=== PATIENT | male | born 1940 | race Caucasian/White ===

== ENCOUNTER 2016-09-23 10:16 | Outpatient (CLI) | payer MEDICARE ==
[2016-09-23 10:47] LABS: Anion Gap 16 mmol/L (10-20); BUN (Urea Nitrogen) 30 mg/dL (8.4-25.7); Calc. Creatinine Clearance 0 mL/min (70-130); Calcium 9.6 mg/dL (7.8-10.44); Carbon Dioxide 21 mmol/L (23-31); Chloride 103 mmol/L (98-107); Estimated GFR-MDRD 49; Glucose 142 mg/dL (83-110); Sodium 135 mmol/L (136-145)
== END 2016-09-23 10:17 | disposition home or self-care (01) ==
LOC: MADLABBHPM 10:16
PROVIDERS: ATTEND Family Medicine
DX: E11.9 Type 2 diabetes mellitus without complications (principal)
CPT/HCPCS: 36415; 80048

== ENCOUNTER 2016-10-01 11:09 | Outpatient (CLI) | payer MEDICARE ==
[2016-10-01 11:47] LABS: Bilirubin Negative (Negative); Blood, Urine Small (Negative); Clarity Hazy (Clear); Glucose, Urine (Dipstick) 500 mg/dL (Negative); Leukocyte Negative (Negative); Nitrite Negative (Negative); Protein, Urine (Dipstick) 100 mg/dL (Neg-Trace); Urobilinogen 0.2 mg/dL (0.2-1.0); pH, Urine 5.5 (5.0-9.0)
[2016-10-01 11:49] LABS: Bacteria/HPF None Seen HPF (None Seen); Squamous Epithelial 0-3 HPF (0-3)
== END 2016-10-01 11:10 | disposition home or self-care (01) ==
LOC: MADLAB 11:09
PROVIDERS: ATTEND Internal Medicine Endocrinology, Diabetes & Metabolism
DX: N39.0 Urinary tract infection, site not specified (principal)
CPT/HCPCS: 36415; 81003; 81015; 87086

== ENCOUNTER 2017-01-22 11:11 | Outpatient (CLI) | payer MEDICARE ==
[2017-01-22 12:58] LABS: Hemoglobin A1c 7.8 % (4.0-6.0)
[2017-01-22 12:59] LABS: ALT (SGPT) 33 U/L (8-55); AST (SGOT) 21 U/L (5-34); Albumin 3.8 g/dL (3.4-4.8); Alkaline Phosphatase 82 U/L (40-150); Anion Gap 15 mmol/L (10-20); BUN (Urea Nitrogen) 19 mg/dL (8.4-25.7); Bilirubin, Total 0.3 mg/dL (0.2-1.2); Calc. Creatinine Clearance 0 mL/min (70-130); Calcium 9.2 mg/dL (7.8-10.44); Carbon Dioxide 20 mmol/L (23-31); Chloride 106 mmol/L (98-107); Estimated GFR-MDRD 48; Globulin 3.4 g/dL (2.4-3.5); Glucose 129 mg/dL (83-110); Protein, Total 7.2 g/dL (5.8-8.1); Sodium 136 mmol/L (136-145)
[2017-01-22 13:22] LABS: Free T4 (Free Thyroxine) 1.02 ng/dL (0.70-1.48); PSA-Asymptomatic (SCREENING) 0.94 ng/mL (0-4.0); Thyroid Stimulating Hormone 1.7543 uIU/mL (0.35-4.94)
[2017-01-22 13:24] LABS: Eosinophils 4 % (0-10); Hemoglobin 12.3 g/dL (14.0-18.0); Lymphocytes 31 % (21-51); MDiff Complete? YES; Mean Corpuscular HGB CONC 34.2 g/dL (32.0-36.0); Mean Corpuscular Volume 90.8 fl (80.0-94.0); Mean Platelet Volume 6.9 fL (7.4-10.4); Monocytes 5 % (0-10); Neutrophil 60 % (42-75); PLT Morphology Comment Appears Adequate; Platelet Count 228 thou/uL (130-400); RBC Distribution Width 11.7 % (11.5-14.5); Red Blood Cell (RBC) Count 3.96 mill/uL (4.70-6.10); White Blood Cell (WBC) Count 6.2 thou/uL (4.8-10.8)
[2017-01-22 15:51] LABS: Bilirubin Negative (Negative); Blood, Urine Trace (Negative); Clarity Clear (Clear); Glucose, Urine (Dipstick) 500 mg/dL (Negative); Leukocyte Negative (Negative); Nitrite Negative (Negative); Protein, Urine (Dipstick) 100 mg/dL (Neg-Trace); Specific Gravity, Urine 1.025 (1.005-1.030); Urobilinogen 0.2 mg/dL (0.2-1.0)
[2017-01-22 15:52] LABS: Squamous Epithelial 0-3 HPF (0-3)
[2017-01-22 15:53] LABS: Bacteria/HPF Rare-Few HPF (None Seen)
[2017-01-23 17:28] LABS: Creatinine, Urine 134.38 mg/dL (63-166)
[2017-01-23 17:31] LABS: Microalbumin Urine 65.7 mg/dL (0.5-50.0); Microalbumin/Creat Ratio 488.9 mg/g (Less than 30)
== END 2017-01-22 11:12 | disposition home or self-care (01) ==
LOC: MADLAB 11:11
PROVIDERS: ATTEND Internal Medicine Endocrinology, Diabetes & Metabolism
DX: Z12.5 Encounter for screening for malignant neoplasm of prostate (principal); C67.9 Malignant neoplasm of bladder, unspecified; I10 Essential (primary) hypertension; E03.9 Hypothyroidism, unspecified; E78.5 Hyperlipidemia, unspecified; E11.65 Type 2 diabetes mellitus with hyperglycemia
CPT/HCPCS: 36415; 80053; 81001; 82043; 83036; 84439; 84443; 85025; G0103

== ENCOUNTER 2017-03-16 13:22 | Outpatient (CLI) | payer MEDICARE ==
[2017-03-16 14:25] LABS: Clarity Hazy (Clear); Leukocyte Negative (Negative); Nitrite Positive (Negative); Specific Gravity, Urine 1.015 (1.005-1.030)
[2017-03-16 14:26] LABS: Bacteria/HPF Rare-Few HPF (None Seen); Bilirubin Negative (Negative); Blood, Urine Negative (Negative); Glucose, Urine (Dipstick) 500 mg/dL (Negative); Protein, Urine (Dipstick) 100 mg/dL (Neg-Trace); RBC/HPF 0-3 HPF (0-3); Urobilinogen 0.2 mg/dL (0.2-1.0)
== END 2017-03-16 13:23 | disposition home or self-care (01) ==
LOC: MADLABBHPM 13:22
PROVIDERS: ATTEND Family Medicine
DX: R35.0 Frequency of micturition (principal)
CPT/HCPCS: 36415; 81001; 87086

== ENCOUNTER 2017-03-20 13:07 | Emergency (ER) | payer MEDICARE | END 2017-03-20 14:10 | disposition home or self-care (01) | LOC: MADERS 13:07 | DX: E11.65 Type 2 diabetes mellitus with hyperglycemia (principal); I10 Essential (primary) hypertension | CPT/HCPCS: 36416; 99284 ==

== ENCOUNTER 2017-04-01 11:46 | Outpatient (CLI) | payer MEDICARE ==
[2017-04-01 12:50] LABS: #Basophils 0.1 thou/uL (0.0-0.2); #Eosinphils 0.5 thou/uL (0.0-0.7); #Lymphocytes 1.4 thou/uL (1.20-3.40); #Monocytes 0.7 thou/uL (0.11-0.59); #Neutrophils 5.4 thou/uL (1.40-6.50); %Basophils 0.9 % (0.0-1.0); %Eosinophils 5.7 % (0.0-10.0); %Lymphocytes 17.8 % (21.0-51.0); %Monocytes 8.2 % (0.0-10.0); %Neutrophils 67.4 % (42.0-75.0); Hemoglobin 11.7 g/dL (14.0-18.0); Mean Corpuscular Hemoglobin 29.9 pg (27.0-31.0); Mean Corpuscular Volume 90.6 fl (80.0-94.0); Mean Platelet Volume 7.2 fL (7.4-10.4); Platelet Count 213 thou/uL (130-400); RBC Distribution Width 12.8 % (11.5-14.5); Red Blood Cell (RBC) Count 3.92 mill/uL (4.70-6.10); White Blood Cell (WBC) Count 8.1 thou/uL (4.8-10.8)
[2017-04-01 13:00] LABS: Hemoglobin A1c 8.8 % (4.0-6.0)
[2017-04-01 13:12] LABS: ALT (SGPT) 24 U/L (8-55); AST (SGOT) 19 U/L (5-34); Albumin 3.7 g/dL (3.4-4.8); Alkaline Phosphatase 89 U/L (40-150); Anion Gap 15 mmol/L (10-20); BUN (Urea Nitrogen) 26 mg/dL (8.4-25.7); Bilirubin, Total 0.3 mg/dL (0.2-1.2); Calc. Creatinine Clearance 0 mL/min (70-130); Calcium 9.3 mg/dL (7.8-10.44); Carbon Dioxide 20 mmol/L (23-31); Cardiac Risk 4.4 (Less than 4.5); Chloride 104 mmol/L (98-107); Cholesterol 209 mg/dl (< 200 Desired); Estimated GFR-MDRD 47; Globulin 3.2 g/dL (2.4-3.5); Glucose 188 mg/dL (83-110); HDL Cholesterol 48 mg/dL (>60 Neg Risk); Potassium 4.8 mmol/L (3.5-5.1); Protein, Total 6.9 g/dL (5.8-8.1); Sodium 134 mmol/L (136-145)
[2017-04-01 13:37] LABS: Triglycerides 151 mg/dL (Less than 150)
[2017-04-01 14:06] LABS: LDL Cholesterol, Calculated 131 mg/dL
== END 2017-04-01 11:47 | disposition home or self-care (01) ==
LOC: MADLABBHPM 11:46
PROVIDERS: ATTEND Family Medicine
DX: E11.9 Type 2 diabetes mellitus without complications (principal)
CPT/HCPCS: 36415; 80053; 80061; 83036; 85025

== ENCOUNTER 2018-01-19 16:43 | Emergency (ER) | payer MEDICARE ==
[~2018-01-19 16:43] MED LIST: Sodium Chloride 0.9% 1,000 ML BAG ONE
[2018-01-19 17:46] LABS: PTT 25.6 SEC (22.9-36.1); Prothrombin Time 13.4 SEC (12.0-14.7)
--- NOTE | 2018-01-19 17:49 | RAD ---
AP CHEST: 01/19/18 HISTORY: Syncope. COMPARISON: 02/14/17. Heart is mildly enlarged. Vascular and interstitial markings mildly prominent. No focal infiltrate or significant effusion. IMPRESSION: Cardiomegaly and mild vascular engorgement. Not significantly changed from prior exam. POS: [facility]
[2018-01-19 17:58] LABS: ALT (SGPT) 20 U/L (8-55); AST (SGOT) 13 U/L (5-34); Albumin 3.8 g/dL (3.4-4.8); Alkaline Phosphatase 85 U/L (40-150); Anion Gap 19 mmol/L (10-20); BUN (Urea Nitrogen) 31 mg/dL (8.4-25.7); Bilirubin, Total 0.5 mg/dL (0.2-1.2); CK (CPK) 30 U/L (30-200); Calc. Creatinine Clearance 0 mL/min (70-130); Calcium 9.6 mg/dL (7.8-10.44); Carbon Dioxide 19 mmol/L (23-31); Chloride 98 mmol/L (98-107); Estimated GFR-MDRD 30; Globulin 3.6 g/dL (2.4-3.5); Glucose 325 mg/dL (83-110); Potassium 5.6 mmol/L (3.5-5.1); Protein, Total 7.4 g/dL (5.8-8.1); Sodium 130 mmol/L (136-145)
[2018-01-19 18:01] LABS: CKMB 1.1 ng/mL (0-6.6); Troponin I Less than 0.010 ng/mL (< 0.028)
[2018-01-19 18:02] LABS: Bilirubin Negative (Negative); Blood, Urine Trace (Negative); Clarity Clear (Clear); Glucose, Urine (Dipstick) 250 mg/dL (Negative); Leukocyte Small (Negative); Nitrite Negative (Negative); Protein, Urine (Dipstick) > or equal to 300 mg/dL (Neg-Trace); Urobilinogen 0.2 mg/dL (0.2-1.0)
[2018-01-19 18:03] LABS: Bacteria/HPF Rare-Few HPF (None Seen); RBC/HPF 0-3 HPF (0-3); WBC/HPF 21-50 HPF (0-3)
[2018-01-19 18:13] LABS: Band 2 % (5-11); Eosinophils 1 % (0-10); Hemoglobin 12.6 g/dL (14.0-18.0); Lymphocytes 4 % (21-51); MDiff Complete? YES; Mean Corpuscular HGB CONC 34.1 g/dL (32.0-36.0); Mean Corpuscular Hemoglobin 29.6 pg (27.0-31.0); Mean Corpuscular Volume 86.7 fl (80.0-94.0); Mean Platelet Volume 6.3 fL (7.4-10.4); Monocytes 1 % (0-10); Neutrophil 92 % (42-75); PLT Morphology Comment Appears Adequate; Platelet Count 255 thou/uL (130-400); RBC Distribution Width 11.6 % (11.5-14.5); Red Blood Cell (RBC) Count 4.26 mill/uL (4.70-6.10); White Blood Cell (WBC) Count 12.5 thou/uL (4.8-10.8)
[2018-01-19] MEDS ORDERED: Insulin Regular 300 UNITS/3 ML VIAL ONE (19:20)
[2018-01-19] MEDS ORDERED: Ciprofloxacin 500 MG TAB ONE (19:20)
--- NOTE | 2018-01-19 19:29 | CT ---
CT HEAD WITHOUT CONTRAST: 01/19/18 Multiple axial tomograms obtained through the head without IV enhancement. INDICATIONS: Syncope. History of cochlear implant. COMPARISON: Comparison made to head CT of 07/10/16. Mild cortical volume loss is stable. Ventricular size is upper normal and stable. No hemorrhage or ma ss. No evidence of acute infarct. No significant interval change. IMPRESSION: No acute finding. POS: [facility]
== END 2018-01-19 21:20 | disposition short-term general hospital (02) ==
LOC: MADERS 16:43
DX: A41.9 Sepsis, unspecified organism (principal); R55 Syncope and collapse; C67.9 Malignant neoplasm of bladder, unspecified; E11.22 Type 2 diabetes mellitus with diabetic chronic kidney disease; I12.9 Hypertensive chronic kidney disease with stage 1 through stage 4 chronic kidney disease, or unspecified chronic kidney disease; N18.2 Chronic kidney disease, stage 2 (mild); N39.0 Urinary tract infection, site not specified; E11.42 Type 2 diabetes mellitus with diabetic polyneuropathy; E03.9 Hypothyroidism, unspecified; F02.80 Dementia in other diseases classified elsewhere, unspecified severity, without behavioral disturbance, psychotic disturbance, mood disturbance, and anxiety; G30.9 Alzheimer's disease, unspecified; K21.9 Gastro-esophageal reflux disease without esophagitis; N40.0 Benign prostatic hyperplasia without lower urinary tract symptoms; Z79.4 Long term (current) use of insulin; Z79.899 Other long term (current) drug therapy; Z79.82 Long term (current) use of aspirin
CPT/HCPCS: 36416; 70450; 71045; 80053; 82553; 83605; 83880; 84484; 85025; 85610; 85730; 87086; 93005; 94760; 96361; 96374; J1815; J7050

== ENCOUNTER 2018-05-08 23:45 | Emergency (ER) | payer MEDICARE ==
[2018-05-09] MEDS ORDERED: Ketorolac Tromethamine 30 MG/ML VIAL ONE (00:16)
[2018-05-09 00:44] LABS: CKMB 1.3 ng/mL (0-6.6); Troponin I Less than 0.010 ng/mL (< 0.028)
[2018-05-09 01:09] LABS: Hemoglobin 12.6 g/dL (14.0-18.0); Mean Corpuscular HGB CONC 34.7 g/dL (32.0-36.0); Mean Corpuscular Hemoglobin 31.1 pg (27.0-31.0); Mean Corpuscular Volume 89.5 fL (78.0-98.0); Mean Platelet Volume 6.9 fL (7.4-10.4); Platelet Count 230 thou/uL (130-400); RBC Distribution Width 11.7 % (11.5-14.5); Red Blood Cell (RBC) Count 4.07 mill/uL (4.70-6.10); White Blood Cell (WBC) Count 12.8 thou/uL (4.8-10.8)
[2018-05-09 01:10] LABS: Band 4 % (5-11); Eosinophils 1 % (0-10); Lymphocytes 10 % (21-51); MDiff Complete? YES; Monocytes 5 % (0-10); Neutrophil 79 % (42-75); PLT Morphology Comment Appears Adequate; RBC Morphology Normal; Reactive Lymphocytes 1 % (0-10)
[2018-05-09 01:23] LABS: Anion Gap 15 mmol/L (10-20); BUN (Urea Nitrogen) 30 mg/dL (8.4-25.7); CK (CPK) 39 U/L (30-200); Calc. Creatinine Clearance 0 mL/min (70-130); Calcium 9.5 mg/dL (7.8-10.44); Carbon Dioxide 21 mmol/L (23-31); Chloride 101 mmol/L (98-107); Estimated GFR-MDRD 34; Glucose 355 mg/dL (83-110); Potassium 6.1 mmol/L (3.5-5.1); Sodium 131 mmol/L (136-145)
[2018-05-09] MEDS ORDERED: Insulin Regular 300 UNITS/3 ML VIAL ONE (01:39)
[2018-05-09] MEDS ORDERED: Calcium Chloride 1 GM/10 ML Abboject SYRINGE ONE (01:39)
[2018-05-09] MEDS ORDERED: Albuterol Sulfate 2.5 mg/3 ml Neb ONE (01:39)
--- NOTE | 2018-05-09 07:31 | RAD ---
RADIOGRAPH CHEST 1 VIEW: HISTORY: 77-year-old male with altered mental status. FINDINGS: There is no air space density, pulmonary edema, or pneumothorax. The lateral costophrenic angles are sharp. IMPRESSION: No acute pulmonary findings. cheryl [] POS: [facility]
--- NOTE | 2018-05-09 08:15 | CT ---
PRELIMINARY REPORT/[facility]/EMERGENCY AFTER HOURS PROCEDURE: EXAM: CT Head Without Intravenous Contrast EXAM DATE/TIME: Exam ordered 05/09/2018 12:25 AM CLINICAL HISTORY: 77 years old, male; Signs and symptoms; Syncope and collapse; Prior surgery; Surgery date: 6+ months; Surgery type: Cochlear implant; Patient HX: Pt has early onset alzheimers. TECHNIQUE: Axial computed tomography images of the head/brain without intravenous contrast. Coronal and sagittal reformatted images were created and reviewed. COMPARISON: No relevant prior studies available. FINDINGS: Brain: Volume loss and chronic small vessel ischemic change. No brain edema. No intracranial hemorrha ge. Ventricles: Unremarkable. No ventriculomegaly. Bones/joints: Unremarkable. No acute fracture. Soft tissues: Unremarkable. Sinuses: Small polyp versus mucus retention cyst in the left maxillary sinus. No fluid levels. Mastoid air cells: Unremarkable as visualized. No mastoid effusion. Other findings: Left-sided cochlear implant. IMPRESSION: No acute brain findings. Thank you for allowing us to participate in the care of your patient. Dictated and Authenticated by: Evert Carney MD 05/09/2018 1:05 AM Central Time ([place] & [place]) FINAL REPORT CT BRAIN WITHOUT CONTRAST: Date: 05/09/18 FINDINGS/IMPRESSION: I agree with the preliminary report given by Angela. No significant interval change is seen since exam of 01/19/18. POS: [facility]
== END 2018-05-09 02:45 | disposition short-term general hospital (02) ==
LOC: MADERS 23:45
DX: R55 Syncope and collapse (principal); E11.65 Type 2 diabetes mellitus with hyperglycemia; E87.5 Hyperkalemia; N19 Unspecified kidney failure; E11.42 Type 2 diabetes mellitus with diabetic polyneuropathy; E03.9 Hypothyroidism, unspecified; I10 Essential (primary) hypertension; K21.9 Gastro-esophageal reflux disease without esophagitis; N40.0 Benign prostatic hyperplasia without lower urinary tract symptoms; G30.9 Alzheimer's disease, unspecified; F02.80 Dementia in other diseases classified elsewhere, unspecified severity, without behavioral disturbance, psychotic disturbance, mood disturbance, and anxiety; Z85.3 Personal history of malignant neoplasm of breast; Z79.4 Long term (current) use of insulin; Z79.84 Long term (current) use of oral hypoglycemic drugs; Z79.899 Other long term (current) drug therapy; Z79.82 Long term (current) use of aspirin
CPT/HCPCS: 70450; 71045; 80048; 82553; 83880; 84484; 85025; 93005; 94760; 96361; 96374; 96375; J1815; J1885; J7050; J7611

== ENCOUNTER 2018-11-13 20:33 | Emergency (ER) | payer MEDICARE ==
--- NOTE | 2018-11-13 21:22 | RAD ---
FExam: Chest one view HISTORY:Hyperglycemia Comparison: 05/08/2018 FINDINGS: Lungs: Bilateral interstitial prominence and patchy left basilar density Cardiac silhouette:Enlarged, stable Pulmonary vessels: Mild central prominence Pleural Spaces: Hazy pleural-based densities of each lower lung zone are present Pneumothorax: None Osseous abnormalities: None of acuity. IMPRESSION: Findings suggest edema related to mild CHF. Small volume bilateral pleural fluid is not e xcluded.
[2018-11-13] MEDS ORDERED: Insulin Regular 300 UNITS/3 ML VIAL ONE (21:39)
[2018-11-13 21:41] LABS: #Basophils 0.1 thou/uL (0.0-0.2); #Eosinphils 0.3 thou/uL (0.0-0.7); #Lymphocytes 1.6 thou/uL (1.20-3.40); #Monocytes 0.5 thou/uL (0.11-0.59); #Neutrophils 4.2 thou/uL (1.40-6.50); %Basophils 1.1 % (0.0-1.0); %Eosinophils 4.4 % (0.0-10.0); %Lymphocytes 23.4 % (21.0-51.0); %Neutrophils 63.2 % (42.0-75.0); Hemoglobin 11.5 g/dL (14.0-18.0); Mean Corpuscular HGB CONC 33.7 g/dL (32.0-36.0); Mean Corpuscular Hemoglobin 28.8 pg (27.0-31.0); Mean Corpuscular Volume 85.5 fL (78.0-98.0); Mean Platelet Volume 6.6 fL (7.4-10.4); Platelet Count 226 thou/uL (130-400); RBC Distribution Width 11.5 % (11.5-14.5); Red Blood Cell (RBC) Count 3.99 mill/uL (4.70-6.10); White Blood Cell (WBC) Count 6.7 thou/uL (4.8-10.8)
[2018-11-13 21:42] LABS: Base Excess-Venous -6.4 mmol/L (-2.0 to 3.0); Bicarbonate (HCO3v) 18.8 mmol/L (22.0-28.0); CO2 Tension (PvCO2) 35.8 mmHg (40.0-50.0); Calcium, Ionized 1.12 mmol/L (See Comments:); Chloride 97 mmol/L (98-107); Hemoglobin - Calc 13.2 g/dL (14.0-18.0); O2 Tension (PvO2) 66.2 mmHg (35.0-45.0); Potassium 4.2 mmol/L (3.5-5.1); Sodium 126 mmol/L (138-145); T. Carbon Dioxide 19.9 mmol/L (22.0-28.0); pH (Venous) 7.329 (7.320-7.430); vO2 Saturation-calc 91.5 % (60.0-85.0)
[2018-11-13 21:54] LABS: ALT (SGPT) 14 U/L (8-55); AST (SGOT) 14 U/L (5-34); Albumin 3.9 g/dL (3.4-4.8); Alkaline Phosphatase 119 U/L (40-150); Anion Gap 14 mmol/L (10-20); BUN (Urea Nitrogen) 28 mg/dL (8.4-25.7); Bilirubin, Total 0.2 mg/dL (0.2-1.2); Calc. Creatinine Clearance 0 mL/min (70-130); Calcium 8.7 mg/dL (7.8-10.44); Carbon Dioxide 19 mmol/L (23-31); Chloride 95 mmol/L (98-107); Estimated GFR-MDRD 35; Globulin 3.7 g/dL (2.4-3.5); Glucose 386 mg/dL (83-110); Lipase 85 U/L (8-78); Potassium 4.2 mmol/L (3.5-5.1); Protein, Total 7.6 g/dL (5.8-8.1); Sodium 124 mmol/L (136-145)
[2018-11-13 22:27] LABS: Bilirubin Negative (Negative); Blood, Urine Trace (Negative); Clarity Clear (Clear); Glucose, Urine (Dipstick) 500 mg/dL (Negative); Leukocyte Negative (Negative); Nitrite Negative (Negative); Protein, Urine (Dipstick) 100 mg/dL (Neg-Trace); Specific Gravity, Urine 1.015 (1.005-1.030); Urobilinogen 0.2 mg/dL (0.2-1.0)
[2018-11-13 22:35] LABS: Bacteria/HPF None Seen HPF (None Seen); Hyaline Casts/LPF NONE SEEN LPF (0-3 Hyaline); RBC/HPF 0-3 HPF (0-3); Squamous Epithelial 0-3 HPF (0-3); Transitional Epithelial 0-3 HPF (0-3)
== END 2018-11-13 22:53 | disposition home or self-care (01) ==
LOC: MADERS 20:33
DX: E11.65 Type 2 diabetes mellitus with hyperglycemia (principal); G30.9 Alzheimer's disease, unspecified; F02.80 Dementia in other diseases classified elsewhere, unspecified severity, without behavioral disturbance, psychotic disturbance, mood disturbance, and anxiety; E03.9 Hypothyroidism, unspecified; K21.9 Gastro-esophageal reflux disease without esophagitis; N40.0 Benign prostatic hyperplasia without lower urinary tract symptoms; I10 Essential (primary) hypertension; Z87.891 Personal history of nicotine dependence; Z79.899 Other long term (current) drug therapy; Z79.4 Long term (current) use of insulin
CPT/HCPCS: 36416; 71045; 80053; 81003; 81015; 82010; 82330; 82803; 83605; 83690; 85025; 93005; 96361; 96374; J1815; J7050

== ENCOUNTER 2019-06-07 11:40 | Outpatient (CLI) | payer MEDICARE ==
[2019-06-07 12:46] LABS: Bilirubin Negative (Negative); Blood, Urine Negative (Negative); Clarity Clear (Clear); Glucose, Urine (Dipstick) 100 mg/dL (Negative); Leukocyte Negative (Negative); Nitrite Negative (Negative); Protein, Urine (Dipstick) 100 mg/dL (Neg-Trace); Urobilinogen 0.2 mg/dL (Less than 2)
[2019-06-07 12:52] LABS: RBC/HPF None Seen HPF (0-3); Squamous Epithelial 0-3 HPF (0-3); WBC/HPF 0-3 HPF (0-3)
[2019-06-07 12:53] LABS: Bacteria/HPF None Seen HPF (None Seen); Other Microscopic Description C&S SET UP
[2019-06-07 13:08] LABS: Anion Gap 16 mmol/L (10-20); BUN (Urea Nitrogen) 21 mg/dL (8.4-25.7); Calc. Creatinine Clearance 0 mL/min (70-130); Carbon Dioxide 24 mmol/L (23-31); Chloride 101 mmol/L (98-107); Estimated GFR-MDRD 37; Glucose 126 mg/dL (83-110); Potassium 5.8 mmol/L (3.5-5.1); Sodium 135 mmol/L (136-145)
--- NOTE | 2019-06-07 13:22 | CT ---
CT abdomen and pelvis noncontrast HISTORY: Bladder malignancy. Renal cyst. COMPARISON: 07/27/2018 and a 28/01/2016. FINDINGS: No stones are apparent along the course of either urinary tract. The proximal left ureter i s dilated up to 2.8 cm over a length of 6.6 cm. This is more prominent than the 2018 study. Similar in size to the 04/04/2016 study. No gas is evident within the collecting system. Lack of contrast limits evaluation of the soft tissues. Mild atelectasis at the lung bases. Left adre nal adenoma is stable. Large cyst projecting posteriorly from the right kidney measures up to 5.8 cm. Fusiform ectasia of the lower abdominal aorta and calcification throughout the arterial structure s are again demonstrated. Fluid fills the urinary bladder without focal mass evident. There are prominent degenerative changes of the lumbar spine. IMPRESSION: Distention of the proximal right ureter is similar in size to the 2016 study. Cause not e vident. No new urinary tract abnormalities are apparent. Right renal cyst, left adrenal adenoma, and other chronic-type findings are stable. Atherosclerosis.
== END 2019-06-07 11:41 | disposition home or self-care (01) ==
LOC: MADLABBHPM 11:40
PROVIDERS: ATTEND Urology
DX: C67.9 Malignant neoplasm of bladder, unspecified (principal); N28.1 Cyst of kidney, acquired; N40.1 Benign prostatic hyperplasia with lower urinary tract symptoms; D35.02 Benign neoplasm of left adrenal gland; I70.90 Unspecified atherosclerosis; N28.89 Other specified disorders of kidney and ureter
CPT/HCPCS: 36415; 74176; 80048; 81001; 87086; 88121

== ENCOUNTER 2019-09-02 15:35 | Outpatient (CLI) | payer MEDICARE ==
[2019-09-02 16:02] LABS: PTT 24.5 SEC (22.9-36.1)
[2019-09-02 16:10] LABS: Anion Gap 15 mmol/L (10-20); BUN (Urea Nitrogen) 27 mg/dL (8.4-25.7); Calc. Creatinine Clearance 0 mL/min (70-130); Calcium 9.2 mg/dL (7.8-10.44); Carbon Dioxide 22 mmol/L (23-31); Chloride 103 mmol/L (98-107); Estimated GFR-MDRD 38; Glucose 183 mg/dL (83-110); Potassium 5.3 mmol/L (3.5-5.1); Sodium 135 mmol/L (136-145)
[2019-09-02 16:19] LABS: #Basophils 0.1 thou/uL (0.0-0.2); #Eosinphils 0.5 thou/uL (0.0-0.7); #Lymphocytes 1.7 thou/uL (1.20-3.40); #Monocytes 0.5 thou/uL (0.11-0.59); #Neutrophils 4.6 thou/uL (1.40-6.50); %Lymphocytes 23.7 % (21.0-51.0); %Monocytes 6.2 % (0.0-10.0); %Neutrophils 62.1 % (42.0-75.0); Hemoglobin 13.8 g/dL (14.0-18.0); Mean Corpuscular Hemoglobin 28.9 pg (27.0-31.0); Mean Corpuscular Volume 93.4 fL (78.0-98.0); Mean Platelet Volume 7.8 fL (7.4-10.4); Platelet Count 213 thou/uL (130-400); RBC Distribution Width 12.3 % (11.5-14.5); Red Blood Cell (RBC) Count 4.76 mill/uL (4.70-6.10); White Blood Cell (WBC) Count 7.3 thou/uL (4.8-10.8)
== END 2019-09-02 15:36 | disposition home or self-care (01) ==
LOC: MADLAB 15:35
PROVIDERS: ATTEND Urology
DX: Z01.812 Encounter for preprocedural laboratory examination (principal); C67.9 Malignant neoplasm of bladder, unspecified; N40.1 Benign prostatic hyperplasia with lower urinary tract symptoms; N28.1 Cyst of kidney, acquired; D35.02 Benign neoplasm of left adrenal gland; R81 Glycosuria; N18.9 Chronic kidney disease, unspecified; R80.8 Other proteinuria
CPT/HCPCS: 36415; 80048; 85025; 85610; 85730

== ENCOUNTER 2019-09-23 13:44 | Outpatient (CLI) | payer MEDICARE ==
[2019-09-23 13:59] LABS: Bilirubin Negative (Negative); Blood, Urine Small (Negative); Clarity Clear (Clear); Glucose, Urine (Dipstick) 100 mg/dL (Negative); Leukocyte Negative (Negative); Nitrite Negative (Negative); Protein, Urine (Dipstick) 100 mg/dL (Neg-Trace); Urobilinogen 0.2 mg/dL (Less than 2)
[2019-09-23 14:05] LABS: Bacteria/HPF Rare-Few HPF (None Seen); Squamous Epithelial 0-3 HPF (0-3)
== END 2019-09-23 13:45 | disposition home or self-care (01) ==
LOC: MADLABBHPM 13:44
PROVIDERS: ATTEND Urology
DX: C67.9 Malignant neoplasm of bladder, unspecified (principal); R33.9 Retention of urine, unspecified
CPT/HCPCS: 81001; 87086

== ENCOUNTER 2019-10-06 13:06 | Emergency (ER) | payer MEDICARE ==
--- NOTE | 2019-10-06 13:54 | RAD ---
EXAM: XR Ribs Lt>=2 View W/PA CXR PROVIDED CLINICAL HISTORY: Pain status post injury COMPARISON: 06/24/2019 FINDINGS: Cardiac and mediastinal silhouette is unchanged in appearance. No focal consolidation, pleural fluid or pneumothorax apparent. No evidence for a displaced left-sided rib fracture. IMPRESSION: No evidence for an acute process.
== END 2019-10-06 14:18 | disposition home or self-care (01) ==
LOC: MADERS 13:06
DX: S20.212A Contusion of left front wall of thorax, initial encounter (principal); E03.9 Hypothyroidism, unspecified; K21.9 Gastro-esophageal reflux disease without esophagitis; N40.0 Benign prostatic hyperplasia without lower urinary tract symptoms; I10 Essential (primary) hypertension; E11.42 Type 2 diabetes mellitus with diabetic polyneuropathy; G30.9 Alzheimer's disease, unspecified; F02.80 Dementia in other diseases classified elsewhere, unspecified severity, without behavioral disturbance, psychotic disturbance, mood disturbance, and anxiety; Z79.899 Other long term (current) drug therapy; Z79.82 Long term (current) use of aspirin; Z79.84 Long term (current) use of oral hypoglycemic drugs; W18.30XA Fall on same level, unspecified, initial encounter

== ENCOUNTER 2020-01-05 13:41 | Inpatient (IN) | payer MEDICARE ==
[2020-01-05] MEDS ORDERED: Ondansetron ODT 4 MG TAB PO PRN (17:52)
[2020-01-05 19:07] LABS: Glucose 181 mg/dL (83-110)
[2020-01-05] MEDS: Sodium Chloride 1 GM TAB PO SCH (20:08)
[2020-01-05] MEDS: Loratadine 10 MG TAB PO SCH (20:09)
[2020-01-05] MEDS: Melatonin 3 MG TAB PO SCH (20:09)
[2020-01-05] MEDS: Ubidecarenone 50 MG CAP PO SCH (20:09)
[2020-01-05] MEDS: Ezetimibe 10 MG TAB PO SCH (20:10)
[2020-01-05] MEDS: Senokot S 8.6-50 MG TAB PO SCH (20:10)
[2020-01-05] MEDS: Ferrous Sulfate 325 MG TAB PO SCH (20:10)
[2020-01-05] MEDS: Gabapentin 100 MG CAP PO SCH (20:10)
[2020-01-05] MEDS: traMADol HCl 50 MG TAB PO PRN (20:46)
--- NOTE | 2020-01-06 05:46 | HP ---
CHIEF COMPLAINT: Weakness following hospitalization for hip fracture and repair. HISTORY OF PRESENT ILLNESS: The patient is an 79-year-old white male, who has a history of Alzheimer's disease, generalized weakness, gait abnormality, hypertension, diabetes, coronary artery disease, BPH with history of retention, who lives at home. Ordinarily, he is able to ambulate with the use of a walker. He sleeps much of the day and has frequent falls. On 12/25/2019, he fell at home, could not get up and had severe pain in his left hip. He was taken to the emergency room and evaluated. There, he was found to have a left femoral neck fracture. He also underwent CT of the brain without contrast that showed no intracranial abnormalities. CT of the C-spine showed degenerative change with no acute abnormalities or fracture. AP of the chest showed no evidence of cardiopulmonary disease. He was hospitalized at [facility] and on 12/26/2019, underwent a left hip hemiarthroplasty by Dr. Kim, orthopedic surgeon. His postop course has been complicated by metabolic encephalopathy. He had trouble with urinary retention and required placement of a Cole catheter that he removed that created bleeding. He required placement of a 3-way catheter and irrigation with eventual resolution of the bleeding. The catheter was left in place for about a week and then the patient was given a voiding trial. He was able to urinate some, but still had significant residual. His urologist is Dr. Canales who felt his urinary retention is multifactorial. She felt he had myogenic bladder dysfunction in addition to the history of BPH and the bladder cancers. She has recommended that he undergo a postvoid bladder scan every 6 hours and if residual greater than 400, to do an I and O catheterization. Upon his arrival at the hospital, a scan was done showing greater than 400. I and O catheter was done and he had 510 residual. The patient's postop care was complicated by the metabolic encephalopathy that was felt to be due to his recent surgery, medication, and to hyponatremia. For a while, he required a sitter to assist him and to prevent him from removing his Cole catheter. Catheter has been out now for couple of days. The patient's condition had improved such that it is felt he could be moved to [facility] for continued physical therapy and occupational therapy. The patient said he has not really been up much. The patient was seen soon after his arrival. He underwent a bladder scan and in and out catheterization for bladder residual of over 400 and 500 mL were obtained. The patient said he is feeling a lot better. He was glad to be back in [place] and closer to his home. The patient said he has been feeling pretty good. He really said he had not been up much in a chair or doing any walking. He has been allowed weightbearing as tolerated. PAST MEDICAL HISTORY: Hospitalized at [facility] from 12/24 until 01/05/2020 for fall resulting in a femoral neck fracture of the left hip, for which he underwent a left hip hemiarthroplasty on 12/26/[address] Kim. Postop complicated by traumatic removal of Cole catheter with bleeding, urinary retention, now managed with in and out catheterization and got metabolic encephalopathy that was from his recent surgery, medications, and hyponatremia that is improved. The patient has a history of diabetes type 2 that is insulin requiring. He is under the care of tabulating clerk, Dr. Whiting. 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 For his BPH, he has undergone a laser prostatectomy and recent UroLift. He has had problems with elevated postvoid residuals, particularly during this hospitalization and required Cole catheter during his hospitalization, later switched to just intermittent catheterizations. The patient has hypothyroidism, hypertension, colonoscopy that showed diverticular disease. PRESENT MEDICATIONS: Ferrous sulfate 325 mg b.i.d., tamsulosin 0.4 mg daily, Namenda 10 mg b.i.d., Tradjenta 5 mg daily, Vascepa 2 g b.i.d., Tresiba FlexTouch U-100 at 40 units daily, DuoNebs every 4 hours p.r.n., Zyrtec 10 mg at bedtime p.r.n. allergies, amlodipine 5 mg daily, citalopram 40 mg daily, CoQ10 at 400 mg at bedtime, Zetia 10 mg at bedtime, ramipril 10 mg daily, Anoro Ellipta 2 puffs daily, Astelin nasal spray 2 sprays in each naris daily, levothyroxine 100 mcg daily, aspirin 81 mg daily, Prilosec 20 mg daily, vitamin D3 at 2000 units daily, tramadol 50 mg twice a day p.r.n. pain, Senokot-S 2 b.i.d., MiraLAX 17 g in 8 ounces water daily, Zofran 4 mg q.6 hours p.r.n. nausea, melatonin 6 mg at bedtime, gabapentin 100 mg b.i.d., finasteride 5 mg daily, Tylenol 500 mg two every 6 hours as needed for pain. ALLERGIES: VICTOZA CAUSES ANOREXIA; LISINOPRIL, HYPERKALEMIA. REVIEW OF SYSTEMS: GENERAL: The patient said he is feeling better. Does not think he has had any fever. Does not know if his weight has changed any. HEAD AND NECK: No complaints. PULMONARY: No shortness of breath. CARDIOVASCULAR: No chest pain. GASTROINTESTINAL: No nausea, vomiting. Patient bowels are working good. GENITOURINARY: The patient said he is requiring intermittent catheterizations to assist him with urination. NEUROPSYCHIATRIC: The patient has trouble with recent memory and a little confusion. He tends to sleep for prolonged periods at home. ADLs: Prior to his admission, the patient was ambulatory with a walker and could dress himself, required some standby assistance with bathing, was able to feed himself and is a fall risk. HABITS: Alcohol, patient would have several scotch and martinez every night. Has not had any since his hospitalization on 12/25/2019. Tobacco, none. CODE STATUS: Full code. PHYSICAL EXAMINATION: GENERAL: Shows a very pleasant 79-year-old obese white male, who is sitting up in bed, eating his supper. He is alert, recognized me and knew he was back in [place] and knew that he had a recent fall and fracture of his hip and repair. VITAL SIGNS: Shows a temperature 97.4, pulse 76, respirations 16, O2 saturation 95% on room air, blood pressure 125/74. His weight is 222. HEENT: Head, normocephalic. Eyes, pupils equal, round, and reactive. Ears, TMs clear. Nose, normal. Mouth and throat, normal. NECK: Carotids are equal and strong. No bruits. Thyroid not enlarged. LUNGS: Clear. HEART: Regular rate. No murmurs. ABDOMEN: Obese. There is no organomegaly. No areas of tenderness. EXTREMITIES: The patient has an incision along the lateral aspect of the left hip that is healing. There is no drainage or redness around the incision. The lower extremities have no edema. NEUROLOGIC: The patient is alert, knows he is in [place]. Knows that he recently fell and had a hip fracture and surgical repair. Recognized me and correctly knew my name. The patient has increased weakness in that left leg secondary to the hip fracture and repair. Otherwise, there is no focal weakness. IMPRESSION: 1. Generalized weakness and deconditioning. a. Secondary to a fall and fracture of the left hip on 12/25/2019. b. History of gait abnormality and proximal muscle weakness and frequent falls. 2. Left femoral neck fracture, nondisplaced. a. Secondary to a fall on 12/24. b. Status post left hip hemiarthroplasty by Dr. Darryn Kim, orthopedic surgeon, on 12/25. 3. Diabetes mellitus type 2. a. Insulin requiring. b. Under the care of tabulating clerk, Dr. Whiting. 4. Coronary artery disease. a. Triple-vessel disease, medically managed. b. Presently asymptomatic. 5. Hypertension. 6. Alzheimer's disease. 7. Chronic kidney disease. 8. Chronic obstructive pulmonary disease. 9. Obstructive sleep apnea, for which he is on a CPAP. 10. History of transitional cell bladder cancer. a. Status post multiple transurethral resections of bladder tumors. Recent cystoscopy demonstrated no visible recurrence. 11. History of recurrent urinary retention. a. Status post laser prostatectomy and recent UroLift with recurrence of elevated postvoid residual secondary to chronic myogenic bladder dysfunction. b. Requiring intermittent catheterizations for postvoid residuals greater than 400. 12. Depression, controlled. 13. Gastroesophageal reflux disease. 14. Constipation, controlled. PLAN: The patient has been admitted to [facility] for his severe weakness and deconditioning following the fracture and repair of the left hip. Prior to this fall and fracture, he was having marked weakness, particularly in the proximal muscles and frequent falls. PT and OT will evaluate and treat him. Per instructions of his urologist, we will do postvoid bladder scan every 6 hours and if the residual is greater than 400, we will need to do an in and out catheterization. Continue his routine medicines. CODE STATUS: Full code. See orders. Job ID: [id number] [facility]
[2020-01-06] MEDS: Levothyroxine Sodium 100 MCG TAB PO SCH (05:56)
[2020-01-06 06:14] LABS: %Lymphocytes 17.6 % (21.0-51.0); %Monocytes 6.6 % (0.0-10.0); %Neutrophils 66.9 % (42.0-75.0); Mean Corpuscular HGB CONC 32.3 g/dL (32.0-36.0); Mean Corpuscular Hemoglobin 30.2 pg (27.0-31.0); Mean Corpuscular Volume 93.7 fL (78.0-98.0); Mean Platelet Volume 6.4 fL (7.4-10.4); Platelet Count 397 thou/uL (130-400); RBC Distribution Width 11.9 % (11.5-14.5); Red Blood Cell (RBC) Count 3.29 mill/uL (4.70-6.10); White Blood Cell (WBC) Count 8.2 thou/uL (4.8-10.8)
[2020-01-06 06:15] LABS: #Neutrophils 5.5 thou/uL (1.40-6.50); %Basophils 0.6 % (0.0-1.0); %Eosinophils 8.3 % (0.0-10.0)
[2020-01-06 06:16] LABS: #Eosinphils 0.7 thou/uL (0.0-0.7); #Lymphocytes 1.4 thou/uL (1.20-3.40); #Monocytes 0.5 thou/uL (0.11-0.59)
[2020-01-06 06:37] LABS: BUN (Urea Nitrogen) 24 mg/dL (8.4-25.7); Calc. Creatinine Clearance 51 mL/min (70-130); Carbon Dioxide 22 mmol/L (23-31); Chloride 101 mmol/L (98-107); Estimated GFR-MDRD 41; Glucose 121 mg/dL (83-110); Potassium 4.9 mmol/L (3.5-5.1); Sodium 133 mmol/L (136-145)
[2020-01-06 06:38] LABS: ALT (SGPT) 24 U/L (8-55); AST (SGOT) 25 U/L (5-34); Albumin 3.1 g/dL (3.4-4.8); Alkaline Phosphatase 105 U/L (40-110); Bilirubin, Total 0.3 mg/dL (0.2-1.2); Cholesterol 136 mg/dL (< 200 Desired); Globulin 3.4 g/dL (2.4-3.5); HDL Cholesterol 32 mg/dL (>60 Neg Risk); Protein, Total 6.5 g/dL (5.8-8.1); Triglycerides 177 mg/dL (Less than 150)
[2020-01-06 06:44] LABS: Anion Gap 15 mmol/L (10-20); LDL Cholesterol, Calculated 69 mg/dL
[2020-01-06 06:45] LABS: Cardiac Risk 4.3 (Less than 4.5)
[2020-01-06] MEDS ORDERED: Prevnar 13-Val Conj/PF 0.5 ML SYRINGE IM ONE (09:00)
[2020-01-06] MEDS: Cholecalciferol 1,000 UNITS (25 MCG) TAB PO SCH (09:36)
[2020-01-06] MEDS: Alogliptin 25 MG TAB PO SCH (09:36)
[2020-01-06] MEDS: Finasteride 5 MG TAB PO SCH (09:36)
[2020-01-06] MEDS: Senokot S 8.6-50 MG TAB PO SCH ×2 (09:36→20:37)
[2020-01-06] MEDS: Sodium Chloride 1 GM TAB PO SCH ×2 (09:36→20:37)
[2020-01-06] MEDS: Gabapentin 100 MG CAP PO SCH ×2 (09:37→20:37)
[2020-01-06] MEDS: Amlodipine 5 MG TAB PO SCH (09:37)
[2020-01-06] MEDS: Tamsulosin HCl 0.4 MG CAP PO SCH (09:37)
[2020-01-06] MEDS: Aspirin Chewable 81 MG TAB PO SCH (09:37)
[2020-01-06] MEDS: Ferrous Sulfate 325 MG TAB PO SCH ×2 (09:37→20:37)
[2020-01-06] MEDS: Citalopram 20 MG TAB PO SCH (09:37)
[2020-01-06] MEDS: Polyethylene Glycol 3350 17 GM Packet PO SCH (09:38)
[2020-01-06] MEDS: Lantus 1000 UNITS/10 ML VIAL SC SCH (09:38)
[2020-01-06] MEDS: AZELASTINE EA NARE SCH (09:39)
[2020-01-06] MEDS: (Icosapent Ethyl [Vascepa] 2 GM) PO SCH ×2 (09:39→16:27)
[2020-01-06] MEDS: traMADol HCl 50 MG TAB PO PRN (10:50)
[2020-01-06 11:59] LABS: Hemoglobin A1c 8.6 % (4.0-6.0)
[2020-01-06] MEDS: Ubidecarenone 50 MG CAP PO SCH (20:36)
[2020-01-06] MEDS: Ezetimibe 10 MG TAB PO SCH (20:37)
[2020-01-06] MEDS: Melatonin 3 MG TAB PO SCH (20:37)
[2020-01-06] MEDS: Loratadine 10 MG TAB PO SCH (20:37)
[2020-01-07] MEDS: Acetaminophen 500 MG TAB PO PRN ×2 (05:13→20:21)
[2020-01-07] MEDS: Levothyroxine Sodium 100 MCG TAB PO SCH (05:13)
--- NOTE | 2020-01-07 08:27 | PRG ---
DATE OF SERVICE: 01/06/2020 SUBJECTIVE: The patient said he is feeling good this morning. He has had a good breakfast. He says he does need to have a bowel movement. Nurses reported this morning that his post void residual was high, and in and out catheterization was done, and he had 1000 mL of urine. OBJECTIVE: GENERAL: The patient is sitting up at the bedside in a wheelchair. He is alert, talkative, and looks very comfortable, in no distress. VITAL SIGNS: His temperature is 97.7; pulse 66; respirations 18; O2 saturations 97% on room air; blood pressure was 170/87, last evening 159/78. LUNGS: Clear. HEART: Regular rate. EXTREMITIES: No edema. LABORATORY DATA: His lab shows hemoglobin and hematocrit of 10 and 30.8 with a white blood cell count of 8200 with 67% segs, 18% lymphocytes, and a platelet count of 397,000. Sodium 133, potassium 4.9, BUN 24, creatinine 1.62, FBS 121. TSH 6.5. Cholesterol 136, triglycerides 177, HDL 32, LDL 69. Hemoglobin A1c pending. ASSESSMENT: 1. Generalized weakness and deconditioning. a. Secondary to a fall and fracture of the left hip on 12/25/2019. b. History of gait abnormality and proximal muscle weakness and frequent falls. 2. Left femoral neck fracture, nondisplaced. a. Secondary to a fall on 12/24. b. Status post left hip hemiarthroplasty by Darryn Kim, orthopedic surgeon, on 12/25. 3. Diabetes mellitus type 2. a. Insulin requiring. b. Stable. Under care of parts salesperson, Dr. Whiting. 4. Coronary artery disease. a. Triple-vessel disease, medically managed. b. Presently asymptomatic. 5. Hypertension. 6. Alzheimer disease. 7. Chronic kidney disease. a. GFR 41 as of 01/06/2020. 8. Chronic obstructive pulmonary disease. 9. Obstructive sleep apnea, for which he is on CPAP. 10. History of transitional cell bladder cancer. 11. Status post multiple transurethral resections of bladder tumors. Recent cystoscopy demonstrated no visible recurrence. 12. History of recurrent urinary retention. a. Status post laser prostatectomy and recent UroLift with recurrence of elevated postvoid residual secondary to chronic myogenic bladder dysfunction. b. Requires intermittent catheterization for postvoid residuals greater than 400. c. Last in and out catheterization on morning of 01/06/2020 with 1000 mL. 13. Depression, controlled. 14. Gastroesophageal reflux disease. 15. Constipation, controlled. PLAN: Continue present care. Continue present medications. Continue PT and OT. Job ID: [id number] MTDD
[2020-01-07] MEDS: Amlodipine 5 MG TAB PO SCH (08:54)
[2020-01-07] MEDS: Sodium Chloride 1 GM TAB PO SCH ×2 (08:54→20:21)
[2020-01-07] MEDS: Senokot S 8.6-50 MG TAB PO SCH ×2 (08:54→20:23)
[2020-01-07] MEDS: Polyethylene Glycol 3350 17 GM Packet PO SCH (08:54)
[2020-01-07] MEDS: Finasteride 5 MG TAB PO SCH (08:54)
[2020-01-07] MEDS: Cholecalciferol 1,000 UNITS (25 MCG) TAB PO SCH (08:55)
[2020-01-07] MEDS: Citalopram 20 MG TAB PO SCH (08:55)
[2020-01-07] MEDS: Alogliptin 25 MG TAB PO SCH (08:55)
[2020-01-07] MEDS: Ferrous Sulfate 325 MG TAB PO SCH ×2 (08:55→20:21)
[2020-01-07] MEDS: Gabapentin 100 MG CAP PO SCH ×2 (08:56→20:21)
[2020-01-07] MEDS: Aspirin Chewable 81 MG TAB PO SCH (08:56)
[2020-01-07] MEDS: Tamsulosin HCl 0.4 MG CAP PO SCH (08:56)
[2020-01-07] MEDS: (Icosapent Ethyl [Vascepa] 2 GM) PO SCH ×2 (08:57→17:14)
[2020-01-07] MEDS: AZELASTINE EA NARE SCH (08:57)
[2020-01-07] MEDS: Lantus 1000 UNITS/10 ML VIAL SC SCH (08:57)
[2020-01-07] MEDS: traMADol HCl 50 MG TAB PO PRN (11:06)
[2020-01-07] MEDS: Ezetimibe 10 MG TAB PO SCH (20:21)
[2020-01-07] MEDS: Loratadine 10 MG TAB PO SCH (20:22)
[2020-01-07] MEDS: Melatonin 3 MG TAB PO SCH (20:22)
[2020-01-07] MEDS: Ubidecarenone 50 MG CAP PO SCH (20:22)
[2020-01-08] MEDS: Levothyroxine Sodium 100 MCG TAB PO SCH (05:46)
--- NOTE | 2020-01-08 07:15 | PRG ---
DATE OF SERVICE: 01/07/2020 SUBJECTIVE: The patient said he is doing good today. Said he rested well last night. He did void some early this morning about 400 mL on his own. Since then , he has required catheterizations with residual ranging from 375 to a little over 400. OBJECTIVE: GENERAL: The patient is alert and smiling, appears comfortable, and in no distress. VITAL SIGNS: His temperature is 98.2, pulse 79, respirations 20, O2 saturation 95% on room air, blood pressure 152/96. LUNGS: Clear. HEART: Regular rate. EXTREMITIES: Lower extremities, no edema. The incision along the left hip is healing well. LABORATORY DATA: His FBS this morning was 119, before supper last night 198. ASSESSMENT: 1. Generalized weakness and deconditioning. a. Secondary to a fall and fracture of the left hip on 12/25/2019. b. History of gait abnormality and proximal muscle weakness with frequent falls. 2. Left femoral neck fracture, nondisplaced. a. Secondary to a fall on 12/24. b. Status post left hip hemiarthroplasty by Dr. Darryn Kim, orthopedic surgeon on 12/25. 3. Diabetes mellitus, type 2. a. Insulin requiring. b. Controlled. Under the care of biodiesel engineering manager, Dr. Whiting. 4. Coronary artery disease. a. Triple-vessel disease, medically managed. b. Presently asymptomatic. 5. Hypertension. 6. Alzheimer disease. 7. Chronic kidney disease. a. GFR 41 on 01/05. 8. Chronic obstructive pulmonary disease. 9. Obstructive sleep apnea, for which he is on CPAP. 10. History of transitional cell bladder cancer. a. Status post multiple transurethral resections of bladder tumors. Recent cystoscopy demonstrated no visible recurrence. 11. History of recurrent urinary retention. a. Status post laser prostatectomy and recent UroLift with recurrence of elevated postvoid residual secondary to chronic hygienic bladder dysfunction. b. Requires intermittent catheterizations. Presently, requires in-and-out catheterization for postvoid residuals greater than 400 mL. c. Having 375 to a little over 400 residuals with catheterization as of . 12. Depression, controlled. 13. Gastroesophageal reflux disease. 14. Constipation, controlled. PLAN: Continue present care. Continue PT and OT. Continue in-and-out catheterizations. Job ID: [id number] [facility]
[2020-01-08] MEDS: Polyethylene Glycol 3350 17 GM Packet PO SCH (09:10)
[2020-01-08] MEDS: Lantus 1000 UNITS/10 ML VIAL SC SCH (09:10)
[2020-01-08] MEDS: AZELASTINE EA NARE SCH (09:11)
[2020-01-08] MEDS: (Icosapent Ethyl [Vascepa] 2 GM) PO SCH ×2 (09:11→17:34)
[2020-01-08] MEDS: Finasteride 5 MG TAB PO SCH (09:12)
[2020-01-08] MEDS: Amlodipine 5 MG TAB PO SCH (09:12)
[2020-01-08] MEDS: Senokot S 8.6-50 MG TAB PO SCH ×2 (09:12→20:40)
[2020-01-08] MEDS: Cholecalciferol 1,000 UNITS (25 MCG) TAB PO SCH (09:13)
[2020-01-08] MEDS: Alogliptin 25 MG TAB PO SCH (09:13)
[2020-01-08] MEDS: Aspirin Chewable 81 MG TAB PO SCH (09:14)
[2020-01-08] MEDS: Citalopram 20 MG TAB PO SCH (09:14)
[2020-01-08] MEDS: Tamsulosin HCl 0.4 MG CAP PO SCH (09:14)
[2020-01-08] MEDS: Sodium Chloride 1 GM TAB PO SCH ×2 (09:14→20:39)
[2020-01-08] MEDS: Ferrous Sulfate 325 MG TAB PO SCH ×2 (09:14→20:39)
[2020-01-08] MEDS: Gabapentin 100 MG CAP PO SCH ×2 (09:14→20:39)
[2020-01-08] MEDS: traMADol HCl 50 MG TAB PO PRN (10:09)
[2020-01-08] MEDS: Acetaminophen 500 MG TAB PO PRN (19:43)
[2020-01-08] MEDS: Ezetimibe 10 MG TAB PO SCH (20:39)
[2020-01-08] MEDS: Loratadine 10 MG TAB PO SCH (20:39)
[2020-01-08] MEDS: Melatonin 3 MG TAB PO SCH (20:39)
[2020-01-08] MEDS: Ubidecarenone 50 MG CAP PO SCH (20:40)
[2020-01-09] MEDS: Levothyroxine Sodium 100 MCG TAB PO SCH (06:10)
[2020-01-09] MEDS: Polyethylene Glycol 3350 17 GM Packet PO SCH (08:50)
[2020-01-09] MEDS: Finasteride 5 MG TAB PO SCH (08:51)
[2020-01-09] MEDS: Amlodipine 5 MG TAB PO SCH (08:51)
[2020-01-09] MEDS: Senokot S 8.6-50 MG TAB PO SCH ×2 (08:52→20:35)
[2020-01-09] MEDS: Alogliptin 25 MG TAB PO SCH (08:52)
[2020-01-09] MEDS: Citalopram 20 MG TAB PO SCH (08:52)
[2020-01-09] MEDS: Ferrous Sulfate 325 MG TAB PO SCH ×2 (08:52→20:35)
[2020-01-09] MEDS: Sodium Chloride 1 GM TAB PO SCH ×2 (08:52→20:34)
[2020-01-09] MEDS: Tamsulosin HCl 0.4 MG CAP PO SCH (08:52)
[2020-01-09] MEDS: Lantus 1000 UNITS/10 ML VIAL SC SCH (08:53)
[2020-01-09] MEDS: Aspirin Chewable 81 MG TAB PO SCH (08:53)
[2020-01-09] MEDS: Cholecalciferol 1,000 UNITS (25 MCG) TAB PO SCH (08:53)
[2020-01-09] MEDS: AZELASTINE EA NARE SCH (08:53)
[2020-01-09] MEDS: (Icosapent Ethyl [Vascepa] 2 GM) PO SCH (08:53)
[2020-01-09] MEDS: Gabapentin 100 MG CAP PO SCH ×2 (08:53→20:35)
[2020-01-09] MEDS: Acetaminophen 500 MG TAB PO PRN (09:59)
[2020-01-09] MEDS: ICOSAPENT ETHYL 1 GM PO SCH (17:09)
[2020-01-09] MEDS: Ubidecarenone 50 MG CAP PO SCH (20:34)
[2020-01-09] MEDS: Melatonin 3 MG TAB PO SCH (20:35)
[2020-01-09] MEDS: Loratadine 10 MG TAB PO SCH (20:35)
[2020-01-09] MEDS: Ezetimibe 10 MG TAB PO SCH (20:35)
[2020-01-10] MEDS: Levothyroxine Sodium 100 MCG TAB PO SCH (05:20)
[2020-01-10] MEDS: ANORO ELLIPTA INH SCH (08:08)
[2020-01-10] MEDS: Cholecalciferol 1,000 UNITS (25 MCG) TAB PO SCH (08:08)
[2020-01-10] MEDS: Polyethylene Glycol 3350 17 GM Packet PO SCH ×2 (08:08→08:21)
[2020-01-10] MEDS: ICOSAPENT ETHYL 1 GM PO SCH ×2 (08:08→17:06)
[2020-01-10] MEDS: Sodium Chloride 1 GM TAB PO SCH ×2 (08:09→20:43)
[2020-01-10] MEDS: Tamsulosin HCl 0.4 MG CAP PO SCH (08:09)
[2020-01-10] MEDS: Ferrous Sulfate 325 MG TAB PO SCH ×2 (08:09→20:43)
[2020-01-10] MEDS: Aspirin Chewable 81 MG TAB PO SCH (08:09)
[2020-01-10] MEDS: Gabapentin 100 MG CAP PO SCH ×2 (08:09→20:43)
[2020-01-10] MEDS: Senokot S 8.6-50 MG TAB PO SCH ×2 (08:09→20:43)
[2020-01-10] MEDS: Finasteride 5 MG TAB PO SCH (08:09)
[2020-01-10] MEDS: Alogliptin 25 MG TAB PO SCH (08:09)
[2020-01-10] MEDS: Citalopram 20 MG TAB PO SCH (08:09)
[2020-01-10] MEDS: Lantus 1000 UNITS/10 ML VIAL SC SCH (08:10)
[2020-01-10] MEDS: Amlodipine 5 MG TAB PO SCH (08:10)
[2020-01-10] MEDS: traMADol HCl 50 MG TAB PO PRN (08:24)
[2020-01-10] MEDS ORDERED: AZELASTINE EA NARE SCH (09:00)
--- NOTE | 2020-01-10 10:50 | PRG ---
DATE OF SERVICE: 01/10/2020 SUBJECTIVE: The patient said he is feeling good today. He is voiding some, but still has significant postvoid residuals. Last evening, it was up to 700, and he refused I and O catheterization. This morning after voiding, he only had 200. They are still encouraging him to void and still checking the catheterizations. The patient is walking up to 50 feet with a rolling walker and with minimum to moderate assistance. He is requiring moderate assistance with transfers. OBJECTIVE: GENERAL: The patient is sitting up in a chair. He is alert. Appears comfortable and in no distress. VITAL SIGNS: Show a temperature of 98.2, pulse 80, respirations 18, O2 saturation 97% on room air, blood pressure 160/88. LUNGS: Clear. HEART: Regular rate. EXTREMITIES: No edema. LABORATORY DATA: His FBS this morning was 164. ASSESSMENT: 1. Generalized weakness and deconditioning. a. Secondary to fall and fracture of the left hip on 12/25/2019. b. History of gait abnormality and proximal muscle weakness with frequent falls. 2. Left femoral neck fracture undisplaced. a. Secondary to a fall on 12/24. b. Status post left hip hemiarthroplasty by Dr. Darryn Kim, orthopedic surgeon, on 12/25. c. Doing well as of 01/09. 3. Diabetes type 2. a. Insulin requiring. b. Controlled. 4. Coronary artery disease. a. Triple-vessel disease medically managed. b. Presently asymptomatic. 5. Hypertension. 6. Alzheimer disease. 7. Chronic kidney disease. a. GFR 41 on 01/05. 8. Chronic obstructive pulmonary disease. 9. Obstructive sleep apnea, for which he is on CPAP. 10. History of transitional cell bladder cancer. a. Status post multiple transurethral resections of bladder tumors. Recent cystoscopy demonstrated no visible recurrence. 11. History of recurrent urinary retention. a. Status post laser prostatectomy and recent UroLift with recurrence of elevated postresidual secondary to myogenic bladder dysfunction. b. Requires intermittent catheterization. 12. Depression, controlled. 13. Gastroesophageal reflux disease, controlled. 14. Constipation, controlled. PLAN: Continue PT and OT. Plan to continue the I and Os. We will try discontinuing the MiraLAX to help him maintain his fluid restrictions. Job ID: [id number] [facility]
[2020-01-10] MEDS: Ubidecarenone 50 MG CAP PO SCH (20:42)
[2020-01-10] MEDS: Melatonin 3 MG TAB PO SCH (20:43)
[2020-01-10] MEDS: Loratadine 10 MG TAB PO SCH (20:43)
[2020-01-10] MEDS: Ezetimibe 10 MG TAB PO SCH (20:43)
[2020-01-11] MEDS: Levothyroxine Sodium 100 MCG TAB PO SCH (04:59)
[2020-01-11] MEDS: Lantus 1000 UNITS/10 ML VIAL SC SCH (08:05)
[2020-01-11] MEDS: ANORO ELLIPTA INH SCH (08:05)
[2020-01-11] MEDS: Amlodipine 5 MG TAB PO SCH (08:06)
[2020-01-11] MEDS: Citalopram 20 MG TAB PO SCH (08:06)
[2020-01-11] MEDS: Sodium Chloride 1 GM TAB PO SCH ×2 (08:06→21:53)
[2020-01-11] MEDS: Alogliptin 25 MG TAB PO SCH (08:06)
[2020-01-11] MEDS: Senokot S 8.6-50 MG TAB PO SCH ×2 (08:06→20:59)
[2020-01-11] MEDS: Cholecalciferol 1,000 UNITS (25 MCG) TAB PO SCH (08:06)
[2020-01-11] MEDS: Finasteride 5 MG TAB PO SCH (08:07)
[2020-01-11] MEDS: Aspirin Chewable 81 MG TAB PO SCH (08:07)
[2020-01-11] MEDS: Gabapentin 100 MG CAP PO SCH ×2 (08:07→20:59)
[2020-01-11] MEDS: Ferrous Sulfate 325 MG TAB PO SCH ×2 (08:07→20:59)
[2020-01-11] MEDS: Tamsulosin HCl 0.4 MG CAP PO SCH (08:07)
[2020-01-11] MEDS: ICOSAPENT ETHYL 1 GM PO SCH ×2 (08:09→17:03)
[2020-01-11] MEDS: traMADol HCl 50 MG TAB PO PRN (08:24)
--- NOTE | 2020-01-11 10:28 | RAD ---
LEFT HIP 2 VIEWS: INDICATION: History of followup left hip fracture. COMPARISON: Prior exam dated 12/25/2019. FINDINGS: Since the comparison examination, there has been interval placement of a left hip endoprosthesis. Br achytherapy markers in the central pelvis are stable-appearing. Mild osteoarthrosis of the left acet abulum is stable-appearing. IMPRESSION: Postoperative left hip. POS: [facility]
--- NOTE | 2020-01-11 12:39 | PRG ---
DATE OF SERVICE: 01/11/2020 SUBJECTIVE: Yesterday, the patient tried to get up out of his wheelchair and fell. He sustained a skin tear on the dorsum of his right hand that has been dressed, but no other injuries. No loss of consciousness. He had no complaint. Did not complain of any pain in that right hip. The patient is requiring continued intermittent catheterizations. Yesterday afternoon on catheterization, he had a 750 residual. During the night, he had residual of 650 and one of 400. OBJECTIVE: GENERAL: The patient is sitting up in bed. He is alert, smiling, and appears comfortable, and in no distress. VITAL SIGNS: His temperature is 97.8, pulse 71, blood pressure 160/88, respirations 16, O2 saturation 96%. LUNGS: Clear. HEART: Regular rate. EXTREMITIES: The patient has a little skin tear on the dorsum of the right hand with an overlying clear dressing. His left hip incision is healing well. There is no swelling in the lower legs. LABORATORY DATA: His FBS this morning is pending. Yesterday morning, was 164, the day before was 161. ASSESSMENT: 1. Generalized weakness and deconditioning. a. Secondary to fall and fracture of the left hip on 12/25/2019. b. History of gait abnormality and proximal muscle weakness with frequent falls. 2. Left femoral neck fracture, undisplaced. a. Secondary to a fall on 12/24. b. Status post left hip hemiarthroplasty by Dr. Darryn Kim, orthopedic surgeon, on 12/25. c. Doing well as of 01/10. 3. Diabetes type 2. a. Insulin-requiring. b. Controlled. 4. Coronary artery disease. a. Triple-vessel disease, medically managed. b. Presently asymptomatic. 5. Hypertension. 6. Alzheimer disease. 7. Chronic kidney disease. a. GFR 41 on 01/05. 8. Chronic obstructive pulmonary disease. 9. Obstructive sleep apnea, for which he is on CPAP. 10. History of transitional cell carcinoma of the bladder. a. Status post multiple transurethral resections of bladder tumors. Recent cystoscopy demonstrated no visible recurrence. 11. History of recurrent urinary retention. a. Status post laser prostatectomy and recent urolith with recurrence of elevated postresidual volumes secondary to a myogenic bladder dysfunction. b. Requires intermittent catheterization and having significant residuals of 400 to 750 over the last few days as of 01/10. 12. Depression, controlled. 13. Gastroesophageal reflux disease, controlled. 14. Constipation, controlled. PLAN: Continue present care. We will continue dressing the skin tear on the dorsum of the hand. Continue PT and OT, fall precautions. The patient is due to see his orthopedic surgeon, Dr. Darryn Kim, in his clinic here at [facility] tomorrow, 01/12/2020. We will do x-ray of the left hip today for that visit. Job ID: [id number] [facility]
[2020-01-11] MEDS: Loratadine 10 MG TAB PO SCH (20:59)
[2020-01-11] MEDS: Ezetimibe 10 MG TAB PO SCH (20:59)
[2020-01-11] MEDS: Melatonin 3 MG TAB PO SCH (20:59)
[2020-01-11] MEDS: Ubidecarenone 50 MG CAP PO SCH (20:59)
[2020-01-12] MEDS: Levothyroxine Sodium 100 MCG TAB PO SCH (05:22)
[2020-01-12] MEDS: Alogliptin 25 MG TAB PO SCH (08:07)
[2020-01-12] MEDS: ICOSAPENT ETHYL 1 GM PO SCH ×2 (08:07→17:19)
[2020-01-12] MEDS: Aspirin Chewable 81 MG TAB PO SCH (08:08)
[2020-01-12] MEDS: Citalopram 20 MG TAB PO SCH (08:08)
[2020-01-12] MEDS: Cholecalciferol 1,000 UNITS (25 MCG) TAB PO SCH (08:08)
[2020-01-12] MEDS: Amlodipine 5 MG TAB PO SCH (08:08)
[2020-01-12] MEDS: Finasteride 5 MG TAB PO SCH (08:09)
[2020-01-12] MEDS: Gabapentin 100 MG CAP PO SCH ×2 (08:09→21:30)
[2020-01-12] MEDS: Ferrous Sulfate 325 MG TAB PO SCH ×2 (08:09→21:29)
[2020-01-12] MEDS: Lantus 1000 UNITS/10 ML VIAL SC SCH (08:09)
[2020-01-12] MEDS: ANORO ELLIPTA INH SCH (08:10)
[2020-01-12] MEDS: Sodium Chloride 1 GM TAB PO SCH ×2 (08:12→21:31)
[2020-01-12] MEDS: Tamsulosin HCl 0.4 MG CAP PO SCH (08:12)
[2020-01-12] MEDS: Senokot S 8.6-50 MG TAB PO SCH ×2 (08:18→21:31)
[2020-01-12] MEDS: traMADol HCl 50 MG TAB PO PRN (10:09)
[2020-01-12] MEDS ORDERED: Amlodipine 5 MG TAB PO SCH (10:15)
[2020-01-12] MEDS: Acetaminophen 500 MG TAB PO PRN (16:14)
[2020-01-12] MEDS: Ezetimibe 10 MG TAB PO SCH (21:29)
[2020-01-12] MEDS: Loratadine 10 MG TAB PO SCH (21:30)
[2020-01-12] MEDS: Melatonin 3 MG TAB PO SCH (21:30)
[2020-01-12] MEDS: Ubidecarenone 50 MG CAP PO SCH (21:31)
[2020-01-13] MEDS: Levothyroxine Sodium 100 MCG TAB PO SCH (05:31)
[2020-01-13] MEDS: Sodium Chloride 1 GM TAB PO SCH ×2 (08:31→21:49)
[2020-01-13] MEDS: Amlodipine 5 MG TAB PO SCH (08:31)
[2020-01-13] MEDS: ANORO ELLIPTA INH SCH (08:31)
[2020-01-13] MEDS: Aspirin Chewable 81 MG TAB PO SCH (08:32)
[2020-01-13] MEDS: Alogliptin 25 MG TAB PO SCH (08:32)
[2020-01-13] MEDS: Ferrous Sulfate 325 MG TAB PO SCH ×2 (08:32→21:46)
[2020-01-13] MEDS: Senokot S 8.6-50 MG TAB PO SCH ×2 (08:32→21:48)
[2020-01-13] MEDS: Citalopram 20 MG TAB PO SCH (08:32)
[2020-01-13] MEDS: Tamsulosin HCl 0.4 MG CAP PO SCH (08:32)
[2020-01-13] MEDS: Cholecalciferol 1,000 UNITS (25 MCG) TAB PO SCH (08:33)
[2020-01-13] MEDS: Lantus 1000 UNITS/10 ML VIAL SC SCH (08:33)
[2020-01-13] MEDS: Finasteride 5 MG TAB PO SCH (08:33)
[2020-01-13] MEDS: Gabapentin 100 MG CAP PO SCH ×2 (08:33→21:47)
[2020-01-13] MEDS: ICOSAPENT ETHYL 1 GM PO SCH ×2 (08:34→17:21)
[2020-01-13] MEDS: traMADol HCl 50 MG TAB PO PRN (11:21)
[2020-01-13] MEDS: Acetaminophen 500 MG TAB PO PRN (12:08)
--- NOTE | 2020-01-13 12:13 | PRG ---
DATE OF SERVICE: 01/13/2020 SUBJECTIVE: The patient said he is doing well. The patient did see his orthopedic surgeon yesterday, Dr. Kim, and no changes were made. Repeat x-ray of the hip shows the presence of the endoprosthesis, and it was in good placement. OBJECTIVE: GENERAL: The patient is sitting up in his wheelchair, having just finished his breakfast. He says he is feeling good. He has had no complaint. VITAL SIGNS: Show a temperature at 98.3, pulse 82, blood pressure 149/81, respirations 20, O2 saturation 96% on room air. LUNGS: Clear. HEART: Regular rate. EXTREMITIES: No edema. SKIN: A little bruising of the left temporal area is resolving. LABORATORY DATA: His FBS is 153. Nurse reported that he is undergoing in and out catheterization pretty regularly. Most of the postresidual volumes are around 400. ASSESSMENT: 1. Generalized weakness and deconditioning. a. Secondary to a fall and fracture of the left hip on 12/25/2019. b. History of gait abnormality with proximal muscle weakness with frequent falls. 2. Left femoral neck fracture, undisplaced. a. Secondary to a fall on 12/24. b. Status post left hip hemiarthroplasty by Dr. Darryn Kim, orthopedic surgeon, on 12/25. c. Doing well. Followup visit with Dr. Kim on 01/12/20 with no change in treatment. 3. Diabetes type 2. a. Insulin requiring. b. Controlled. 4. Coronary artery disease. a. Triple-vessel disease, medically managed. b. Presently asymptomatic. 5. Hypertension. 6. Alzheimer disease. 7. Chronic kidney disease. a. GFR of 41 on 01/05. 8. Chronic obstructive pulmonary disease. 9. Obstructive sleep apnea for which he uses a CPAP when sleeping. 10. History of transitional cell carcinoma of the bladder. a. Status post multiple transurethral resections of bladder tumor. Recent cystoscopy demonstrated no visible recurrence. 11. History of recurrent urinary retention. a. Status post laser prostatectomy and recent urolith with recurrence of elevated postresidual volumes secondary to a myogenic bladder dysfunction. b. Requires intermittent catheterizations with significant residuals of over 400 mL as of 01/12. 12. Depression, controlled. 13. Gastroesophageal reflux disease, controlled. 14. Constipation, controlled. PLAN: Continue present care. Continue PT and OT. Arrangement will be made for the patient to be seen in followup by his urologist Dr. Samuel Rubalcava. Job ID: [id number] [facility]TDD
[2020-01-13] MEDS ORDERED: NATEGLINIDE 60 MG PO SCH (16:30)
[2020-01-13] MEDS: Ezetimibe 10 MG TAB PO SCH (21:46)
[2020-01-13] MEDS: Loratadine 10 MG TAB PO SCH (21:47)
[2020-01-13] MEDS: Melatonin 3 MG TAB PO SCH (21:47)
[2020-01-13] MEDS: Ubidecarenone 50 MG CAP PO SCH (21:49)
[2020-01-14] MEDS: Levothyroxine Sodium 100 MCG TAB PO SCH (05:22)
[2020-01-14] MEDS: ICOSAPENT ETHYL 1 GM PO SCH ×2 (09:19→17:09)
[2020-01-14] MEDS: Citalopram 20 MG TAB PO SCH (09:20)
[2020-01-14] MEDS: Lantus 1000 UNITS/10 ML VIAL SC SCH (09:20)
[2020-01-14] MEDS: Senokot S 8.6-50 MG TAB PO SCH ×2 (09:20→21:07)
[2020-01-14] MEDS: Sodium Chloride 1 GM TAB PO SCH ×2 (09:21→21:07)
[2020-01-14] MEDS: Finasteride 5 MG TAB PO SCH (09:21)
[2020-01-14] MEDS: Cholecalciferol 1,000 UNITS (25 MCG) TAB PO SCH (09:21)
[2020-01-14] MEDS: Tamsulosin HCl 0.4 MG CAP PO SCH (09:21)
[2020-01-14] MEDS: Alogliptin 25 MG TAB PO SCH (09:21)
[2020-01-14] MEDS: Ferrous Sulfate 325 MG TAB PO SCH ×2 (09:21→21:06)
[2020-01-14] MEDS: Gabapentin 100 MG CAP PO SCH ×2 (09:21→21:06)
[2020-01-14] MEDS: Amlodipine 5 MG TAB PO SCH (09:21)
[2020-01-14] MEDS: Aspirin Chewable 81 MG TAB PO SCH (09:21)
[2020-01-14] MEDS: ANORO ELLIPTA INH SCH (09:22)
[2020-01-14] MEDS: Ezetimibe 10 MG TAB PO SCH (21:05)
[2020-01-14] MEDS: Melatonin 3 MG TAB PO SCH (21:06)
[2020-01-14] MEDS: Loratadine 10 MG TAB PO SCH (21:06)
[2020-01-14] MEDS: Ubidecarenone 50 MG CAP PO SCH (21:07)
[2020-01-15] MEDS: Levothyroxine Sodium 100 MCG TAB PO SCH (05:32)
[2020-01-15] MEDS: Acetaminophen 500 MG TAB PO PRN ×2 (05:38→19:32)
[2020-01-15] MEDS: ANORO ELLIPTA INH SCH (08:15)
[2020-01-15] MEDS: Senokot S 8.6-50 MG TAB PO SCH ×2 (08:16→20:42)
[2020-01-15] MEDS: Sodium Chloride 1 GM TAB PO SCH ×2 (08:16→20:41)
[2020-01-15] MEDS: Aspirin Chewable 81 MG TAB PO SCH (08:16)
[2020-01-15] MEDS: Amlodipine 5 MG TAB PO SCH (08:16)
[2020-01-15] MEDS: Citalopram 20 MG TAB PO SCH (08:16)
[2020-01-15] MEDS: Alogliptin 25 MG TAB PO SCH (08:16)
[2020-01-15] MEDS: ICOSAPENT ETHYL 1 GM PO SCH ×2 (08:17→17:12)
[2020-01-15] MEDS: Gabapentin 100 MG CAP PO SCH ×2 (08:18→20:41)
[2020-01-15] MEDS: Cholecalciferol 1,000 UNITS (25 MCG) TAB PO SCH (08:18)
[2020-01-15] MEDS: Ferrous Sulfate 325 MG TAB PO SCH ×2 (08:18→20:41)
[2020-01-15] MEDS: Tamsulosin HCl 0.4 MG CAP PO SCH (08:18)
[2020-01-15] MEDS: Finasteride 5 MG TAB PO SCH (08:18)
[2020-01-15] MEDS: Lantus 1000 UNITS/10 ML VIAL SC SCH (08:19)
[2020-01-15] MEDS: Melatonin 3 MG TAB PO SCH (20:41)
[2020-01-15] MEDS: Loratadine 10 MG TAB PO SCH (20:41)
[2020-01-15] MEDS: Ezetimibe 10 MG TAB PO SCH (20:41)
[2020-01-15] MEDS: Ubidecarenone 50 MG CAP PO SCH (20:41)
[2020-01-16] MEDS: Levothyroxine Sodium 100 MCG TAB PO SCH (05:19)
[2020-01-16] MEDS: traMADol HCl 50 MG TAB PO PRN (08:06)
[2020-01-16] MEDS: Ferrous Sulfate 325 MG TAB PO SCH ×2 (08:08→21:24)
[2020-01-16] MEDS: Sodium Chloride 1 GM TAB PO SCH ×2 (08:08→21:23)
[2020-01-16] MEDS: Citalopram 20 MG TAB PO SCH (08:08)
[2020-01-16] MEDS: Cholecalciferol 1,000 UNITS (25 MCG) TAB PO SCH (08:08)
[2020-01-16] MEDS: Amlodipine 5 MG TAB PO SCH (08:09)
[2020-01-16] MEDS: Tamsulosin HCl 0.4 MG CAP PO SCH (08:09)
[2020-01-16] MEDS: Alogliptin 25 MG TAB PO SCH (08:09)
[2020-01-16] MEDS: Finasteride 5 MG TAB PO SCH (08:09)
[2020-01-16] MEDS: Gabapentin 100 MG CAP PO SCH ×2 (08:09→21:24)
[2020-01-16] MEDS: Senokot S 8.6-50 MG TAB PO SCH ×2 (08:09→21:24)
[2020-01-16] MEDS: ICOSAPENT ETHYL 1 GM PO SCH ×2 (08:14→16:52)
[2020-01-16] MEDS: Lantus 1000 UNITS/10 ML VIAL SC SCH (08:15)
[2020-01-16] MEDS: ANORO ELLIPTA INH SCH (08:15)
[2020-01-16] MEDS: Aspirin Chewable 81 MG TAB PO SCH (08:44)
--- NOTE | 2020-01-16 09:25 | PRG ---
DATE OF SERVICE: 01/15/2020 SUBJECTIVE: The patient said he is feeling just fine today. He had no complaint. The nurse said that since yesterday, he has been doing very well. He has been voiding on his own. He has voided over 2300 mL over the last 24 hours and has not required any catheterizations. He has not shown any residual on bladder scan. OBJECTIVE: GENERAL: The patient is sitting up in bed, alert, talkative, appears in no distress. VITAL SIGNS: His temperature is 97.8, pulse 75, blood pressure 149/81, respirations 18, O2 saturation 99% on room air. LUNGS: Clear. HEART: Regular rate. EXTREMITIES: No edema. ASSESSMENT: 1. Generalized weakness and deconditioning. a. Secondary to fall and fracture of the left hip on 12/25/2019. b. History of gait abnormality with proximal muscle weakness and frequent falls. 2. Left femoral neck fracture undisplaced. a. Secondary to a fall on 12/24. b. Status post left hip hemiarthroplasty by Dr. Darryn Kim, orthopedic surgeon, on 12/25. c. Doing well. Followup visit with Dr. Kim on 01/11 showed good progress. 3. Diabetes type 2. a. Insulin requiring. b. Controlled. 4. Coronary artery disease. a. Triple-vessel disease medically managed. b. Presently asymptomatic. 5. Hypertension. 6. Alzheimer disease. 7. Chronic kidney disease. a. GFR 41 on 01/05. 8. Chronic obstructive pulmonary disease. 9. Obstructive sleep apnea, for which he uses a CPAP when sleeping. 10. History of transitional cell carcinoma of the bladder. a. Status post multiple transurethral resections of bladder tumors. Recent cystoscopy demonstrated no visual recurrence. 11. History of recurrent urinary retention. a. Status post laser prostatectomy and recent UroLift with recurrence of elevated postresidual volumes secondary to myogenic bladder dysfunction. b. Requiring intermittent catheterizations with significant residuals. c. The patient has had no significant residual. He has been voiding without difficulty for the last 24 hours as of 01/14. 12. Depression, controlled. 13. Gastroesophageal reflux disease, controlled. 14. Constipation, controlled. PLAN: Continue present care. Continue PT and OT. The patient due to be seen in followup by his urologist on 01/18. Job ID: [id number] [facility]
--- NOTE | 2020-01-16 09:38 | PRG ---
DATE OF SERVICE: 01/16/2020 SUBJECTIVE: The patient said he is doing good this morning. The nurse said he has not had to be catheterized. Sometimes, he has a little residual, but does not wish to be catheterized, later he is able to void this. OBJECTIVE: GENERAL: The patient is lying in bed, just fixing to get up for breakfast. He is alert, appears comfortable. VITAL SIGNS: His temp is 97.8, pulse is 60, respirations are 20, O2 saturation is 97% on room air, blood pressure is 149/81. LUNGS: Clear. HEART: Regular rate. EXTREMITIES: Incision over the left hip well healed. LABORATORY DATA: FBS this morning 124. ASSESSMENT: 1. Generalized weakness and deconditioning. a. Secondary to fall and fracture of the left hip on 12/25/2019. b. History of gait abnormality with proximal muscle weakness and frequent falls. 2. Left femoral neck fracture, undisplaced. a. Secondary to fall on 12/24. b. Status post left hip hemiarthroplasty by Dr. Darryn Kim, orthopedic surgeon, on 12/25. c. Doing well. Followup visit with Dr. Kim on 01/12/2020, and with x- ray showed doing well. No change in treatment. 3. Diabetes type 2, insulin requiring. a. Controlled. 4. Coronary artery disease. a. Triple-vessel disease, medically managed. b. Presently asymptomatic. 5. Hypertension. 6. Alzheimer disease. 7. Chronic kidney disease. a. GFR 41 on 01/05. 8. Chronic obstructive pulmonary disease. 9. Obstructive sleep apnea, for which he uses a CPAP. 10. History of transitional cell carcinoma of the bladder. a. Status post multiple TUR of bladder tumors. b. Recent cystoscopy demonstrated no visible recurrence. 11. History of recurrent urinary retention. a. Status post laser prostatectomy and recent UroLift with recurrence of elevated post residual volumes secondary to a myogenic bladder dysfunction. b. Has required intermittent catheterization with significant residuals. c. Over the last 48 hours, the patient has not required any catheterization , he has been voiding. 12. Depression, controlled. 13. Gastroesophageal reflux disease, controlled. 14. Constipation, controlled. PLAN: Continue present care. Continue PT and OT. The patient due to see his urologist this week on 01/18. Job ID: [id number] [facility]
[2020-01-16] MEDS: Acetaminophen 500 MG TAB PO PRN (16:51)
[2020-01-16] MEDS: Ezetimibe 10 MG TAB PO SCH (21:23)
[2020-01-16] MEDS: Ubidecarenone 50 MG CAP PO SCH (21:23)
[2020-01-16] MEDS: Melatonin 3 MG TAB PO SCH (21:24)
[2020-01-16] MEDS: Loratadine 10 MG TAB PO SCH (21:24)
[2020-01-17] MEDS: Levothyroxine Sodium 100 MCG TAB PO SCH (05:51)
[2020-01-17] MEDS: ICOSAPENT ETHYL 1 GM PO SCH ×2 (08:13→17:20)
[2020-01-17] MEDS: Alogliptin 25 MG TAB PO SCH (08:13)
[2020-01-17] MEDS: Citalopram 20 MG TAB PO SCH (08:14)
[2020-01-17] MEDS: Ferrous Sulfate 325 MG TAB PO SCH ×2 (08:14→21:28)
[2020-01-17] MEDS: Finasteride 5 MG TAB PO SCH (08:14)
[2020-01-17] MEDS: Aspirin Chewable 81 MG TAB PO SCH (08:14)
[2020-01-17] MEDS: Sodium Chloride 1 GM TAB PO SCH ×2 (08:14→21:28)
[2020-01-17] MEDS: Cholecalciferol 1,000 UNITS (25 MCG) TAB PO SCH (08:14)
[2020-01-17] MEDS: Senokot S 8.6-50 MG TAB PO SCH ×2 (08:14→22:19)
[2020-01-17] MEDS: Tamsulosin HCl 0.4 MG CAP PO SCH (08:15)
[2020-01-17] MEDS: traMADol HCl 50 MG TAB PO PRN ×2 (08:15→21:28)
[2020-01-17] MEDS: Gabapentin 100 MG CAP PO SCH ×2 (08:15→21:28)
[2020-01-17] MEDS: ANORO ELLIPTA INH SCH (08:16)
[2020-01-17] MEDS: Lantus 1000 UNITS/10 ML VIAL SC SCH (08:17)
[2020-01-17] MEDS: Ubidecarenone 50 MG CAP PO SCH (21:27)
[2020-01-17] MEDS: Loratadine 10 MG TAB PO SCH (21:28)
[2020-01-17] MEDS: Melatonin 3 MG TAB PO SCH (21:28)
[2020-01-17] MEDS: Ezetimibe 10 MG TAB PO SCH (21:28)
[2020-01-18] MEDS: Levothyroxine Sodium 100 MCG TAB PO SCH (05:26)
[2020-01-18] MEDS: ICOSAPENT ETHYL 1 GM PO SCH ×2 (08:25→17:10)
[2020-01-18] MEDS: ANORO ELLIPTA INH SCH (08:25)
[2020-01-18] MEDS: Amlodipine 5 MG TAB PO SCH (08:26)
[2020-01-18] MEDS: Aspirin Chewable 81 MG TAB PO SCH (08:27)
[2020-01-18] MEDS: Cholecalciferol 1,000 UNITS (25 MCG) TAB PO SCH (08:27)
[2020-01-18] MEDS: Gabapentin 100 MG CAP PO SCH ×2 (08:27→20:15)
[2020-01-18] MEDS: Alogliptin 25 MG TAB PO SCH (08:27)
[2020-01-18] MEDS: Citalopram 20 MG TAB PO SCH (08:27)
[2020-01-18] MEDS: Tamsulosin HCl 0.4 MG CAP PO SCH (08:27)
[2020-01-18] MEDS: Ferrous Sulfate 325 MG TAB PO SCH ×2 (08:27→20:14)
[2020-01-18] MEDS: Finasteride 5 MG TAB PO SCH (08:27)
[2020-01-18] MEDS: Sodium Chloride 1 GM TAB PO SCH ×2 (08:27→20:15)
[2020-01-18] MEDS: Lantus 1000 UNITS/10 ML VIAL SC SCH (08:28)
[2020-01-18] MEDS: Senokot S 8.6-50 MG TAB PO SCH ×2 (08:42→20:14)
--- NOTE | 2020-01-18 13:52 | PRG ---
DATE OF SERVICE: 01/18/2020 SUBJECTIVE: The patient said he is doing well. He is making progress with physical therapy. He is walking a little further, but using his walker and has to have a therapist there with him at times, legs get weak and want to give out. He has not had any falls with therapy in the last several days. He had to be catheterized this morning and had a 600 residual. OBJECTIVE: GENERAL: The patient is sitting up in a wheelchair. He is alert, talkative, just very hard of hearing. He appears in no distress. VITAL SIGNS: Show a temperature 97.9, pulse 77, respirations 18, O2 saturation 94% on room air, blood pressure 149/71. LUNGS: Clear. HEART: Regular rate. EXTREMITIES: No edema. LABORATORY DATA: FBS this morning was 84, yesterday was 87. ASSESSMENT: 1. Generalized weakness and deconditioning. a. Secondary to fall and fracture of the left hip on 12/25/2019. b. History of gait abnormality with proximal muscle weakness and frequent falls. 2. Left femoral neck fracture undisplaced. a. Secondary to fall on 12/24. b. Status post left hip hemiarthroplasty by Darryn Kim, orthopedic surgeon, on 12/25. c. Doing well. d. Followup visit with Dr. Kim on 01/11, with x-ray showed that he was doing well. No change in treatment. 3. Diabetes type 2, insulin requiring. a. Controlled. 4. Coronary artery disease. a. Triple-vessel disease, medically managed. b. Presently asymptomatic. 5. Hypertension. 6. Alzheimer disease. 7. Chronic kidney disease. a. GFR 41 on 01/05. 8. Chronic obstructive pulmonary disease. 9. Obstructive sleep apnea, for which he uses the CPAP. 10. History of transitional cell carcinoma of the bladder. a. Status post multiple transurethral resection of bladder tumors. b. Recent cystoscopy demonstrated no visible recurrence. 11. History of recurrent urinary retention. a. Status post laser prostatectomy and recent UroLift with recurrence of elevated post residual volumes secondary to a myogenic bladder dysfunction. b. Requires intermittent catheterization with significant residual. c. Cath this morning with 600 mL residual as of 01/17. 12. Depression. 13. Gastroesophageal reflux disease, controlled. 14. Constipation, controlled. PLAN: Continue present care. Continue PT. The patient due to see his urologist in followup tomorrow, 01/18. Job ID: [id number] [facility]
[2020-01-18] MEDS: Ubidecarenone 50 MG CAP PO SCH (20:14)
[2020-01-18] MEDS: Ezetimibe 10 MG TAB PO SCH (20:14)
[2020-01-18] MEDS: Melatonin 3 MG TAB PO SCH (20:15)
[2020-01-18] MEDS: Loratadine 10 MG TAB PO SCH (20:15)
[2020-01-19] MEDS: Levothyroxine Sodium 100 MCG TAB PO SCH (05:13)
[2020-01-19] MEDS: ICOSAPENT ETHYL 1 GM PO SCH ×2 (07:51→17:08)
[2020-01-19] MEDS: Citalopram 20 MG TAB PO SCH (07:53)
[2020-01-19] MEDS: Gabapentin 100 MG CAP PO SCH ×2 (07:53→20:10)
[2020-01-19] MEDS: Finasteride 5 MG TAB PO SCH (07:53)
[2020-01-19] MEDS: Alogliptin 25 MG TAB PO SCH (07:53)
[2020-01-19] MEDS: ANORO ELLIPTA INH SCH (07:53)
[2020-01-19] MEDS: Cholecalciferol 1,000 UNITS (25 MCG) TAB PO SCH (07:53)
[2020-01-19] MEDS: Sodium Chloride 1 GM TAB PO SCH ×2 (07:54→20:10)
[2020-01-19] MEDS: Ferrous Sulfate 325 MG TAB PO SCH ×2 (07:54→20:10)
[2020-01-19] MEDS: Lantus 1000 UNITS/10 ML VIAL SC SCH (07:54)
[2020-01-19] MEDS: Tamsulosin HCl 0.4 MG CAP PO SCH (07:54)
[2020-01-19] MEDS: Aspirin Chewable 81 MG TAB PO SCH (07:54)
[2020-01-19] MEDS: Amlodipine 5 MG TAB PO SCH (07:54)
[2020-01-19] MEDS: Senokot S 8.6-50 MG TAB PO SCH ×2 (07:55→20:10)
--- NOTE | 2020-01-19 11:31 | PRG ---
DATE OF SERVICE: 01/19/2020 SUBJECTIVE: The patient said he is feeling good this morning. He is up, eating his breakfast. He is scheduled to see his urologist today. OBJECTIVE: GENERAL: The patient is alert, talkative, appears comfortable, in no distress. VITAL SIGNS: Temperature 97.6, pulse 64, respirations 18, O2 saturation 94% on room air, blood pressure 165/83. LUNGS: Clear. HEART: Regular rate. EXTREMITIES: No edema. LABORATORY DATA: FBS pending this morning, yesterday it was 84. The patient has been voiding. The patient required catheterization in and out this morning at 5 :27 a.m. He voided 150 and there was 400 mL residual with catheterization. ASSESSMENT: 1. Generalized weakness and deconditioning. a. Secondary to a fall and fracture of the left hip on 12/25/2019. b. History of gait abnormality with proximal muscle weakness and frequent falls. 2. Left femoral neck fracture, undisplaced. a. Secondary to fall on 12/24. b. Status post left hip hemiarthroplasty by Darryn Kim orthopedic surgeon, on 12/25. c. Doing well. d. Followup visit with Dr. Kim on 01/11 with x-ray showed that he was doing well. 3. Diabetes type 2 insulin requiring. a. Controlled. 4. Coronary artery disease. a. Triple-vessel medically managed. b. Presently asymptomatic. 5. Hypertension. 6. Alzheimer disease. 7. Chronic kidney disease. a. GFR 41 on 01/05. 8. Chronic obstructive pulmonary disease. 9. Obstructive sleep apnea, for which he uses a CPAP. 10. History of transitional cell carcinoma of the bladder. a. Status post multiple transurethral resections of the bladder tumors. b. Recent cystoscopy demonstrated no visual recurrence. 11. History of recurrent urinary retention. a. Status post laser prostatectomy and recent UroLift with recurrence of elevated post residual volumes secondary to myogenic bladder dysfunction. b. Requires intermittent catheterizations. c. Cath this morning with 400 mL residual postvoid of 150 mL as of 01/18. 12. Depression, controlled. 13. Gastroesophageal reflux disease, controlled. 14. Constipation, controlled. PLAN: Continue present care. Continue PT and OT. The patient due to see his urologist Dr. Canales today. Job ID: [id number] [facility]
[2020-01-19] MEDS: Ubidecarenone 50 MG CAP PO SCH (20:10)
[2020-01-19] MEDS: Ezetimibe 10 MG TAB PO SCH (20:10)
[2020-01-19] MEDS: Melatonin 3 MG TAB PO SCH (20:11)
[2020-01-19] MEDS: Loratadine 10 MG TAB PO SCH (20:11)
[2020-01-20] MEDS: Levothyroxine Sodium 100 MCG TAB PO SCH (05:00)
[2020-01-20] MEDS: ICOSAPENT ETHYL 1 GM PO SCH ×2 (09:20→17:09)
[2020-01-20] MEDS: Alogliptin 25 MG TAB PO SCH (09:21)
[2020-01-20] MEDS: Sodium Chloride 1 GM TAB PO SCH ×2 (09:21→20:33)
[2020-01-20] MEDS: Citalopram 20 MG TAB PO SCH (09:21)
[2020-01-20] MEDS: Cholecalciferol 1,000 UNITS (25 MCG) TAB PO SCH (09:21)
[2020-01-20] MEDS: Senokot S 8.6-50 MG TAB PO SCH ×2 (09:21→20:32)
[2020-01-20] MEDS: Acetaminophen 500 MG TAB PO PRN (09:21)
[2020-01-20] MEDS: Finasteride 5 MG TAB PO SCH (09:21)
[2020-01-20] MEDS: Aspirin Chewable 81 MG TAB PO SCH (09:21)
[2020-01-20] MEDS: Ferrous Sulfate 325 MG TAB PO SCH ×2 (09:22→20:33)
[2020-01-20] MEDS: Tamsulosin HCl 0.4 MG CAP PO SCH (09:22)
[2020-01-20] MEDS: ANORO ELLIPTA INH SCH (09:22)
[2020-01-20] MEDS: Gabapentin 100 MG CAP PO SCH ×2 (09:22→20:34)
[2020-01-20] MEDS: Amlodipine 5 MG TAB PO SCH (09:22)
[2020-01-20] MEDS: Lantus 1000 UNITS/10 ML VIAL SC SCH (09:24)
--- NOTE | 2020-01-20 11:17 | PRG ---
DATE OF SERVICE: 01/20/2020 SUBJECTIVE: The patient said he is feeling good this morning. He had walked with aid of a walker and standby assistance from his room to the Physical Therapy room. He is now on a NuStep, working his arms and legs. Yesterday, he did go to see his urologist Dr. Canales and she has continued the recommended in and out catheterizations. OBJECTIVE: GENERAL: The patient is alert, appears very comfortable, and in no distress. VITAL SIGNS: Temperature 97.9, pulse 65, respirations 18, O2 sat 96% on room air , and blood pressure 169/82. LUNGS: Clear. HEART: Regular rate. EXTREMITIES: No edema. LABORATORY DATA: His FBS this morning was 98, yesterday before supper 195. The patient's bladder scan this morning showed 347 mL. The patient was able to void 325. ASSESSMENT: 1. Generalized weakness and deconditioning. a. Secondary to a fall and fracture of the left hip on 12/25/2019. b. History of gait abnormality with proximal muscle weakness and frequent falls. 2. Left femoral neck fracture, undisplaced. a. Secondary to a fall on 12/24. b. Status post left hip hemiarthroplasty by Darryn Kim, orthopedic surgeon on 12/25. c. Followup visit with Dr. Kim on 01/11 with x-rays showing he was doing well. d. Continued improvement as of 01/19. 3. Diabetes type 2, insulin requiring. a. Controlled. 4. Coronary artery disease. a. Triple-vessel disease, medically managed. b. Presently asymptomatic. 5. Hypertension. 6. Alzheimer disease. 7. Chronic kidney disease. a. GFR of 41 on 01/05. 8. Chronic obstructive pulmonary disease. 9. Obstructive sleep apnea, for which he uses CPAP. 10. History of transitional cell carcinoma of the bladder. a. Status post multiple transurethral resections of the bladder tumors. b. Recent cystoscopy demonstrated no visual recurrence. 11. History of recurrent urinary retention. a. Status post laser prostatectomy and recent UroLift with recurrence of elevated post residual volume secondary to a myogenic bladder dysfunction. b. Requires intermittent catheterizations. 12. Depression, controlled. 13. Gastroesophageal reflux disease, controlled. 14. Constipation, controlled. PLAN: The patient continues to progress. His strength is getting better. He is able to walk further with his walker, but still requires standby assistance, at times his knee will give and he potentially could fall if someone was not there to assist. The patient will follow up with Dr. Canales as she directed. We will continue the intermittent catheterizations depending upon residual volume by bladder scan. Job ID: [id number] [facility]
[2020-01-20] MEDS: traMADol HCl 50 MG TAB PO PRN (19:41)
[2020-01-20] MEDS: Ubidecarenone 50 MG CAP PO SCH (20:30)
[2020-01-20] MEDS: Loratadine 10 MG TAB PO SCH (20:34)
[2020-01-20] MEDS: Ezetimibe 10 MG TAB PO SCH (20:34)
[2020-01-20] MEDS: Melatonin 3 MG TAB PO SCH (20:34)
[2020-01-21] MEDS: Levothyroxine Sodium 100 MCG TAB PO SCH (05:31)
[2020-01-21] MEDS: ANORO ELLIPTA INH SCH (09:16)
[2020-01-21] MEDS: ICOSAPENT ETHYL 1 GM PO SCH ×2 (09:16→17:33)
[2020-01-21] MEDS: Ferrous Sulfate 325 MG TAB PO SCH ×2 (09:18→20:48)
[2020-01-21] MEDS: Aspirin Chewable 81 MG TAB PO SCH (09:18)
[2020-01-21] MEDS: Citalopram 20 MG TAB PO SCH (09:18)
[2020-01-21] MEDS: Cholecalciferol 1,000 UNITS (25 MCG) TAB PO SCH (09:18)
[2020-01-21] MEDS: Alogliptin 25 MG TAB PO SCH (09:18)
[2020-01-21] MEDS: Gabapentin 100 MG CAP PO SCH ×2 (09:18→20:48)
[2020-01-21] MEDS: Tamsulosin HCl 0.4 MG CAP PO SCH (09:18)
[2020-01-21] MEDS: Senokot S 8.6-50 MG TAB PO SCH ×2 (09:18→20:48)
[2020-01-21] MEDS: Lantus 1000 UNITS/10 ML VIAL SC SCH (09:19)
[2020-01-21] MEDS: Finasteride 5 MG TAB PO SCH (09:19)
[2020-01-21] MEDS: Sodium Chloride 1 GM TAB PO SCH ×2 (09:19→20:49)
[2020-01-21] MEDS: Amlodipine 5 MG TAB PO SCH (09:19)
[2020-01-21] MEDS: Melatonin 3 MG TAB PO SCH (20:48)
[2020-01-21] MEDS: Ubidecarenone 50 MG CAP PO SCH (20:49)
[2020-01-21] MEDS: Ezetimibe 10 MG TAB PO SCH (20:49)
[2020-01-21] MEDS: Loratadine 10 MG TAB PO SCH (20:49)
[2020-01-21] MEDS: traMADol HCl 50 MG TAB PO PRN (21:08)
[2020-01-22] MEDS: Levothyroxine Sodium 100 MCG TAB PO SCH (05:25)
[2020-01-22] MEDS: ANORO ELLIPTA INH SCH (08:48)
[2020-01-22] MEDS: ICOSAPENT ETHYL 1 GM PO SCH ×2 (08:49→18:05)
[2020-01-22] MEDS: Amlodipine 5 MG TAB PO SCH (08:51)
[2020-01-22] MEDS: Senokot S 8.6-50 MG TAB PO SCH ×2 (08:51→20:09)
[2020-01-22] MEDS: Alogliptin 25 MG TAB PO SCH (08:51)
[2020-01-22] MEDS: Aspirin Chewable 81 MG TAB PO SCH (08:51)
[2020-01-22] MEDS: Tamsulosin HCl 0.4 MG CAP PO SCH (08:52)
[2020-01-22] MEDS: Sodium Chloride 1 GM TAB PO SCH ×2 (08:52→20:08)
[2020-01-22] MEDS: Finasteride 5 MG TAB PO SCH (08:52)
[2020-01-22] MEDS: Gabapentin 100 MG CAP PO SCH ×2 (08:52→20:08)
[2020-01-22] MEDS: Citalopram 20 MG TAB PO SCH (08:52)
[2020-01-22] MEDS: Ferrous Sulfate 325 MG TAB PO SCH ×2 (08:52→20:10)
[2020-01-22] MEDS: Cholecalciferol 1,000 UNITS (25 MCG) TAB PO SCH (08:52)
[2020-01-22] MEDS: Lantus 1000 UNITS/10 ML VIAL SC SCH (08:53)
[2020-01-22 10:55] LABS: Anisocytosis SLIGHT = 6-15 cells (100X) (0-5/hpf); Hemoglobin 11.3 g/dL (14.0-18.0); Hypochromia SLIGHT = 6-15 cells (100X) (0-5/hpf); Lymphocytes 9 % (21-51); MDiff Complete? YES; Mean Corpuscular HGB CONC 32.5 g/dL (32.0-36.0); Mean Corpuscular Hemoglobin 30.5 pg (27.0-31.0); Mean Corpuscular Volume 93.8 fL (78.0-98.0); Mean Platelet Volume 6.6 fL (7.4-10.4); Monocytes 12 % (0-10); Neutrophil 79 % (42-75); Platelet Count 235 thou/uL (130-400); Platelet Morphology Comment Appears Adequate; RBC Distribution Width 12.4 % (11.5-14.5); White Blood Cell (WBC) Count 11.3 thou/uL (4.8-10.8)
[2020-01-22 10:59] LABS: ALT (SGPT) 14 U/L (8-55); AST (SGOT) 13 U/L (5-34); Albumin 3.8 g/dL (3.4-4.8); Alkaline Phosphatase 92 U/L (40-110); Anion Gap 17 mmol/L (10-20); BUN (Urea Nitrogen) 29 mg/dL (8.4-25.7); Bilirubin, Total 0.5 mg/dL (0.2-1.2); Calc. Creatinine Clearance 40 mL/min (70-130); Calcium 9.5 mg/dL (7.8-10.44); Carbon Dioxide 18 mmol/L (23-31); Chloride 103 mmol/L (98-107); Estimated GFR-MDRD 34; Globulin 3.9 g/dL (2.4-3.5); Glucose 206 mg/dL (83-110); Potassium 4.7 mmol/L (3.5-5.1); Protein, Total 7.7 g/dL (5.8-8.1); Sodium 133 mmol/L (136-145)
[2020-01-22 12:28] LABS: Bilirubin Negative (Negative); Blood, Urine Moderate (Negative); Clarity Slightly Cloudy (Clear); Glucose, Urine (Dipstick) Negative (Negative); Ketone, Urine Negative (Negative); Leukocyte Moderate (Negative); Nitrite Positive (Negative); Protein, Urine (Dipstick) 100 mg/dL (Neg-Trace); Specific Gravity, Urine 1.025 (1.005-1.030); Urobilinogen 0.2 mg/dL (Less than 2)
[2020-01-22 12:31] LABS: Bacteria/HPF 1+ HPF (None Seen); Squamous Epithelial 0-3 HPF (0-3); WBC/HPF Greater Than 50 HPF (0-3)
--- NOTE | 2020-01-22 17:53 | PRG ---
DATE OF SERVICE: 01/21/2020 SUBJECTIVE: The patient said he is doing good. He is having no shortness of breath or chest pain. OBJECTIVE: GENERAL: The patient is sitting up in his bed, visiting with his . He is alert, looks very comfortable. VITAL SIGNS: Temperature of 96.9, pulse 76, blood pressure 165/83, respirations 16, O2 saturation 96% on room air, earlier blood pressure 121/82. LUNGS: Clear. HEART: Regular rate. EXTREMITIES: No edema. ASSESSMENT: 1. Generalized weakness and deconditioning. a. Secondary to a fall and fracture of the left hip on 12/24. b. History of gait abnormality with proximal muscle weakness and frequent falls. 2. Left femoral neck fracture, undisplaced. a. Secondary to a fall on 12/24. b. Status post left hip hemiarthroplasty by Darryn Kim, orthopedic surgeon, on 12/25. c. Followup visit with Dr. Kim on 01/11 with x-ray showed he was doing well. d. He continued to improve as of 01/20. 3. Diabetes type 2, insulin requiring. a. Controlled. 4. Coronary artery disease. a. Triple-vessel disease, medically managed. b. Presently asymptomatic. 5. Hypertension. 6. Alzheimer disease. 7. Chronic kidney disease. a. GFR 41 on 01/05. 8. Chronic obstructive pulmonary disease. 9. Obstructive sleep apnea, for which he uses a CPAP. 10. History of transitional cell carcinoma of the bladder. a. Status post multiple transurethral resection of the bladder tumors. b. Recent cystoscopy demonstrated no visual recurrence. 11. History of recurrent urinary retention. a. Status post laser prostatectomy and recent UroLift with recurrence of elevated post residual volume secondary to myogenic bladder dysfunction. b. Requires intermittent catheterizations. 12. Depression, controlled. 13. Gastroesophageal reflux disease, controlled. 14. Constipation, controlled. PLAN: The patient is doing well, but still needs ongoing PT and OT. He is still requiring standby assistance in the event his legs give out or he tends to fall backwards. Continue to follow up with his urologist. Job ID: [id number] [facility]
--- NOTE | 2020-01-22 18:30 | PRG ---
DATE OF SERVICE: 01/22/2020 SUBJECTIVE: This morning the nurse had called me and said Lito was acting different. He was very sleepy. He would not answer questions appropriately and he just would not get up and sit in a chair for breakfast. This was much different from usual for him. Last night, the patient was given tramadol 50 mg, something he has not had for a while. When I came in and checked the patient, he was lying in bed. He was easily awakened. He recognized me and called me by name. He answered my questions appropriately. He denied any headache. He denied any shortness of breath or chest pain or abdominal pain or burning with urination. OBJECTIVE: GENERAL: On exam, patient is lethargic, but he is easily engaged in conversation and he answers me appropriately. VITAL SIGNS: Temperature of 99.1, pulse 88, respirations 20, O2 saturation 92% on room air, blood pressure 144/80. HEENT: Eyes, pupils are equal, round, and reactive. Mouth and throat, mucous membranes are moist. LUNGS: Clear. HEART: Regular rate. ABDOMEN: Nontender. EXTREMITIES: Lower extremities, no edema. NEUROLOGIC: The patient is lethargic, but stays awake when engaged in conversation. He recognized me. Answers questions. He has excellent muscle strength in the upper extremities and is able to plantar and dorsiflex both lower extremities equally. LABORATORY DATA: CBC, CMP have been ordered and pending. ASSESSMENT: 1. Alteration in mental status manifest with lethargy and earlier a little bit more confusion. a. Suspect this is secondary to the effect of the tramadol that he received last night. PLAN: The patient has no focal weakness. I do not think he has had a CVA. We will check a CBC, CMP, UA to ensure there is not an infectious process going on. We will stop the tramadol and utilize Tylenol only for pain and then just continue supportive care today and observe and see how he does. If this is the effect of medication, anticipate his gradual return to his baseline mental status. Job ID: [id number] [facility]
[2020-01-22] MEDS: Acetaminophen 500 MG TAB PO PRN (19:45)
[2020-01-22] MEDS: Nitrofurantoin Monohyd/M-Cryst 100 MG CAP PO SCH (19:45)
[2020-01-22] MEDS ORDERED: Ciprofloxacin 500 MG TAB PO SCH (20:00)
[2020-01-22] MEDS: Ezetimibe 10 MG TAB PO SCH (20:08)
[2020-01-22] MEDS: Melatonin 3 MG TAB PO SCH (20:10)
[2020-01-22] MEDS: Ubidecarenone 50 MG CAP PO SCH (20:11)
[2020-01-23 05:51] LABS: Anion Gap 16 mmol/L (10-20); BUN (Urea Nitrogen) 35 mg/dL (8.4-25.7); Calc. Creatinine Clearance 43 mL/min (70-130); Calcium 9.6 mg/dL (7.8-10.44); Carbon Dioxide 20 mmol/L (23-31); Chloride 105 mmol/L (98-107); Estimated GFR-MDRD 37; Glucose 84 mg/dL (83-110); Potassium 4.7 mmol/L (3.5-5.1); Sodium 136 mmol/L (136-145)
[2020-01-23 05:54] LABS: Band 3 % (5-11); Eosinophils 3 % (0-10); Hemoglobin 10.9 g/dL (14.0-18.0); Lymphocytes 8 % (21-51); MDiff Complete? YES; Mean Corpuscular HGB CONC 33.2 g/dL (32.0-36.0); Mean Corpuscular Hemoglobin 30.9 pg (27.0-31.0); Mean Corpuscular Volume 93.2 fL (78.0-98.0); Mean Platelet Volume 7.6 fL (7.4-10.4); Monocytes 3 % (0-10); Neutrophil 83 % (42-75); Platelet Count 224 thou/uL (130-400); Platelet Morphology Comment Appears Adequate; RBC Distribution Width 12.1 % (11.5-14.5); RBC Morphology Normal; Red Blood Cell (RBC) Count 3.51 mill/uL (4.70-6.10); White Blood Cell (WBC) Count 9.9 thou/uL (4.8-10.8)
[2020-01-23] MEDS: Levothyroxine Sodium 100 MCG TAB PO SCH (06:07)
[2020-01-23] MEDS: ICOSAPENT ETHYL 1 GM PO SCH ×2 (08:17→17:03)
[2020-01-23] MEDS: Lantus 1000 UNITS/10 ML VIAL SC SCH (08:18)
[2020-01-23] MEDS: ANORO ELLIPTA INH SCH (08:19)
[2020-01-23] MEDS: Finasteride 5 MG TAB PO SCH (08:20)
[2020-01-23] MEDS: Nitrofurantoin Monohyd/M-Cryst 100 MG CAP PO SCH ×2 (08:20→20:34)
[2020-01-23] MEDS: Sodium Chloride 1 GM TAB PO SCH ×2 (08:21→20:34)
[2020-01-23] MEDS: Citalopram 20 MG TAB PO SCH (08:21)
[2020-01-23] MEDS: Amlodipine 5 MG TAB PO SCH (08:21)
[2020-01-23] MEDS: Gabapentin 100 MG CAP PO SCH ×2 (08:21→20:35)
[2020-01-23] MEDS: Ferrous Sulfate 325 MG TAB PO SCH ×2 (08:21→20:36)
[2020-01-23] MEDS: Alogliptin 25 MG TAB PO SCH (08:21)
[2020-01-23] MEDS: Senokot S 8.6-50 MG TAB PO SCH ×2 (08:21→20:33)
[2020-01-23] MEDS: Aspirin Chewable 81 MG TAB PO SCH (08:21)
[2020-01-23] MEDS: Tamsulosin HCl 0.4 MG CAP PO SCH (08:21)
[2020-01-23] MEDS: Cholecalciferol 1,000 UNITS (25 MCG) TAB PO SCH (08:22)
--- NOTE | 2020-01-23 14:27 | PRG ---
DATE OF SERVICE: 01/23/2020 SUBJECTIVE: The patient is up in a wheelchair. His is visiting. Therapy has worked with him. He is talkative and looks his usual self. Yesterday, his lethargy gradually improved. His lab work had indicated possible urinary tract infection. Initially, I had ordered Cipro, but his said she thinks he is allergic to this. Consequently, he was put on nitrofurantoin. OBJECTIVE: GENERAL: The patient is sitting up in a wheelchair. He is alert, talkative, appears in no distress. VITAL SIGNS: Show a temperature 98.5, his pulse was 91, blood pressure 165/83, respirations 20, O2 saturation 97% on 2 L, then later check, 97% on room air. LUNGS: Clear. HEART: Regular rate. EXTREMITIES: No edema. NEUROLOGIC: The patient alert, recognizes me. Has generalized weakness more on the left leg from the fracture and repair. Otherwise, nonfocal. His speech is back to normal. He still has some little confusion, but no more than usual. LABORATORY DATA: His lab today shows an H and H of 10.9 and 32.7, white cell count 9900, 83% segs, 3% band, 8% lymphocytes, and platelet count of 224. Sodium is 136, potassium 4.7, BUN 35, creatinine 1.79, GFR up to 37, and glucose was 84. His urinalysis done yesterday showed wbc's greater than 50. His said that the patient had mentioned to her the day before that he thought he might have a bladder infection. ASSESSMENT: 1. Alteration in mental status. a. Secondary to the effect of the tramadol, possibly contributed to by the urinary tract infection and mild dehydration. b. Resolved as of 01/23/2020. 2. Generalized weakness and deconditioning. a. Secondary to a fall and fracture of the left hip on 12/24. b. History of gait abnormality with proximal muscle weakness and frequent falls. 3. Left femoral neck fracture, undisplaced. a. Secondary to fall on 12/24. b. Status post left hemiarthroplasty by Dr. Darryn Kim, orthopedic surgeon, on 12/25. c. Follow up with Dr. Kim on 01/11 with x-ray showed doing well. d. Continues to improve as of 01/22. 4. Diabetes type 2, insulin requiring. a. Controlled. 5. Coronary artery disease. a. Triple vessel, medically managed. b. Presently asymptomatic. 6. Hypertension. 7. Alzheimer disease. 8. Chronic kidney disease. a. GFR 41 on 01/05. b. Mild dehydration with decline in GFR that is improved to 38 as of 01/22 with liberalization of fluids. 9. Chronic obstructive pulmonary disease. 10. Obstructive sleep apnea, for which he uses a CPAP. 11. History of transitional cell carcinoma of the bladder. a. Status post multiple transurethral resections of the bladder tumors. b. Recent cystoscopy demonstrated no visual recurrence. 12. History of recurrent urinary retention. a. Status post laser prostatectomy and recent UroLift with recurrence of elevated post-residual volume secondary to myogenic bladder dysfunction. b. Requires intermittent catheterizations. 13. Depression, controlled. 14. Gastroesophageal reflux disease, controlled. 15. Constipation, controlled. 16. Urinary tract infection. a. Started on Macrobid on 01/21. PLAN: The patient looks like he is back to his baseline with his mental status. The lethargy and increased confusion were felt to be secondary to the tramadol, which has been stopped. He also was found to have urinary tract infection that may have been contributing and also he was mildly dehydrated. His fluids have been liberalized from 1000 restriction a day to 2000 restriction. We will continue PT and OT. Job ID: [id number] [facility]
[2020-01-23] MEDS: Ubidecarenone 50 MG CAP PO SCH (20:32)
[2020-01-23] MEDS: Ezetimibe 10 MG TAB PO SCH (20:32)
[2020-01-23] MEDS: Melatonin 3 MG TAB PO SCH (20:34)
[2020-01-24] MEDS: Levothyroxine Sodium 100 MCG TAB PO SCH (06:06)
[2020-01-24] MEDS: Finasteride 5 MG TAB PO SCH (08:12)
[2020-01-24] MEDS: Alogliptin 25 MG TAB PO SCH (08:12)
[2020-01-24] MEDS: Sodium Chloride 1 GM TAB PO SCH ×2 (08:12→20:52)
[2020-01-24] MEDS: ICOSAPENT ETHYL 1 GM PO SCH ×2 (08:12→16:57)
[2020-01-24] MEDS: Gabapentin 100 MG CAP PO SCH ×2 (08:12→20:52)
[2020-01-24] MEDS: Ferrous Sulfate 325 MG TAB PO SCH ×2 (08:13→20:54)
[2020-01-24] MEDS: Nitrofurantoin Monohyd/M-Cryst 100 MG CAP PO SCH ×2 (08:13→20:54)
[2020-01-24] MEDS: Aspirin Chewable 81 MG TAB PO SCH (08:13)
[2020-01-24] MEDS: Tamsulosin HCl 0.4 MG CAP PO SCH (08:14)
[2020-01-24] MEDS: Citalopram 20 MG TAB PO SCH (08:14)
[2020-01-24] MEDS: Cholecalciferol 1,000 UNITS (25 MCG) TAB PO SCH (08:14)
[2020-01-24] MEDS: Amlodipine 5 MG TAB PO SCH (08:14)
[2020-01-24] MEDS: Senokot S 8.6-50 MG TAB PO SCH ×2 (08:14→20:53)
[2020-01-24] MEDS: ANORO ELLIPTA INH SCH (08:15)
[2020-01-24] MEDS: Lantus 1000 UNITS/10 ML VIAL SC SCH (08:15)
[2020-01-24] MEDS: Acetaminophen 500 MG TAB PO PRN (19:02)
[2020-01-24] MEDS: Ubidecarenone 50 MG CAP PO SCH (20:51)
[2020-01-24] MEDS: Ezetimibe 10 MG TAB PO SCH (20:52)
[2020-01-24] MEDS: Melatonin 3 MG TAB PO SCH (20:54)
[2020-01-25] MEDS: Levothyroxine Sodium 100 MCG TAB PO SCH (06:14)
[2020-01-25] MEDS: ICOSAPENT ETHYL 1 GM PO SCH ×2 (08:09→17:29)
[2020-01-25] MEDS: Lantus 1000 UNITS/10 ML VIAL SC SCH (08:10)
[2020-01-25] MEDS: ANORO ELLIPTA INH SCH (08:10)
[2020-01-25] MEDS: Sodium Chloride 1 GM TAB PO SCH ×2 (08:12→20:20)
[2020-01-25] MEDS: Nitrofurantoin Monohyd/M-Cryst 100 MG CAP PO SCH ×2 (08:12→20:20)
[2020-01-25] MEDS: Gabapentin 100 MG CAP PO SCH ×2 (08:12→20:20)
[2020-01-25] MEDS: Cholecalciferol 1,000 UNITS (25 MCG) TAB PO SCH (08:12)
[2020-01-25] MEDS: Amlodipine 5 MG TAB PO SCH (08:13)
[2020-01-25] MEDS: Finasteride 5 MG TAB PO SCH (08:13)
[2020-01-25] MEDS: Citalopram 20 MG TAB PO SCH (08:13)
[2020-01-25] MEDS: Aspirin Chewable 81 MG TAB PO SCH (08:14)
[2020-01-25] MEDS: Alogliptin 25 MG TAB PO SCH (08:14)
[2020-01-25] MEDS: Senokot S 8.6-50 MG TAB PO SCH ×2 (08:14→20:25)
[2020-01-25] MEDS: Tamsulosin HCl 0.4 MG CAP PO SCH (08:14)
[2020-01-25] MEDS: Ferrous Sulfate 325 MG TAB PO SCH ×2 (08:14→20:20)
--- NOTE | 2020-01-25 08:36 | PRG ---
DATE OF SERVICE: 01/24/2020 SUBJECTIVE: The patient had no complaint. Nurses said he has been doing very well. He has not required any catheterizations postvoiding over the last 48 hours. He has been talkative and seems to be back to his normal mental status. OBJECTIVE: GENERAL: The patient lying in bed, is alert, talkative, and appears very comfortable, and in no distress. VITAL SIGNS: Temperature 98, pulse 75, respirations 16, O2 saturation 96% on room air, and blood pressure 165/83. LUNGS: Clear. HEART: Regular rate. EXTREMITIES: No edema. LABORATORY DATA: His FBS this morning was 151. Urine culture pending. ASSESSMENT: 1. Alteration in mental status. a. Presenting with lethargy and increased confusion secondary to the effect of tramadol and possibly contributed to by urinary tract infection, mild dehydration, this occurred on 01/22/2020. b. Resolved with no recurrence as of 01/23. 2. Generalized weakness and deconditioning. a. Secondary to fall and fracture of the left hip on 12/24. b. History of gait abnormality with proximal muscle weakness and frequent falls. 3. Left femoral neck fracture, undisplaced. a. Secondary to a fall on 12/24. b. Status post left hemiarthroplasty by Dr. Darryn Kim, orthopedic surgeon, on 12/25. c. Follow up with Dr. Kim on 01/11 with x-ray showed doing well. d. Continues to improve as of 01/23. 4. Diabetes type 2, insulin requiring. a. Controlled. 5. Coronary artery disease. a. Triple-vessel disease, medically managed. b. Presently asymptomatic. 6. Hypertension. 7. Alzheimer disease. 8. Chronic kidney disease. a. GFR 41 on 01/05. b. Mild dehydration with decline in GFR that improved to 38 as of 01/22 with liberalization of fluids. 9. Chronic obstructive pulmonary disease. 10. Obstructive sleep apnea, for which he uses CPAP. 11. History of transitional cell carcinoma of the bladder. a. Status post multiple transurethral resections of bladder tumors. b. Recent cystoscopy demonstrated no visual recurrence. 12. History of recurrent urinary retention. a. Status post laser prostatectomy and recent UroLift with recurrence of elevated postresidual volumes secondary to myogenic bladder dysfunction. b. Requires intermittent catheterization. Last catheterization on 2019. 13. Depression, controlled. 14. Gastroesophageal reflux disease, controlled. 15. Constipation. 16. Urinary tract infection. a. Started on Macrobid on 01/21. b. Presently afebrile and asymptomatic. PLAN: Continue present care. Continue PT and OT. Job ID: [id number] [facility]TDD
[2020-01-25] MEDS: Acetaminophen 500 MG TAB PO PRN (11:08)
[2020-01-25] MEDS: Ubidecarenone 50 MG CAP PO SCH (20:19)
[2020-01-25] MEDS: Ezetimibe 10 MG TAB PO SCH (20:20)
[2020-01-25] MEDS: Melatonin 3 MG TAB PO SCH (20:20)
[2020-01-26] MEDS: Levothyroxine Sodium 100 MCG TAB PO SCH (05:04)
[2020-01-26] MEDS: ICOSAPENT ETHYL 1 GM PO SCH ×2 (08:40→17:15)
[2020-01-26] MEDS: Alogliptin 25 MG TAB PO SCH (08:42)
[2020-01-26] MEDS: Amlodipine 5 MG TAB PO SCH (08:43)
[2020-01-26] MEDS: Aspirin Chewable 81 MG TAB PO SCH (08:43)
[2020-01-26] MEDS: Ferrous Sulfate 325 MG TAB PO SCH ×2 (08:43→21:01)
[2020-01-26] MEDS: Cholecalciferol 1,000 UNITS (25 MCG) TAB PO SCH (08:43)
[2020-01-26] MEDS: Tamsulosin HCl 0.4 MG CAP PO SCH (08:43)
[2020-01-26] MEDS: Sodium Chloride 1 GM TAB PO SCH ×2 (08:44→21:01)
[2020-01-26] MEDS: Nitrofurantoin Monohyd/M-Cryst 100 MG CAP PO SCH (08:44)
[2020-01-26] MEDS: Finasteride 5 MG TAB PO SCH (08:44)
[2020-01-26] MEDS: Citalopram 20 MG TAB PO SCH (08:44)
[2020-01-26] MEDS: Gabapentin 100 MG CAP PO SCH ×2 (08:44→21:02)
[2020-01-26] MEDS: Senokot S 8.6-50 MG TAB PO SCH ×2 (08:44→21:01)
[2020-01-26] MEDS: Lantus 1000 UNITS/10 ML VIAL SC SCH (08:45)
[2020-01-26] MEDS: ANORO ELLIPTA INH SCH (08:45)
[2020-01-26] MEDS: Cefepime 2 GM in Sodium Chloride 0.9% 100 ML IVPB SCH (13:17)
--- NOTE | 2020-01-26 16:17 | PRG ---
DATE OF SERVICE: 01/26/2020 SUBJECTIVE: Patient said he is feeling fine. He had no complaint. He says it still takes him a while to void. This morning he was scanned after voiding and only had 164 residual. OBJECTIVE: GENERAL: The patient is sitting up in bed, alert, talkative, appears in no distress. VITAL SIGNS: His temp is 99.1, pulse 84, blood pressure 165/83, respirations 18 , O2 saturation 93% on room air. Blood pressure earlier was 134/76. LUNGS: Clear. HEART: Regular rate. EXTREMITIES: No edema. LABORATORY: His FBS this morning was 129. His urine culture grew Pseudomonas aeruginosa greater than 100,000 and Serratia marcescens 25 to 50,000. The Pseudomonas is resistant to the nitrofurantoin as is the Serratia. The Pseudomonas is sensitive to cefepime, ceftazidime, gentamicin, levofloxacin, Cipro and meropenem. Visited with patient's who said that he is allergic to Cipro. When he was prescribed this by his urologist Dr. Canales, he would develop hives and this happened a second time it was given also. ASSESSMENT: 1. Alteration of mental status. a. Presenting with lethargy and increased confusion secondary to the effect of tramadol and possibly contributed to by the UTI and mild dehydration that occurred on 01/22/20. b. Resolved with no recurrence as of 01/25. 2. Generalized weakness and deconditioning. a. Secondary to a fall and fracture of the left hip on 12/24. b. History of gait abnormality with proximal muscle weakness and frequent falls. 3. Left femoral neck fracture, undisplaced. a. Secondary to a fall on 12/24. b. Status post left hemiarthroplasty by Darryn Kim, orthopedic surgeon on 12/25. c. Follow up with Dr. Kmi on 01/21 showed he was doing well. d. Continues to improve as of 01/25. 4. Diabetes type 2, insulin requiring. a. Controlled. 5. Coronary artery disease. a. Triple-vessel disease, medically managed. b. Presently asymptomatic. 6. Hypertension. 7. Alzheimer disease. 8. Chronic kidney disease. a. GFR of 41 on 01/05. 9. Chronic obstructive pulmonary disease. 10. Obstructive sleep apnea, for which he uses CPAP. 11. History of transitional cell carcinoma of the bladder. a. Status post multiple transurethral resections of bladder tumors. b. Recent cystoscopy demonstrated no visual recurrence. 12. History of recurrent urinary retention. a. Status post laser prostatectomy and recent UroLift with recurrence of elevated post residual volume secondary to myogenic bladder dysfunction. b. Requires intermittent catheterization. Has not required recent catheterization for several days as of 01/25. 13. Depression, controlled. 14. Gastroesophageal reflux disease, controlled. 15. Constipation, controlled. 16. Urinary tract infection. a. Culture collected on 01/21, grew Pseudomonas aeruginosa greater than 100, 000 resistant to the nitrofurantoin but sensitive to ceftazidime; and Serratia marcescens with 25 to 50,000, resistant to the nitrofurantoin, but sensitive to the ceftazidime. b. Presenting with alteration in mental status and lethargy. c. We will stop the nitrofurantoin. We will treat him with IV antibiotics for 7 days. There is not an oral medication that he can take that the Pseudomonas is sensitive to. PLAN: 1. Continue present care. 2. We will treat the Pseudomonas aeruginosa with ceftazidime 1 g twice a day for 7 days IV. The only oral choices that the Pseudomonas is sensitive to are Cipro and Levaquin. The Cipro, he has had problems with hives from taking in the past. 3. Continue PT and OT. Job ID: [id number] MTDD
[2020-01-26] MEDS: Acetaminophen 500 MG TAB PO PRN (21:01)
[2020-01-26] MEDS: Melatonin 3 MG TAB PO SCH (21:01)
[2020-01-26] MEDS: Ezetimibe 10 MG TAB PO SCH (21:01)
[2020-01-26] MEDS: Ubidecarenone 50 MG CAP PO SCH (21:23)
[2020-01-27] MEDS: Cefepime 2 GM in Sodium Chloride 0.9% 100 ML IVPB SCH ×2 (00:08→12:03)
[2020-01-27] MEDS: Levothyroxine Sodium 100 MCG TAB PO SCH (05:39)
[2020-01-27] MEDS: ANORO ELLIPTA INH SCH (09:15)
[2020-01-27] MEDS: ICOSAPENT ETHYL 1 GM PO SCH ×2 (09:15→17:11)
[2020-01-27] MEDS: Alogliptin 25 MG TAB PO SCH (09:16)
[2020-01-27] MEDS: Finasteride 5 MG TAB PO SCH (09:17)
[2020-01-27] MEDS: Aspirin Chewable 81 MG TAB PO SCH (09:17)
[2020-01-27] MEDS: Amlodipine 5 MG TAB PO SCH (09:17)
[2020-01-27] MEDS: Tamsulosin HCl 0.4 MG CAP PO SCH (09:17)
[2020-01-27] MEDS: Citalopram 20 MG TAB PO SCH (09:17)
[2020-01-27] MEDS: Gabapentin 100 MG CAP PO SCH ×2 (09:17→20:57)
[2020-01-27] MEDS: Senokot S 8.6-50 MG TAB PO SCH ×2 (09:17→20:58)
[2020-01-27] MEDS: Sodium Chloride 1 GM TAB PO SCH ×2 (09:17→20:58)
[2020-01-27] MEDS: Cholecalciferol 1,000 UNITS (25 MCG) TAB PO SCH (09:17)
[2020-01-27] MEDS: Ferrous Sulfate 325 MG TAB PO SCH ×2 (09:17→20:57)
[2020-01-27] MEDS: Lantus 1000 UNITS/10 ML VIAL SC SCH (09:18)
[2020-01-27] MEDS: Melatonin 3 MG TAB PO SCH (20:57)
[2020-01-27] MEDS: Ezetimibe 10 MG TAB PO SCH (20:57)
[2020-01-27] MEDS: Ubidecarenone 50 MG CAP PO SCH (20:58)
[2020-01-27] MEDS: Acetaminophen 500 MG TAB PO PRN (20:59)
[2020-01-28] MEDS: Cefepime 2 GM in Sodium Chloride 0.9% 100 ML IVPB SCH ×3 (00:10→23:31)
[2020-01-28] MEDS: Levothyroxine Sodium 100 MCG TAB PO SCH (05:06)
[2020-01-28 06:17] LABS: Anion Gap 14 mmol/L (10-20); BUN (Urea Nitrogen) 36 mg/dL (8.4-25.7); Calc. Creatinine Clearance 49 mL/min (70-130); Calcium 9.4 mg/dL (7.8-10.44); Carbon Dioxide 19 mmol/L (23-31); Chloride 108 mmol/L (98-107); Estimated GFR-MDRD 42; Glucose 121 mg/dL (83-110); Potassium 4.5 mmol/L (3.5-5.1); Sodium 136 mmol/L (136-145)
[2020-01-28] MEDS: Aspirin Chewable 81 MG TAB PO SCH (08:48)
[2020-01-28] MEDS: ICOSAPENT ETHYL 1 GM PO SCH ×2 (08:48→16:56)
[2020-01-28] MEDS: Alogliptin 25 MG TAB PO SCH (08:48)
[2020-01-28] MEDS: Senokot S 8.6-50 MG TAB PO SCH ×2 (08:48→21:05)
[2020-01-28] MEDS: Cholecalciferol 1,000 UNITS (25 MCG) TAB PO SCH (08:48)
[2020-01-28] MEDS: Ferrous Sulfate 325 MG TAB PO SCH ×2 (08:49→21:05)
[2020-01-28] MEDS: Sodium Chloride 1 GM TAB PO SCH ×2 (08:49→21:04)
[2020-01-28] MEDS: Tamsulosin HCl 0.4 MG CAP PO SCH (08:49)
[2020-01-28] MEDS: Amlodipine 5 MG TAB PO SCH (08:49)
[2020-01-28] MEDS: Finasteride 5 MG TAB PO SCH (08:49)
[2020-01-28] MEDS: Citalopram 20 MG TAB PO SCH (08:49)
[2020-01-28] MEDS: Lantus 1000 UNITS/10 ML VIAL SC SCH (08:50)
[2020-01-28] MEDS: Gabapentin 100 MG CAP PO SCH ×2 (08:50→21:05)
[2020-01-28] MEDS: ANORO ELLIPTA INH SCH (08:52)
[2020-01-28] MEDS: Ezetimibe 10 MG TAB PO SCH (21:04)
[2020-01-28] MEDS: Ubidecarenone 50 MG CAP PO SCH (21:04)
[2020-01-28] MEDS: Melatonin 3 MG TAB PO SCH (21:05)
[2020-01-28] MEDS: Acetaminophen 500 MG TAB PO PRN (21:05)
[2020-01-29 06:03] LABS: #Basophils 0.1 thou/uL (0.0-0.2); #Eosinphils 0.8 thou/uL (0.0-0.7); #Lymphocytes 2.3 thou/uL (1.20-3.40); #Monocytes 0.6 thou/uL (0.11-0.59); #Neutrophils 5.1 thou/uL (1.40-6.50); %Basophils 1.2 % (0.0-1.0); %Eosinophils 8.6 % (0.0-10.0); %Monocytes 6.9 % (0.0-10.0); %Neutrophils 57.4 % (42.0-75.0); Hemoglobin 10.5 g/dL (14.0-18.0); Mean Corpuscular HGB CONC 31.5 g/dL (32.0-36.0); Mean Corpuscular Hemoglobin 29.5 pg (27.0-31.0); Mean Corpuscular Volume 93.5 fL (78.0-98.0); Mean Platelet Volume 6.9 fL (7.4-10.4); Platelet Count 276 thou/uL (130-400); RBC Distribution Width 12.1 % (11.5-14.5); Red Blood Cell (RBC) Count 3.56 mill/uL (4.70-6.10); White Blood Cell (WBC) Count 8.9 thou/uL (4.8-10.8)
[2020-01-29] MEDS: Levothyroxine Sodium 100 MCG TAB PO SCH (06:05)
--- NOTE | 2020-01-29 07:42 | PRG ---
DATE OF SERVICE: 01/28/2020 SUBJECTIVE: The patient said he is doing very well. He had no complaint today. He has been receiving his IV antibiotics using cefepime which was substituted for the ceftazidime. OBJECTIVE: GENERAL: The patient is lying in bed, alert, talkative, recognizes me, and appears comfortable, in no distress. VITAL SIGNS: His temperature is 97.2, pulse 67, blood pressure 165/83, respirations 16, and O2 saturation 97% on room air. LUNGS: Clear. HEART: Regular rate. LOWER EXTREMITIES: No edema. Incision of left heel well healed. No drainage or redness. LABORATORY DATA: His FBS this morning was 121. Labs showed a sodium of 136, potassium 4.5, BUN 36, creatinine 1.58, and GFR 42. ASSESSMENT: 1. Alteration in mental status: a. Presenting with lethargy and increased confusion secondary to the effects of tramadol and probable urinary tract infection and mild dehydration on . b. Resolved with no recurrence as of 01/27. 2. Generalized weakness and deconditioning: a. Secondary to a fall and fracture of the left hip on 12/24. b. History of gait abnormality with proximal muscle weakness and frequent falls. 3. Left femoral neck fracture, undisplaced: a. Secondary to a fall on 12/24. b. Status post left hemiarthroplasty by Dr. Darryn Kim, orthopedic surgeon, on 12/25. c. Followup with Dr. Kim on 01/21, showed he was doing well. d. Continues to improve as of 01/25. 4. Diabetes, type 2, insulin requiring. a. Controlled. 5. Coronary artery disease: a. Triple-vessel medically managed. b. Presently asymptomatic. 6. Hypertension. 7. Alzheimer disease, stable. 8. Chronic kidney disease: a. Stable with a GFR of 42 as of 01/27. 9. Chronic obstructive pulmonary disease, stable. 10. Obstructive sleep apnea, for which he uses CPAP. 11. History of transitional cell carcinoma of the bladder: a. Status post multiple transurethral resection of bladder tumors. b. Recent cystoscopy demonstrated no visual recurrence. 12. History of recurrent urinary retention: a. Status post laser prostatectomy and recent UroLift with recurrence of elevated post residual volume secondary to myogenic bladder dysfunction. b. Requires intermittent catheterization. Bladder scan every 6 hours. If residual greater than 400, has in and out catheterization. 13. Depression, controlled. 14. Gastroesophageal reflux disease, controlled. 15. Constipation. 16. Urinary tract infection. a. Urine collected on 01/21 grew Pseudomonas aeruginosa with colony count greater than 100,000, for which he was placed on IV cefepime as of 01/25 for a 7-day period that the organism is sensitive too. The organism was resistant to oral antibiotics other than Cipro, which he is allergic to. b. Presenting with alteration in mental status and lethargy. PLAN: The patient is doing very well. He is on day #3 of his IV cefepime, will complete a 7-day course. Continue PT and OT. Continue intermittent bladder scans. Job ID: [id number] MTDD
[2020-01-29] MEDS: Citalopram 20 MG TAB PO SCH (08:34)
[2020-01-29] MEDS: Alogliptin 25 MG TAB PO SCH (08:34)
[2020-01-29] MEDS: Sodium Chloride 1 GM TAB PO SCH ×2 (08:34→20:32)
[2020-01-29] MEDS: Aspirin Chewable 81 MG TAB PO SCH (08:34)
[2020-01-29] MEDS: Ferrous Sulfate 325 MG TAB PO SCH ×2 (08:34→20:33)
[2020-01-29] MEDS: Cholecalciferol 1,000 UNITS (25 MCG) TAB PO SCH (08:34)
[2020-01-29] MEDS: Amlodipine 5 MG TAB PO SCH (08:34)
[2020-01-29] MEDS: ICOSAPENT ETHYL 1 GM PO SCH ×2 (08:35→17:07)
[2020-01-29] MEDS: Senokot S 8.6-50 MG TAB PO SCH ×2 (08:35→20:32)
[2020-01-29] MEDS: Finasteride 5 MG TAB PO SCH (08:35)
[2020-01-29] MEDS: Gabapentin 100 MG CAP PO SCH ×2 (08:35→20:33)
[2020-01-29] MEDS: Tamsulosin HCl 0.4 MG CAP PO SCH (08:35)
[2020-01-29] MEDS: Lantus 1000 UNITS/10 ML VIAL SC SCH (08:36)
[2020-01-29] MEDS: ANORO ELLIPTA INH SCH (08:37)
[2020-01-29] MEDS: Cefepime 2 GM in Sodium Chloride 0.9% 100 ML IVPB SCH ×2 (11:48→23:14)
[2020-01-29] MEDS: Ubidecarenone 50 MG CAP PO SCH (20:32)
[2020-01-29] MEDS: Ezetimibe 10 MG TAB PO SCH (20:33)
[2020-01-29] MEDS: Melatonin 3 MG TAB PO SCH (20:33)
[2020-01-30] MEDS: Acetaminophen 500 MG TAB PO PRN ×3 (02:53→20:49)
[2020-01-30] MEDS: Levothyroxine Sodium 100 MCG TAB PO SCH (05:22)
[2020-01-30] MEDS: ICOSAPENT ETHYL 1 GM PO SCH ×2 (09:08→17:14)
[2020-01-30] MEDS: ANORO ELLIPTA INH SCH (09:08)
[2020-01-30] MEDS: Lantus 1000 UNITS/10 ML VIAL SC SCH (09:09)
[2020-01-30] MEDS: Citalopram 20 MG TAB PO SCH (09:11)
[2020-01-30] MEDS: Senokot S 8.6-50 MG TAB PO SCH ×2 (09:11→20:48)
[2020-01-30] MEDS: Cholecalciferol 1,000 UNITS (25 MCG) TAB PO SCH (09:11)
[2020-01-30] MEDS: Alogliptin 25 MG TAB PO SCH (09:11)
[2020-01-30] MEDS: Aspirin Chewable 81 MG TAB PO SCH (09:11)
[2020-01-30] MEDS: Sodium Chloride 1 GM TAB PO SCH ×2 (09:11→20:49)
[2020-01-30] MEDS: Finasteride 5 MG TAB PO SCH (09:11)
[2020-01-30] MEDS: Gabapentin 100 MG CAP PO SCH ×2 (09:11→20:48)
[2020-01-30] MEDS: Tamsulosin HCl 0.4 MG CAP PO SCH (09:11)
[2020-01-30] MEDS: Ferrous Sulfate 325 MG TAB PO SCH ×2 (09:12→20:48)
[2020-01-30] MEDS: Amlodipine 5 MG TAB PO SCH (09:12)
--- NOTE | 2020-01-30 10:16 | PRG ---
DATE OF SERVICE: 01/30/2020 SUBJECTIVE: The patient said he is feeling fine. He has no complaint. Nurses are scanning the patient and he has had significant bladder volumes, but has been voiding. Last evening, he had a 600 mL and was able to void 300. OBJECTIVE: GENERAL: The patient is alert, appears in no distress. VITAL SIGNS: Show a temperature 97.8, pulse 64, respirations 18, O2 saturation 98% on room air, blood pressure 160/82. LUNGS: Clear. HEART: Regular rate. EXTREMITIES: No edema. LABORATORY DATA: Yesterday, H and H 10.5 and 33.3, white cell count 8900. FBS this morning 83. ASSESSMENT: 1. Alteration of mental status. a. Presenting with lethargy and increased confusion secondary to the effect of tramadol and probable urinary tract infection with mild dehydration on 01/21. b. Resolved with no recurrence as of 01/29. 2. Generalized weakness and deconditioning. a. Secondary to a fall and fracture of the left hip on 12/24. b. History of gait abnormality with proximal muscle weakness and frequent falls. 3. Left femoral neck fracture undisplaced. a. Secondary to a fall on 12/24. b. Status post left hemiarthroplasty on 12/25. c. Doing very well as of 01/29. 4. Diabetes type 2, insulin requiring, controlled. 5. Coronary artery disease. a. Asymptomatic. 6. Hypertension. 7. Alzheimer disease. 8. Chronic kidney disease. 9. Chronic obstructive pulmonary disease. 10. Obstructive sleep apnea, for which he uses CPAP. 11. History of transitional cell carcinoma of the bladder. a. Status post multiple transurethral resections of bladder tumors. b. Recent cystoscopy demonstrated no visual recurrence. 12. History of recurrent urinary retention. a. Status post laser prostatectomy and recent UroLift with recurrence of elevated post residual volume secondary to myogenic bladder dysfunction. b. Requires intermittent catheterizations. Bladder scans every 6 hours. If residual greater than 400 postvoid, is offered in and out catheterization. 13. Urinary tract infection. a. On fifth day of cefepime for Pseudomonas aeruginosa. PLAN: Continue present care. Continue IV cefepime for full 7 days. Continue PT and OT. Job ID: [id number] MTDD
[2020-01-30] MEDS: Cefepime 2 GM in Sodium Chloride 0.9% 100 ML IVPB SCH ×2 (12:22→23:52)
[2020-01-30] MEDS: Ezetimibe 10 MG TAB PO SCH (20:48)
[2020-01-30] MEDS: Melatonin 3 MG TAB PO SCH (20:48)
[2020-01-30] MEDS: Ubidecarenone 50 MG CAP PO SCH (20:49)
[2020-01-31] MEDS: Levothyroxine Sodium 100 MCG TAB PO SCH (05:08)
[2020-01-31] MEDS: Lantus 1000 UNITS/10 ML VIAL SC SCH (08:38)
[2020-01-31] MEDS: Citalopram 20 MG TAB PO SCH (08:39)
[2020-01-31] MEDS: Senokot S 8.6-50 MG TAB PO SCH ×2 (08:39→21:17)
[2020-01-31] MEDS: Gabapentin 100 MG CAP PO SCH ×2 (08:40→21:17)
[2020-01-31] MEDS: Amlodipine 5 MG TAB PO SCH ×3 (08:40→10:39)
[2020-01-31] MEDS: Finasteride 5 MG TAB PO SCH (08:40)
[2020-01-31] MEDS: Acetaminophen 500 MG TAB PO PRN ×2 (08:40→21:17)
[2020-01-31] MEDS: Tamsulosin HCl 0.4 MG CAP PO SCH (08:40)
[2020-01-31] MEDS: Cholecalciferol 1,000 UNITS (25 MCG) TAB PO SCH (08:40)
[2020-01-31] MEDS: ICOSAPENT ETHYL 1 GM PO SCH ×2 (08:41→17:18)
[2020-01-31] MEDS: Ferrous Sulfate 325 MG TAB PO SCH ×2 (08:41→21:17)
[2020-01-31] MEDS: Alogliptin 25 MG TAB PO SCH (08:41)
[2020-01-31] MEDS: Aspirin Chewable 81 MG TAB PO SCH (08:41)
[2020-01-31] MEDS: ANORO ELLIPTA INH SCH (09:23)
[2020-01-31] MEDS: Sodium Chloride 1 GM TAB PO SCH ×2 (09:24→21:17)
[2020-01-31] MEDS: Cefepime 2 GM in Sodium Chloride 0.9% 100 ML IVPB SCH (12:07)
[2020-01-31] MEDS: Ubidecarenone 50 MG CAP PO SCH (21:16)
[2020-01-31] MEDS: Melatonin 3 MG TAB PO SCH (21:17)
[2020-01-31] MEDS: Ezetimibe 10 MG TAB PO SCH (21:17)
[2020-02-01] MEDS: Cefepime 2 GM in Sodium Chloride 0.9% 100 ML IVPB SCH ×2 (01:04→12:22)
[2020-02-01] MEDS: Levothyroxine Sodium 100 MCG TAB PO SCH (05:41)
[2020-02-01] MEDS: ANORO ELLIPTA INH SCH (08:34)
[2020-02-01] MEDS: Lantus 1000 UNITS/10 ML VIAL SC SCH (08:35)
[2020-02-01] MEDS: Senokot S 8.6-50 MG TAB PO SCH ×2 (08:35→21:46)
[2020-02-01] MEDS: Sodium Chloride 1 GM TAB PO SCH ×2 (08:36→21:47)
[2020-02-01] MEDS: Cholecalciferol 1,000 UNITS (25 MCG) TAB PO SCH (08:36)
[2020-02-01] MEDS: Citalopram 20 MG TAB PO SCH (08:36)
[2020-02-01] MEDS: Aspirin Chewable 81 MG TAB PO SCH (08:36)
[2020-02-01] MEDS: Alogliptin 25 MG TAB PO SCH (08:36)
[2020-02-01] MEDS: Tamsulosin HCl 0.4 MG CAP PO SCH (08:36)
[2020-02-01] MEDS: Finasteride 5 MG TAB PO SCH (08:36)
[2020-02-01] MEDS: Ferrous Sulfate 325 MG TAB PO SCH ×2 (08:37→21:47)
[2020-02-01] MEDS: Amlodipine 5 MG TAB PO SCH (08:37)
[2020-02-01] MEDS: Gabapentin 100 MG CAP PO SCH ×2 (08:37→21:46)
[2020-02-01] MEDS: ICOSAPENT ETHYL 1 GM PO SCH ×2 (08:37→16:58)
--- NOTE | 2020-02-01 08:38 | PRG ---
DATE OF SERVICE: 02/01/2020 SUBJECTIVE: The patient said he is doing good. He continues to work with physical therapy. He is walking a little further, but still needs someone to accompany him. He gets unsteady. His knee can give out or he will get out of balance and remains a high fall risk. He said he thinks his bladder is doing better. He thinks he is urinating better. He has not required any recent catheterization. He occasionally will have a bladder scan with over 400 mL, but usually refuses to be cathed and later is able to void. OBJECTIVE: GENERAL: The patient lying in bed, smiling. He is alert, talkative , and appears comfortable, in no distress. VITAL SIGNS: Temperature 97.5, pulse 74, respirations 16, O2 saturation 93% on room air, and blood pressure 170/70, earlier the pressure was 158/80. LUNGS: Clear. HEART: Regular rate. EXTREMITIES: No edema. Incision healing well on the left hip. LABORATORY DATA: FBS yesterday morning 153, this morning pending. ASSESSMENT: 1. Alteration in mental status. a. Presenting with lethargy and increased confusion secondary to the effect of tramadol and probable urinary tract infection with mild dehydration on 01/21. b. Resolved with no recurrence as of 01/31. 2. Generalized weakness and deconditioning. a. Secondary to a fall and fracture of the left hip on 12/24. b. History of gait abnormality with proximal muscle weakness and frequent falls. 3. Left femoral neck fracture, undisplaced. a. Secondary to a fall on 12/24. b. Status post left hemiarthroplasty on 12/25. c. Doing very well as of 01/31. 4. Diabetes, type 2, insulin requiring, controlled. 5. Coronary artery disease, asymptomatic. 6. Hypertension. 7. Alzheimer disease. 8. Chronic kidney disease. 9. Chronic obstructive pulmonary disease. 10. Obstructive sleep apnea. 11. History of transitional cell carcinoma of the bladder. a. Status post multiple transurethral resection of bladder tumors. b. Recent cystoscopy demonstrated no visual recurrence. 12. History of recurrent urinary retention. a. Status post prostatectomy and recent UroLift with recurrence of elevated post residual volume secondary to myogenic bladder dysfunction. b. Requires intermittent catheterization when bladder scan shows over 400 mL residual. Lately, the patient has refused to be cathed. 13. Urinary tract infection, on day of 7-day course of cefepime. PLAN: Will complete the cefepime today and stop his IV access. Continue PT and OT. Continue bladder scans. Job ID: [id number] MTDD
[2020-02-01] MEDS: Melatonin 3 MG TAB PO SCH (21:47)
[2020-02-01] MEDS: Ezetimibe 10 MG TAB PO SCH (21:47)
[2020-02-01] MEDS: Ubidecarenone 50 MG CAP PO SCH (21:48)
[2020-02-02] MEDS: Cefepime 2 GM in Sodium Chloride 0.9% 100 ML IVPB SCH (03:12)
[2020-02-02] MEDS: Levothyroxine Sodium 100 MCG TAB PO SCH (05:41)
[2020-02-02] MEDS: ANORO ELLIPTA INH SCH (08:33)
[2020-02-02] MEDS: Amlodipine 5 MG TAB PO SCH (08:34)
[2020-02-02] MEDS: Citalopram 20 MG TAB PO SCH (08:34)
[2020-02-02] MEDS: Lantus 1000 UNITS/10 ML VIAL SC SCH (08:34)
[2020-02-02] MEDS: Ferrous Sulfate 325 MG TAB PO SCH ×2 (08:35→21:08)
[2020-02-02] MEDS: Gabapentin 100 MG CAP PO SCH ×2 (08:35→21:08)
[2020-02-02] MEDS: Aspirin Chewable 81 MG TAB PO SCH (08:35)
[2020-02-02] MEDS: Tamsulosin HCl 0.4 MG CAP PO SCH (08:35)
[2020-02-02] MEDS: Alogliptin 25 MG TAB PO SCH (08:36)
[2020-02-02] MEDS: ICOSAPENT ETHYL 1 GM PO SCH ×2 (08:39→16:56)
[2020-02-02] MEDS: Cholecalciferol 1,000 UNITS (25 MCG) TAB PO SCH (08:39)
[2020-02-02] MEDS: Sodium Chloride 1 GM TAB PO SCH ×2 (08:39→21:08)
[2020-02-02] MEDS: Acetaminophen 500 MG TAB PO PRN (08:39)
[2020-02-02] MEDS: Senokot S 8.6-50 MG TAB PO SCH ×2 (08:39→21:07)
[2020-02-02] MEDS: Finasteride 5 MG TAB PO SCH (08:40)
--- NOTE | 2020-02-02 10:44 | PRG ---
DATE OF SERVICE: 02/02/2020 SUBJECTIVE: The patient thinks he is doing better. This morning, he is already up in the Physical Therapy Department. Therapist says he is doing better with his walking. Still needs someone with him because his knee tends to give out and then he is apt to fall. Overall though, his strength has improved. He said he is voiding better. He has not required a recent catheterization. OBJECTIVE: GENERAL: The patient is sitting up in a wheelchair. He is alert, talkative, and appears in no distress. VITAL SIGNS: His temperature is 97.4, pulse 72, respirations 16, O2 saturation 95% on room air, blood pressure 170/84. LUNGS: Clear. HEART: Regular rate. EXTREMITIES: No edema. LABORATORY DATA: FBS yesterday morning was 79, before supper yesterday 155, morning blood sugar pending. ASSESSMENT: 1. Alteration of mental status. a. Presenting with lethargy and increased confusion secondary to the effect of the tramadol and probable urinary tract infection with mild dehydration on 01/21. b. Resolved with no recurrence as of 02/01. 2. Generalized weakness and deconditioning. a. Secondary to a fall and fracture of the left hip on 12/24. b. History of gait abnormality with proximal muscle weakness and frequent falls. 3. Left femoral neck fracture, undisplaced. a. Secondary to fall on 12/24. b. Status post left hemiarthroplasty on 12/25. c. Doing very well as of 02/01. 4. Diabetes type 2, insulin requiring, controlled. 5. Coronary artery disease. Asymptomatic. 6. Hypertension. 7. Alzheimer's disease. 8. Chronic kidney disease. 9. Chronic obstructive pulmonary disease. 10. Obstructive sleep apnea. 11. History of transitional cell carcinoma of the bladder. a. Status post multiple transurethral resections of the bladder tumor. b. Recent cystoscopy demonstrated no visual recurrence. 12. History of recurrent urinary retention. a. Status post prostatectomy and recent UroLift with recurrence of elevated postresidual volumes secondary to mild bladder dysfunction. b. Requires intermittent catheterizations. c. Has not required any catheterizations recently. 13. Urinary tract infection. a. Resolved. b. Completed seven-day course of IV cefepime. PLAN: Continue present care. Continue PT and OT. Job ID: [id number] [facility]
[2020-02-02] MEDS: Ubidecarenone 50 MG CAP PO SCH (21:06)
[2020-02-02] MEDS: Melatonin 3 MG TAB PO SCH (21:07)
[2020-02-02] MEDS: Ezetimibe 10 MG TAB PO SCH (21:07)
[2020-02-03] MEDS: Levothyroxine Sodium 100 MCG TAB PO SCH (05:39)
[2020-02-03] MEDS: ICOSAPENT ETHYL 1 GM PO SCH ×2 (08:16→17:16)
[2020-02-03] MEDS: Ferrous Sulfate 325 MG TAB PO SCH ×2 (08:17→20:53)
[2020-02-03] MEDS: Finasteride 5 MG TAB PO SCH (08:17)
[2020-02-03] MEDS: Sodium Chloride 1 GM TAB PO SCH ×2 (08:17→20:48)
[2020-02-03] MEDS: Tamsulosin HCl 0.4 MG CAP PO SCH (08:17)
[2020-02-03] MEDS: Gabapentin 100 MG CAP PO SCH ×2 (08:17→20:48)
[2020-02-03] MEDS: Alogliptin 25 MG TAB PO SCH (08:17)
[2020-02-03] MEDS: Lantus 1000 UNITS/10 ML VIAL SC SCH (08:18)
[2020-02-03] MEDS: Citalopram 20 MG TAB PO SCH (08:18)
[2020-02-03] MEDS: Aspirin Chewable 81 MG TAB PO SCH (08:18)
[2020-02-03] MEDS: Cholecalciferol 1,000 UNITS (25 MCG) TAB PO SCH (08:18)
[2020-02-03] MEDS: Senokot S 8.6-50 MG TAB PO SCH ×2 (08:18→20:50)
[2020-02-03] MEDS: Amlodipine 5 MG TAB PO SCH (08:18)
[2020-02-03] MEDS: ANORO ELLIPTA INH SCH (08:21)
--- NOTE | 2020-02-03 16:37 | PRG ---
DATE OF SERVICE: 02/03/2020 SUBJECTIVE: The patient stated he did not rest too well last night, but this morning he has been to therapy already and he is feeling better. He says he is doing better with his walking, but he says he is having a little soreness in the left hip, but it is improving. He said he is peeing better. OBJECTIVE: GENERAL: The patient is lying in bed, awake, talkative, and smiling , and appears very comfortable, in no distress. VITAL SIGNS: Show a temperature 98.5, pulse 76, respirations 18, O2 saturation 96% on room air, blood pressure 163/83. LUNGS: Clear. HEART: Regular rate. EXTREMITIES: No edema. Incision healing well over the left lateral hip. LABORATORY DATA: His FBS this morning was 118. ASSESSMENT: 1. Alteration in mental status. a. Presenting with lethargy and increased confusion secondary to the effect of the tramadol and probable urinary tract infection with mild dehydration on 01/21. b. Resolved with no recurrence as of 02/02. 2. Generalized weakness and deconditioning. a. Secondary to a fall and fracture of the left hip on 12/24. b. History of gait abnormality with proximal muscle weakness and frequent falls. 3. Left femoral neck fracture, undisplaced. a. Secondary to a fall on 12/24. b. Status post left hemiarthroplasty on 12/25. c. Doing very well on 02/01. 4. Diabetes type 2, insulin requiring, controlled. 5. Coronary artery disease, asymptomatic. 6. Hypertension. 7. Alzheimer disease. 8. Chronic kidney disease. 9. Chronic obstructive pulmonary disease. 10. Obstructive sleep apnea. 11. History of transitional cell carcinoma of the bladder. a. Status post multiple transurethral resections of the bladder tumors. b. Recent cystoscopy demonstrated no visual recurrence. 12. History of recurrent urinary retention. a. Status post prostatectomy and recent urolith with recurrence of elevated postresidual volume secondary to myogenic bladder dysfunction. b. Requiring intermittent cath. c. Improving, urinating better, has not required in and out catheterization for few days as of 02/02. 13. Urinary tract infection. a. Resolved. b. Completed 7-day course of IV cefepime on 02/02/2020. PLAN: Continue present care. Continue PT and OT. [facility] ID: [id number] [facility]
[2020-02-03] MEDS: Ubidecarenone 50 MG CAP PO SCH (20:47)
[2020-02-03] MEDS: Melatonin 3 MG TAB PO SCH (20:47)
[2020-02-03] MEDS: Ezetimibe 10 MG TAB PO SCH (20:49)
[2020-02-03] MEDS: Acetaminophen 500 MG TAB PO PRN (20:53)
[2020-02-04] MEDS: Levothyroxine Sodium 100 MCG TAB PO SCH (05:58)
[2020-02-04] MEDS: ANORO ELLIPTA INH SCH (08:16)
[2020-02-04] MEDS: ICOSAPENT ETHYL 1 GM PO SCH ×2 (08:17→16:58)
[2020-02-04] MEDS: Lantus 1000 UNITS/10 ML VIAL SC SCH (08:17)
[2020-02-04] MEDS: Aspirin Chewable 81 MG TAB PO SCH (08:19)
[2020-02-04] MEDS: Alogliptin 25 MG TAB PO SCH (08:19)
[2020-02-04] MEDS: Gabapentin 100 MG CAP PO SCH ×2 (08:20→20:11)
[2020-02-04] MEDS: Tamsulosin HCl 0.4 MG CAP PO SCH (08:20)
[2020-02-04] MEDS: Senokot S 8.6-50 MG TAB PO SCH ×2 (08:20→20:12)
[2020-02-04] MEDS: Sodium Chloride 1 GM TAB PO SCH ×2 (08:20→20:11)
[2020-02-04] MEDS: Citalopram 20 MG TAB PO SCH (08:20)
[2020-02-04] MEDS: Amlodipine 5 MG TAB PO SCH (08:20)
[2020-02-04] MEDS: Finasteride 5 MG TAB PO SCH (08:20)
[2020-02-04] MEDS: Ferrous Sulfate 325 MG TAB PO SCH ×2 (08:20→20:13)
[2020-02-04] MEDS: Cholecalciferol 1,000 UNITS (25 MCG) TAB PO SCH (08:21)
[2020-02-04] MEDS: Ubidecarenone 50 MG CAP PO SCH (20:08)
[2020-02-04] MEDS: Ezetimibe 10 MG TAB PO SCH (20:11)
[2020-02-04] MEDS: Melatonin 3 MG TAB PO SCH (20:11)
[2020-02-04] MEDS: Acetaminophen 500 MG TAB PO PRN (20:14)
[2020-02-05] MEDS: Levothyroxine Sodium 100 MCG TAB PO SCH (05:03)
[2020-02-05] MEDS: ICOSAPENT ETHYL 1 GM PO SCH ×2 (08:32→17:02)
[2020-02-05] MEDS: Lantus 1000 UNITS/10 ML VIAL SC SCH (08:32)
[2020-02-05] MEDS: ANORO ELLIPTA INH SCH (08:32)
[2020-02-05] MEDS: Acetaminophen 500 MG TAB PO PRN (08:34)
[2020-02-05] MEDS: Senokot S 8.6-50 MG TAB PO SCH ×2 (08:36→21:18)
[2020-02-05] MEDS: Ferrous Sulfate 325 MG TAB PO SCH ×2 (08:36→21:18)
[2020-02-05] MEDS: Finasteride 5 MG TAB PO SCH (08:36)
[2020-02-05] MEDS: Sodium Chloride 1 GM TAB PO SCH ×2 (08:36→21:18)
[2020-02-05] MEDS: Cholecalciferol 1,000 UNITS (25 MCG) TAB PO SCH (08:37)
[2020-02-05] MEDS: Aspirin Chewable 81 MG TAB PO SCH (08:37)
[2020-02-05] MEDS: Gabapentin 100 MG CAP PO SCH ×2 (08:37→21:19)
[2020-02-05] MEDS: Alogliptin 25 MG TAB PO SCH (08:37)
[2020-02-05] MEDS: Citalopram 20 MG TAB PO SCH (08:37)
[2020-02-05] MEDS: Tamsulosin HCl 0.4 MG CAP PO SCH (08:37)
[2020-02-05] MEDS: Amlodipine 5 MG TAB PO SCH (08:37)
--- NOTE | 2020-02-05 09:51 | PRG ---
DATE OF SERVICE: 02/05/2020 SUBJECTIVE: The patient said he is feeling very good today. He has had breakfast. He says he is urinating without any trouble. OBJECTIVE: VITAL SIGNS: Show a temperature of 98.5, pulse 71, blood pressure 165/83, respirations 18, O2 saturations 96% on room air. LUNGS: Clear. HEART: Regular rate. EXTREMITIES: No edema. LABORATORY DATA: His glucose yesterday morning was 100, this morning is pending. ASSESSMENT: Overall, the patient continues to improve. He is voiding better. His strength is better, but he still has a little trouble with the knee on the right wanting to give out and a little trouble with balance when up on his walker, but has improved. We will continue present care and PT and OT. Job ID: [id number]
[2020-02-05] MEDS: Ubidecarenone 50 MG CAP PO SCH (21:17)
[2020-02-05] MEDS: Melatonin 3 MG TAB PO SCH (21:18)
[2020-02-05] MEDS: Ezetimibe 10 MG TAB PO SCH (21:19)
[2020-02-06] MEDS: Levothyroxine Sodium 100 MCG TAB PO SCH (05:11)
[2020-02-06] MEDS: ICOSAPENT ETHYL 1 GM PO SCH ×2 (08:18→16:50)
[2020-02-06] MEDS: Alogliptin 25 MG TAB PO SCH (09:12)
[2020-02-06] MEDS: Amlodipine 5 MG TAB PO SCH (09:12)
[2020-02-06] MEDS: Aspirin Chewable 81 MG TAB PO SCH (09:14)
[2020-02-06] MEDS: Citalopram 20 MG TAB PO SCH (09:15)
[2020-02-06] MEDS: Finasteride 5 MG TAB PO SCH (09:16)
[2020-02-06] MEDS: Ferrous Sulfate 325 MG TAB PO SCH ×2 (09:16→20:51)
[2020-02-06] MEDS: Gabapentin 100 MG CAP PO SCH ×2 (09:16→20:47)
[2020-02-06] MEDS: Lantus 1000 UNITS/10 ML VIAL SC SCH (09:17)
[2020-02-06] MEDS: Senokot S 8.6-50 MG TAB PO SCH ×2 (09:18→20:49)
[2020-02-06] MEDS: ANORO ELLIPTA INH SCH (09:20)
[2020-02-06] MEDS: Sodium Chloride 1 GM TAB PO SCH ×2 (09:20→20:46)
[2020-02-06] MEDS: Cholecalciferol 1,000 UNITS (25 MCG) TAB PO SCH (09:20)
[2020-02-06] MEDS: Tamsulosin HCl 0.4 MG CAP PO SCH (09:20)
--- NOTE | 2020-02-06 10:13 | PRG ---
DATE OF SERVICE: 02/06/2020 SUBJECTIVE: The patient said he is doing good this morning. He said he rested well last night. He has a little soreness in his hip, but no more than what it has been. He is urinating better. He has not had to have a recent catheterization. OBJECTIVE: GENERAL: The patient is sitting up in bed, eating his breakfast. He is alert, talkative, appears very comfortable, in no distress. VITAL SIGNS: Temp 97.2, pulse 65, respirations 20, O2 sat 98% on room air, and blood pressure 179/80, last night 135/71. LUNGS: Clear. HEART: Regular rate. EXTREMITIES: No edema. LABORATORY DATA: FBS this morning 94. ASSESSMENT: 1. Alteration of mental status. a. Presenting with lethargy and increased confusion secondary to the effect of the tramadol and probable urinary tract infection with mild dehydration on 01/21, resolved with no recurrence as of 02/05. 2. Generalized weakness and deconditioning. a. Secondary to a fall and fracture of the left hip on 12/24. b. History of gait abnormality with proximal muscle weakness and frequent falls. 3. Left femoral neck fracture, undisplaced. a. Secondary to a fall on 12/24. b. Status post left hemiarthroplasty, 12/25. c. Doing well as of 02/05. 4. Diabetes type 2, insulin requiring, controlled. 5. Coronary artery disease, asymptomatic. 6. Hypertension. 7. Alzheimer disease. 8. Chronic kidney disease. 9. Chronic obstructive pulmonary disease. 10. Obstructive sleep apnea, for which he is on CPAP. 11. History of transitional cell carcinoma of the bladder. a. Status post multiple transurethral resections of the bladder tumor. b. Recent cystoscopy demonstrated no visual recurrence. 12. History of recurrent urinary retention. a. Status post prostatectomy and recent UroLift with recurrence of elevated post residual volume secondary to myogenic bladder dysfunction. b. Initially required intermittent catheterization. c. Improving, urinating better. He has not required recent catheterization as of 02/02. 13. Urinary tract infection. a. Completed 7-day course of IV cefepime on 02/01. b. Resolved. PLAN: Continue present care. Continue PT and OT. Job ID: [id number] [facility]
[2020-02-06] MEDS: Acetaminophen 500 MG TAB PO PRN ×2 (11:28→20:52)
[2020-02-06] MEDS: Ubidecarenone 50 MG CAP PO SCH (20:47)
[2020-02-06] MEDS: Ezetimibe 10 MG TAB PO SCH (20:48)
[2020-02-06] MEDS: Melatonin 3 MG TAB PO SCH (21:00)
[2020-02-07] MEDS: Acetaminophen 500 MG TAB PO PRN ×2 (03:39→18:17)
[2020-02-07] MEDS ORDERED: Acetaminophen 650 MG Suppository PR PRN (04:25)
[2020-02-07] MEDS: Levothyroxine Sodium 100 MCG TAB PO SCH (05:00)
[2020-02-07 05:08] LABS: Hemoglobin 11.3 g/dL (14.0-18.0); Mean Corpuscular HGB CONC 32.4 g/dL (32.0-36.0); Mean Corpuscular Hemoglobin 29.8 pg (27.0-31.0); Mean Corpuscular Volume 91.9 fL (78.0-98.0); Mean Platelet Volume 6.9 fL (7.4-10.4); Platelet Count 297 thou/uL (130-400); RBC Distribution Width 11.7 % (11.5-14.5); Red Blood Cell (RBC) Count 3.78 mill/uL (4.70-6.10); White Blood Cell (WBC) Count 30.6 thou/uL (4.8-10.8)
[2020-02-07 05:23] LABS: Anion Gap 16 mmol/L (10-20); BUN (Urea Nitrogen) 37 mg/dL (8.4-25.7); Calc. Creatinine Clearance 40 mL/min (70-130); Calcium 9.4 mg/dL (7.8-10.44); Carbon Dioxide 15 mmol/L (23-31); Chloride 106 mmol/L (98-107); Estimated GFR-MDRD 35; Glucose 219 mg/dL (83-110); Potassium 5.4 mmol/L (3.5-5.1); Sodium 132 mmol/L (136-145)
[2020-02-07 05:51] LABS: Bilirubin Negative (Negative); Blood, Urine Moderate (Negative); Clarity Cloudy (Clear); Glucose, Urine (Dipstick) Negative (Negative); Ketone, Urine Negative (Negative); Leukocyte Small (Negative); Nitrite Positive (Negative); Protein, Urine (Dipstick) > or equal to 300 mg/dL (Neg-Trace); Specific Gravity, Urine 1.025 (1.005-1.030); Urobilinogen 0.2 mg/dL (Less than 2)
[2020-02-07 05:52] LABS: Squamous Epithelial None Seen HPF (0-3); WBC/HPF Greater than 50 HPF (0-3)
[2020-02-07 05:53] LABS: Bacteria/HPF 4+ HPF (None Seen)
[2020-02-07 05:54] LABS: Urine Culture Reflex Yes Yes
[2020-02-07 06:01] LABS: Band 17 % (5-11); Lymphocytes 2 % (21-51); MDiff Complete? YES; Monocytes 1 % (0-10); Neutrophil 80 % (42-75); Platelet Morphology Comment Appears Adequate; RBC Morphology Normal
--- NOTE | 2020-02-07 07:45 | RAD ---
EXAM: Single view of the chest HISTORY: Fever COMPARISON: 12/25/2019 FINDINGS: Single view of the chest shows an enlarged but stable cardiomediastinal silhouette. There i s no evidence of consolidation, mass, or pleural effusion. Degenerative changes in the spine. IMPRESSION: No evidence of acute cardiopulmonary disease
[2020-02-07] MEDS: Citalopram 20 MG TAB PO SCH (08:21)
[2020-02-07] MEDS: Senokot S 8.6-50 MG TAB PO SCH ×2 (08:21→20:35)
[2020-02-07] MEDS: Gabapentin 100 MG CAP PO SCH ×2 (08:21→20:37)
[2020-02-07] MEDS: Cholecalciferol 1,000 UNITS (25 MCG) TAB PO SCH (08:21)
[2020-02-07] MEDS: Finasteride 5 MG TAB PO SCH (08:21)
[2020-02-07] MEDS: Amlodipine 5 MG TAB PO SCH (08:21)
[2020-02-07] MEDS: Alogliptin 25 MG TAB PO SCH (08:22)
[2020-02-07] MEDS: Sodium Chloride 1 GM TAB PO SCH ×2 (08:22→20:35)
[2020-02-07] MEDS: Aspirin Chewable 81 MG TAB PO SCH (08:22)
[2020-02-07] MEDS: Tamsulosin HCl 0.4 MG CAP PO SCH (08:22)
[2020-02-07] MEDS: Cefepime 2 GM in Sodium Chloride 0.9% 100 ML IVPB SCH ×2 (08:22→20:36)
[2020-02-07] MEDS: Ferrous Sulfate 325 MG TAB PO SCH ×2 (08:22→20:35)
[2020-02-07] MEDS: Lantus 1000 UNITS/10 ML VIAL SC SCH (08:24)
[2020-02-07] MEDS: ANORO ELLIPTA INH SCH (08:25)
[2020-02-07] MEDS: ICOSAPENT ETHYL 1 GM PO SCH ×2 (08:26→16:37)
[2020-02-07] MEDS ORDERED: Vancomycin 1 GM in Premix Bag 1 BAG IVPB SCH (09:00)
[2020-02-07] MEDS ORDERED: Vancomycin HCl 1 GM in Sodium Chloride 0.9% 250 ML 250 ML IVPB SCH (09:00)
[2020-02-07] MEDS: Sodium Chloride 0.9% 1,000 ML IV SCH ×2 (09:18→20:31)
--- NOTE | 2020-02-07 09:58 | PRG ---
DATE OF SERVICE: 02/07/2020 SUBJECTIVE: The patient had developed a fever of 102.4 around 3:30 this morning. Blood cultures were obtained. His in and out catheterization showed positive nitrite, 11 to 20 RBCs and greater than 50 WBCs with 4+ bacteria. Sodium was 132, potassium 5.4, BUN 37, creatinine 1.86, glucose 219. His H and H were 11.3 and 34.8, white cell count 30,600 with 80% segs, 17% bands, and a platelet count of 297. After his blood cultures and urine cultures were obtained, he was started on cefepime 2 g every 12 hours. He has been given Tylenol for the fever and his fever has come down. Chest x-ray was performed and shows no evidence of acute cardiopulmonary disease. OBJECTIVE: GENERAL: The patient was seen early this morning. He was in his room in isolation due to the possibility of COVID infection, but doubtful. With personal protective equipment on, the patient was examined. He was sleeping, but easily aroused and recognized me and spoke to me. VITAL SIGNS: His blood pressure was 179/90, his pulse is 84, O2 saturation 98% on room air. LUNGS: Clear. HEART: Regular rate. ABDOMEN: Soft, nontender. SKIN: No rash. Incision of the left hip, healing. ASSESSMENT: 1. Febrile illness on the morning of 02/06. a. Probable urinary tract infection. UA has greater than 50 WBCs. The CBC shows a white cell count of 30,000 with a left shift. b. Blood and urine cultures have been obtained. c. The patient was started on IV cefepime. 2. Diabetes type 2, insulin requiring, controlled. 3. History of recurrent urinary retention. 4. Chronic kidney disease. PLAN: We will place the patient on IV fluids at 100 an hour since he has had some mild decline in his renal function. We will add vancomycin to his regimen along with the cefepime and then this course of antibiotics will be modified depending upon the culture results. Job ID: [id number] [facility]
[2020-02-07] MEDS: Ubidecarenone 50 MG CAP PO SCH (20:33)
[2020-02-07] MEDS: Melatonin 3 MG TAB PO SCH (20:34)
[2020-02-07] MEDS: Ezetimibe 10 MG TAB PO SCH (20:34)
[2020-02-08] MEDS: Acetaminophen 500 MG TAB PO PRN (04:15)
[2020-02-08 05:56] LABS: Anion Gap 12 mmol/L (10-20); BUN (Urea Nitrogen) 43 mg/dL (8.4-25.7); Calc. Creatinine Clearance 45 mL/min (70-130); Calcium 8.7 mg/dL (7.8-10.44); Carbon Dioxide 17 mmol/L (23-31); Chloride 109 mmol/L (98-107); Estimated GFR-MDRD 40; Glucose 166 mg/dL (83-110); Potassium 5.1 mmol/L (3.5-5.1); Sodium 133 mmol/L (136-145)
[2020-02-08] MEDS: Levothyroxine Sodium 100 MCG TAB PO SCH (06:01)
[2020-02-08 06:02] LABS: Band 15 % (5-11); Hemoglobin 9.6 g/dL (14.0-18.0); Lymphocytes 3 % (21-51); MDiff Complete? YES; Mean Corpuscular HGB CONC 32.8 g/dL (32.0-36.0); Mean Corpuscular Hemoglobin 30.5 pg (27.0-31.0); Mean Corpuscular Volume 93.2 fL (78.0-98.0); Metamyelocyte 1 % (0-0); Monocytes 4 % (0-10); Neutrophil 76 % (42-75); Platelet Count 223 thou/uL (130-400); Platelet Morphology Comment Appears Adequate; RBC Distribution Width 12.3 % (11.5-14.5); RBC Morphology Normal; Reactive Lymphocytes 1 % (0-10); Red Blood Cell (RBC) Count 3.16 mill/uL (4.70-6.10); Toxic Granulation SLIGHT; White Blood Cell (WBC) Count 23.6 thou/uL (4.8-10.8)
[2020-02-08] MEDS: Cefepime 2 GM in Sodium Chloride 0.9% 100 ML IVPB SCH ×2 (08:29→21:02)
[2020-02-08] MEDS: ICOSAPENT ETHYL 1 GM PO SCH ×2 (08:30→16:59)
[2020-02-08] MEDS: Lantus 1000 UNITS/10 ML VIAL SC SCH (08:30)
[2020-02-08] MEDS: ANORO ELLIPTA INH SCH (08:31)
[2020-02-08] MEDS: Finasteride 5 MG TAB PO SCH (08:32)
[2020-02-08] MEDS: Citalopram 20 MG TAB PO SCH (08:32)
[2020-02-08] MEDS: Sodium Chloride 1 GM TAB PO SCH ×2 (08:32→20:57)
[2020-02-08] MEDS: Aspirin Chewable 81 MG TAB PO SCH (08:32)
[2020-02-08] MEDS: Cholecalciferol 1,000 UNITS (25 MCG) TAB PO SCH (08:32)
[2020-02-08] MEDS: Tamsulosin HCl 0.4 MG CAP PO SCH (08:32)
[2020-02-08] MEDS: Alogliptin 25 MG TAB PO SCH (08:32)
[2020-02-08] MEDS: Ferrous Sulfate 325 MG TAB PO SCH ×2 (08:33→21:00)
[2020-02-08] MEDS: Gabapentin 100 MG CAP PO SCH ×2 (08:33→20:59)
[2020-02-08] MEDS: Amlodipine 5 MG TAB PO SCH (08:33)
[2020-02-08] MEDS: Senokot S 8.6-50 MG TAB PO SCH ×2 (08:33→21:01)
[2020-02-08] MEDS: Sodium Chloride 0.9% 1,000 ML IV SCH ×2 (08:35→15:07)
[2020-02-08] MEDS ORDERED: Vancomycin HCl 1 GM in Sodium Chloride 0.9% 250 ML 250 ML IVPB SCH (09:00)
--- NOTE | 2020-02-08 10:24 | PRG ---
DATE OF SERVICE: 02/08/2020 SUBJECTIVE: The patient said he feels better today. He has had no complaint. He has had no back pain. Still has some pain in the left hip intermittently. His COVID test showed none detected. As a result, his isolation was discontinued. OBJECTIVE: GENERAL: The patient is sitting up in bed, alert, smiling, talkative, back to his usual mental status. He appears in no distress. VITAL SIGNS: Show a temperature of 99.8, pulse 90, respirations 18, O2 saturation 93% on room air, blood pressure 132/78. LUNGS: Clear. HEART: Regular rate. EXTREMITIES: No edema. LABORATORY DATA: Shows the H and H of 9.6 and 29.4, white blood cell count has come down to 23,600 with 76% segs, 15% bands, and platelet count of 223,000. His sodium 133, potassium 5.1, BUN 43, creatinine 1.6. GFR is up to 40. Glucose 166. [id number] RNA not detected. His nasopharyngeal swab for viral panel did not show any of the pathogens detected that were tested for. Cultures pending. ASSESSMENT: 1. Febrile illness on the morning of 02/06. a. Probable urinary tract infection. Urine and blood cultures pending. White blood cell count down to 23,000. Temperature only low-grade. No complaint. b. Improved. c. Remains on the IV cefepime and vancomycin. 2. Diabetes type 2, insulin requiring control. 3. History of urinary retention. 4. Chronic kidney disease. a. Renal function improved to some within GFR up to 40. PLAN: We will continue the IV fluids, but reduce these to 75 mL/hour. Continue the IV antibiotics. We will arrange for renal ultrasound and ensure there is no obstructive uropathy present. I have removed the isolation since he is COVID negative. Job ID: [id number] [facility]
[2020-02-08] MEDS: Ubidecarenone 50 MG CAP PO SCH (20:58)
[2020-02-08] MEDS: Ezetimibe 10 MG TAB PO SCH (20:59)
[2020-02-08] MEDS: Melatonin 3 MG TAB PO SCH (21:00)
[2020-02-09] MEDS: Sodium Chloride 0.9% 1,000 ML IV SCH ×3 (03:30→21:18)
[2020-02-09] MEDS: Levothyroxine Sodium 100 MCG TAB PO SCH (05:01)
[2020-02-09 05:56] LABS: Band 2 % (5-11); Hemoglobin 8.8 g/dL (14.0-18.0); Lymphocytes 7 % (21-51); MDiff Complete? YES; Mean Corpuscular HGB CONC 33.1 g/dL (32.0-36.0); Mean Corpuscular Hemoglobin 30.7 pg (27.0-31.0); Mean Corpuscular Volume 92.9 fL (78.0-98.0); Mean Platelet Volume 7.4 fL (7.4-10.4); Monocytes 4 % (0-10); Neutrophil 87 % (42-75); Platelet Count 206 thou/uL (130-400); RBC Distribution Width 12.3 % (11.5-14.5); Red Blood Cell (RBC) Count 2.87 mill/uL (4.70-6.10); White Blood Cell (WBC) Count 14.1 thou/uL (4.8-10.8)
[2020-02-09 05:57] LABS: Anion Gap 12 mmol/L (10-20); BUN (Urea Nitrogen) 38 mg/dL (8.4-25.7); Calc. Creatinine Clearance 55 mL/min (70-130); Calcium 8.6 mg/dL (7.8-10.44); Carbon Dioxide 16 mmol/L (23-31); Chloride 110 mmol/L (98-107); Estimated GFR-MDRD 50; Glucose 80 mg/dL (83-110); Potassium 4.4 mmol/L (3.5-5.1); Sodium 134 mmol/L (136-145)
[2020-02-09 08:30] LABS: Vancomycin, Trough 6.9 ug/mL
[2020-02-09] MEDS: Alogliptin 25 MG TAB PO SCH (09:28)
[2020-02-09] MEDS: Aspirin Chewable 81 MG TAB PO SCH (09:28)
[2020-02-09] MEDS: Gabapentin 100 MG CAP PO SCH ×2 (09:28→21:22)
[2020-02-09] MEDS: Citalopram 20 MG TAB PO SCH (09:29)
[2020-02-09] MEDS: Tamsulosin HCl 0.4 MG CAP PO SCH (09:29)
[2020-02-09] MEDS: Ferrous Sulfate 325 MG TAB PO SCH ×2 (09:29→21:22)
[2020-02-09] MEDS: Sodium Chloride 1 GM TAB PO SCH ×2 (09:29→21:22)
[2020-02-09] MEDS: Senokot S 8.6-50 MG TAB PO SCH ×2 (09:29→21:22)
[2020-02-09] MEDS: Amlodipine 5 MG TAB PO SCH (09:29)
[2020-02-09] MEDS: Finasteride 5 MG TAB PO SCH (09:30)
[2020-02-09] MEDS: ANORO ELLIPTA INH SCH (09:30)
[2020-02-09] MEDS: Cefepime 2 GM in Sodium Chloride 0.9% 100 ML IVPB SCH ×2 (09:30→21:17)
[2020-02-09] MEDS: Cholecalciferol 1,000 UNITS (25 MCG) TAB PO SCH (09:30)
[2020-02-09] MEDS: Lantus 1000 UNITS/10 ML VIAL SC SCH (09:31)
[2020-02-09] MEDS: ICOSAPENT ETHYL 1 GM PO SCH ×2 (09:31→18:54)
--- NOTE | 2020-02-09 12:38 | PRG ---
DATE OF SERVICE: 02/09/2020 SUBJECTIVE: The patient said he is feeling all right today. He said he lost a couple of days. Did not realize this was , does not really remember much about the previous two days. He says nothing is hurting him. Nurses did not notice any change in his condition. OBJECTIVE: GENERAL: The patient is lying in bed, alert, talkative recognizes me, appears comfortable, in no distress. VITAL SIGNS: Temp 98.8, pulse 68, respirations 20, O2 saturation 92% on room air, blood pressure 131/76, weight is 200 pounds, which the patient has had some gradual decline in his weight. Original weight was 222. LUNGS: Clear. HEART: Regular rate. EXTREMITIES: No edema. LABORATORY DATA: His lab shows H and H of 8.8 and 26.7, white blood cell count has dropped to 14,100, with 87% segs, 2% bands, 7% lymphocytes, and platelet count of 206. Sodium 134, potassium 4.4, BUN down to 38, creatinine down to 1.3, GFR up to 50. Glucose was 86. Patient's viral respiratory panel, none were detected. His urine is growing Pseudomonas aeruginosa, colony count was [id number] organisms sensitive to cefepime. Two of 2 blood cultures are positive. One is growing out Pseudomonas aeruginosa, the other is yet to be identified, sensitivity pending. ASSESSMENT: 1. Urinary tract infection complicated by bacteremia that began on the morning of 02/06. a. Urine culture growing Pseudomonas aeruginosa sensitive to cefepime. b. One blood culture positive for Pseudomonas aeruginosa with sensitivity pending. c. Second culture is growing a gram-negative tremayne. d. Final identification pending as of 02/08. e. White blood cell count is down to 14,000. 2. Diabetes type 2, controlled. 3. History of urinary retention. 4. Chronic kidney disease. a. GFR up to 50 as of 02/08. PLAN: Overall patient looks better. I have ordered a renal ultrasound, which will be done tomorrow. We will reduce his fluids to 50 mL/hour. We will continue the IV antibiotics at a minimum of 7 days. We will await the sensitivity report to see if there is any oral alternatives that he can be transitioned to. We will discontinue the vancomycin. Job ID: [id number] [facility]
[2020-02-09] MEDS: Ubidecarenone 50 MG CAP PO SCH (21:21)
[2020-02-09] MEDS: Ezetimibe 10 MG TAB PO SCH (21:22)
[2020-02-09] MEDS: Melatonin 3 MG TAB PO SCH (21:22)
[2020-02-10] MEDS: Levothyroxine Sodium 100 MCG TAB PO SCH (05:58)
[2020-02-10 06:23] LABS: #Basophils 0.1 thou/uL (0.0-0.2); #Eosinphils 0.5 thou/uL (0.0-0.7); #Lymphocytes 1.3 thou/uL (1.20-3.40); #Monocytes 0.5 thou/uL (0.11-0.59); #Neutrophils 7.6 thou/uL (1.40-6.50); %Basophils 0.6 % (0.0-1.0); %Eosinophils 5.4 % (0.0-10.0); %Lymphocytes 13.3 % (21.0-51.0); %Monocytes 5.3 % (0.0-10.0); %Neutrophils 75.4 % (42.0-75.0); Hemoglobin 8.7 g/dL (14.0-18.0); Mean Corpuscular HGB CONC 31.4 g/dL (32.0-36.0); Mean Corpuscular Hemoglobin 29.3 pg (27.0-31.0); Mean Corpuscular Volume 93.2 fL (78.0-98.0); Mean Platelet Volume 7.2 fL (7.4-10.4); Platelet Count 226 thou/uL (130-400); RBC Distribution Width 12.2 % (11.5-14.5); Red Blood Cell (RBC) Count 2.99 mill/uL (4.70-6.10)
[2020-02-10 06:27] LABS: Anion Gap 12 mmol/L (10-20); BUN (Urea Nitrogen) 32 mg/dL (8.4-25.7); Calc. Creatinine Clearance 57 mL/min (70-130); Calcium 8.6 mg/dL (7.8-10.44); Carbon Dioxide 17 mmol/L (23-31); Chloride 109 mmol/L (98-107); Estimated GFR-MDRD 52; Glucose 72 mg/dL (83-110); Potassium 4.4 mmol/L (3.5-5.1); Sodium 134 mmol/L (136-145)
[2020-02-10] MEDS: ICOSAPENT ETHYL 1 GM PO SCH ×2 (07:40→17:11)
[2020-02-10] MEDS: Amlodipine 5 MG TAB PO SCH (08:55)
[2020-02-10] MEDS: Alogliptin 25 MG TAB PO SCH (08:55)
[2020-02-10] MEDS: Aspirin Chewable 81 MG TAB PO SCH (08:56)
[2020-02-10] MEDS: Cefepime 2 GM in Sodium Chloride 0.9% 100 ML IVPB SCH ×2 (08:57→21:53)
[2020-02-10] MEDS: Cholecalciferol 1,000 UNITS (25 MCG) TAB PO SCH (08:59)
[2020-02-10] MEDS: Citalopram 20 MG TAB PO SCH (08:59)
[2020-02-10] MEDS: Ferrous Sulfate 325 MG TAB PO SCH ×2 (09:00→21:54)
[2020-02-10] MEDS: Finasteride 5 MG TAB PO SCH (09:01)
[2020-02-10] MEDS: Gabapentin 100 MG CAP PO SCH ×2 (09:01→21:54)
[2020-02-10] MEDS: Tamsulosin HCl 0.4 MG CAP PO SCH (09:01)
[2020-02-10] MEDS: Lantus 1000 UNITS/10 ML VIAL SC SCH (09:02)
[2020-02-10] MEDS: ANORO ELLIPTA INH SCH (09:03)
[2020-02-10] MEDS: Sodium Chloride 1 GM TAB PO SCH ×2 (09:05→21:57)
[2020-02-10] MEDS: Senokot S 8.6-50 MG TAB PO SCH ×2 (09:06→21:54)
--- NOTE | 2020-02-10 09:34 | ULT ---
RENAL ULTRASOUND: HISTORY: Hydronephrosis. UTI. FINDINGS: Real-time imaging of the right and left kidneys were performed. The right kidney measures 10.8 cm. There is somewhat prominent right extrarenal pelvis, but there is no calyceal dilatation noted. This is a similar appearance to a 06/07/2019 CT study. There is a lower pole right renal cyst difficult to visualize. The patient could not cooperate with breathing instructions. It appears to measure 5. 7 cm in maximum dimension. The left kidney measures 9.1 cm and is not obstructed. No cyst or masses . Bladder volume is 371 cc. The patient was unable to void. IMPRESSION: 1. Prominent right extrarenal pelvis. 2. Right renal cyst involving the inferior pole of the right kidney measuring up to 5.7 cm in size. There also is probably a second smaller cyst involving the medial measuring 2.1 cm. POS: EDUARDO
--- NOTE | 2020-02-10 14:15 | PRG ---
DATE OF SERVICE: 02/10/2020 SUBJECTIVE: The patient said that he just doesn't feel as well today. He says he just feels more tired, doesn't have much energy. Yesterday, he did not want to work much with physical therapy and ended up just staying in bed longer. At home, he stays in his recliner or bed and sleeps for prolonged periods. OBJECTIVE: GENERAL: The patient is sitting in a wheelchair. He is alert, talkative, recognizes me, appears in no acute distress. VITAL SIGNS: His temperature is 98.9. He has had no fever over the last 36 hours. His pulse is 75, respirations 20, O2 saturation is 91% on room air, and blood pressure 137/73. LUNGS: Clear. HEART: Regular rate. EXTREMITIES: No edema. LABORATORY DATA: His lab shows an H and H of 8.7 and 27.8, white cell count 10, 000 with 75% segs, there were no bands, 13% lymphocytes, and platelet count 226. His sodium 134, potassium 4.4, BUN down to 32, creatinine down to 1.32, GFR up to 52 , glucose 72. His urine culture grew Pseudomonas aeruginosa, colony count 25,000 to 50,000 with sensitivity showing the organism is sensitive to cefepime, also Cipro and Levaquin. His blood cultures 2/2 grew Pseudomonas aeruginosa, organism sensitive to cefepime, Cipro, and Levaquin. Renal ultrasound showed there was a prominence of the right extrarenal pelvis, but no calyceal dilation. This was very similar to exam on 06/07/2019. There was lower pole right renal cyst on the right kidney. Left kidney has no evidence of any obstruction nor any cysts. Bladder volume was 371. ASSESSMENT: 1. Urinary tract complicated by bacteremia with Pseudomonas aeruginosa on the morning of 02/07/2020. a. Urine culture growing Pseudomonas aeruginosa sensitive to the cefepime and Cipro. b. 2/2 blood cultures positive for Pseudomonas aeruginosa with sensitivity to the cefepime and Cipro. c. Improved and remains afebrile for the last 36 hours. d. Renal ultrasound shows stable findings with no obstructive uropathy other than a prominence of the renal pelvis on the right, which was there a year ago. 2. Diabetes type 2, controlled. 3. History of urinary retention. 4. Chronic kidney disease. a. GFR up to 52 as of 02/09. 5. Generalized weakness and deconditioning. 6. Left femoral neck fracture, undisplaced. a. Secondary to a fall on 12/24. b. Status post left hemiarthroplasty, 12/25. c. Doing well as of 02/09. 7. Alzheimer dementia. 8. Obstructive sleep apnea. PLAN: The patient overall is doing much better. We will repeat blood cultures to ensure resolution of the bacteremia. Clinically, this appears to be the case. We will continue the cefepime for 10 to 14 days total. The patient unable to take Cipro due to allergy or Levaquin. Continue PT. We will stop the IV fluids. Job ID: [id number] [facility]
[2020-02-10] MEDS: Ubidecarenone 50 MG CAP PO SCH (21:55)
[2020-02-10] MEDS: Ezetimibe 10 MG TAB PO SCH (21:55)
[2020-02-10] MEDS: Melatonin 3 MG TAB PO SCH (21:55)
[2020-02-11 05:44] LABS: #Basophils 0.1 thou/uL (0.0-0.2); #Eosinphils 0.5 thou/uL (0.0-0.7); #Lymphocytes 1.1 thou/uL (1.20-3.40); #Monocytes 0.7 thou/uL (0.11-0.59); #Neutrophils 4.6 thou/uL (1.40-6.50); %Basophils 0.7 % (0.0-1.0); %Eosinophils 7.3 % (0.0-10.0); %Lymphocytes 16.2 % (21.0-51.0); %Monocytes 9.8 % (0.0-10.0); Hemoglobin 9.1 g/dL (14.0-18.0); Mean Corpuscular HGB CONC 32.6 g/dL (32.0-36.0); Mean Corpuscular Hemoglobin 29.8 pg (27.0-31.0); Mean Corpuscular Volume 91.5 fL (78.0-98.0); Mean Platelet Volume 7.2 fL (7.4-10.4); Platelet Count 242 thou/uL (130-400); RBC Distribution Width 12.1 % (11.5-14.5); Red Blood Cell (RBC) Count 3.05 mill/uL (4.70-6.10)
[2020-02-11] MEDS: Levothyroxine Sodium 100 MCG TAB PO SCH (05:55)
[2020-02-11 06:00] LABS: Anion Gap 12 mmol/L (10-20); BUN (Urea Nitrogen) 29 mg/dL (8.4-25.7); Calc. Creatinine Clearance 53 mL/min (70-130); Calcium 9.1 mg/dL (7.8-10.44); Carbon Dioxide 19 mmol/L (23-31); Chloride 106 mmol/L (98-107); Estimated GFR-MDRD 48; Glucose 83 mg/dL (83-110); Potassium 4.3 mmol/L (3.5-5.1); Sodium 133 mmol/L (136-145)
[2020-02-11] MEDS: Tamsulosin HCl 0.4 MG CAP PO SCH (08:39)
[2020-02-11] MEDS: Amlodipine 5 MG TAB PO SCH (08:39)
[2020-02-11] MEDS: Aspirin Chewable 81 MG TAB PO SCH (08:39)
[2020-02-11] MEDS: Gabapentin 100 MG CAP PO SCH ×2 (08:39→21:44)
[2020-02-11] MEDS: Alogliptin 25 MG TAB PO SCH (08:39)
[2020-02-11] MEDS: Cholecalciferol 1,000 UNITS (25 MCG) TAB PO SCH (08:40)
[2020-02-11] MEDS: Citalopram 20 MG TAB PO SCH (08:42)
[2020-02-11] MEDS: Ferrous Sulfate 325 MG TAB PO SCH ×2 (08:43→21:44)
[2020-02-11] MEDS: Senokot S 8.6-50 MG TAB PO SCH ×2 (08:43→22:11)
[2020-02-11] MEDS: Finasteride 5 MG TAB PO SCH (08:43)
[2020-02-11] MEDS: ANORO ELLIPTA INH SCH (08:45)
[2020-02-11] MEDS: Lantus 1000 UNITS/10 ML VIAL SC SCH (08:45)
[2020-02-11] MEDS: ICOSAPENT ETHYL 1 GM PO SCH ×2 (08:46→16:45)
[2020-02-11] MEDS: Cefepime 2 GM in Sodium Chloride 0.9% 100 ML IVPB SCH ×2 (08:46→21:45)
[2020-02-11] MEDS: Sodium Chloride 1 GM TAB PO SCH ×3 (08:50→21:44)
[2020-02-11] MEDS: Ubidecarenone 50 MG CAP PO SCH (21:43)
[2020-02-11] MEDS: Ezetimibe 10 MG TAB PO SCH (21:44)
[2020-02-11] MEDS: Melatonin 3 MG TAB PO SCH (21:44)
[2020-02-11] MEDS: Acetaminophen 500 MG TAB PO PRN (21:45)
[2020-02-12] MEDS: Levothyroxine Sodium 100 MCG TAB PO SCH (05:01)
[2020-02-12] MEDS: Cholecalciferol 1,000 UNITS (25 MCG) TAB PO SCH (08:43)
[2020-02-12] MEDS: Citalopram 20 MG TAB PO SCH (08:43)
[2020-02-12] MEDS: Sodium Chloride 1 GM TAB PO SCH ×2 (08:44→21:26)
[2020-02-12] MEDS: Tamsulosin HCl 0.4 MG CAP PO SCH (08:44)
[2020-02-12] MEDS: Aspirin Chewable 81 MG TAB PO SCH (08:44)
[2020-02-12] MEDS: Ferrous Sulfate 325 MG TAB PO SCH ×2 (08:44→21:26)
[2020-02-12] MEDS: Alogliptin 25 MG TAB PO SCH (08:44)
[2020-02-12] MEDS: Gabapentin 100 MG CAP PO SCH ×2 (08:44→21:26)
[2020-02-12] MEDS: Finasteride 5 MG TAB PO SCH (08:44)
[2020-02-12] MEDS: Amlodipine 5 MG TAB PO SCH (08:44)
[2020-02-12] MEDS: ICOSAPENT ETHYL 1 GM PO SCH ×2 (08:45→17:21)
[2020-02-12] MEDS: Cefepime 2 GM in Sodium Chloride 0.9% 100 ML IVPB SCH ×2 (08:48→21:25)
[2020-02-12] MEDS: Lantus 1000 UNITS/10 ML VIAL SC SCH (08:48)
[2020-02-12] MEDS: ANORO ELLIPTA INH SCH (08:49)
[2020-02-12] MEDS: Senokot S 8.6-50 MG TAB PO SCH ×2 (08:50→21:25)
--- NOTE | 2020-02-12 15:49 | PRG ---
DATE OF SERVICE: 02/12/2020 SUBJECTIVE: The patient says he feels a lot better today. Yesterday, he was just tired. He has no complaints today. OBJECTIVE: GENERAL: The patient is sitting up in bed, having finished his breakfast. He is alert, talkative, smiling, and appears in no distress. VITAL SIGNS: His temperature is 98.7, pulse 70, respirations 18, O2 saturation 97% on room air, blood pressure 141/76. LUNGS: Clear. HEART: Regular rate. LABORATORY DATA: His lab yesterday showed hemoglobin and hematocrit of 9.1 and 27.9, white cell count 7000 with 66% segs, 16% lymphocytes, and a platelet count of 242. Sodium was 133, potassium 4.3, BUN down to 29, creatinine 1.48, GFR 48, glucose was 83 and this morning 148. Repeat blood cultures drawn on 02/09 have no growth x2. ASSESSMENT: 1. Urinary tract infection complicated by bacteremia with Pseudomonas aeruginosa on the morning of 02/07/2020: a. Urine culture growing Pseudomonas aeruginosa sensitive to the cefepime and Cipro. b. 2/2 blood cultures positive for Pseudomonas aeruginosa with sensitivity to the cefepime and Cipro from 02/07/2020. c. Renal ultrasound showed stable findings with no obstructive uropathy other than a prominence of the renal pelvis on the right, which was there a year ago. d. Repeat blood cultures from 02/10/2020, have no growth x2. e. Doing very well. Remains afebrile. Continues on the IV cefepime. 2. Diabetes type 2, controlled. 3. History of urinary retention. 4. Chronic kidney disease: a. GFR stable at 48 as of 02/10. 5. Generalized weakness and deconditioning. 6. Left femoral neck fracture, undisplaced. a. Secondary to a fall on 12/24. b. Status post left hemiarthroplasty on 12/25. c. Doing well as of 02/11. 7. Alzheimer disease. 8. Obstructive sleep apnea. PLAN: Continue present care. Continue the IV cefepime. Continue PT and OT. Job ID: [id number] [facility]
[2020-02-12] MEDS: Ubidecarenone 50 MG CAP PO SCH (21:25)
[2020-02-12] MEDS: Ezetimibe 10 MG TAB PO SCH (21:26)
[2020-02-12] MEDS: Melatonin 3 MG TAB PO SCH (21:26)
[2020-02-12] MEDS: Acetaminophen 500 MG TAB PO PRN (21:26)
[2020-02-13] MEDS: Levothyroxine Sodium 100 MCG TAB PO SCH (05:11)
[2020-02-13] MEDS: Lantus 1000 UNITS/10 ML VIAL SC SCH (08:27)
[2020-02-13] MEDS: Cefepime 2 GM in Sodium Chloride 0.9% 100 ML IVPB SCH ×2 (08:29→21:09)
[2020-02-13] MEDS: Finasteride 5 MG TAB PO SCH (08:30)
[2020-02-13] MEDS: Gabapentin 100 MG CAP PO SCH ×2 (08:30→21:10)
[2020-02-13] MEDS: Alogliptin 25 MG TAB PO SCH (08:30)
[2020-02-13] MEDS: Cholecalciferol 1,000 UNITS (25 MCG) TAB PO SCH (08:30)
[2020-02-13] MEDS: Aspirin Chewable 81 MG TAB PO SCH (08:30)
[2020-02-13] MEDS: Senokot S 8.6-50 MG TAB PO SCH ×2 (08:30→21:10)
[2020-02-13] MEDS: Ferrous Sulfate 325 MG TAB PO SCH ×2 (08:31→21:10)
[2020-02-13] MEDS: Amlodipine 5 MG TAB PO SCH (08:31)
[2020-02-13] MEDS: Citalopram 20 MG TAB PO SCH (08:31)
[2020-02-13] MEDS: Tamsulosin HCl 0.4 MG CAP PO SCH (08:32)
[2020-02-13] MEDS: Sodium Chloride 1 GM TAB PO SCH ×2 (08:32→21:11)
[2020-02-13] MEDS: ICOSAPENT ETHYL 1 GM PO SCH ×2 (08:33→16:29)
[2020-02-13] MEDS: ANORO ELLIPTA INH SCH (08:34)
[2020-02-13] MEDS: Acetaminophen 500 MG TAB PO PRN ×2 (08:46→21:09)
--- NOTE | 2020-02-13 09:45 | PRG ---
DATE OF SERVICE: 02/13/2020 SUBJECTIVE: The patient says he feels better this morning. 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 He had no complaint. OBJECTIVE: VITAL SIGNS: The patient's temperature is 97.9, pulse 71, respirations 18, O2 saturation 94% on room air, blood pressure 139/80. LUNGS: Clear. HEART: Regular rate. LABORATORY DATA: FBS 94. ASSESSMENT: 1. Urinary tract infection complicated by bacteremia with Pseudomonas aeruginosa on the morning of 02/07/2020. a. Urine culture growing Pseudomonas aeruginosa sensitive to the cefepime. b. Two of two blood cultures on 02/06, positive for Pseudomonas aeruginosa sensitive to the cefepime. c. Repeat blood cultures from 02/10/2020 have no growth x2. d. Renal ultrasound showed stable findings with no obstructive uropathy other than a prominence of the renal pelvis on the right, which was there a year ago. e. Doing well. Remains afebrile. Receiving seventh day of IV antibiotics as 02/13/2020. 2. Diabetes type 2, controlled. 3. History of urinary retention. 4. Chronic kidney disease. a. GFR stable at 48 as of 02/10. 5. Generalized weakness and deconditioning. 6. Left femoral neck fracture, undisplaced. a. Secondary to a fall on 12/22. b. Status post left hemiarthroplasty on 12/25. c. Improved as of 02/12. 7. Alzheimer disease. 8. Obstructive sleep apnea. PLAN: The patient seems better today. He is awake and seemed energized, and working with therapy. We will continue the IV antibiotics. Job ID: [id number] [facility]
[2020-02-13] MEDS: Melatonin 3 MG TAB PO SCH (21:10)
[2020-02-13] MEDS: Ubidecarenone 50 MG CAP PO SCH (21:10)
[2020-02-13] MEDS: Ezetimibe 10 MG TAB PO SCH (21:10)
[2020-02-14] MEDS: Levothyroxine Sodium 100 MCG TAB PO SCH (05:26)
[2020-02-14] MEDS: ICOSAPENT ETHYL 1 GM PO SCH ×2 (08:58→16:35)
[2020-02-14] MEDS: ANORO ELLIPTA INH SCH (08:59)
[2020-02-14] MEDS: Lantus 1000 UNITS/10 ML VIAL SC SCH (09:02)
[2020-02-14] MEDS: Amlodipine 5 MG TAB PO SCH (09:04)
[2020-02-14] MEDS: Alogliptin 25 MG TAB PO SCH (09:04)
[2020-02-14] MEDS: Aspirin Chewable 81 MG TAB PO SCH (09:05)
[2020-02-14] MEDS: Cefepime 2 GM in Sodium Chloride 0.9% 100 ML IVPB SCH ×2 (09:05→20:50)
[2020-02-14] MEDS: Cholecalciferol 1,000 UNITS (25 MCG) TAB PO SCH (09:07)
[2020-02-14] MEDS: Citalopram 20 MG TAB PO SCH (09:08)
[2020-02-14] MEDS: Finasteride 5 MG TAB PO SCH (09:09)
[2020-02-14] MEDS: Ferrous Sulfate 325 MG TAB PO SCH ×2 (09:09→20:54)
[2020-02-14] MEDS: Gabapentin 100 MG CAP PO SCH ×2 (09:10→20:55)
[2020-02-14] MEDS: Sodium Chloride 1 GM TAB PO SCH ×2 (09:12→20:57)
[2020-02-14] MEDS: Senokot S 8.6-50 MG TAB PO SCH ×2 (09:12→20:56)
[2020-02-14] MEDS: Tamsulosin HCl 0.4 MG CAP PO SCH (09:13)
--- NOTE | 2020-02-14 11:04 | PRG ---
DATE OF SERVICE: 02/14/2020 SUBJECTIVE: The patient said he is feeling good today. He is up in Physical Therapy, working on the [employer]. OBJECTIVE: GENERAL: The patient is alert. Appears very comfortable. He is talkative and in no distress. VITAL SIGNS: Temperature 97.2, pulse 71, respirations 18, O2 saturation 93% on room air, blood pressure 141/77. LUNGS: Clear. HEART: Regular rate. LABORATORY DATA: FBS 91. ASSESSMENT: 1. Urinary tract infection complicated by bacteremia with Pseudomonas aeruginosa on 02/07/2020. a. Urine culture growing Pseudomonas aeruginosa sensitive to cefepime. b. Two of two blood cultures on 02/06, positive for Pseudomonas sensitive to cefepime. c. Repeat blood culture from 02/10/2020 have no growth x2. d. Renal ultrasound showed stable finding with no obstructive uropathy other than a prominence of the right renal pelvis, which was there a year ago. e. Doing well. Remains afebrile. Receiving 8th day of IV antibiotics as of 02/13. 2. Diabetes type 2, controlled. 3. History of urinary retention. 4. Chronic kidney disease. 5. Generalized weakness and deconditioning. 6. Left femoral neck fracture, undisplaced. a. Secondary to a fall on 12/22. b. Status post left hemiarthroplasty, 12/25. c. Continues to improve as of 02/13. 7. Alzheimer's disease. 8. Obstructive sleep apnea. PLAN: Continue present care. Continue IV antibiotics. The patient is scheduled to see his orthopedic surgeon, Dr. Kim on 02/15. Job ID: [id number] [facility]
[2020-02-14] MEDS: Ezetimibe 10 MG TAB PO SCH (20:54)
[2020-02-14] MEDS: Melatonin 3 MG TAB PO SCH (20:56)
[2020-02-14] MEDS: Ubidecarenone 50 MG CAP PO SCH (20:57)
[2020-02-14] MEDS: Acetaminophen 500 MG TAB PO PRN (21:03)
[2020-02-15] MEDS: Levothyroxine Sodium 100 MCG TAB PO SCH (05:24)
[2020-02-15] MEDS: Cefepime 2 GM in Sodium Chloride 0.9% 100 ML IVPB SCH ×2 (08:41→21:21)
[2020-02-15] MEDS: Tamsulosin HCl 0.4 MG CAP PO SCH (08:42)
[2020-02-15] MEDS: Ferrous Sulfate 325 MG TAB PO SCH ×2 (08:42→21:21)
[2020-02-15] MEDS: Sodium Chloride 1 GM TAB PO SCH ×2 (08:42→21:23)
[2020-02-15] MEDS: Senokot S 8.6-50 MG TAB PO SCH ×2 (08:42→21:22)
[2020-02-15] MEDS: Finasteride 5 MG TAB PO SCH (08:43)
[2020-02-15] MEDS: Alogliptin 25 MG TAB PO SCH (08:44)
[2020-02-15] MEDS: Amlodipine 5 MG TAB PO SCH (08:44)
[2020-02-15] MEDS: Gabapentin 100 MG CAP PO SCH ×2 (08:44→21:21)
[2020-02-15] MEDS: Cholecalciferol 1,000 UNITS (25 MCG) TAB PO SCH (08:44)
[2020-02-15] MEDS: Aspirin Chewable 81 MG TAB PO SCH (08:44)
[2020-02-15] MEDS: Citalopram 20 MG TAB PO SCH (08:44)
[2020-02-15] MEDS: ICOSAPENT ETHYL 1 GM PO SCH ×2 (08:45→17:05)
[2020-02-15] MEDS: Lantus 1000 UNITS/10 ML VIAL SC SCH (08:46)
[2020-02-15] MEDS: ANORO ELLIPTA INH SCH (08:46)
[2020-02-15] MEDS: Ubidecarenone 50 MG CAP PO SCH (21:22)
[2020-02-15] MEDS: Melatonin 3 MG TAB PO SCH (21:22)
[2020-02-15] MEDS: Ezetimibe 10 MG TAB PO SCH (21:22)
[2020-02-15] MEDS: Acetaminophen 500 MG TAB PO PRN (21:22)
[2020-02-16] MEDS: Levothyroxine Sodium 100 MCG TAB PO SCH (05:31)
[2020-02-16] MEDS: Amlodipine 5 MG TAB PO SCH (09:22)
[2020-02-16] MEDS: Ferrous Sulfate 325 MG TAB PO SCH ×2 (09:22→20:24)
[2020-02-16] MEDS: Aspirin Chewable 81 MG TAB PO SCH (09:22)
[2020-02-16] MEDS: Senokot S 8.6-50 MG TAB PO SCH ×2 (09:23→20:26)
[2020-02-16] MEDS: Finasteride 5 MG TAB PO SCH (09:23)
[2020-02-16] MEDS: Citalopram 20 MG TAB PO SCH (09:23)
[2020-02-16] MEDS: ANORO ELLIPTA INH SCH (09:23)
[2020-02-16] MEDS: Gabapentin 100 MG CAP PO SCH ×2 (09:23→20:25)
[2020-02-16] MEDS: Alogliptin 25 MG TAB PO SCH (09:23)
[2020-02-16] MEDS: Lantus 1000 UNITS/10 ML VIAL SC SCH (09:24)
[2020-02-16] MEDS: Cefepime 2 GM in Sodium Chloride 0.9% 100 ML IVPB SCH ×2 (09:24→20:19)
[2020-02-16] MEDS: ICOSAPENT ETHYL 1 GM PO SCH ×2 (09:28→16:53)
[2020-02-16] MEDS: Cholecalciferol 1,000 UNITS (25 MCG) TAB PO SCH (09:29)
[2020-02-16] MEDS: Tamsulosin HCl 0.4 MG CAP PO SCH (09:30)
[2020-02-16] MEDS: Sodium Chloride 1 GM TAB PO SCH ×2 (09:30→20:25)
--- NOTE | 2020-02-16 13:57 | PRG ---
DATE OF SERVICE: 02/15/2020 SUBJECTIVE: The patient said he is feeling good today. He has been up with physical therapy already this morning. OBJECTIVE: GENERAL: The patient is sitting up in his wheelchair eating breakfast. He is alert, talkative, appears very comfortable, in no distress. VITAL SIGNS: His temperature is 98.3, pulse 82, respirations 18, O2 saturation 96% on room air, blood pressure 127/67. LUNGS: Clear. HEART: Regular rate. EXTREMITIES: No edema. LABORATORY DATA: His FBS was 142. ASSESSMENT: 1. Urinary tract infection, complicated by bacteremia with Pseudomonas aeruginosa on 02/07/2020. a. Urine culture growing Pseudomonas aeruginosa sensitive to the cefepime. b. Two of two blood cultures on 02/06, positive for Pseudomonas sensitive to the cefepime. c. Repeat blood cultures from 02/10/2020, have no growth x2. d. Doing well. Remains afebrile. Receiving ninth day of IV antibiotics as of 02/14. 2. Diabetes, type 2, controlled. 3. History of urinary retention. a. Voiding a little better. Has not required a recent catheterization as of 02/14. 4. Chronic kidney disease. 5. Generalized weakness and deconditioning. a. Improving as of 02/14. 6. Left femoral neck fracture, undisplaced. a. Secondary to a fall on 12/22. b. Status post left hemiarthroplasty on 12/25. c. Continues to improve as of 02/14. 7. Alzheimer disease. 8. Obstructive sleep apnea, for which he uses CPAP when sleeping. PLAN: Continue IV antibiotics. We will treat for a 14-day period. Continue PT and OT. [facility]: [id number] [facility]
--- NOTE | 2020-02-16 14:09 | PRG ---
DATE OF SERVICE: 02/16/2020 SUBJECTIVE: The patient said he is doing good today. He is doing better with his therapy. OBJECTIVE: GENERAL: The patient is sitting up in a chair, eating his breakfast. He is alert, appears very comfortable, in no distress. VITAL SIGNS: His temperature is 97.2, pulse is 75, blood pressure 166/70, respirations 18, O2 saturation 95% on room air. LUNGS: Clear. HEART: Regular rate. EXTREMITIES: No edema. LABORATORY DATA: FBS this morning 96. ASSESSMENT: 1. Urinary tract infection complicated by bacteremia with Pseudomonas aeruginosa on 02/07/20. a. Urine culture growing Pseudomonas aeruginosa sensitive to cefepime. b. Two of two blood cultures on 02/06, positive for Pseudomonas, sensitive to cefepime. c. Repeat blood cultures on 02/10/20, have no growth x2. d. Renal ultrasound with stable findings with no obstructive uropathy other than a prominence of the right renal pelvis, which was there a year ago. e. Doing well. Remains afebrile. Receiving his 10th day of IV antibiotics as of 02/15. 2. Diabetes type 2, controlled. 3. History of urinary retention. a. Voiding, he has not required recent catheterization as of 02/15. 4. Chronic kidney disease. 5. Generalized weakness and deconditioning. a. History of proximal muscle weakness and frequent falls. b. Improving as of 02/15. 6. Left femoral neck fracture, undisplaced. a. Secondary to a fall on 12/22. b. Status post left hemiarthroplasty 12/25. c. Continues to improve as of 02/15. 7. Alzheimer disease. 8. Obstructive sleep apnea, for which he uses a CPAP. PLAN: Continue present care. Continue the IV antibiotics. Continue PT and OT. [facility] [id number] [facility]
[2020-02-16 14:32] VITALS: BMI 27.3
[2020-02-16] MEDS: Ubidecarenone 50 MG CAP PO SCH (20:21)
[2020-02-16] MEDS: Ezetimibe 10 MG TAB PO SCH (20:25)
[2020-02-16] MEDS: Melatonin 3 MG TAB PO SCH (20:26)
[2020-02-17] MEDS: Levothyroxine Sodium 100 MCG TAB PO SCH (05:20)
[2020-02-17] MEDS: Acetaminophen 500 MG TAB PO PRN (08:00)
[2020-02-17] MEDS: ICOSAPENT ETHYL 1 GM PO SCH ×2 (08:00→17:00)
[2020-02-17] MEDS: ANORO ELLIPTA INH SCH (08:01)
[2020-02-17] MEDS: Lantus 1000 UNITS/10 ML VIAL SC SCH (08:01)
[2020-02-17] MEDS: Cefepime 2 GM in Sodium Chloride 0.9% 100 ML IVPB SCH ×2 (08:05→21:03)
[2020-02-17] MEDS: Gabapentin 100 MG CAP PO SCH ×2 (08:15→20:59)
[2020-02-17] MEDS: Alogliptin 25 MG TAB PO SCH (08:15)
[2020-02-17] MEDS: Amlodipine 5 MG TAB PO SCH (08:15)
[2020-02-17] MEDS: Tamsulosin HCl 0.4 MG CAP PO SCH (08:16)
[2020-02-17] MEDS: Cholecalciferol 1,000 UNITS (25 MCG) TAB PO SCH (08:16)
[2020-02-17] MEDS: Ferrous Sulfate 325 MG TAB PO SCH ×2 (08:16→20:59)
[2020-02-17] MEDS: Aspirin Chewable 81 MG TAB PO SCH (08:16)
[2020-02-17] MEDS: Senokot S 8.6-50 MG TAB PO SCH ×2 (08:16→21:00)
[2020-02-17] MEDS: Finasteride 5 MG TAB PO SCH (08:16)
[2020-02-17] MEDS: Citalopram 20 MG TAB PO SCH (08:17)
[2020-02-17] MEDS: Sodium Chloride 1 GM TAB PO SCH ×2 (08:17→21:02)
--- NOTE | 2020-02-17 10:12 | PRG ---
DATE OF SERVICE: 02/17/2020 SUBJECTIVE: The patient said he is doing alright today. He has no pain other than his periodic pain in that left hip. He continued to receive his IV antibiotics. He is working with Physical Therapy. He is walking most days 75 feet, and some days, a little further. This is with a rolling walker and he requires minimum assistance. His transferring is better. He requires minimal assistance. OBJECTIVE: GENERAL: The patient is sitting up in a wheelchair, eating his breakfast. He is alert, appears comfortable, and in no distress. VITAL SIGNS: His temp is 97.9, pulse rate 70, respirations are 18, O2 saturation 97% on room air, and blood pressure 135/75. LUNGS: Clear. HEART: Regular rate. EXTREMITIES: No edema. LABORATORY DATA: His FBS this morning was 91. ASSESSMENT: 1. Urinary tract infection complicated by bacteremia with Pseudomonas aeruginosa on 02/07/2020: a. Urine culture grew Pseudomonas aeruginosa, sensitive to cefepime. b. 2 out of 2 blood cultures on 02/06, positive for Pseudomonas sensitive to cefepime. c. Repeat blood cultures on 03/08/2020, had no growth x2. d. Renal ultrasound showed no obstructive uropathy other than a prominence of the right renal pelvis, which was the same a year ago. e. Doing well. Remains afebrile. Receiving his 11th day of IV antibiotics as of 02/16. 2. Diabetes type 2, controlled. 3. History of urinary retention: a. Voiding. He has not required recent in and out catheterization as of . 4. Chronic kidney disease. 5. Generalized weakness and deconditioning: a. History of proximal muscle weakness and frequent falls. b. Improving as of 02/16. 6. Left femoral neck fracture, undisplaced: a. Secondary to a fall on 12/22. b. Status post left hemiarthroplasty on 12/25. c. Continues to improve as of 02/16. 7. Alzheimer disease. 8. Obstructive sleep apnea, for which he uses CPAP when sleeping. PLAN: We will continue PT and OT. Continue the cefepime for full 14 days. [facility] [id number] [facility]
[2020-02-17] MEDS: Melatonin 3 MG TAB PO SCH (20:58)
[2020-02-17] MEDS: Ubidecarenone 50 MG CAP PO SCH (21:00)
[2020-02-17] MEDS: Ezetimibe 10 MG TAB PO SCH (21:00)
[2020-02-18] MEDS: Levothyroxine Sodium 100 MCG TAB PO SCH (05:19)
[2020-02-18] MEDS: ICOSAPENT ETHYL 1 GM PO SCH ×2 (08:52→17:22)
[2020-02-18] MEDS: Cefepime 2 GM in Sodium Chloride 0.9% 100 ML IVPB SCH ×2 (08:53→20:52)
[2020-02-18] MEDS: ANORO ELLIPTA INH SCH (08:53)
[2020-02-18] MEDS: Gabapentin 100 MG CAP PO SCH ×2 (09:00→20:52)
[2020-02-18] MEDS: Senokot S 8.6-50 MG TAB PO SCH ×2 (09:00→20:51)
[2020-02-18] MEDS: Sodium Chloride 1 GM TAB PO SCH ×2 (09:00→20:50)
[2020-02-18] MEDS: Tamsulosin HCl 0.4 MG CAP PO SCH (09:00)
[2020-02-18] MEDS: Cholecalciferol 1,000 UNITS (25 MCG) TAB PO SCH (09:00)
[2020-02-18] MEDS: Finasteride 5 MG TAB PO SCH (09:00)
[2020-02-18] MEDS: Ferrous Sulfate 325 MG TAB PO SCH ×2 (09:00→20:51)
[2020-02-18] MEDS: Aspirin Chewable 81 MG TAB PO SCH (09:01)
[2020-02-18] MEDS: Citalopram 20 MG TAB PO SCH (09:01)
[2020-02-18] MEDS: Lantus 1000 UNITS/10 ML VIAL SC SCH (09:01)
[2020-02-18] MEDS: Amlodipine 5 MG TAB PO SCH (09:01)
[2020-02-18] MEDS: Alogliptin 25 MG TAB PO SCH (09:01)
[2020-02-18] MEDS: Ubidecarenone 50 MG CAP PO SCH (20:46)
[2020-02-18] MEDS: Ezetimibe 10 MG TAB PO SCH (20:50)
[2020-02-18] MEDS: Melatonin 3 MG TAB PO SCH (20:51)
[2020-02-18] MEDS: Acetaminophen 500 MG TAB PO PRN (21:57)
[2020-02-19] MEDS: Levothyroxine Sodium 100 MCG TAB PO SCH (05:14)
[2020-02-19 05:54] LABS: #Basophils 0.1 thou/uL (0.0-0.2); #Eosinphils 0.7 thou/uL (0.0-0.7); #Lymphocytes 0.7 thou/uL (1.20-3.40); #Monocytes 0.5 thou/uL (0.11-0.59); %Basophils 0.9 % (0.0-1.0); %Eosinophils 8.1 % (0.0-10.0); %Lymphocytes 7.5 % (21.0-51.0); %Neutrophils 77.6 % (42.0-75.0); Hemoglobin 10.1 g/dL (14.0-18.0); Mean Corpuscular HGB CONC 32.1 g/dL (32.0-36.0); Mean Corpuscular Hemoglobin 30.1 pg (27.0-31.0); Mean Corpuscular Volume 93.6 fL (78.0-98.0); Mean Platelet Volume 7.2 fL (7.4-10.4); Platelet Count 287 thou/uL (130-400); RBC Distribution Width 12.7 % (11.5-14.5); Red Blood Cell (RBC) Count 3.37 mill/uL (4.70-6.10); White Blood Cell (WBC) Count 9.1 thou/uL (4.8-10.8)
[2020-02-19 06:02] LABS: Anion Gap 13 mmol/L (10-20); BUN (Urea Nitrogen) 33 mg/dL (8.4-25.7); Calc. Creatinine Clearance 47 mL/min (70-130); Calcium 9.3 mg/dL (7.8-10.44); Carbon Dioxide 19 mmol/L (23-31); Chloride 106 mmol/L (98-107); Estimated GFR-MDRD 42; Glucose 66 mg/dL (83-110); Potassium 4.8 mmol/L (3.5-5.1); Sodium 133 mmol/L (136-145)
[2020-02-19] MEDS: ICOSAPENT ETHYL 1 GM PO SCH ×2 (08:14→17:05)
[2020-02-19] MEDS: ANORO ELLIPTA INH SCH (08:15)
[2020-02-19] MEDS: Lantus 1000 UNITS/10 ML VIAL SC SCH (08:17)
[2020-02-19] MEDS: Cefepime 2 GM in Sodium Chloride 0.9% 100 ML IVPB SCH (08:19)
[2020-02-19] MEDS: Tamsulosin HCl 0.4 MG CAP PO SCH (08:20)
[2020-02-19] MEDS: Citalopram 20 MG TAB PO SCH (08:20)
[2020-02-19] MEDS: Sodium Chloride 1 GM TAB PO SCH ×2 (08:20→21:33)
[2020-02-19] MEDS: Acetaminophen 500 MG TAB PO PRN ×2 (08:20→21:33)
[2020-02-19] MEDS: Gabapentin 100 MG CAP PO SCH ×2 (08:20→21:33)
[2020-02-19] MEDS: Finasteride 5 MG TAB PO SCH (08:20)
[2020-02-19] MEDS: Aspirin Chewable 81 MG TAB PO SCH (08:21)
[2020-02-19] MEDS: Cholecalciferol 1,000 UNITS (25 MCG) TAB PO SCH (08:21)
[2020-02-19] MEDS: Senokot S 8.6-50 MG TAB PO SCH ×2 (08:21→21:33)
[2020-02-19] MEDS: Alogliptin 25 MG TAB PO SCH (08:21)
[2020-02-19] MEDS: Amlodipine 5 MG TAB PO SCH (08:21)
[2020-02-19] MEDS: Ferrous Sulfate 325 MG TAB PO SCH ×2 (08:21→21:32)
--- NOTE | 2020-02-19 21:12 | PRG ---
DATE OF SERVICE: 02/19/2020 SUBJECTIVE: The patient said he is doing good. He has finished his breakfast. He said his legs feel a little weaker today. His IV site has infiltrated. This is his of 14 days. He has been asymptomatic and afebrile. OBJECTIVE: GENERAL: The patient is sitting up in his bedside chair. He is smiling, seems happy and in no distress. VITAL SIGNS: Show temperature of 97.7, pulse 82, respirations 16, O2 saturation 96% on room air, blood pressure 170/89. LUNGS: Clear. HEART: Regular rate. LABORATORY DATA: H and H are 10.1 and 31.5, white cell count 9100 with 78% segs , 8% lymphocytes, and a platelet count of 287. Sodium 133, potassium 4.8, BUN 33, creatinine 1.59, and glucose was 66. ASSESSMENT: 1. Urinary tract infection complicated by bacteremia with Pseudomonas aeruginosa on 02/07/2020. a. Urine culture grew Pseudomonas aeruginosa sensitive to cefepime. b. 2 of 2 blood cultures on 02/06 positive for Pseudomonas sensitive to cefepime. c. Repeat blood cultures on 02/10/2020 negative x2. d. The renal ultrasound showed no obstructive uropathy other than a prominence of the right renal pelvis , which is unchanged from the year previously. e. He is doing well. He remains afebrile. Has received 12 days of IV cefepime as of 02/18. 2. Diabetes type 2, controlled. 3. History of urinary retention. a. Voiding. He has not required any recent in and out catheterizations as of . 4. Chronic kidney disease. 5. Generalized weakness and deconditioning. a. History of proximal muscle weakness and frequent falls. b. Improving as of 02/18. 6. Left femoral neck fracture, undisplaced. a. Secondary to a fall on 02/21. b. Status post left hemiarthroplasty on 12/25. c. Improving as of 02/18. 7. Alzheimer disease. 8. Obstructive sleep apnea, for which he uses CPAP when sleeping. PLAN: Continue PT and OT. This was patient's 13 of 14 day of IV cefepime, and his IV has infiltrated and we will stop the IV antibiotics and IV access. Job ID: [id number] [facility]
[2020-02-19] MEDS: Ubidecarenone 50 MG CAP PO SCH (21:32)
[2020-02-19] MEDS: Melatonin 3 MG TAB PO SCH (21:33)
[2020-02-19] MEDS: Ezetimibe 10 MG TAB PO SCH (21:36)
[2020-02-20] MEDS: Levothyroxine Sodium 100 MCG TAB PO SCH (05:32)
[2020-02-20] MEDS: ICOSAPENT ETHYL 1 GM PO SCH ×2 (08:53→17:41)
[2020-02-20] MEDS: Alogliptin 25 MG TAB PO SCH (08:54)
[2020-02-20] MEDS: Amlodipine 5 MG TAB PO SCH (08:54)
[2020-02-20] MEDS: Aspirin Chewable 81 MG TAB PO SCH (08:55)
[2020-02-20] MEDS: Senokot S 8.6-50 MG TAB PO SCH ×2 (08:57→21:28)
[2020-02-20] MEDS: Sodium Chloride 1 GM TAB PO SCH ×2 (08:57→21:28)
[2020-02-20] MEDS: ANORO ELLIPTA INH SCH (09:00)
[2020-02-20] MEDS: Tamsulosin HCl 0.4 MG CAP PO SCH (09:01)
[2020-02-20] MEDS: Gabapentin 100 MG CAP PO SCH ×2 (09:02→21:28)
[2020-02-20] MEDS: Ferrous Sulfate 325 MG TAB PO SCH ×2 (09:02→21:28)
[2020-02-20] MEDS: Finasteride 5 MG TAB PO SCH (09:02)
[2020-02-20] MEDS: Citalopram 20 MG TAB PO SCH (09:06)
[2020-02-20] MEDS: Lantus 1000 UNITS/10 ML VIAL SC SCH (09:07)
[2020-02-20] MEDS: Cholecalciferol 1,000 UNITS (25 MCG) TAB PO SCH (09:10)
--- NOTE | 2020-02-20 12:32 | PRG ---
DATE OF SERVICE: 02/20/2020 SUBJECTIVE: The patient said he did not feel very good this morning. Now that he is in therapy and working on the [facility] [employer], he is feeling a little better. Therapist said that he was having a little more trouble walking. This therapist had not worked with him in about a week and he said his legs are weaker and they seem to give way with him more readily. OBJECTIVE: GENERAL: The patient is sitting up on the bike, alert, appears comfortable. VITAL SIGNS: Temperature 98.4, pulse 64, respirations 22, O2 sat 98% on room air, and blood pressure 158/83. LUNGS: Clear. HEART: Regular rate. LABORATORY DATA: FBS 98. ASSESSMENT: 1. Urinary tract infection, complicated by bacteremia with Pseudomonas aeruginosa on 02/07/2020. a. Urine culture grew Pseudomonas sensitive to cefepime. b. Two of two blood cultures on 02/06 positive for Pseudomonas, sensitive to cefepime. c. Repeat blood cultures on 02/10/2020, negative x2. d. Renal ultrasound showed no obstructive uropathy other than a prominence of the right renal pelvis, which is unchanged from a year previously. e. Doing well. Completed a 12-day course of cefepime IV. 2. Diabetes type 2, controlled. 3. History of urinary retention. a. Voiding, has not required any recent in-and-out catheterization as of . 4. Chronic kidney disease. 5. Generalized weakness and deconditioning, history of proximal muscle weakness and frequent falls prior to hospitalization. a. Slow improvement, but today seems to be a little weaker in his legs as of . 6. Left femoral neck fracture, displaced. a. Secondary to a fall on 12/25/19. b. Status post left hemiarthroplasty on 12/25. c. Improving as of 02/19. 7. Alzheimer disease. 8. Obstructive sleep apnea, for which he uses CPAP when sleeping. PLAN: The patient completed a 12-day course, elected not to complete all 14 days since his IV had infiltrated and he was reluctant to have this restarted. He has remained afebrile. We will continue PT and OT. I visited a few days ago with his who indicated that he will need continued assistance once he is back home. Job ID: [id number] [facility]
[2020-02-20] MEDS: Ubidecarenone 50 MG CAP PO SCH (21:28)
[2020-02-20] MEDS: Melatonin 3 MG TAB PO SCH (21:28)
[2020-02-20] MEDS: Ezetimibe 10 MG TAB PO SCH (21:28)
[2020-02-21] MEDS: Levothyroxine Sodium 100 MCG TAB PO SCH (05:36)
[2020-02-21] MEDS: Cholecalciferol 1,000 UNITS (25 MCG) TAB PO SCH (08:48)
[2020-02-21] MEDS: ICOSAPENT ETHYL 1 GM PO SCH ×2 (08:48→17:07)
[2020-02-21] MEDS: Senokot S 8.6-50 MG TAB PO SCH ×2 (08:48→20:28)
[2020-02-21] MEDS: Amlodipine 5 MG TAB PO SCH (08:48)
[2020-02-21] MEDS: Aspirin Chewable 81 MG TAB PO SCH (08:48)
[2020-02-21] MEDS: Finasteride 5 MG TAB PO SCH (08:48)
[2020-02-21] MEDS: Tamsulosin HCl 0.4 MG CAP PO SCH (08:48)
[2020-02-21] MEDS: Alogliptin 25 MG TAB PO SCH (08:49)
[2020-02-21] MEDS: Ferrous Sulfate 325 MG TAB PO SCH ×2 (08:49→20:28)
[2020-02-21] MEDS: Sodium Chloride 1 GM TAB PO SCH ×2 (08:49→20:28)
[2020-02-21] MEDS: Citalopram 20 MG TAB PO SCH (08:49)
[2020-02-21] MEDS: Gabapentin 100 MG CAP PO SCH ×2 (08:49→20:28)
[2020-02-21] MEDS: ANORO ELLIPTA INH SCH (08:50)
[2020-02-21] MEDS: Lantus 1000 UNITS/10 ML VIAL SC SCH (08:50)
--- NOTE | 2020-02-21 10:00 | PRG ---
DATE OF SERVICE: 02/21/2020 SUBJECTIVE: The patient said he is feeling okay this morning. The nurse noticed he was a little sleepier this morning and seemed a little bit more confused. OBJECTIVE: GENERAL: The patient was sitting up in his chair, was a little more lethargic, but when engaged in conversation, he answered appropriately. VITAL SIGNS: Show a temperature of 98.6, pulse 84, respirations 18, O2 saturation 92% on room air, and blood pressure 116/70. Weight 201, down from a high of 222 on admission. LUNGS: Clear. HEART: Regular rate. EXTREMITIES: No edema. SKIN: The patient has a little fine macular eruption over his trunk. LABORATORY DATA: His FBS this morning is pending. Last night before supper, it was 222. ASSESSMENT: 1. Urinary tract infection complicated by bacteremia with Pseudomonas aeruginosa on 02/07/2020. a. Urine culture grew Pseudomonas, sensitive to cefepime. b. /2 blood cultures on 02/06, positive for Pseudomonas, sensitive to cefepime. c. Repeat blood cultures on 02/09, negative x2. d. Renal ultrasound showed no obstructive uropathy other than a prominence of the right renal pelvis, which is unchanged from a year previously. e. Completed 12-day course of cefepime. 2. Diabetes, type 2, controlled. 3. History of urinary retention. a. Voiding. Has not required in-and-out catheterization as of 02/20. 4. Chronic kidney disease. 5. Generalized weakness and deconditioning. a. History of proximal muscle weakness and frequent falls prior to hospitalization. b. Slow improvement as of 02/20. 6. Left femoral neck fracture. a. Secondary to a fall on 12/25/2019. b. Status post left hemiarthroplasty on 12/25. c. Improving as of 02/20. 7. Alzheimer disease. 8. Obstructive sleep apnea, for which he uses CPAP when sleeping. PLAN: The patient's condition is pretty stable. This morning, he is little more lethargic, but awoke with conversation and answered questions appropriately, had a little mild macular eruption over his trunk, the etiology is not known. We will just observe, it is asymptomatic. We will visit with patient's . Hopefully if his strength improves, he will be able to go home, but he will require assistance with all his ADLs. He will remain a fall risk. On previous conversation with his had advised assistance in the home if feasible. Job ID: [id number] [facility]
[2020-02-21] MEDS: Ubidecarenone 50 MG CAP PO SCH (20:27)
[2020-02-21] MEDS: Ezetimibe 10 MG TAB PO SCH (20:28)
[2020-02-21] MEDS: Melatonin 3 MG TAB PO SCH (20:28)
[2020-02-22] MEDS: Levothyroxine Sodium 100 MCG TAB PO SCH (05:16)
[2020-02-22] MEDS: Citalopram 20 MG TAB PO SCH (09:32)
[2020-02-22] MEDS: Aspirin Chewable 81 MG TAB PO SCH (09:32)
[2020-02-22] MEDS: Lantus 1000 UNITS/10 ML VIAL SC SCH (09:33)
[2020-02-22] MEDS: ICOSAPENT ETHYL 1 GM PO SCH ×2 (09:37→17:24)
[2020-02-22] MEDS: Alogliptin 25 MG TAB PO SCH (09:40)
[2020-02-22] MEDS: Gabapentin 100 MG CAP PO SCH ×2 (09:40→20:53)
[2020-02-22] MEDS: Ferrous Sulfate 325 MG TAB PO SCH ×2 (09:40→20:52)
[2020-02-22] MEDS: Amlodipine 5 MG TAB PO SCH (09:40)
[2020-02-22] MEDS: Cholecalciferol 1,000 UNITS (25 MCG) TAB PO SCH (09:41)
[2020-02-22] MEDS: Finasteride 5 MG TAB PO SCH (09:41)
[2020-02-22] MEDS: ANORO ELLIPTA INH SCH (09:41)
[2020-02-22] MEDS: Sodium Chloride 1 GM TAB PO SCH ×2 (09:41→20:53)
[2020-02-22] MEDS: Tamsulosin HCl 0.4 MG CAP PO SCH (09:42)
[2020-02-22] MEDS: Senokot S 8.6-50 MG TAB PO SCH ×2 (09:42→20:52)
--- NOTE | 2020-02-22 14:41 | PRG ---
DATE OF SERVICE: 02/22/2020 SUBJECTIVE: The patient said that he is doing okay this morning and visited with his , Christi, yesterday and she has begun making calls to try to line up help for the patient when he comes home. OBJECTIVE: GENERAL: The patient is alert, appears in no distress. He seems a little down this morning, but not in any acute distress. VITAL SIGNS: His vital signs show a temperature 98.3, pulse 86, respirations 18 , O2 saturation 97% on room air, and blood pressure 149/72. LUNGS: Clear. HEART: Regular rate. EXTREMITIES: No edema. ASSESSMENT: 1. Urinary tract infection complicated by bacteremia with Pseudomonas aeruginosa on 02/07/2020. a. Urine culture grew Pseudomonas sensitive to cefepime. b. 09/11 blood cultures on 02/06, positive for Pseudomonas and sensitive to cefepime. c. Repeat blood cultures on 02/09, negative x2. d. Renal ultrasound showed no obstructive uropathy other than a prominence of the right renal pelvis, which is unchanged from the year previously. He completed a 12-day course of cefepime IV. 2. Diabetes, type 2, controlled. 3. History of urinary retention. a. Voiding, has not required any recent in and out caths as of 02/21. 4. Chronic kidney disease. 5. Generalized weakness and deconditioning. a. Improved as of 02/21. 6. Left femoral neck fracture. a. Secondary to a fall on 12/25/2019. b. Status post left hemiarthroplasty on 12/25. c. Improving as of 02/21. 7. Alzheimer disease, stable. 8. Obstructive sleep apnea, for which he uses CPAP. PLAN: Continue PT and OT. The patient's is trying to arrange for help in the home. Once this has been done, we will plan discharge date. Job ID: [id number] [facility]
[2020-02-22] MEDS: Ubidecarenone 50 MG CAP PO SCH (20:51)
[2020-02-22] MEDS: Melatonin 3 MG TAB PO SCH (20:52)
[2020-02-22] MEDS: Ezetimibe 10 MG TAB PO SCH (20:53)
[2020-02-23] MEDS: Levothyroxine Sodium 100 MCG TAB PO SCH (05:26)
[2020-02-23] MEDS: ICOSAPENT ETHYL 1 GM PO SCH ×2 (08:20→17:24)
[2020-02-23] MEDS: ANORO ELLIPTA INH SCH (08:21)
[2020-02-23] MEDS: Lantus 1000 UNITS/10 ML VIAL SC SCH (08:22)
[2020-02-23] MEDS: Cholecalciferol 1,000 UNITS (25 MCG) TAB PO SCH (08:24)
[2020-02-23] MEDS: Alogliptin 25 MG TAB PO SCH (08:24)
[2020-02-23] MEDS: Sodium Chloride 1 GM TAB PO SCH ×2 (08:24→22:29)
[2020-02-23] MEDS: Aspirin Chewable 81 MG TAB PO SCH (08:24)
[2020-02-23] MEDS: Finasteride 5 MG TAB PO SCH (08:24)
[2020-02-23] MEDS: Tamsulosin HCl 0.4 MG CAP PO SCH (08:24)
[2020-02-23] MEDS: Senokot S 8.6-50 MG TAB PO SCH ×2 (08:24→22:30)
[2020-02-23] MEDS: Gabapentin 100 MG CAP PO SCH ×2 (08:24→22:30)
[2020-02-23] MEDS: Ferrous Sulfate 325 MG TAB PO SCH ×2 (08:24→22:29)
[2020-02-23] MEDS: Amlodipine 5 MG TAB PO SCH (08:25)
[2020-02-23] MEDS: Citalopram 20 MG TAB PO SCH (08:25)
--- NOTE | 2020-02-23 12:27 | PRG ---
DATE OF SERVICE: 02/23/2020 SUBJECTIVE: The patient is sitting up in his wheelchair, preparing to eat breakfast. He has been up working with physical therapy. OBJECTIVE: GENERAL: The patient is alert, smiling, appears very comfortable, in no distress. VITAL SIGNS: Temp 99.2 last evening, pulse 90, blood pressure 149/72, respirations 18, and O2 saturation 93% on room air. LUNGS: Clear. HEART: Regular rate. EXTREMITIES: No edema. LABORATORY DATA: His FBS this morning was 138, last night before supper 179. ASSESSMENT: 1. Urinary tract infection complicated by bacteremia with Pseudomonas aeruginosa on 02/07/2020. a. Urine culture grew Pseudomonas sensitive to cefepime. b. / blood cultures on 02/06, positive for Pseudomonas and sensitive to cefepime. c. Repeat blood cultures on 02/09, negative x2. d. Renal ultrasound showed no obstructive uropathy other than a prominence of the right renal pelvis, which is unchanged from a year previously. e. Completed 12-day course of IV cefepime and remains asymptomatic as of . 2. Diabetes, type 2, controlled. 3. History of urinary retention. a. Voiding, has not required recent in and out catheterization as of 02/22. 4. Chronic kidney disease. 5. Generalized weakness and deconditioning. a. Improving. 6. Left femoral neck fracture. a. Secondary to a fall on 12/25/2019. b. Status post left hemiarthroplasty on 12/25. c. Improving. 7. Alzheimer disease, stable. 8. Obstructive sleep apnea, for which he uses CPAP. PLAN: Continue PT and OT. The patient's is working to make arrangements for his care at home, has talked with individuals that will help in the home. Job ID: [id number] [facility]
[2020-02-23] MEDS: Ubidecarenone 50 MG CAP PO SCH (22:29)
[2020-02-23] MEDS: Ezetimibe 10 MG TAB PO SCH (22:30)
[2020-02-23] MEDS: Melatonin 3 MG TAB PO SCH (22:30)
[2020-02-23] MEDS: Acetaminophen 500 MG TAB PO PRN (22:30)
[2020-02-24] MEDS: Levothyroxine Sodium 100 MCG TAB PO SCH (05:19)
[2020-02-24] MEDS: ICOSAPENT ETHYL 1 GM PO SCH ×2 (08:39→16:59)
[2020-02-24] MEDS: ANORO ELLIPTA INH SCH (08:40)
[2020-02-24] MEDS: Lantus 1000 UNITS/10 ML VIAL SC SCH (08:41)
[2020-02-24] MEDS: Senokot S 8.6-50 MG TAB PO SCH ×2 (08:43→21:15)
[2020-02-24] MEDS: Acetaminophen 500 MG TAB PO PRN ×2 (08:43→21:16)
[2020-02-24] MEDS: Alogliptin 25 MG TAB PO SCH (08:44)
[2020-02-24] MEDS: Tamsulosin HCl 0.4 MG CAP PO SCH (08:44)
[2020-02-24] MEDS: Finasteride 5 MG TAB PO SCH (08:44)
[2020-02-24] MEDS: Aspirin Chewable 81 MG TAB PO SCH (08:44)
[2020-02-24] MEDS: Gabapentin 100 MG CAP PO SCH ×2 (08:44→21:15)
[2020-02-24] MEDS: Amlodipine 5 MG TAB PO SCH (08:44)
[2020-02-24] MEDS: Cholecalciferol 1,000 UNITS (25 MCG) TAB PO SCH (08:44)
[2020-02-24] MEDS: Sodium Chloride 1 GM TAB PO SCH ×2 (08:44→21:15)
[2020-02-24] MEDS: Citalopram 20 MG TAB PO SCH (08:44)
[2020-02-24] MEDS: Ferrous Sulfate 325 MG TAB PO SCH ×2 (08:44→21:15)
--- NOTE | 2020-02-24 16:48 | PRG ---
DATE OF SERVICE: 02/24/2020 SUBJECTIVE: The patient said he is feeling good today. He has no complaints. I spoke to his yesterday and she is lining up help, is visiting with the nursing staff, PT and OT to assist with her care of the patient at home. Also, when he does go home, we will arrange home health with PT and OT. The patient has been walking up to 50-75 feet with a rolling walker and [id number] assist. He requires moderate assistance with transfers. OBJECTIVE: GENERAL: The patient is lying in bed, just urinated and voided without any trouble. He appears comfortable and in no distress. VITAL SIGNS: Show a temperature of 96.7, pulse 95, respirations 20, O2 saturation 97% on room air, blood pressure 94/61. LUNGS: Clear. HEART: Regular rate. EXTREMITIES: No edema. LABORATORY DATA: His FBS this morning 102. ASSESSMENT: 1. Urinary tract infection complicated by bacteremia with Pseudomonas aeruginosa on 02/07/2020. a. Urine culture grew Pseudomonas sensitive to cefepime. b. Two of two blood cultures on 02/06, positive for Pseudomonas sensitive to cefepime. c. Repeat blood cultures on 02/09 negative x2. The renal ultrasound showed no obstructive uropathy other than the prominence of the right renal pelvis , which is unchanged.He remains asymptomatic and afebrile as of 02/23. 2. Diabetes type 2 controlled. 3. History of urinary retention. a. Voiding without difficulty. He has not required recent in- and out catheterization as of 02/23. 4. Chronic kidney disease. 5. Generalized weakness and deconditioning. a. Improving. Walking up to 50-75 feet with aid of a walker and assistance as of 02/23. 6. Left femoral neck fracture. a. Secondary to a fall on 12/25/2019. b. Status post left hemiarthroplasty on 12/25. c. Improving. 7. Alzheimer disease, stable. 8. Obstructive sleep apnea, for which he uses CPAP. PLAN: Continue present care. Continue PT and OT. Once everything is in place at his home, we will arrange for a discharge date. Right now he is still benefitting by PT and OT. Job ID: [id number] [facility]
[2020-02-24] MEDS: Ezetimibe 10 MG TAB PO SCH (21:14)
[2020-02-24] MEDS: Ubidecarenone 50 MG CAP PO SCH (21:15)
[2020-02-24] MEDS: Melatonin 3 MG TAB PO SCH (21:15)
[2020-02-25] MEDS: Levothyroxine Sodium 100 MCG TAB PO SCH (05:07)
[2020-02-25] MEDS: ICOSAPENT ETHYL 1 GM PO SCH ×2 (08:35→17:00)
[2020-02-25] MEDS: Citalopram 20 MG TAB PO SCH (08:36)
[2020-02-25] MEDS: Finasteride 5 MG TAB PO SCH (08:36)
[2020-02-25] MEDS: Gabapentin 100 MG CAP PO SCH ×2 (08:36→21:59)
[2020-02-25] MEDS: Cholecalciferol 1,000 UNITS (25 MCG) TAB PO SCH (08:36)
[2020-02-25] MEDS: Sodium Chloride 1 GM TAB PO SCH ×2 (08:36→21:59)
[2020-02-25] MEDS: Amlodipine 5 MG TAB PO SCH (08:37)
[2020-02-25] MEDS: Tamsulosin HCl 0.4 MG CAP PO SCH (08:37)
[2020-02-25] MEDS: Alogliptin 25 MG TAB PO SCH (08:37)
[2020-02-25] MEDS: Senokot S 8.6-50 MG TAB PO SCH ×2 (08:37→21:59)
[2020-02-25] MEDS: Aspirin Chewable 81 MG TAB PO SCH (08:37)
[2020-02-25] MEDS: Ferrous Sulfate 325 MG TAB PO SCH ×2 (08:37→21:59)
[2020-02-25] MEDS: Lantus 1000 UNITS/10 ML VIAL SC SCH (08:44)
[2020-02-25] MEDS: ANORO ELLIPTA INH SCH (08:45)
[2020-02-25] MEDS: Ubidecarenone 50 MG CAP PO SCH (21:58)
[2020-02-25] MEDS: Acetaminophen 500 MG TAB PO PRN (21:59)
[2020-02-25] MEDS: Ezetimibe 10 MG TAB PO SCH (21:59)
[2020-02-25] MEDS: Melatonin 3 MG TAB PO SCH (21:59)
[2020-02-26] MEDS: Levothyroxine Sodium 100 MCG TAB PO SCH (05:27)
[2020-02-26] MEDS: Ferrous Sulfate 325 MG TAB PO SCH ×2 (08:29→20:21)
[2020-02-26] MEDS: Gabapentin 100 MG CAP PO SCH ×2 (08:29→20:22)
[2020-02-26] MEDS: ICOSAPENT ETHYL 1 GM PO SCH ×2 (08:29→16:00)
[2020-02-26] MEDS: Aspirin Chewable 81 MG TAB PO SCH (08:29)
[2020-02-26] MEDS: Amlodipine 5 MG TAB PO SCH (08:29)
[2020-02-26] MEDS: Citalopram 20 MG TAB PO SCH (08:29)
[2020-02-26] MEDS: Tamsulosin HCl 0.4 MG CAP PO SCH (08:30)
[2020-02-26] MEDS: Cholecalciferol 1,000 UNITS (25 MCG) TAB PO SCH (08:30)
[2020-02-26] MEDS: Sodium Chloride 1 GM TAB PO SCH ×2 (08:30→20:21)
[2020-02-26] MEDS: Senokot S 8.6-50 MG TAB PO SCH ×2 (08:30→20:22)
[2020-02-26] MEDS: Finasteride 5 MG TAB PO SCH (08:30)
[2020-02-26] MEDS: ANORO ELLIPTA INH SCH (08:30)
[2020-02-26] MEDS: Alogliptin 25 MG TAB PO SCH (08:30)
[2020-02-26] MEDS: Lantus 1000 UNITS/10 ML VIAL SC SCH (08:31)
[2020-02-26] MEDS: Acetaminophen 500 MG TAB PO PRN (16:00)
[2020-02-26] MEDS: Ubidecarenone 50 MG CAP PO SCH (20:21)
[2020-02-26] MEDS: Melatonin 3 MG TAB PO SCH (20:21)
[2020-02-26] MEDS: Ezetimibe 10 MG TAB PO SCH (20:22)
[2020-02-27] MEDS: Levothyroxine Sodium 100 MCG TAB PO SCH (05:02)
[2020-02-27] MEDS: ICOSAPENT ETHYL 1 GM PO SCH ×2 (08:26→17:22)
[2020-02-27] MEDS: ANORO ELLIPTA INH SCH (08:29)
[2020-02-27] MEDS: Lantus 1000 UNITS/10 ML VIAL SC SCH (08:29)
[2020-02-27] MEDS: Acetaminophen 500 MG TAB PO PRN ×2 (08:32→21:41)
[2020-02-27] MEDS: Senokot S 8.6-50 MG TAB PO SCH ×2 (08:32→21:41)
[2020-02-27] MEDS: Citalopram 20 MG TAB PO SCH (08:32)
[2020-02-27] MEDS: Cholecalciferol 1,000 UNITS (25 MCG) TAB PO SCH (08:32)
[2020-02-27] MEDS: Aspirin Chewable 81 MG TAB PO SCH (08:32)
[2020-02-27] MEDS: Gabapentin 100 MG CAP PO SCH ×2 (08:32→21:41)
[2020-02-27] MEDS: Sodium Chloride 1 GM TAB PO SCH ×2 (08:32→21:41)
[2020-02-27] MEDS: Finasteride 5 MG TAB PO SCH (08:33)
[2020-02-27] MEDS: Amlodipine 5 MG TAB PO SCH (08:33)
[2020-02-27] MEDS: Tamsulosin HCl 0.4 MG CAP PO SCH (08:33)
[2020-02-27] MEDS: Alogliptin 25 MG TAB PO SCH (08:33)
[2020-02-27] MEDS: Ferrous Sulfate 325 MG TAB PO SCH ×2 (08:33→21:41)
--- NOTE | 2020-02-27 13:50 | PRG ---
DATE OF SERVICE: 02/27/2020 SUBJECTIVE: The patient said he is doing okay this morning. He has already been to physical therapy. Nurses report that he is having some episodes of urinary incontinence, but he is not having much of a residual anymore. OBJECTIVE: GENERAL: The patient is alert, appears comfortable, in no distress. VITAL SIGNS: Temperature 98, pulse 95, respirations 20, O2 saturation 95% on room air, and blood pressure 97/63. LUNGS: Clear. HEART: Regular rate. EXTREMITIES: No edema. LABORATORY: FBS yesterday morning 96, 198 before supper, this morning is pending. ASSESSMENT: 1. Urinary tract infection complicated by bacteremia with Pseudomonas aeruginosa on 02/07/2020. a. Urine grew Pseudomonas sensitive to cefepime. b. 09/11 blood cultures on 02/06, positive for Pseudomonas sensitive to cefepime. c. Repeat blood cultures on 02/09, negative x2. d. Renal ultrasound showed no obstructive uropathy other than a prominence of the right renal pelvis, which was unchanged from a year previously. e. Remains afebrile and asymptomatic as of 02/26. 2. Diabetes, type 2, controlled. 3. History of urinary retention. a. Voiding with no significant residual requiring in and out catheterization. Having some incontinence as of 02/26. 4. Chronic kidney disease. 5. Generalized weakness and deconditioning. 6. Left femoral neck fracture. a. Secondary to a fall on 12/25/2019. b. Status post left hemiarthroplasty on 12/25. c. Improving. 7. Alzheimer's disease. 8. Obstructive sleep apnea, for which he uses CPAP. PLAN: Continue present care. Continue PT and OT. is making arrangements to try to manage him at home. Job ID: [id number] [facility]
[2020-02-27] MEDS: Ezetimibe 10 MG TAB PO SCH (21:41)
[2020-02-27] MEDS: Ubidecarenone 50 MG CAP PO SCH (21:41)
[2020-02-27] MEDS: Melatonin 3 MG TAB PO SCH (21:41)
[2020-02-28] MEDS: Levothyroxine Sodium 100 MCG TAB PO SCH (05:12)
[2020-02-28] MEDS: ICOSAPENT ETHYL 1 GM PO SCH ×2 (08:00→16:42)
[2020-02-28] MEDS: Sodium Chloride 1 GM TAB PO SCH ×2 (08:01→20:36)
[2020-02-28] MEDS: Citalopram 20 MG TAB PO SCH (08:01)
[2020-02-28] MEDS: Tamsulosin HCl 0.4 MG CAP PO SCH (08:01)
[2020-02-28] MEDS: Aspirin Chewable 81 MG TAB PO SCH (08:01)
[2020-02-28] MEDS: Alogliptin 25 MG TAB PO SCH (08:01)
[2020-02-28] MEDS: Amlodipine 5 MG TAB PO SCH (08:02)
[2020-02-28] MEDS: Gabapentin 100 MG CAP PO SCH ×2 (08:02→20:35)
[2020-02-28] MEDS: Senokot S 8.6-50 MG TAB PO SCH ×2 (08:02→20:34)
[2020-02-28] MEDS: Finasteride 5 MG TAB PO SCH (08:02)
[2020-02-28] MEDS: Cholecalciferol 1,000 UNITS (25 MCG) TAB PO SCH (08:02)
[2020-02-28] MEDS: Ferrous Sulfate 325 MG TAB PO SCH ×2 (08:03→20:36)
[2020-02-28] MEDS: ANORO ELLIPTA INH SCH (08:03)
[2020-02-28] MEDS: Lantus 1000 UNITS/10 ML VIAL SC SCH (08:03)
[2020-02-28] MEDS: Acetaminophen 500 MG TAB PO PRN ×2 (10:18→20:35)
[2020-02-28 16:59] LABS: ALT (SGPT) 14 U/L (8-55); AST (SGOT) 11 U/L (5-34); Albumin 3.5 g/dL (3.4-4.8); Alkaline Phosphatase 104 U/L (40-110); Anion Gap 15 mmol/L (10-20); BUN (Urea Nitrogen) 42 mg/dL (8.4-25.7); Bilirubin, Total 0.2 mg/dL (0.2-1.2); Calc. Creatinine Clearance 43 mL/min (70-130); Calcium 9.3 mg/dL (7.8-10.44); Carbon Dioxide 19 mmol/L (23-31); Chloride 103 mmol/L (98-107); Estimated GFR-MDRD 38; Glucose 164 mg/dL (83-110); Potassium 5.8 mmol/L (3.5-5.1); Protein, Total 7.5 g/dL (5.8-8.1); Sodium 131 mmol/L (136-145)
[2020-02-28] MEDS: Ubidecarenone 50 MG CAP PO SCH (20:35)
[2020-02-28] MEDS: Ezetimibe 10 MG TAB PO SCH (20:35)
[2020-02-28] MEDS: Melatonin 3 MG TAB PO SCH (20:35)
[2020-02-29] MEDS: Levothyroxine Sodium 100 MCG TAB PO SCH (05:35)
[2020-02-29 05:57] LABS: #Basophils 0.1 thou/uL (0.0-0.2); #Eosinphils 0.6 thou/uL (0.0-0.7); #Lymphocytes 1.6 thou/uL (1.20-3.40); #Monocytes 0.8 thou/uL (0.11-0.59); #Neutrophils 5.5 thou/uL (1.40-6.50); %Basophils 0.7 % (0.0-1.0); %Eosinophils 6.7 % (0.0-10.0); %Lymphocytes 18.4 % (21.0-51.0); %Monocytes 9.3 % (0.0-10.0); Hemoglobin 9.7 g/dL (14.0-18.0); Mean Corpuscular HGB CONC 31.4 g/dL (32.0-36.0); Mean Corpuscular Hemoglobin 28.6 pg (27.0-31.0); Mean Platelet Volume 6.6 fL (7.4-10.4); Platelet Count 284 thou/uL (130-400); RBC Distribution Width 12.2 % (11.5-14.5); Red Blood Cell (RBC) Count 3.38 mill/uL (4.70-6.10); White Blood Cell (WBC) Count 8.5 thou/uL (4.8-10.8)
[2020-02-29] MEDS: ANORO ELLIPTA INH SCH (08:36)
[2020-02-29] MEDS: Lantus 1000 UNITS/10 ML VIAL SC SCH (08:36)
[2020-02-29] MEDS: ICOSAPENT ETHYL 1 GM PO SCH ×2 (08:36→16:31)
[2020-02-29] MEDS: Citalopram 20 MG TAB PO SCH (08:37)
[2020-02-29] MEDS: Sodium Chloride 1 GM TAB PO SCH ×2 (08:37→20:42)
[2020-02-29] MEDS: Alogliptin 25 MG TAB PO SCH (08:37)
[2020-02-29] MEDS: Cholecalciferol 1,000 UNITS (25 MCG) TAB PO SCH (08:38)
[2020-02-29] MEDS: Gabapentin 100 MG CAP PO SCH ×2 (08:38→20:42)
[2020-02-29] MEDS: Aspirin Chewable 81 MG TAB PO SCH (08:38)
[2020-02-29] MEDS: Tamsulosin HCl 0.4 MG CAP PO SCH (08:38)
[2020-02-29] MEDS: Senokot S 8.6-50 MG TAB PO SCH ×2 (08:38→20:42)
[2020-02-29] MEDS: Ferrous Sulfate 325 MG TAB PO SCH ×2 (08:38→20:42)
[2020-02-29] MEDS: Amlodipine 5 MG TAB PO SCH (08:38)
[2020-02-29] MEDS: Finasteride 5 MG TAB PO SCH (08:38)
--- NOTE | 2020-02-29 09:51 | PRG ---
DATE OF SERVICE: 02/28/2020 SUBJECTIVE: The patient said he is feeling good today. He had no complaint. He is feeling better. He said he is urinating better. Today he walked up to 75 feet, the other time 70 and 50 feet with his rolling walker and minimal assist. He is transferring with minimal assistance. OBJECTIVE: GENERAL: The patient is sitting up in a chair, is alert, talkative, smiling, and appears in no distress. VITAL SIGNS: Temperature of 98, pulse 87, respirations 20, O2 saturation 96% on room air, blood pressure 116/72. LUNGS: Clear. HEART: Regular rate. EXTREMITIES: No edema. ASSESSMENT: 1. Urinary tract infection complicated by bacteremia with Pseudomonas aeruginosa on 02/07/20. a. Urine culture and blood cultures from 02/06 grew Pseudomonas sensitive to cefepime. b. Repeat blood cultures on 02/09 negative x2. c. Remains afebrile and asymptomatic as of 02/26. 2. Diabetes type 2, controlled. 3. History of urinary retention. a. Voids with no significant residual requiring in and out catheterization. 4. Chronic kidney disease. 5. Generalized weakness and deconditioning. 6. Left femoral neck fracture. a. Secondary to a fall on 12/23/19. b. Status post left hemiarthroplasty on 12/25. c. Improving. 7. Alzheimer's. 8. Obstructive sleep apnea, for which he is on CPAP. PLAN: Continue present care. His is making arrangement for his coming home. Home Health will come and assist and will arrange for in-home PT and OT. She also has hired a lady to assist him in the daytime. Anticipate discharge on 03/01. Job ID: [id number]
--- NOTE | 2020-02-29 11:56 | PRG ---
DATE OF SERVICE: 02/29/2020 SUBJECTIVE: The patient says he is doing okay this morning. He has already been to therapy. OBJECTIVE: GENERAL: The patient is sitting up in his wheelchair, preparing to eat breakfast. He is alert, appears comfortable, in no distress. VITAL SIGNS: Show a temperature 97.7, pulse 82, respirations 18, O2 saturation 97% on room air, and blood pressure 172/75. Not yet had morning medications. LUNGS: Clear. HEART: Regular rate. LABORATORY DATA: H and H of 9.7 and 30.7, white cell count 8500, platelet count 284,000. Sodium 131, potassium 5.8, BUN 42, creatinine 1.74, GFR 38, and glucose 164. ASSESSMENT: 1. Urinary tract infection complicated by bacteremia with Pseudomonas aeruginosa on 02/07/2020. a. Completed 12-day course of IV antibiotics. b. Remains afebrile and asymptomatic as of 02/28. 2. Diabetes, type 2. 3. History of urinary retention. a. Voiding with no significant residual that requires in and out catheterization. 4. Chronic kidney disease. 5. Generalized weakness and deconditioning. 6. Left femoral neck fracture. a. Secondary to a fall on 12/25/2019. b. Status post left hemiarthroplasty on 12/25. c. Improving. 7. Alzheimer's. 8. Obstructive sleep apnea. 9. Hyperkalemia. PLAN: Lab shows the patient is hyperkalemic. This may be from the blood draw. We will repeat draw in the morning. This could also be related to the Altace that remains high. We will stop the Altace. He is on no potassium supplements. Continue PT/OT. Tentatively, the patient will be discharged in the morning. Job ID: [id number]
[2020-02-29] MEDS: Ubidecarenone 50 MG CAP PO SCH (20:41)
[2020-02-29] MEDS: Melatonin 3 MG TAB PO SCH (20:42)
[2020-02-29] MEDS: Acetaminophen 500 MG TAB PO PRN (20:42)
[2020-02-29] MEDS: Ezetimibe 10 MG TAB PO SCH (20:42)
[2020-03-01] MEDS: Levothyroxine Sodium 100 MCG TAB PO SCH (05:35)
[2020-03-01 05:56] LABS: Anion Gap 15 mmol/L (10-20); BUN (Urea Nitrogen) 35 mg/dL (8.4-25.7); Calc. Creatinine Clearance 54 mL/min (70-130); Carbon Dioxide 18 mmol/L (23-31); Chloride 105 mmol/L (98-107); Estimated GFR-MDRD 52; Glucose 79 mg/dL (83-110); Sodium 133 mmol/L (136-145)
[2020-03-01 06:52] VITALS: BP 156/75; TEMP 97.6
[2020-03-01] MEDS: Senokot S 8.6-50 MG TAB PO SCH (08:11)
[2020-03-01] MEDS: Aspirin Chewable 81 MG TAB PO SCH (08:12)
[2020-03-01] MEDS: Ferrous Sulfate 325 MG TAB PO SCH (08:12)
[2020-03-01] MEDS: Gabapentin 100 MG CAP PO SCH (08:12)
[2020-03-01] MEDS: Sodium Chloride 1 GM TAB PO SCH (08:12)
[2020-03-01] MEDS: Tamsulosin HCl 0.4 MG CAP PO SCH (08:12)
[2020-03-01] MEDS: Finasteride 5 MG TAB PO SCH (08:12)
[2020-03-01] MEDS: Alogliptin 25 MG TAB PO SCH (08:12)
[2020-03-01] MEDS: Citalopram 20 MG TAB PO SCH (08:13)
[2020-03-01] MEDS: Lantus 1000 UNITS/10 ML VIAL SC SCH (08:13)
[2020-03-01] MEDS: Cholecalciferol 1,000 UNITS (25 MCG) TAB PO SCH (08:13)
[2020-03-01] MEDS: Amlodipine 5 MG TAB PO SCH (08:13)
[2020-03-01] MEDS: ICOSAPENT ETHYL 1 GM PO SCH (08:14)
[2020-03-01] MEDS: ANORO ELLIPTA INH SCH (08:14)
--- NOTE | 2020-03-01 18:17 | DIS ---
DATE OF ADMISSION: 01/05/2020 DATE OF DISCHARGE: 03/01/2020 FINAL DIAGNOSES: 1. Generalized weakness and deconditioning. a. Secondary to fall and fracture of the left hip on 12/24. b. History of gait abnormality with proximal muscle weakness and frequent falls. c. Improving, walking up to 50 feet with a walker and standby assistance. Transferring with some help as of 03/01. 2. Left femoral neck fracture, undisplaced. a. Secondary to a fall on 12/24. b. Status post left hemiarthroplasty on 12/[address] Darryn Kim. c. Doing very well as of 03/01. 3. Urinary tract infection complicated by bacteremia with Pseudomonas aeruginosa on 02/07/20. a. Urine grew Pseudomonas sensitive to cefepime. b. Two of two blood cultures on 02/06 positive for Pseudomonas, sensitive to cefepime. c. Repeat blood cultures on 02/09 negative x2. d. Renal ultrasound showed no obstructive uropathy other than a prominence of the right renal pelvis, which was unchanged from the year previously. e. Completed a 12-day course of IV cefepime. f. Remains afebrile and asymptomatic as of 03/01. 4. Diabetes type 2, insulin requiring, controlled. 5. Chronic kidney disease. 6. Chronic obstructive pulmonary disease. 7. Obstructive sleep apnea, for which he sleeps with a CPAP. 8. Alzheimer disease. 9. Hypertension. 10. Coronary artery disease, asymptomatic. 11. History of recurrent urinary retention. a. Status post prostatectomy and recent urolith with recurrence of elevated post residual volume secondary to myogenic bladder dysfunction. b. Required intermittent catheterizations for a while. c. Improved. Urinating on his own. Has not required recent in and out catheterization. 12. History of transitional cell carcinoma of the bladder. a. Status post multiple transurethral resections of bladder tumors. b. Recent cystoscopy demonstrated no visual recurrence. 13. Urinary tract infection with Pseudomonas, treated with 7 day course of IV cefepime that was completed on 02/01. SUMMARY: The patient is an 79-year-old white male, who lives at home and has a history of Alzheimer disease, obstructive sleep apnea, coronary artery disease, hypertension, and diabetes type 2 that has been well controlled. He has a history of general decline in his strength and he has proximal muscle weakness that has led to frequent falls. The patient had a fall at home on 12/25/19 resulting in a left femoral neck fracture that was undisplaced. He was hospitalized at [facility] and Dr. Kim, orthopedic surgeon, did a left hemiarthroplasty on . His postop course was unremarkable. He was very weak and deconditioned following the fracture. He also had a lot of trouble with urinary retention. His urologist, Dr. Canales is taking care of him for transitional cell carcinoma for which he has undergone multiple resections and last cystoscopy has shown no evidence of tumor. He also has had a prostatectomy and urolith but he has had a large post residual volume remaining that was felt to be secondary to a myogenic bladder dysfunction. Dr. Canales had recommended in and out catheterizations if he has a post void residual greater than 400 and advised this to be checked every 6 hours. The patient was referred to [facility] for continued postop care and check on his bladder retention and for physical therapy and occupational therapy. The patient's course at [facility] was one of gradual improvement and by the time of his discharge, he was now able to walk up to 50 feet with a rolling walker with just standby assistance. Using his rolling walker, he required a little assistance just initiating getting up from a seated position. His bladder retention postvoid improved gradually. At times where he required in and out catheterizations decreased and often he would refuse to have a catheterization. He began voiding better on his own and the residual volume became less of an issue. The patient did have an episode of urinary tract infection from Pseudomonas aeruginosa that was treated with a 7-day course of IV cefepime since there was no good oral choices for him with his allergies. This was completed on 02/01. The patient then again had another episode presenting with fever and weakness. He was found to have urosepsis. On 02/07/20, urine culture grew Pseudomonas aeruginosa sensitive to the cefepime. Two of two blood cultures on 02/06 were positive for Pseudomonas sensitive to cefepime. Repeat blood cultures on 03/08 were negative x2. Renal ultrasound showed no obstructive uropathy other than a prominence of the right renal pelvis, which was unchanged from the year previously. He received a 12-day course of IV cefepime , it was originally intended to give 14 days, but the patient was not wanting to have IV restarted. He was afebrile and no symptoms. His antibiotics were stopped after the completion of the 12 of 14 days. Throughout the remainder of his hospitalization, he remained afebrile and his voiding was much improved by the time of his discharge. His incision on the left hip was healing well. He had some pain from left hip fracture, but was doing very well with his healing. He will see his orthopedic surgeon in followup in March. His diabetes was under very good control. His fasting blood sugars were mainly around 100. His blood pressure was well controlled. His Alzheimer disease was stable. His lab work on 02/28 showed an H and H of 9.7 and 30.7 with a white cell count of 8500, and platelet count of 284,000. His sodium on 02/27 was 131, potassium 5.8, BUN 42, creatinine 1.74. BMP was repeated on 03/01 and the sodium was 133, potassium 5.0, BUN down to 35, creatinine down to 1.33, GFR up to 52, glucose was 79. The patient's overall condition was improved. His has worked to arrange for care in his home. She has hired a lady who will help her during the day. The patient will ambulate with the use of a walker and will have a wheelchair to assist for further distances. He will also have Home Health see him and they will arrange for in-home PT and OT. DIET: Consistent carbohydrate diet. ACTIVITIES: Up in a chair as tolerated. Ambulate with the use of a walker and assistance. The patient will require assistance with transfers. Fall precautions. Glucometer checks daily. MEDICATIONS: 1. Acetaminophen 500 mg 2 tablets every 6 hours p.r.n. pain. 2. DuoNeb 3 mL by nebulizer every 4 hours p.r.n. 3. Alogliptin 25 mg daily. 4. Amlodipine 5 mg daily. 5. Anoro 2 inhalations daily. 6. Aspirin 81 mg daily. 7. Vitamin D3 2000 units daily. 8. Citalopram 40 mg daily. 9. CoQ10 400 mg daily. 10. Zetia 10 mg at bedtime. 11. Ferrous sulfate 325 mg b.i.d. 12. Finasteride 5 mg daily. 13. Gabapentin 100 mg b.i.d. 14. Vascepa 1 g day b.i.d. 15. Tresiba 40 units daily. 16. In the hospital, he was receiving Lantus. 17. Levothyroxine 100 mcg daily. 18. Melatonin 6 mg at bedtime. 19. Namenda 10 mg b.i.d. 20. Nateglinide 60 mg b.i.d. 21. Pantoprazole 40 mg daily. 22. Ramipril 10 mg daily. 23. Senokot-S 2 tabs b.i.d. 24. Sodium chloride 1 g b.i.d. 25. Tamsulosin 0.4 mg daily. FOLLOWUP: The patient should follow up with his urologist, Dr. Canales. Follow up with his orthopedic surgeon, Dr. Kim. Follow up with his flash designer. We will recheck the patient in 2 weeks by telemedicine. Prior to that, the patient will need a CBC, CMP, lipids, and hemoglobin A1c. [facility] will see him and arrange for in-home PT and OT. CODE STATUS: Full code. Job ID: [id number] MTDD
== END 2020-03-01 11:30 | disposition home or self-care (01) | DRG 560 ==
LOC: MADMS 14:45
PROVIDERS: ADMIT Family Medicine; ATTEND Family Medicine
DX: Z47.89 Encounter for other orthopedic aftercare (principal); N39.0 Urinary tract infection, site not specified; G30.9 Alzheimer's disease, unspecified; F02.80 Dementia in other diseases classified elsewhere, unspecified severity, without behavioral disturbance, psychotic disturbance, mood disturbance, and anxiety; R26.9 Unspecified abnormalities of gait and mobility; I25.10 Atherosclerotic heart disease of native coronary artery without angina pectoris; I12.9 Hypertensive chronic kidney disease with stage 1 through stage 4 chronic kidney disease, or unspecified chronic kidney disease; N18.9 Chronic kidney disease, unspecified; F32.9 Major depressive disorder, single episode, unspecified; E11.22 Type 2 diabetes mellitus with diabetic chronic kidney disease; K21.9 Gastro-esophageal reflux disease without esophagitis; K59.00 Constipation, unspecified; G47.33 Obstructive sleep apnea (adult) (pediatric); T36.1X5A Adverse effect of cephalosporins and other beta-lactam antibiotics, initial encounter; J44.9 Chronic obstructive pulmonary disease, unspecified; B96.5 Pseudomonas (aeruginosa) (mallei) (pseudomallei) as the cause of diseases classified elsewhere; N40.0 Benign prostatic hyperplasia without lower urinary tract symptoms; R29.6 Repeated falls; S72.002D Fracture of unspecified part of neck of left femur, subsequent encounter for closed fracture with routine healing; Z87.440 Personal history of urinary (tract) infections; Z79.4 Long term (current) use of insulin
CPT/HCPCS: 36415; 36416; 71045; 76770; 80048; 80053; 80061; 80202; 81001; 82947; 83036; 84443; 85007; 85025; 85027; 87040; 87077; 87086; 87149; 87186; 87633; 94640; J0692; J1815; J3370; J3490; J7050; J7620; U0002

== ENCOUNTER 2020-03-08 10:59 | Outpatient (CLI) | payer MEDICARE ==
[2020-03-08 11:39] LABS: ALT (SGPT) 11 U/L (8-55); AST (SGOT) 11 U/L (5-34); Albumin 3.6 g/dL (3.4-4.8); Alkaline Phosphatase 106 U/L (40-110); Anion Gap 18 mmol/L (10-20); BUN (Urea Nitrogen) 43 mg/dL (8.4-25.7); Bilirubin, Total 0.2 mg/dL (0.2-1.2); Calc. Creatinine Clearance 0 mL/min (70-130); Calcium 9.1 mg/dL (7.8-10.44); Carbon Dioxide 18 mmol/L (23-31); Cardiac Risk 4.4 (Less than 4.5); Chloride 103 mmol/L (98-107); Cholesterol 145 mg/dl (< 200 Desired); Estimated GFR-MDRD 42; Globulin 3.5 g/dL (2.4-3.5); Glucose 230 mg/dL (83-110); HDL Cholesterol 33 mg/dL (>60 Neg Risk); LDL Cholesterol, Calculated 87 mg/dL; Potassium 5.3 mmol/L (3.5-5.1); Protein, Total 7.1 g/dL (5.8-8.1); Sodium 134 mmol/L (136-145); Triglycerides 124 mg/dL (Less than 150)
== END 2020-03-08 11:00 | disposition home or self-care (01) ==
LOC: MADLAB 10:59
PROVIDERS: ATTEND Family Medicine
DX: S72.92XS Unspecified fracture of left femur, sequela (principal)
CPT/HCPCS: 80053; 80061

== ENCOUNTER 2020-03-15 14:09 | Outpatient (CLI) | payer MEDICARE ==
--- NOTE | 2020-03-15 14:49 | RAD ---
LEFT HIP: 03/15/20 Three views. COMPARISON: 01/11/20. INDICATIONS: Follow-up hip surgery. Left hip prosthesis again noted. Components remain in adequate position and alignment. No fracture. N o evidence of loosening. No interval change apparent. IMPRESSION: Stable left hip prosthesis. POS: AGW
== END 2020-03-15 14:10 | disposition home or self-care (01) ==
LOC: MADRAD 14:09
PROVIDERS: ATTEND Orthopaedic Surgery
DX: Z47.1 Aftercare following joint replacement surgery (principal); Z96.642 Presence of left artificial hip joint

== ENCOUNTER 2020-04-26 16:33 | Inpatient (IN) | payer MEDICARE ==
[2020-04-26] MEDS ORDERED: IPRATROPIUM BROMIDE INH PRN (21:34)
[2020-04-26] MEDS ORDERED: Betamethasone 0.1% Cream 15 GM TUBE TOP PRN (21:41)
[2020-04-26] MEDS ORDERED: HumaLOG 300 UNITS/3 ML VIAL SC PRN (21:45)
[2020-04-26] MEDS ORDERED: Dextrose 50% Abboject 50 ML SYRINGE IVP PRN (21:45)
[2020-04-26] MEDS ORDERED: Ipratropium Bromide 2.5 ml Neb NEB PRN (21:51)
[2020-04-26] MEDS ORDERED: Sulfameth/Trimethoprim DS 800-160mg TAB PO SCH (22:45)
[2020-04-26] MEDS ORDERED: Tamsulosin HCl 0.4 MG CAP PO SCH (22:45)
[2020-04-26] MEDS ORDERED: Ezetimibe 10 MG TAB PO SCH (22:45)
[2020-04-26] MEDS ORDERED: Ferrous Sulfate 325 MG TAB PO SCH (22:45)
[2020-04-26] MEDS: Tamsulosin HCl 0.4 MG CAP PO SCH (23:15)
[2020-04-27] MEDS: Levothyroxine Sodium 100 MCG TAB PO SCH (05:32)
[2020-04-27 05:39] LABS: #Basophils 0.1 thou/uL (0.0-0.2); #Monocytes 0.6 thou/uL (0.11-0.59); #Neutrophils 3.8 thou/uL (1.40-6.50); %Basophils 0.9 % (0.0-1.0); %Eosinophils 13.6 % (0.0-10.0); %Lymphocytes 26.8 % (21.0-51.0); %Monocytes 7.5 % (0.0-10.0); %Neutrophils 51.3 % (42.0-75.0); Hemoglobin 10.2 g/dL (14.0-18.0); Mean Corpuscular HGB CONC 34.1 g/dL (32.0-36.0); Mean Corpuscular Hemoglobin 28.5 pg (27.0-31.0); Mean Corpuscular Volume 83.6 fL (78.0-98.0); Mean Platelet Volume 6.5 fL (7.4-10.4); Platelet Count 299 thou/uL (130-400); RBC Distribution Width 12.2 % (11.5-14.5); Red Blood Cell (RBC) Count 3.57 mill/uL (4.70-6.10); White Blood Cell (WBC) Count 7.3 thou/uL (4.8-10.8)
[2020-04-27 05:53] LABS: ALT (SGPT) 15 U/L (8-55); AST (SGOT) 13 U/L (5-34); Albumin 2.9 g/dL (3.4-4.8); Alkaline Phosphatase 97 U/L (40-110); Anion Gap 13 mmol/L (10-20); BUN (Urea Nitrogen) 12 mg/dL (8.4-25.7); Bilirubin, Total 0.2 mg/dL (0.2-1.2); Calc. Creatinine Clearance 59 mL/min (70-130); Calcium 8.9 mg/dL (7.8-10.44); Carbon Dioxide 18 mmol/L (23-31); Chloride 105 mmol/L (98-107); Estimated GFR-MDRD 53; Globulin 3.3 g/dL (2.4-3.5); Glucose 73 mg/dL (83-110); Potassium 3.8 mmol/L (3.5-5.1); Protein, Total 6.2 g/dL (5.8-8.1); Sodium 132 mmol/L (136-145)
[2020-04-27] MEDS: VASCEPA 1 GM PO SCH ×4 (08:14→20:22)
[2020-04-27] MEDS: STARLIX PO SCH ×2 (08:14→16:27)
[2020-04-27] MEDS ORDERED: COENZYME Q 10 PO SCH (09:00)
[2020-04-27] MEDS ORDERED: Heparin 5,000 UNITS/ML VIAL SC SCH (09:00)
[2020-04-27] MEDS: Docusate 100 MG CAP PO SCH (10:09)
[2020-04-27] MEDS: Ubidecarenone 50 MG CAP PO SCH (10:09)
[2020-04-27] MEDS: Sulfameth/Trimethoprim DS 800-160mg TAB PO SCH ×2 (10:09→20:20)
[2020-04-27] MEDS: Alogliptin 6.25 MG TAB PO SCH (10:09)
[2020-04-27] MEDS: Aspirin Chewable 81 MG TAB PO SCH (10:09)
[2020-04-27] MEDS: Tamsulosin HCl 0.4 MG CAP PO SCH ×2 (10:10→20:53)
[2020-04-27] MEDS: Amlodipine 5 MG TAB PO SCH (10:10)
[2020-04-27] MEDS: Cholecalciferol 1,000 UNITS (25 MCG) TAB PO SCH (10:10)
[2020-04-27] MEDS: Lantus 1000 UNITS/10 ML VIAL SC SCH (10:13)
[2020-04-27] MEDS: Nystatin 500,000 UNITS/5 ML UDCUP SSW SCH ×3 (13:14→20:20)
[2020-04-27 17:18] LABS: SARS-CoV-2 MS2 Positive; SARS-CoV-2 N Gene Negative; SARS-CoV-2 S Gene Negative; SARS-CoV-2 by NAA Not Detected (NotDetected); SARS-CoV-2 orf1ab Negative
[2020-04-27] MEDS: Ezetimibe 10 MG TAB PO SCH (20:21)
[2020-04-27] MEDS: Ferrous Sulfate 325 MG TAB PO SCH (20:21)
--- NOTE | 2020-04-28 05:36 | HP ---
CHIEF COMPLAINT: Weakness. HISTORY OF PRESENT ILLNESS: The patient is an 79-year-old white male, who has a history of Alzheimer disease, generalized weakness, hypertension, diabetes, coronary artery disease, BPH with retention, and a recent fall with fracture of the left femoral neck requiring left hemiarthroplasty on 12/25. He had been hospitalized for a prolonged period following this hip fracture from 01/04 until 03/01/20 for rehabilitation and was ambulatory with his walker and help, but required assistance with all his ADLs. He was able to be discharged home where he has been taken care of by his and also a caregiver who has been hired to assist with their care along with home health. He requires intermittent bladder catheterizations for the retention when he will allow. The patient was rehospitalized at [facility] from 04/20 until 04/26/20 for acute metabolic encephalopathy with urinary tract infection and pneumonia. The patient was at home on the day of admission and collapsed in the shower and was unresponsive. He was admitted and found to have pneumonia, but his COVID-19 tests were negative x2. He was found to have a urinary tract infection with Enterobacter aerogenes that was sensitive to Bactrim. He improved but he was very weak and sleeping a lot. He had been able to get up in a chair with assistance and walking was very limited. He was discharged to [facility] on the evening of 04/26/20 for physical therapy and occupational therapy to try to help his general functional capabilities. While in the hospital, he demonstrated still significant urinary retention. He was seen there by his urologist, Dr. Canales who recommended postvoid bladder scans every 6 hours and in and out catheterizations for any residual over 300 mL. The patient was seen early on the morning of 04/27/20. He was in bed and was sleeping, but easily aroused to an alert state. Nurses said that he had been up earlier, but just seemed to get very tired. The patient did not remember why he had been hospitalized and really did not remember the circumstances. He does know that he is back here in [facility] and did recognize me and said right now he is just tired. Did not have other complaint. PAST MEDICAL HISTORY: Hospitalized at [facility] from 04/20 to 04/26 for acute metabolic encephalopathy secondary to UTI with Enterobacter aerogenes and a pneumonia that was COVID-19 negative. The patient was hospitalized at [facility] from 01/04 until 03/01/20 following a fall at home and fracture of the left hip, for which he underwent a left hemiarthroplasty on 12/25 by Darryn Kim. While in the hospital, he had a UTI with Pseudomonas complicated by bacteremia with two positive blood cultures for Pseudomonas aeruginosa. Repeat blood cultures 4 days later were negative x2. Renal ultrasound showed no obstructive uropathy other than a prominence of the right renal pelvis that was chronic. He completed a 12-day course of IV cefepime. The patient has a history of diabetes type 2 that is insulin requiring. His last hemoglobin A1c was 7.3 on 03/09/20. The patient has chronic kidney disease; obstructive sleep apnea, for which he uses a CPAP; Alzheimer disease; hypertension; coronary artery disease; triple-vessel disease, that is medically managed; COPD; history of transitional cell carcinoma of the bladder for which he has undergone multiple transurethral resections of bladder tumor. Recent cystoscopy demonstrated no visual recurrence. He also has a history of urinary retention. He has had a laser prostatectomy and urolith with recurrence of the postvoid residual secondary to chronic myogenic bladder dysfunction requiring intermittent catheterizations for postvoid residuals greater than 300. He also has a history of depression, gastroesophageal reflux disease, and constipation. The patient has hypothyroidism. He has hearing impairment for which he has undergone bilateral cochlear implants. He has diverticular disease of the colon. For his diabetes, he has been under the care of an m1 armor crewman, Dr. Whiting. PRESENT MEDICINES: 1. Alogliptin 6.25 mg daily. 2. Amlodipine 5 mg daily. 3. Aspirin 81 mg daily. 4. Valisone cream 0.1% apply daily as needed. 5. Vitamin D3 2000 units daily. 6. Coenzyme Q10 400 mg daily. 7. Zetia 10 mg at bedtime. 8. Ferrous sulfate 325 mg at bedtime. 9. Heparin 5000 units subcu b.i.d. 10. Lantus 40 units subcu daily. 11. Atrovent 2.5 mg by nebulizer every 6 hours as needed. 12. Levothyroxine 100 mcg daily. 13. Namenda 10 mg b.i.d. 14. Pantoprazole 40 mg at bedtime. 15. Starlix 60 mg b.i.d. 16. Tamsulosin 0.4 mg b.i.d. 17. Bactrim DS one b.i.d. 18. Vascepa 1 g b.i.d. 19. At home he was also on citalopram 40 mg at bedtime and at home he was on DuoNebs every 4 hours as needed. ALLERGIES: VICTOZA CAUSES ANOREXIA. LISINOPRIL CAUSES HYPERKALEMIA. REVIEW OF SYSTEMS: GENERAL: The patient says he is just sleepy and tired. He denies any fever. HEAD AND NECK: No complaints. PULMONARY: No shortness of breath. EYES, EARS, NOSE AND THROAT: No complaints. CARDIOVASCULAR: No chest pain. GI: No nausea or vomiting. : The patient is able to void some but still requiring intermittent catheterizations. Last night he had postvoid residuals over 300 for which he was catheterized twice. MUSCULOSKELETAL: Patient said he is just weak. ADLs: Patient is requiring assistance with all his ADLs. NEUROPSYCHIATRIC: The patient has probably short-term memory and confusion. HABITS: Alcohol, patient used to drink but has not been drinking with these recent illnesses and his change in condition. Tobacco, none. SOCIAL HISTORY: Patient resides at home with his and has assistance from home health and a caregiver. CODE STATUS: Full code. PHYSICAL EXAMINATION: GENERAL: An 79-year-old white male, who is lying in bed. He is sleeping, but easily aroused to an alert state. He did recognize me and said he just did not feel very good. He did know he was in [place]. VITAL SIGNS: Temperature of 97.9, pulse 76, respirations 18, O2 saturation 94% on room air. His blood pressure supine was 172/63; semi Davis, 153/84; and in sitting upright in a chair 108/66. His weight is 205. HEENT: Head, normocephalic and atraumatic. Ears: There is small amount of cerumen obscuring the TMs. Eyes: Pupils are equal, round, and reactive. Sclerae nonicteric. Nose, normal. Mouth, mucous membranes are moist. The patient has kind of a cobblestone appearance and pink color to his tongue, that may be from a yeast infection. NECK: Carotids are equal and strong. No bruits. Thyroid not enlarged. LUNGS: Clear. HEART: Regular rate. No murmurs. ABDOMEN: Soft with no organomegaly. No areas of tenderness. NEUROLOGIC: The patient is a little lethargic but was easily aroused to an alert state where he knew he was in [place], recognized me, but did not understand the events of what had recently happened to him. He has generalized weakness that is nonfocal. EXTREMITIES: The lower extremities have no edema. SKIN: There is no rash. The patient does have a 1.5 cm stage II ulceration over the right heel that looks like it is healing. IMPRESSION: 1. Generalized weakness and deconditioning. a. History of generalized weakness requiring assistance with all his ADLs that has been exacerbated by his recent hospitalization for UTI. b. Hospitalized at [facility] from 04/20 to 04/26 for UTI, pneumonia, COVID-19 test negative, and acute kidney injury, presenting with acute metabolic encephalopathy and syncopal spell, probably from severe orthostatic hypotension. 2. Urinary tract infection. a. Required hospitalization at [facility] from 04/20 to 04/26. b. Blood cultures, no growth. c. Urine culture grew Enterobacter aerogenes sensitive to the Bactrim. 3. History of urinary retention. a. Status post prostatectomy and recent UroLift with recurrence of elevated post residual volume secondary to myogenic bladder dysfunction. b. Requires intermittent catheterizations. c. Presently receiving postvoid bladder scans and in and out catheterization for residuals greater than 300. 4. Diabetes type 2, insulin requiring. a. Good control. 5. Chronic kidney disease. 6. Chronic obstructive pulmonary disease. 7. Obstructive sleep apnea, for which he is on CPAP. 8. Orthostatic hypotension. 9. Alzheimer disease. 10. Coronary artery disease. a. Triple-vessel disease, medically managed. b. Asymptomatic. 11. Hyperlipidemia. 12. Pneumonia. a. Hospitalized 04/20 to 04/26. b. COVID-19 test negative x2. c. Improved. Lungs are clear on exam as of 04/27. PLAN: The patient has been admitted to [facility] for physical therapy and occupational therapy due to his severe weakness that has been exacerbated by this recent hospitalization from the UTI and the pneumonia. His lungs are clear and it is felt like the pneumonia clinically is all resolving. There was no evidence of any COVID-19 as the source. His urinary tract infection with Enterobacter aerogenes is being treated with Bactrim DS which the organism is sensitive to. We will treat him for at least a 10 day period. We will continue his bladder scans every 6 hours postvoid and do in and out catheterization for volumes over 300 mL per recommendations of his urologist, Dr. Canales. His urologist would like to continue the Septra until she sees him in followup in May where she plans to do a cystoscopy if possible. We will continue this Bactrim for minimum of 2 week period. Job ID: [id number] [facility]
[2020-04-28] MEDS: Levothyroxine Sodium 100 MCG TAB PO SCH (05:40)
[2020-04-28 06:06] LABS: Thyroid Stimulating Hormone 5.9396 uIU/mL (0.35-4.94)
[2020-04-28] MEDS: VASCEPA 1GM PO SCH ×2 (09:04→16:53)
[2020-04-28] MEDS: STARLIX PO SCH ×2 (09:04→16:52)
[2020-04-28] MEDS: Alogliptin 6.25 MG TAB PO SCH ×2 (10:21→11:04)
[2020-04-28] MEDS: Enoxaparin Sodium 40 MG/0.4 ML SYRINGE SC SCH ×2 (10:22→11:07)
[2020-04-28] MEDS: Aspirin Chewable 81 MG TAB PO SCH ×2 (10:22→11:07)
[2020-04-28] MEDS: Lantus 1000 UNITS/10 ML VIAL SC SCH ×2 (10:22→11:08)
[2020-04-28] MEDS: Amlodipine 5 MG TAB PO SCH ×2 (10:22→11:05)
[2020-04-28] MEDS: Docusate 100 MG CAP PO SCH ×2 (10:22→11:07)
[2020-04-28] MEDS: Cholecalciferol 1,000 UNITS (25 MCG) TAB PO SCH ×2 (10:22→11:05)
[2020-04-28] MEDS: Sulfameth/Trimethoprim DS 800-160mg TAB PO SCH ×3 (10:23→20:04)
[2020-04-28] MEDS: Nystatin 500,000 UNITS/5 ML UDCUP SSW SCH ×5 (10:23→20:04)
[2020-04-28] MEDS: VASCEPA 1 GM PO SCH ×5 (10:23→20:04)
[2020-04-28] MEDS: Tamsulosin HCl 0.4 MG CAP PO SCH ×3 (10:24→20:04)
[2020-04-28] MEDS: Ubidecarenone 50 MG CAP PO SCH ×2 (10:24→11:04)
[2020-04-28 14:51] LABS: Hemoglobin A1c 8.3 % (4.0-6.0)
[2020-04-28 15:08] LABS: Ferritin 210.98 ng/mL (22-322)
--- NOTE | 2020-04-28 18:36 | PRG ---
DATE OF SERVICE: 04/28/2020 SUBJECTIVE: The patient left a little later this morning, but now he has been up and he has had a shower. He says he feels a lot better. OBJECTIVE: GENERAL: The patient is sitting up in a shower chair, dressing. He is alert, talkative and looks much better. VITAL SIGNS: His temperature is 98.6, pulse 82, respirations 18, O2 saturation 95% on room air, blood pressure 103/63. LUNGS: Clear. HEART: Regular rate. EXTREMITIES: No edema. LABORATORY DATA: FBS yesterday morning 82. Before supper it was 167. TSH is 5.9. Ferritin level pending. ASSESSMENT: 1. Generalized weakness and deconditioning. a. History of generalized weakness requiring assistance with all the activities of daily living that has been exacerbated by his recent hospitalization for urinary tract infection. He was hospitalized at [facility] from 04/20 to 04/26 for urinary tract infection, pneumonia, that was COVID-19 negative, and acute kidney injury presenting with acute metabolic encephalopathy and syncopal spell probably from severe orthostatic hypotension. 2. Urinary tract infection. a. Required hospitalization from 04/20 to 04/26 at [facility]. b. Urine blood cultures no growth. c. Urine culture grew Enterobacter aerogenes sensitive to Bactrim. d. History of urinary retention. I. Status post prostatectomy and recent urolith with recurrence of elevated post residual volume secondary to myogenic bladder dysfunction. II. Requires intermittent catheterizations. III. Presently receiving postvoid bladder scan and in and out catheterization if residuals greater than 300. 3. Diabetes type 2, insulin requiring. a. Controlled. 4. Chronic kidney disease. 5. Chronic obstructive pulmonary disease. 6. Obstructive sleep apnea, for which he is on continuous positive airway pressure. 7. Orthostatic hypotension. a. Stable as of 04/28. 8. Alzheimer disease. 9. Coronary artery disease. a. Triple-vessel disease medically managed. b. Asymptomatic. 10. Hyperlipidemia. 11. Pneumonia. a. Hospitalized 04/20 to 04/26. COVID-19 test negative x2. b. Improving. Lungs remain clear as of 04/28. PLAN: Continue present care. Continue PT and OT. The patient is due to see his urologist on 05/10/2020. She has asked that he remain on the antibiotics that is Sept until he is seen by her on 05/10. Job ID: [id number] LUCILA
[2020-04-28] MEDS: Ezetimibe 10 MG TAB PO SCH (20:04)
[2020-04-28] MEDS: Ferrous Sulfate 325 MG TAB PO SCH (20:04)
[2020-04-29] MEDS: Levothyroxine Sodium 100 MCG TAB PO SCH (05:27)
[2020-04-29] MEDS: Ubidecarenone 50 MG CAP PO SCH (08:26)
[2020-04-29] MEDS: Lantus 1000 UNITS/10 ML VIAL SC SCH (08:26)
[2020-04-29] MEDS: Enoxaparin Sodium 40 MG/0.4 ML SYRINGE SC SCH (08:28)
[2020-04-29] MEDS: Nystatin 500,000 UNITS/5 ML UDCUP SSW SCH ×4 (08:28→20:16)
[2020-04-29] MEDS: Amlodipine 5 MG TAB PO SCH (08:28)
[2020-04-29] MEDS: Docusate 100 MG CAP PO SCH (08:29)
[2020-04-29] MEDS: Aspirin Chewable 81 MG TAB PO SCH (08:29)
[2020-04-29] MEDS: Alogliptin 6.25 MG TAB PO SCH (08:29)
[2020-04-29] MEDS: Sulfameth/Trimethoprim DS 800-160mg TAB PO SCH ×2 (08:29→20:15)
[2020-04-29] MEDS: Tamsulosin HCl 0.4 MG CAP PO SCH ×2 (08:29→20:16)
[2020-04-29] MEDS: Cholecalciferol 1,000 UNITS (25 MCG) TAB PO SCH (08:30)
[2020-04-29] MEDS: VASCEPA 1GM PO SCH ×3 (08:30→17:08)
[2020-04-29] MEDS: STARLIX PO SCH ×2 (08:30→17:06)
[2020-04-29] MEDS: VASCEPA 1 GM PO SCH (08:32)
[2020-04-29] MEDS: Ezetimibe 10 MG TAB PO SCH (20:16)
[2020-04-29] MEDS: Ferrous Sulfate 325 MG TAB PO SCH (20:16)
[2020-04-30] MEDS: Levothyroxine Sodium 100 MCG TAB PO SCH (05:27)
[2020-04-30] MEDS: VASCEPA 1GM PO SCH ×2 (08:16→17:12)
[2020-04-30] MEDS: STARLIX PO SCH ×2 (08:18→17:14)
[2020-04-30] MEDS: Enoxaparin Sodium 40 MG/0.4 ML SYRINGE SC SCH (08:18)
[2020-04-30] MEDS: Tamsulosin HCl 0.4 MG CAP PO SCH ×2 (08:19→20:40)
[2020-04-30] MEDS: Alogliptin 6.25 MG TAB PO SCH (08:19)
[2020-04-30] MEDS: Ubidecarenone 50 MG CAP PO SCH (08:19)
[2020-04-30] MEDS: Cholecalciferol 1,000 UNITS (25 MCG) TAB PO SCH (08:20)
[2020-04-30] MEDS: Amlodipine 5 MG TAB PO SCH (08:20)
[2020-04-30] MEDS: Sulfameth/Trimethoprim DS 800-160mg TAB PO SCH ×2 (08:20→20:40)
[2020-04-30] MEDS: Aspirin Chewable 81 MG TAB PO SCH (08:20)
[2020-04-30] MEDS: Nystatin 500,000 UNITS/5 ML UDCUP SSW SCH ×4 (08:20→20:40)
[2020-04-30] MEDS: Docusate 100 MG CAP PO SCH (08:20)
[2020-04-30] MEDS: Lantus 1000 UNITS/10 ML VIAL SC SCH (08:21)
--- NOTE | 2020-04-30 09:29 | PRG ---
DATE OF SERVICE: 04/30/2020 SUBJECTIVE: The patient is sitting up in a bedside chair, eating his breakfast. He says he is feeling good. He said he did not go to sleep until late, but he has been up and feels good today. OBJECTIVE: VITAL SIGNS: Show a temperature of 98.1; pulse 69; respirations 18; O2 saturation 93% on room air; and blood pressure lying was 166/77, sitting 113/71, standing 111/77. LUNGS: Clear. HEART: Regular rate. EXTREMITIES: No edema. ASSESSMENT: 1. Generalized weakness and deconditioning. a. History of generalized weakness, requiring assistance with all his ADLs that has been exacerbated by hospitalization for urinary tract infection. Hospitalized at [facility] from 04/20 to 04/26 for urinary tract infection, pneumonia that was COVID negative x2, and acute kidney injury, presented with an acute metabolic encephalopathy and syncope from orthostatic hypotension. 2. Urinary tract infection. a. Hospitalized from 04/20 to 04/26. b. Blood cultures, no growth. Urine culture, grew Enterobacter aerogenes sensitive to Bactrim. 3. Urinary retention. a. Status post prostatectomy and recent UroLift with recurrence of elevated post residual volume secondary to myogenic bladder dysfunction. b. Requires intermittent catheterization. c. Presently having postvoid bladder scans and in and out catheterizations if residuals greater than 300. 4. Diabetes, type 2 insulin requiring. a. Controlled. 5. Chronic kidney disease. 6. Chronic obstructive pulmonary disease. 7. Obstructive sleep apnea. 8. Orthostatic hypotension. a. Still has orthostatic changes in blood pressure, but has been asymptomatic during this hospitalization with these. 9. Alzheimer's disease. 10. Coronary artery disease. a. Triple-vessel, medically managed. b. Asymptomatic. 11. Hyperlipidemia. 12. Pneumonia. a. Hospitalized, 04/20 to 04/26, COVID-19 test negative x2. b. Clinically resolved. Lungs remain clear as of 04/30. PLAN: Continue present care. Continue PT and OT. The patient will be seeing his urologist in followup on 05/10/2020. Continue Bactrim. Job ID: [id number] MTDD
[2020-04-30] MEDS: Ezetimibe 10 MG TAB PO SCH (20:40)
[2020-04-30] MEDS: Ferrous Sulfate 325 MG TAB PO SCH (20:40)
[2020-05-01] MEDS: Levothyroxine Sodium 100 MCG TAB PO SCH (05:37)
[2020-05-01] MEDS: STARLIX PO SCH ×2 (08:09→17:33)
[2020-05-01] MEDS: Amlodipine 5 MG TAB PO SCH (08:11)
[2020-05-01] MEDS: Alogliptin 6.25 MG TAB PO SCH (08:11)
[2020-05-01] MEDS: VASCEPA 1GM PO SCH ×3 (08:11→18:01)
[2020-05-01] MEDS: Sulfameth/Trimethoprim DS 800-160mg TAB PO SCH ×2 (08:11→20:24)
[2020-05-01] MEDS: Docusate 100 MG CAP PO SCH (08:11)
[2020-05-01] MEDS: Aspirin Chewable 81 MG TAB PO SCH (08:12)
[2020-05-01] MEDS: Cholecalciferol 1,000 UNITS (25 MCG) TAB PO SCH (08:12)
[2020-05-01] MEDS: Nystatin 500,000 UNITS/5 ML UDCUP SSW SCH ×4 (08:12→20:24)
[2020-05-01] MEDS: Tamsulosin HCl 0.4 MG CAP PO SCH ×2 (08:12→20:24)
[2020-05-01] MEDS: Ubidecarenone 50 MG CAP PO SCH (08:13)
[2020-05-01] MEDS: Lantus 1000 UNITS/10 ML VIAL SC SCH (08:13)
[2020-05-01] MEDS: Enoxaparin Sodium 40 MG/0.4 ML SYRINGE SC SCH (08:18)
--- NOTE | 2020-05-01 12:46 | PRG ---
DATE OF SERVICE: 05/01/2020 SUBJECTIVE: The patient said he is doing good this morning. OBJECTIVE: GENERAL: The patient is sitting up in a chair, eating his breakfast. He is alert, appears comfortable, in no distress. VITAL SIGNS: Shows a temperature of 98.3, pulse 79, respirations are 18, O2 saturations 96% on room air, blood pressure lying was 149/78, sitting 100/66, standing 93/52. LUNGS: Clear. HEART: Regular rate. EXTREMITIES: No edema. FBS yesterday morning 143. The patient's COVID nasal swab showed not detected on 04/27. ASSESSMENT: 1. Generalized weakness and deconditioning. a. History of generalized weakness requiring assistance with all his activities of daily living. It has been exacerbated by recent hospitalization for urinary tract infection and pneumonia. Hospitalized at [facility] from 04/20 until 04/26 for urinary tract infection, pneumonia that was COVID negative x2, and acute kidney injury. Presented with acute metabolic encephalopathy and syncope from orthostatic hypotension. 2. Urinary tract infection. a. Hospitalized from 04/20 to 04/26. b. Blood cultures, no growth x2. Urine culture grew Enterobacter aerogenes, sensitive to Bactrim. 3. Urinary retention. a. Status post prostatectomy and recent UroLift with recurrence of elevated post residual volume secondary to myogenic bladder dysfunction. b. Requires intermittent bladder scans and catheterizations for residuals greater than 300. 4. Diabetes type 2, insulin requiring. a. Controlled. 5. Chronic kidney disease. 6. Chronic obstructive pulmonary disease. 7. Obstructive sleep apnea. 8. Orthostatic hypotension. a. Still has orthostatic changes in his blood pressure, but has not been symptomatic during this hospitalization as of 05/01. 9. Alzheimer's disease. 10. Coronary artery disease. 11. Hyperlipidemia. 12. Pneumonia. a. Clinically resolved. Lungs remain clear as of 05/01. PLAN: Continue present care. Continue PT and OT. I will try stopping the amlodipine and see if this will help some with the orthostatic change in his blood pressure. Job ID: [id number]
[2020-05-01] MEDS: Ezetimibe 10 MG TAB PO SCH (20:24)
[2020-05-01] MEDS: Ferrous Sulfate 325 MG TAB PO SCH (20:24)
[2020-05-02] MEDS: Levothyroxine Sodium 100 MCG TAB PO SCH (05:48)
[2020-05-02] MEDS: Enoxaparin Sodium 40 MG/0.4 ML SYRINGE SC SCH (08:24)
[2020-05-02] MEDS: Nystatin 500,000 UNITS/5 ML UDCUP SSW SCH ×4 (08:24→20:08)
[2020-05-02] MEDS: Docusate 100 MG CAP PO SCH (08:24)
[2020-05-02] MEDS: Cholecalciferol 1,000 UNITS (25 MCG) TAB PO SCH (08:24)
[2020-05-02] MEDS: STARLIX PO SCH ×2 (08:24→17:11)
[2020-05-02] MEDS: VASCEPA 1GM PO SCH ×2 (08:24→17:12)
[2020-05-02] MEDS: Lantus 1000 UNITS/10 ML VIAL SC SCH (08:24)
[2020-05-02] MEDS: Alogliptin 6.25 MG TAB PO SCH (08:25)
[2020-05-02] MEDS: Ubidecarenone 50 MG CAP PO SCH (08:25)
[2020-05-02] MEDS: Sulfameth/Trimethoprim DS 800-160mg TAB PO SCH ×2 (08:25→20:08)
[2020-05-02] MEDS: Aspirin Chewable 81 MG TAB PO SCH (08:25)
[2020-05-02] MEDS: Tamsulosin HCl 0.4 MG CAP PO SCH ×2 (08:25→20:08)
[2020-05-02] MEDS: Ezetimibe 10 MG TAB PO SCH (20:08)
[2020-05-02] MEDS: Ferrous Sulfate 325 MG TAB PO SCH (20:08)
[2020-05-03] MEDS: Levothyroxine Sodium 100 MCG TAB PO SCH (05:31)
[2020-05-03] MEDS: Ubidecarenone 50 MG CAP PO SCH (08:35)
[2020-05-03] MEDS: Docusate 100 MG CAP PO SCH (08:36)
[2020-05-03] MEDS: Sulfameth/Trimethoprim DS 800-160mg TAB PO SCH ×2 (08:36→21:19)
[2020-05-03] MEDS: Tamsulosin HCl 0.4 MG CAP PO SCH ×2 (08:36→21:19)
[2020-05-03] MEDS: Nystatin 500,000 UNITS/5 ML UDCUP SSW SCH ×4 (08:36→21:19)
[2020-05-03] MEDS: STARLIX PO SCH ×2 (08:36→17:03)
[2020-05-03] MEDS: Aspirin Chewable 81 MG TAB PO SCH (08:36)
[2020-05-03] MEDS: Enoxaparin Sodium 40 MG/0.4 ML SYRINGE SC SCH (08:36)
[2020-05-03] MEDS: Cholecalciferol 1,000 UNITS (25 MCG) TAB PO SCH (08:36)
[2020-05-03] MEDS: VASCEPA 1GM PO SCH ×2 (08:37→17:03)
[2020-05-03] MEDS: Lantus 1000 UNITS/10 ML VIAL SC SCH (08:37)
[2020-05-03] MEDS: Alogliptin 6.25 MG TAB PO SCH (08:47)
--- NOTE | 2020-05-03 10:28 | PRG ---
DATE OF SERVICE: 05/03/2020 SUBJECTIVE: The patient is sitting up in a chair, eating his breakfast. He says he feels good this morning. He is working with Physical Therapy and walks at times up to 200 feet, yesterday only up to 100 feet with his rolling walker and some minimum assistance. Still needs some standby assistance due to his balance. The patient is not attempting to urinate and still requiring intermittent caths. Last catheterization had a 500 residual. OBJECTIVE: GENERAL: The patient is alert, looks very comfortable, in no distress. VITAL SIGNS: Temp 98.7, pulse 85, respirations are 18, O2 saturation 95% on room air, blood pressure 127/76. LUNGS: Clear. HEART: Regular rate. EXTREMITIES: No edema. FBS this morning 132. ASSESSMENT: 1. Generalized weakness and deconditioning. a. History of weakness requiring assistance with all his ADLs. This has been exacerbated by recent hospitalization for UTI and pneumonia. Hospitalized at [facility] from 04/20 until 04/26 for UTI, pneumonia that was COVID negative x2 with acute kidney injury, presented with acute metabolic encephalopathy and syncope from orthostatic hypotension. 2. Urinary tract infection. a. Hospitalized from 04/20 to 04/26. b. Blood cultures, no growth x2. Urine culture grew Enterobacter aerogenes sensitive to the Bactrim. c. Presently on Bactrim. 3. Urinary retention. a. Status post prostatectomy and recent UroLift with recurrence of elevated post residual volume secondary to myogenic bladder dysfunction. b. Requiring intermittent bladder scans, ordered every 6 hours with in and out catheterization if residual greater than 300. c. Presently not attempting to void. Still requires in and out caths as of 05/03. 4. Diabetes type 2, insulin requiring. a. Controlled. 5. Chronic kidney disease. 6. Chronic obstructive pulmonary disease. 7. Obstructive sleep apnea. 8. Orthostatic hypotension. a. Still has orthostatic change on blood pressure, but has been asymptomatic as of 05/03. 9. Alzheimer's disease. 10. Coronary artery disease. 11. Hyperlipidemia. 12. Pneumonia. a. Clinically resolved. Lungs remained clear as of 05/03. PLAN: Continue present care. Continue PT and OT. Continue bladder scans and in and out caths for residuals greater than 300. Scheduled to see his urologist, Dr. Canales on May 10. She has asked that he continue the Bactrim until that time. Job ID: [id number] [id number]
[2020-05-03 11:26] VITALS: BMI 27.3
[2020-05-03] MEDS: Ferrous Sulfate 325 MG TAB PO SCH (21:19)
[2020-05-03] MEDS: Ezetimibe 10 MG TAB PO SCH (21:19)
[2020-05-04] MEDS: Levothyroxine Sodium 100 MCG TAB PO SCH (05:39)
[2020-05-04] MEDS: Nystatin 500,000 UNITS/5 ML UDCUP SSW SCH ×4 (08:14→20:09)
[2020-05-04] MEDS: Enoxaparin Sodium 40 MG/0.4 ML SYRINGE SC SCH (08:15)
[2020-05-04] MEDS: Lantus 1000 UNITS/10 ML VIAL SC SCH (08:15)
[2020-05-04] MEDS: Ubidecarenone 50 MG CAP PO SCH (08:16)
[2020-05-04] MEDS: Tamsulosin HCl 0.4 MG CAP PO SCH ×2 (08:16→20:09)
[2020-05-04] MEDS: Aspirin Chewable 81 MG TAB PO SCH (08:16)
[2020-05-04] MEDS: Docusate 100 MG CAP PO SCH (08:16)
[2020-05-04] MEDS: Cholecalciferol 1,000 UNITS (25 MCG) TAB PO SCH (08:16)
[2020-05-04] MEDS: Alogliptin 6.25 MG TAB PO SCH (08:16)
[2020-05-04] MEDS: Sulfameth/Trimethoprim DS 800-160mg TAB PO SCH ×2 (08:16→20:09)
[2020-05-04] MEDS: STARLIX PO SCH ×2 (08:17→17:13)
[2020-05-04] MEDS: VASCEPA 1GM PO SCH ×2 (08:17→17:13)
--- NOTE | 2020-05-04 11:48 | PRG ---
DATE OF SERVICE: 05/04/2020 SUBJECTIVE: The patient is feeling better today. He said he has already been to physical therapy twice this morning. He is walking up to 120 to 150 feet with a rolling walker and chair behind. The patient is requiring minimum to moderate assistance with transfers. OBJECTIVE: GENERAL: The patient is resting in bed with the head elevated. He is alert, talkative, asked me about the [employer] game tomorrow. VITAL SIGNS: Temperature 98, pulse 84, respirations 15, O2 saturation 93%. LUNGS: Clear. HEART: Regular rate. EXTREMITIES: No edema. The ulceration over the right heel is completely re-epithelialized. There is still a little scaling over that area, but no open wounds. LABORATORY DATA: His FBS this morning was 112. ASSESSMENT: 1. Generalized weakness and deconditioning. a. History of weakness requiring assistance with his ADLs. Exacerbated by recent hospitalization for UTI and pneumonia. Hospitalized at [facility] from 04/20 until 04/26 for UTI, pneumonia that was COVID negative x2, and acute kidney injury. Presented with acute metabolic encephalopathy and syncope from orthostatic hypotension. 2. Urinary tract infection. a. Hospitalized from 04/20 to 04/26. b. Blood cultures, no growth x2. Urine grew Enterobacter aerogenes sensitive to the Bactrim. c. Continues on Bactrim. 3. Urinary retention. a. Status post prostatectomy and recent urolith with recurrence of elevated post residual volume secondary to myogenic bladder dysfunction. b. Requires intermittent bladder scans and every 6 hours with in and out catheterization if residual greater than 300. c. Still requires frequent in and out catheterization. 4. Diabetes type 2, insulin requiring. a. Controlled. 5. Chronic kidney disease. 6. Chronic obstructive pulmonary disease. 7. Obstructive sleep apnea. 8. Orthostatic hypotension. a. Improved as of 05/04. 9. Alzheimer disease. 10. Coronary artery disease, asymptomatic. 11. Hyperlipidemia. 12. Pneumonia, clinically resolved. PLAN: Continue present care. Continue PT and OT. The patient will be seen by his urologist, Dr. Canales on 05/10/2020. Job ID: [id number] [facility]
[2020-05-04] MEDS: Ezetimibe 10 MG TAB PO SCH (20:08)
[2020-05-04] MEDS: Ferrous Sulfate 325 MG TAB PO SCH (20:09)
[2020-05-05] MEDS: Levothyroxine Sodium 100 MCG TAB PO SCH (05:26)
[2020-05-05] MEDS: Cholecalciferol 1,000 UNITS (25 MCG) TAB PO SCH (08:27)
[2020-05-05] MEDS: Alogliptin 6.25 MG TAB PO SCH (08:27)
[2020-05-05] MEDS: Nystatin 500,000 UNITS/5 ML UDCUP SSW SCH ×4 (08:27→20:56)
[2020-05-05] MEDS: Sulfameth/Trimethoprim DS 800-160mg TAB PO SCH ×2 (08:27→20:55)
[2020-05-05] MEDS: Aspirin Chewable 81 MG TAB PO SCH (08:27)
[2020-05-05] MEDS: Ubidecarenone 50 MG CAP PO SCH (08:27)
[2020-05-05] MEDS: Docusate 100 MG CAP PO SCH (08:28)
[2020-05-05] MEDS: Lantus 1000 UNITS/10 ML VIAL SC SCH (08:28)
[2020-05-05] MEDS: Tamsulosin HCl 0.4 MG CAP PO SCH ×2 (08:28→20:56)
[2020-05-05] MEDS: VASCEPA 1GM PO SCH ×2 (08:29→17:05)
[2020-05-05] MEDS: STARLIX PO SCH ×2 (08:29→17:04)
[2020-05-05] MEDS: Enoxaparin Sodium 40 MG/0.4 ML SYRINGE SC SCH (08:29)
[2020-05-05] MEDS: Ferrous Sulfate 325 MG TAB PO SCH (20:55)
[2020-05-05] MEDS: Ezetimibe 10 MG TAB PO SCH (20:56)
[2020-05-06] MEDS: Levothyroxine Sodium 100 MCG TAB PO SCH (05:21)
[2020-05-06] MEDS: Ubidecarenone 50 MG CAP PO SCH (08:16)
[2020-05-06] MEDS: Lantus 1000 UNITS/10 ML VIAL SC SCH (08:16)
[2020-05-06] MEDS: Enoxaparin Sodium 40 MG/0.4 ML SYRINGE SC SCH (08:16)
[2020-05-06] MEDS: Tamsulosin HCl 0.4 MG CAP PO SCH ×2 (08:17→20:50)
[2020-05-06] MEDS: VASCEPA 1GM PO SCH ×2 (08:17→17:04)
[2020-05-06] MEDS: Cholecalciferol 1,000 UNITS (25 MCG) TAB PO SCH (08:17)
[2020-05-06] MEDS: Docusate 100 MG CAP PO SCH (08:17)
[2020-05-06] MEDS: Sulfameth/Trimethoprim DS 800-160mg TAB PO SCH ×2 (08:17→20:50)
[2020-05-06] MEDS: Alogliptin 6.25 MG TAB PO SCH (08:17)
[2020-05-06] MEDS: Aspirin Chewable 81 MG TAB PO SCH (08:17)
[2020-05-06] MEDS: Nystatin 500,000 UNITS/5 ML UDCUP SSW SCH ×4 (08:18→20:49)
[2020-05-06] MEDS: STARLIX PO SCH ×2 (08:18→17:04)
[2020-05-06] MEDS: Ezetimibe 10 MG TAB PO SCH (20:49)
[2020-05-06] MEDS: Ferrous Sulfate 325 MG TAB PO SCH (20:49)
[2020-05-07] MEDS: Levothyroxine Sodium 100 MCG TAB PO SCH (06:19)
[2020-05-07] MEDS: Ubidecarenone 50 MG CAP PO SCH (07:57)
[2020-05-07] MEDS: STARLIX PO SCH ×2 (07:59→16:57)
[2020-05-07] MEDS: Alogliptin 6.25 MG TAB PO SCH (07:59)
[2020-05-07] MEDS: Tamsulosin HCl 0.4 MG CAP PO SCH ×2 (07:59→21:04)
[2020-05-07] MEDS: Docusate 100 MG CAP PO SCH (07:59)
[2020-05-07] MEDS: Sulfameth/Trimethoprim DS 800-160mg TAB PO SCH ×2 (07:59→21:05)
[2020-05-07] MEDS: Cholecalciferol 1,000 UNITS (25 MCG) TAB PO SCH (07:59)
[2020-05-07] MEDS: Aspirin Chewable 81 MG TAB PO SCH (07:59)
[2020-05-07] MEDS: Enoxaparin Sodium 40 MG/0.4 ML SYRINGE SC SCH (08:00)
[2020-05-07] MEDS: VASCEPA 1GM PO SCH ×2 (08:00→16:57)
[2020-05-07] MEDS: Lantus 1000 UNITS/10 ML VIAL SC SCH (08:01)
[2020-05-07] MEDS: Nystatin 500,000 UNITS/5 ML UDCUP SSW SCH ×2 (08:01→14:08)
--- NOTE | 2020-05-07 11:45 | PRG ---
DATE OF SERVICE: 05/07/2020 SUBJECTIVE: The patient says he is doing good. He slept good last night. Presently, up in the chair, waiting for breakfast. OBJECTIVE: GENERAL: The patient is alert, appears in no distress. VITAL SIGNS: Shows a temperature of 98.1, pulse 90, respirations 20, O2 saturation 94%, blood pressure sitting 99/61. LUNGS: Clear. HEART: Regular rate. EXTREMITIES: No edema. LABORATORY DATA: FBS this morning 129. ASSESSMENT: 1. Generalized weakness and deconditioning. a. History of weakness, requiring assistance with his ADLs. Exacerbated by recent hospitalization for urinary tract infection and pneumonia. Hospitalized at [facility] from 04/20 to 04/26 for UTI, pneumonia that was COVID negative x2. Acute kidney injury. Presenting with acute metabolic encephalopathy and syncope from orthostatic hypotension. 2. Urinary tract infection. a. Hospitalized on 04/20 to 04/26. b. Blood cultures no growth x2. Urine grew Enterobacter aerogenes, sensitive to Bactrim. c. Continues on Bactrim. 3. Urinary retention. a. Status post prostatectomy and recent urolith with recurrence of elevated post residual volume secondary to myogenic bladder dysfunction. b. Requires intermittent bladder scans every 6 hours with in and out catheterization if residual greater than 300. c. Still requires frequent in and out catheterization. 4. Diabetes type 2, insulin requiring. a. Controlled. 5. Chronic kidney disease. 6. Chronic obstructive pulmonary disease. 7. Obstructive sleep apnea. 8. Orthostatic hypotension. a. Stable as of 05/07. 9. Alzheimer disease. 10. Coronary artery disease, asymptomatic. 11. Hyperlipidemia. 12. Pneumonia, clinically resolved. PLAN: Continue present care. Continue OT and PT. Continue bladder scans, in and out catheterization, scheduled to see Dr. Canales, his urologist on 05/10. Job ID: [id number] MTDD
[2020-05-07] MEDS: Ferrous Sulfate 325 MG TAB PO SCH (21:04)
[2020-05-07] MEDS: Ezetimibe 10 MG TAB PO SCH (21:04)
[2020-05-08] MEDS: Levothyroxine Sodium 100 MCG TAB PO SCH (05:23)
[2020-05-08] MEDS: VASCEPA 1GM PO SCH ×2 (08:18→17:06)
[2020-05-08] MEDS: STARLIX PO SCH ×2 (08:19→17:05)
[2020-05-08] MEDS: Ubidecarenone 50 MG CAP PO SCH (08:19)
[2020-05-08] MEDS: Alogliptin 6.25 MG TAB PO SCH (08:20)
[2020-05-08] MEDS: Sulfameth/Trimethoprim DS 800-160mg TAB PO SCH ×2 (08:20→20:06)
[2020-05-08] MEDS: Docusate 100 MG CAP PO SCH (08:20)
[2020-05-08] MEDS: Acetaminophen 325 MG TAB PO PRN (08:20)
[2020-05-08] MEDS: Aspirin Chewable 81 MG TAB PO SCH (08:20)
[2020-05-08] MEDS: Cholecalciferol 1,000 UNITS (25 MCG) TAB PO SCH (08:20)
[2020-05-08] MEDS: Tamsulosin HCl 0.4 MG CAP PO SCH ×2 (08:20→20:06)
[2020-05-08] MEDS: Enoxaparin Sodium 40 MG/0.4 ML SYRINGE SC SCH (08:20)
[2020-05-08] MEDS: Lantus 1000 UNITS/10 ML VIAL SC SCH (08:21)
--- NOTE | 2020-05-08 09:23 | PRG ---
DATE OF SERVICE: 05/08/2020 SUBJECTIVE: The patient is feeling good this morning. The nurse said he has a rash in the groin, probable yeast infection, for which we will place him on clotrimazole cream. He was catheterized during the night, had over 400 mL residual and this morning with a 500 mL residual. OBJECTIVE: GENERAL: The patient is smiling and talkative, appears comfortable, in no distress. VITAL SIGNS: Temperature 98.3; pulse 76; respirations 18; O2 saturation 96% on room air; blood pressure lying 139/80, sitting 111/69, standing 82/52. LUNGS: Clear. HEART: Regular rate. EXTREMITIES: No edema. ASSESSMENT: 1. Generalized weakness and deconditioning. a. History of weakness, requiring assistance with ADLs. Exacerbated by recent hospitalization for urinary tract infection, pneumonia. Hospitalized at [facility] from 04/20 to 04/26 for urinary tract infection, pneumonia that was COVID negative x2, and acute kidney injury, presented with acute metabolic encephalopathy and syncope from orthostatic hypotension. 2. Urinary tract infection. a. Hospitalized from 04/20 to 04/26. b. Blood cultures, no growth x2. Urine culture grew Enterobacter aerogenes sensitive to the Bactrim. c. Continues on the Bactrim. 3. Urinary retention. a. Still requiring frequent in and out catheterizations with significant residuals. 4. Diabetes, type 2, controlled. 5. Chronic kidney disease. 6. Chronic obstructive pulmonary disease. 7. Obstructive sleep apnea. 8. Orthostatic hypotension. 9. Still has significant orthostatic changes going from supine to standing, but has not had any syncopal episodes recur as of 05/08. 10. Alzheimer's disease. 11. Coronary artery disease. PLAN: We will try reducing the Flomax just to one time a day, not sure how much of an impact this is having on his retention, but it is certainly probably a contributor to his orthostatic changes with syncopal episode. We will also start him on Florinef 0.1 mg daily. The patient is to see his urologist, Dr. Canales on the . She had asked that he stay on the Bactrim until she sees him. We will also order the clotrimazole cream for the rash. Job ID: [id number] [facility]
[2020-05-08] MEDS: Fludrocortisone Acetate 0.1 MG TAB PO SCH (09:53)
[2020-05-08] MEDS: Clotrimazole 1% Cream 15 GM TUBE TOP SCH ×2 (09:53→20:07)
[2020-05-08] MEDS: Ferrous Sulfate 325 MG TAB PO SCH (20:06)
[2020-05-08] MEDS: Ezetimibe 10 MG TAB PO SCH (20:07)
[2020-05-09] MEDS: Levothyroxine Sodium 100 MCG TAB PO SCH (06:36)
[2020-05-09] MEDS: STARLIX PO SCH ×2 (08:20→17:07)
[2020-05-09] MEDS: VASCEPA 1GM PO SCH ×2 (08:21→17:08)
[2020-05-09] MEDS: Fludrocortisone Acetate 0.1 MG TAB PO SCH (08:24)
[2020-05-09] MEDS: Ubidecarenone 50 MG CAP PO SCH (08:24)
[2020-05-09] MEDS: Sulfameth/Trimethoprim DS 800-160mg TAB PO SCH ×2 (08:24→19:54)
[2020-05-09] MEDS: Alogliptin 6.25 MG TAB PO SCH (08:24)
[2020-05-09] MEDS: Cholecalciferol 1,000 UNITS (25 MCG) TAB PO SCH (08:24)
[2020-05-09] MEDS: Aspirin Chewable 81 MG TAB PO SCH (08:25)
[2020-05-09] MEDS: Lantus 1000 UNITS/10 ML VIAL SC SCH (08:25)
[2020-05-09] MEDS: Enoxaparin Sodium 40 MG/0.4 ML SYRINGE SC SCH (08:25)
[2020-05-09] MEDS: Clotrimazole 1% Cream 15 GM TUBE TOP SCH ×2 (08:26→23:06)
[2020-05-09] MEDS: Acetaminophen 325 MG TAB PO PRN (08:31)
[2020-05-09] MEDS: Docusate 100 MG CAP PO SCH (08:31)
[2020-05-09] MEDS: Ferrous Sulfate 325 MG TAB PO SCH (19:54)
[2020-05-09] MEDS: Tamsulosin HCl 0.4 MG CAP PO SCH (19:54)
[2020-05-09] MEDS: Ezetimibe 10 MG TAB PO SCH (19:55)
[2020-05-10] MEDS: Levothyroxine Sodium 100 MCG TAB PO SCH (06:51)
[2020-05-10] MEDS: Cholecalciferol 1,000 UNITS (25 MCG) TAB PO SCH (08:22)
[2020-05-10] MEDS: Alogliptin 6.25 MG TAB PO SCH (08:23)
[2020-05-10] MEDS: Fludrocortisone Acetate 0.1 MG TAB PO SCH (08:23)
[2020-05-10] MEDS: Ubidecarenone 50 MG CAP PO SCH (08:23)
[2020-05-10] MEDS: Aspirin Chewable 81 MG TAB PO SCH (08:23)
[2020-05-10] MEDS: Lantus 1000 UNITS/10 ML VIAL SC SCH (08:23)
[2020-05-10] MEDS: Sulfameth/Trimethoprim DS 800-160mg TAB PO SCH ×2 (08:23→19:54)
[2020-05-10] MEDS: Clotrimazole 1% Cream 15 GM TUBE TOP SCH ×2 (08:24→19:58)
[2020-05-10] MEDS: Enoxaparin Sodium 40 MG/0.4 ML SYRINGE SC SCH (08:25)
[2020-05-10] MEDS: STARLIX PO SCH ×2 (08:25→18:09)
[2020-05-10] MEDS: VASCEPA 1GM PO SCH ×2 (08:25→18:09)
[2020-05-10] MEDS: Docusate 100 MG CAP PO SCH (08:25)
[2020-05-10] MEDS: Ezetimibe 10 MG TAB PO SCH (19:53)
[2020-05-10] MEDS: Ferrous Sulfate 325 MG TAB PO SCH (19:54)
[2020-05-10] MEDS: Tamsulosin HCl 0.4 MG CAP PO SCH (19:54)
[2020-05-11] MEDS: Levothyroxine Sodium 100 MCG TAB PO SCH (05:45)
[2020-05-11 08:00] VITALS: BP 148/82; TEMP 97.8
[2020-05-11] MEDS: VASCEPA 1GM PO SCH (08:02)
[2020-05-11] MEDS: Docusate 100 MG CAP PO SCH (08:03)
[2020-05-11] MEDS: Ubidecarenone 50 MG CAP PO SCH (08:03)
[2020-05-11] MEDS: Aspirin Chewable 81 MG TAB PO SCH (08:03)
[2020-05-11] MEDS: Enoxaparin Sodium 40 MG/0.4 ML SYRINGE SC SCH (08:03)
[2020-05-11] MEDS: Sulfameth/Trimethoprim DS 800-160mg TAB PO SCH (08:03)
[2020-05-11] MEDS: Cholecalciferol 1,000 UNITS (25 MCG) TAB PO SCH (08:04)
[2020-05-11] MEDS: Alogliptin 6.25 MG TAB PO SCH (08:04)
[2020-05-11] MEDS: Fludrocortisone Acetate 0.1 MG TAB PO SCH (08:04)
[2020-05-11] MEDS: STARLIX PO SCH (08:04)
[2020-05-11] MEDS: Clotrimazole 1% Cream 15 GM TUBE TOP SCH (08:05)
[2020-05-11] MEDS: Lantus 1000 UNITS/10 ML VIAL SC SCH (08:05)
[2020-05-12] MEDS ORDERED: FLU VACC QS2020-21(65YR UP)/PF 240 MCG/0.7 ML SYRINGE IM ONE (09:00)
--- NOTE | 2020-05-14 09:31 | DIS ---
DATE OF ADMISSION: 04/26/2020 DATE OF DISCHARGE: 05/11/2020 FINAL DIAGNOSES: 1. Generalized weakness and deconditioning. a. History of weakness requiring assistance with ADLs, that has been exacerbated by recent hospitalization for UTI and pneumonia. 2. Hospitalized at [facility] from 04/20 to 04/26 for urinary tract infection, pneumonia that was COVID negative x2, and acute kidney injury that presented with acute metabolic encephalopathy and syncope from orthostatic hypotension. 3. Urinary tract infection. a. Hospitalized from 04/20 to 04/26. b. Blood cultures no growth x2. c.Urine culture grew Enterobacter aerogenes sensitive to Septra d.Treated with Septra 4. Urinary retention. a. Status post prostatectomy and recent UroLift with recurrence of elevated post residual volume secondary to myogenic bladder dysfunction. b. Requires in and out catheterizations q.i.d. at home. 5. Diabetes type 2, insulin requiring. a. Controlled. 6. Chronic kidney disease. 7. Chronic obstructive pulmonary disease. 8. Obstructive sleep apnea, for which he is on CPAP. 9. Orthostatic hypotension. a. Still has orthostatic changes of blood pressure, but has not been symptomatic or had any syncopal episodes during this hospitalization as of 05/11. b. Have stopped BP medicines and started him on Florinef and encouraging fluids. 10. Alzheimer disease. 11. Coronary artery disease. a. Medically managed, asymptomatic. 12. Hyperlipidemia. 13. Pneumonia. a. Clinically resolved. SUMMARY: The patient is an 79-year-old white male, who resides at home and requires assistance with his ADLs. The patient's is his primary caregiver along with home health and a lady that comes in to assist with his care. The patient has a history of Alzheimer disease, coronary artery disease, diabetes type 2. He also has a history of urinary retention for which he has undergone prostatectomy and recent UroLift but has continued to have chronic post residual volumes secondary to a myogenic bladder dysfunction. He also has a history of bladder cancers that was free of tumors on last cystoscopy. He is under the care of Dr. Canales, urologist in [place]. The patient was readmitted to [facility] on 04/20 following a syncopal spell at home and increased confusion. On his evaluation, he had probably an orthostatic hypotensive episode. He was found to have pneumonia. His 2 COVID tests were both negative and he was also found to have a urinary tract infection with Enterobacter aerogenes. Blood cultures had no growth. The organism was sensitive to Bactrim which he was placed on. His condition stabilized, but he was left weaker than usual and consequently, he was transferred to [facility] on 04/26 for PT and OT and was also with instructions to continue his Bactrim until he sees Dr. Canales, his urologist on 05/10. She had also asked that his bladder be scanned post voiding 4 times a day and do an in and out catheterization if volume is greater than 300. The patient's care at the hospital was continuation of his antibiotics. He was continued on his diabetic medication and showed good control. Physical therapy worked with him and he was walking up to 150 feet using a walker and caregiver assist and was able to transfer usually with minimum to moderate assistance. The patient's overall condition was one of continual improvement. He continued to have difficulty with the large postvoid residuals and often refused any type of catheterization. He did see Dr. Canales in followup on 05/10 and she had talked with his , Christi, about possible suprapubic catheter, which she said they did not want. She had suggested that the do in and out catheterizations 4 times a day using a #16-gauge soft tip red rubber catheter. She will see him and follow up in a month. The patient continued to have some significant drop in his blood pressure when he would go from a lying to a standing position. After he had been up, these pressures would gradually increase. He did not seem to be symptomatic and did not have any recurrence of his syncopal episode. 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 His amlodipine that he was on was stopped. He was asked to really increase his fluid volume. His tamsulosin 0.4 mg was reduced from b.i.d. to daily and he was also started on Florinef 0.1 mg daily. The patient's condition was stable. His was wanting to take him home, felt like his condition was such that they could manage at home. She said the prolonged hospitalization only resulted in increased depression from being away from home. With the help and with home health, she feels like they can manage things fine. The patient was discharged on 05/11/2020 in good condition and looking forward to returning to his home. DISPOSITION: DIET: Consistent carbohydrate diet supplemented with Glucerna t.i.d. ACTIVITY: Activities, up in a chair as tolerated. He can ambulate with the use of a walker. In and out catheterizations 4 times a day using a #16-gauge soft tip red rubber catheter. Home Health will pick up and delivery driver on his care with [facility] and continue in-home PT and OT. Also check glucometers once a day. MEDICATIONS: 1. Acetaminophen 325 mg 2 every 4 hours as needed. 2. Tarceva 40 units subcu daily. 3. Alogliptin 6.25 mg daily. 4. Aspirin 81 mg daily. 5. Valisone 0.1% ointment apply daily as needed. 6. Vitamin D3 2000 units daily. 7. Clotrimazole cream applied to reddened areas and skin folds b.i.d. as needed. 8. Coenzyme Q10 400 mg daily. 9. Colace 100 mg daily. 10. Zetia 10 mg daily. 11. Ferrous sulfate 325 mg at bedtime. 12. Florinef 0.1 mg daily. 13. Levothyroxine 100 mcg daily. 14. Namenda 10 mg b.i.d. 15. Omeprazole 20 mg daily. 16. Starlix 60 mg b.i.d. 17. Tamsulosin 0.4 mg at bedtime. 18. Vascepa 1 g b.i.d. FOLLOWUP: The patient will be seen in followup by myself in 2 weeks. This may be a telemedicine visit. The patient will also follow back up with his urologist, Dr. Canales in a month. CODE STATUS: Full code. Job ID: [id number] MTDD
== END 2020-05-11 16:00 | disposition home health service (06) | DRG 947 ==
LOC: MADMS 20:38
PROVIDERS: ADMIT Family Medicine; ATTEND Family Medicine
DX: R53.1 Weakness (principal); J18.9 Pneumonia, unspecified organism; G93.41 Metabolic encephalopathy; N39.0 Urinary tract infection, site not specified; J44.0 Chronic obstructive pulmonary disease with (acute) lower respiratory infection; Z16.29 Resistance to other single specified antibiotic; R53.81 Other malaise; I95.1 Orthostatic hypotension; I25.10 Atherosclerotic heart disease of native coronary artery without angina pectoris; N40.1 Benign prostatic hyperplasia with lower urinary tract symptoms; R33.9 Retention of urine, unspecified; I12.9 Hypertensive chronic kidney disease with stage 1 through stage 4 chronic kidney disease, or unspecified chronic kidney disease; E11.22 Type 2 diabetes mellitus with diabetic chronic kidney disease; G47.33 Obstructive sleep apnea (adult) (pediatric); E03.9 Hypothyroidism, unspecified; K21.9 Gastro-esophageal reflux disease without esophagitis; K59.00 Constipation, unspecified; N18.9 Chronic kidney disease, unspecified; G30.9 Alzheimer's disease, unspecified; F02.80 Dementia in other diseases classified elsewhere, unspecified severity, without behavioral disturbance, psychotic disturbance, mood disturbance, and anxiety; B96.89 Other specified bacterial agents as the cause of diseases classified elsewhere; Z85.51 Personal history of malignant neoplasm of bladder; F32.9 Major depressive disorder, single episode, unspecified; Z20.828 Contact with and (suspected) exposure to other viral communicable diseases
CPT/HCPCS: 36415; 36416; 80053; 82728; 83036; 84443; 85025; 87635; 90471; 90662; G0008; J1644; J1650; J1815; U0003

== ENCOUNTER 2020-05-29 11:53 | Outpatient (CLI) | payer MEDICARE ==
[2020-05-29 13:18] LABS: Bilirubin Negative (Negative); Blood, Urine Moderate (Negative); Clarity Cloudy (Clear); Glucose, Urine (Dipstick) Negative (Negative); Ketone, Urine Negative (Negative); Leukocyte Moderate (Negative); Nitrite Positive (Negative); Protein, Urine (Dipstick) 100 mg/dL (Neg-Trace); Specific Gravity, Urine 1.025 (1.005-1.030); Urobilinogen 0.2 mg/dL (Less than 2); pH, Urine 5.5 (5.0-9.0)
[2020-05-29 13:25] LABS: Squamous Epithelial 0-3 HPF (0-3); WBC/HPF Greater than 50 HPF (0-3)
[2020-05-29 13:26] LABS: Bacteria/HPF Rare-Few HPF (None Seen)
== END 2020-05-29 11:54 | disposition home or self-care (01) ==
LOC: MADLAB 11:53
PROVIDERS: ATTEND Urology
DX: I12.9 Hypertensive chronic kidney disease with stage 1 through stage 4 chronic kidney disease, or unspecified chronic kidney disease (principal); E11.22 Type 2 diabetes mellitus with diabetic chronic kidney disease; N18.30 Chronic kidney disease, stage 3 unspecified; N39.0 Urinary tract infection, site not specified; Q18.9 Congenital malformation of face and neck, unspecified
CPT/HCPCS: 81001; 87077; 87086; 87186

== ENCOUNTER 2020-06-18 13:08 | Outpatient (CLI) | payer MEDICARE ==
--- NOTE | 2020-06-18 14:19 | RAD ---
XR Cerv Sp Ap Lat STANDARD History: Pain in neck Comparison: Cervical spine CT December 25, 2019 Findings: Open-mouth odontoid view demonstrates mild narrowing of the C1/C2 articulation. Mandible is intact. No definite fracture or malalignment. Left-sided cochlear implant. Partial osseous fusion of the C3/C4 disc space. Bridging anterior osteophyte C5/C6 with high-grade di sc space narrowing and disc osteophyte complex. Moderate bilateral facet arthrosis C2-C6. Lung apices appear clear. Ribs are intact. Moderate right and left carotid bulb vascular calcifications. Impression: Moderate spondylosis without acute displaced fracture although limited lower cervical spi ne is poorly evaluated on the lateral radiographs.
== END 2020-06-18 13:09 | disposition home or self-care (01) ==
LOC: MADRAD 13:08
PROVIDERS: ATTEND Family Medicine
DX: M54.2 Cervicalgia (principal); M47.812 Spondylosis without myelopathy or radiculopathy, cervical region
CPT/HCPCS: 72040

== ENCOUNTER 2020-07-02 10:12 | Outpatient (CLI) | payer MEDICARE ==
--- NOTE | 2020-07-02 12:57 | CT ---
CT ABDOMEN AND PELVIS WITHOUT CONTRAST USING STONE PROTOCOL: HISTORY: Malignant neoplasm of the bladder. COMPARISON: 06/07/2019. FINDINGS: FINDINGS: Absence of oral and IV contrast reduces the sensitivity of the exam, particularly for evaluation of s olid organs involved. Chronic changes in the lung bases are again noted. No calcified gallstones are seen. A 3 cm left ad renal adenoma and 6 cm right renal cyst are again seen. A 15 mm cyst in the anterior inferior renal c ortex is again seen. No free air or free fluid is seen in the abdomen or pelvis. No calculi are noted in the kidneys, ureters, or urinary bladder. No hydronephrosis is seen on eithe r side. The dilated proximal right ureter is again noted with interval improvement in the degree of dilatation since the comparison exam. Interval changes of placement of brachytherapy seeds are seen in the prostate gland. There are vascular calcifications with a 3.2 cm aneurysmal dilatation of the infrarenal abdominal aor ta. There are degenerative changes in the spine. Interval postop changes of left hip arthroplasty h ave occurred. There is thickening of the left lateral wall of the urinary bladder measuring about 8 mm. The small bowel loops are not abnormally dilated. There is fecal material in the colon and rectum. There is colonic diverticulosis. A small hiatal hernia is present. IMPRESSION: 1. No CT evidence of urinary tract calculi. 2. Dilated right proximal ureter with interval improvement since . 3. Right renal cyst. 4. Left renal adenoma. 5. A 3.2 cm abdominal aortic aneurysm. 6. Colonic diverticulosis. 7. Thickening of the wall of the urinary bladder. This should be evaluated with cystoscopy. POS: SAPPHIRE
== END 2020-07-02 10:13 | disposition home or self-care (01) ==
LOC: MADLAB 10:12
PROVIDERS: ATTEND Urology
DX: C67.9 Malignant neoplasm of bladder, unspecified (principal); N28.82 Megaloureter; N28.1 Cyst of kidney, acquired; I71.4 Abdominal aortic aneurysm, without rupture; N32.89 Other specified disorders of bladder
CPT/HCPCS: 74176

== ENCOUNTER 2020-08-09 10:11 | Emergency (ER) | payer MEDICARE ==
[2020-08-09 10:35] LABS: #Basophils 0.1 thou/uL (0.0-0.2); #Eosinphils 0.6 thou/uL (0.0-0.7); #Lymphocytes 2.2 thou/uL (1.20-3.40); #Monocytes 0.5 thou/uL (0.11-0.59); #Neutrophils 5.4 thou/uL (1.40-6.50); %Basophils 1.1 % (0.0-1.0); %Eosinophils 6.7 % (0.0-10.0); %Lymphocytes 24.9 % (21.0-51.0); %Monocytes 6.1 % (0.0-10.0); %Neutrophils 61.3 % (42.0-75.0); Hemoglobin 14.5 g/dL (14.0-18.0); Mean Corpuscular HGB CONC 33.1 g/dL (32.0-36.0); Mean Corpuscular Hemoglobin 30.1 pg (27.0-31.0); Mean Corpuscular Volume 91.1 fL (78.0-98.0); Mean Platelet Volume 6.7 fL (7.4-10.4); Platelet Count 228 thou/uL (130-400); RBC Distribution Width 11.8 % (11.5-14.5); Red Blood Cell (RBC) Count 4.81 mill/uL (4.70-6.10); White Blood Cell (WBC) Count 8.9 thou/uL (4.8-10.8)
[2020-08-09 10:50] LABS: ALT (SGPT) 22 U/L (8-55); AST (SGOT) 17 U/L (5-34); Albumin 3.7 g/dL (3.4-4.8); Alkaline Phosphatase 117 U/L (40-110); Anion Gap 13 mmol/L (10-20); BUN (Urea Nitrogen) 32 mg/dL (8.4-25.7); Bilirubin, Total 0.4 mg/dL (0.2-1.2); Calc. Creatinine Clearance 0 mL/min (70-130); Calcium 8.9 mg/dL (7.8-10.44); Carbon Dioxide 23 mmol/L (23-31); Chloride 100 mmol/L (98-107); Globulin 3.9 g/dL (2.4-3.5); Glucose 304 mg/dL (83-110); Potassium 4.4 mmol/L (3.5-5.1); Protein, Total 7.6 g/dL (5.8-8.1); Sodium 132 mmol/L (136-145)
--- NOTE | 2020-08-09 11:02 | CT ---
CT OF BRAIN PERFORMED WITHOUT CONTRAST ENHANCEMENT: HISTORY: Fall with head injury. COMPARISON: A 12/25/2019 exam. FINDINGS: There is generalized ventricular and sulcal prominence with decreased attenuation to the periventricu lar white matter consistent with chronic white matter change. An electronic device over the left jone e of the skull which is related to a trochlear implant degrades detail. IMPRESSION: Atrophy with chronic white matter change. No acute intracranial findings. POS: AH
--- NOTE | 2020-08-09 11:13 | CT ---
CT OF CERVICAL SPINE PERFORMED WITHOUT CONTRAST: HISTORY: Fall with head injury. FINDINGS: The vertebral bodies are normal in height. Degenerative changes seen along the course of the spine. Marked disk narrowing at C3-4, C4-5, C5-6, and C6-7. The facets do appear to be in good alignment. There is bilateral foraminal narrowing more pronounced on the left at the C3-4 level. Some minimal a nterolysis of C4 of C4 on C5 without significant canal stenosis. Borderline left-sided foraminal abigail rowing. Posterior osteophytic change at the C5-6 level associated with a mild degree of canal stenosis. Ther e is asymmetric right uncovertebral change associated with moderate right foraminal narrowing. Moder ate stenosis is seen at C6-7 and pronounced bilateral foraminal stenosis. No CT evidence for a fract ure. Lung apices are clear. IMPRESSION: No CT evidence of fracture of the cervical spine. POS: AH
--- NOTE | 2020-08-09 11:16 | RAD ---
CHEST 1 VIEW PORTABLE: HISTORY: Injury from a fall. COMPARISON: 04/20/2020. FINDINGS: Minimal cardiomegaly with increased linear and interstitial markings bilaterally showing little hernandez e from prior study. Minimal bilateral costophrenic angle blunting. No confluent lobar pneumonia. N o pneumothorax. IMPRESSION: Overall stable exam with minimal cardiomegaly and stable increased markings bilaterally. No signific ant new process. NO pneumothorax. POS: RRE
--- NOTE | 2020-08-09 11:18 | RAD ---
LEFT KNEE 3 VIEWS: HISTORY: Left knee pain following injury from a fall from standing. FINDINGS: Mild degenerative and osteoarthrosis change. Evidence for some vascular calcifications. No joint ef fusion. No fracture or dislocation. IMPRESSION: Mild degenerative and osteoarthrosis change. No acute process. POS: RRE
--- NOTE | 2020-08-09 11:28 | RAD ---
LEFT ELBOW 4 VIEWS: HISTORY: Left elbow pain following injury from a fall. FINDINGS: No evidence for acute fracture or dislocation. Minimal osteoarthrosis changes of the elbow joint. N o evidence for abnormal. IMPRESSION: Mild osteoarthrosis change left elbow joint without fracture or dislocation. POS: RRE
[2020-08-09 11:47] LABS: Bilirubin Negative (Negative); Blood, Urine Small (Negative); Glucose, Urine (Dipstick) >=1000 mg/dL (Negative); Ketone, Urine Negative (Negative); Leukocyte Small (Negative); Nitrite Negative (Negative); Protein, Urine (Dipstick) > or equal to 300 mg/dL (Neg-Trace); Urobilinogen 0.2 mg/dL (Less than 2)
[2020-08-09 11:48] LABS: Clarity Hazy (Clear)
[2020-08-09 11:53] LABS: Bacteria/HPF 1+ HPF (None Seen); RBC/HPF 0-3 HPF (0-3); Squamous Epithelial 0-3 HPF (0-3); WBC/HPF Greater Than 50 HPF (0-3)
== END 2020-08-09 12:35 | disposition home or self-care (01) ==
LOC: MADERS 10:11
DX: S00.93XA Contusion of unspecified part of head, initial encounter (principal); S80.02XA Contusion of left knee, initial encounter; K21.9 Gastro-esophageal reflux disease without esophagitis; N40.0 Benign prostatic hyperplasia without lower urinary tract symptoms; I10 Essential (primary) hypertension; G62.9 Polyneuropathy, unspecified; E03.9 Hypothyroidism, unspecified; E11.40 Type 2 diabetes mellitus with diabetic neuropathy, unspecified; Z85.51 Personal history of malignant neoplasm of bladder; Z87.891 Personal history of nicotine dependence; Z79.82 Long term (current) use of aspirin; Z79.899 Other long term (current) drug therapy; W01.10XA Fall on same level from slipping, tripping and stumbling with subsequent striking against unspecified object, initial encounter
CPT/HCPCS: 51702; 70450; 71045; 72125; 80053; 81003; 81015; 84484; 85025; 93005

== ENCOUNTER 2020-09-29 15:10 | Inpatient (IN) | payer MEDICARE ==
[2020-09-29 15:42] LABS: #Basophils 0.1 thou/uL (0.0-0.2); #Eosinphils 0.5 thou/uL (0.0-0.7); #Lymphocytes 2.1 thou/uL (1.20-3.40); #Monocytes 0.6 thou/uL (0.11-0.59); %Basophils 1.1 % (0.0-1.0); %Eosinophils 5.9 % (0.0-10.0); %Lymphocytes 25.4 % (21.0-51.0); %Neutrophils 60.5 % (42.0-75.0); Hemoglobin 14.8 g/dL (14.0-18.0); Mean Corpuscular HGB CONC 32.9 g/dL (32.0-36.0); Mean Corpuscular Hemoglobin 29.4 pg (27.0-31.0); Mean Corpuscular Volume 89.3 fL (78.0-98.0); Mean Platelet Volume 6.4 fL (7.4-10.4); Platelet Count 264 thou/uL (130-400); RBC Distribution Width 11.1 % (11.5-14.5); Red Blood Cell (RBC) Count 5.03 mill/uL (4.70-6.10); White Blood Cell (WBC) Count 8.2 thou/uL (4.8-10.8)
[2020-09-29 15:55] LABS: ALT (SGPT) 19 U/L (8-55); AST (SGOT) 18 U/L (5-34); Albumin 3.7 g/dL (3.4-4.8); Alkaline Phosphatase 97 U/L (40-110); Anion Gap 15 mmol/L (10-20); BUN (Urea Nitrogen) 33 mg/dL (8.4-25.7); Bilirubin, Total 0.3 mg/dL (0.2-1.2); Calc. Creatinine Clearance 0 mL/min (70-130); Calcium 9.2 mg/dL (7.8-10.44); Carbon Dioxide 23 mmol/L (23-31); Chloride 102 mmol/L (98-107); Globulin 3.9 g/dL (2.4-3.5); Glucose 149 mg/dL (83-110); Potassium 4.4 mmol/L (3.5-5.1); Protein, Total 7.6 g/dL (5.8-8.1); Sodium 136 mmol/L (136-145)
--- NOTE | 2020-09-29 16:01 | CT ---
Head CT without contrast 09/29/2020: COMPARISON: 08/09/2020 HISTORY: Altered mental status TECHNIQUE: Axial CT imaging at 5 mm intervals from vertex through skull base without contrast FINDINGS: The visualized paranasal sinuses/mastoid air cells are well-aerated. The patient is status post canal wall up mastoidectomy on the left. There is a left cochlear implant present. Streak artifact from the left cochlear implant slightly limits assessment of the left temporal and po sterior frontal lobe. There is stable cerebral volume loss with associated prominence of the CSF containing spaces. There is periventricular hypodensity, evidence of small vessel disease. No displac ed calvarial fracture, intracranial hemorrhage, midline shift, or mass effect. IMPRESSION: No intracranial hemorrhage or displaced calvarial fracture.
--- NOTE | 2020-09-29 16:04 | RAD ---
XR Chest 1 View Portable History: Altered mental status Comparison: Radiograph August 09, 2020 Findings: Heart size is enlarged. Mild scarring both lung bases. No pneumothorax. No acute osseous ab normality. Impression: Cardiomegaly otherwise no acute intrathoracic abnormality. Chronic findings.
[2020-09-29] MEDS ORDERED: Sodium Chloride 0.9% 1,000 ML ONE (16:25)
[2020-09-29 17:10] LABS: Bilirubin Negative (Negative); Blood, Urine Small (Negative); Clarity Cloudy (Clear); Glucose, Urine (Dipstick) 100 mg/dL (Negative); Ketone, Urine Negative (Negative); Leukocyte Moderate (Negative); Nitrite Positive (Negative); Protein, Urine (Dipstick) > or equal to 300 mg/dL (Neg-Trace); Specific Gravity, Urine 1.025 (1.005-1.030); Urobilinogen 0.2 mg/dL (Less than 2)
[2020-09-29 17:16] LABS: Bacteria/HPF 4+ HPF (None Seen); Squamous Epithelial None Seen HPF (0-3); WBC/HPF Greater Than 50 HPF (0-3)
[2020-09-29] MEDS ORDERED: Sodium Chloride 0.9% 100 ML ONE (17:38)
[2020-09-29] MEDS ORDERED: cefTRIAXone\\ROCEPHIN 2 GM VIAL ONE (17:38)
[2020-09-29] MEDS ORDERED: Sodium Chloride 0.9% 250 ML 250 ML ONE ×2 (18:45→19:36)
[2020-09-29] MEDS ORDERED: cloNIDine 0.1mg/24 Hour PATCH ONE (18:59)
[2020-09-29] MEDS ORDERED: cloNIDine 0.1 MG TAB ONE (19:00)
[2020-09-29 19:32] LABS: SARS-CoV-2 NAA Rapid Test Not Detected (NotDetected)
[2020-09-29 21:32] VITALS: BMI 27.1
[2020-09-29] MEDS ORDERED: Enoxaparin Sodium 40 MG/0.4 ML SYRINGE SC SCH (22:00)
[2020-09-29] MEDS ORDERED: Clotrimazole 1% Cream 15 GM TUBE TOP PRN (22:09)
[2020-09-29] MEDS ORDERED: Acetaminophen 325 MG TAB PO PRN (22:10)
[2020-09-30] MEDS: Sodium Chloride 0.9% 1,000 ML IV SCH ×2 (03:44→17:29)
[2020-09-30 05:41] LABS: ALT (SGPT) 17 U/L (8-55); AST (SGOT) 15 U/L (5-34); Albumin 3.2 g/dL (3.4-4.8); Alkaline Phosphatase 95 U/L (40-110); Anion Gap 12 mmol/L (10-20); BUN (Urea Nitrogen) 29 mg/dL (8.4-25.7); Bilirubin, Total 0.2 mg/dL (0.2-1.2); Calc. Creatinine Clearance 47 mL/min (70-130); Calcium 8.5 mg/dL (7.8-10.44); Carbon Dioxide 21 mmol/L (23-31); Chloride 106 mmol/L (98-107); Globulin 3.3 g/dL (2.4-3.5); Glucose 246 mg/dL (83-110); Potassium 3.8 mmol/L (3.5-5.1); Protein, Total 6.5 g/dL (5.8-8.1); Sodium 135 mmol/L (136-145)
[2020-09-30 05:42] LABS: #Basophils 0.1 thou/uL (0.0-0.2); #Eosinphils 0.5 thou/uL (0.0-0.7); #Lymphocytes 1.5 thou/uL (1.20-3.40); #Monocytes 0.5 thou/uL (0.11-0.59); #Neutrophils 4.7 thou/uL (1.40-6.50); %Basophils 1.1 % (0.0-1.0); %Eosinophils 6.5 % (0.0-10.0); %Monocytes 7.3 % (0.0-10.0); %Neutrophils 64.1 % (42.0-75.0); Hemoglobin 13.4 g/dL (14.0-18.0); Mean Corpuscular HGB CONC 34.5 g/dL (32.0-36.0); Mean Corpuscular Hemoglobin 30.7 pg (27.0-31.0); Mean Platelet Volume 6.8 fL (7.4-10.4); Platelet Count 211 thou/uL (130-400); RBC Distribution Width 11.3 % (11.5-14.5); Red Blood Cell (RBC) Count 4.38 mill/uL (4.70-6.10); White Blood Cell (WBC) Count 7.3 thou/uL (4.8-10.8)
[2020-09-30] MEDS ORDERED: Levothyroxine Sodium 100 MCG TAB PO SCH (06:00)
[2020-09-30] MEDS: Lantus 1000 UNITS/10 ML VIAL SC SCH (08:35)
[2020-09-30] MEDS: Aspirin Chewable 81 MG TAB PO SCH (08:37)
[2020-09-30] MEDS: Alogliptin 25 MG TAB PO SCH (08:37)
[2020-09-30] MEDS: Cholecalciferol 1,000 UNITS (25 MCG) TAB PO SCH (08:37)
[2020-09-30] MEDS: Docusate 100 MG CAP PO SCH ×2 (08:37→21:42)
[2020-09-30] MEDS: Fludrocortisone Acetate 0.1 MG TAB PO SCH (08:37)
[2020-09-30] MEDS: NATEGLINIDE 60 MG TABLET PO SCH ×2 (08:38→17:22)
[2020-09-30] MEDS: VASCEPA 1 GM PO SCH ×2 (08:38→17:22)
[2020-09-30] MEDS: AZELASTINE 0.1% NASAL SPRAY EA NARE SCH (08:39)
[2020-09-30] MEDS ORDERED: Enoxaparin Sodium 40 MG/0.4 ML SYRINGE SC SCH (09:00)
--- NOTE | 2020-09-30 11:49 | HP ---
CHIEF COMPLAINT: Alteration in mental status. HISTORY OF PRESENT ILLNESS: Patient is an 80-year-old white male, who has a history of diabetes type 2, Alzheimer disease, coronary artery disease, and urinary retention requiring intermittent catheterizations that are done by his . He has a history of orthostatic hypotension for which he is on Florinef and obstructive sleep apnea for which he uses CPAP. He lives at home and his is his primary caregiver. They have home health that assists and also a care lady that comes in and assists some during the day. The patient requires assistance with his ADLs. Usually he is able to sit up in a chair and walk short distances. On the day of admission, his said he was much different than usual. He was much more lethargic, much less interactive than usual. He was having some seepage of urine, which usually does not occur and he had been incontinent of stools, which was usual in the morning. He just was not himself and was not eating much like he usually does. His said he was not running any fever. He was brought to the emergency room. There, his blood pressure was elevated supine, but sitting up, it was a little less. He was afebrile. His O2 saturation was 96% on room air. His lab studies showed an H and H of 14.8 and 44.9 with a white blood cell count of 8200 with 61% segs, 25% lymphocytes, and a platelet count of 264,000. His sodium was 136, potassium 4.4, BUN was 33, creatinine 1.96, GFR 33, and glucose 149. His TSH was 7.2. His urinalysis showed nitrite positive, wbc's were greater than 50, and there was 4+ bacteria. His influenza A and B rapid tests were negative. The SARS-CoV-2 rapid RNA was negative. The patient was admitted to the hospital with a diagnosis of UTI and some mild prerenal azotemia. He was started on IV fluids. Blood and urine cultures were obtained and then he was placed on ceftriaxone and vancomycin. The patient was seen early on the morning of 09/30/2020, he said he felt good this morning. He was sitting up in bed, eating his breakfast. He was smiling, recognized me and knew he was in the hospital. He had no fever during the night. His blood pressure had been 184/96 and his repeat lab studies showed that the sodium was 135, potassium 3.8, his BUN was down to 29, creatinine 1.55, GFR up to 43, glucose 246, his H and H were 13.4 and 39, white cell count 7,300 with 64% segs and 21% lymphocytes, platelet count of 211. Cultures are all pending. The patient really did not know what happened yesterday, but states today feels fine. PAST HISTORY: Patient was last hospitalized at [facility] from 04/20 to 04/26 for urinary tract infection, pneumonia and acute kidney injury that had presented with an acute metabolic encephalopathy and syncope from orthostatic hypotension. He was then hospitalized at [facility] for generalized weakness and deconditioning from 04/26/2020 until 05/11/2020. He has urinary retention. He has undergone a prostatectomy, a UroLift and has very large post residual volume secondary to myogenic bladder dysfunction. He requires in and out catheterizations 4 times a day. He is under the care of urologist Dr. Canales. He has diabetes type 2, insulin requiring, he has chronic kidney disease, COPD, obstructive sleep apnea for which he is on CPAP, orthostatic hypotension that has been managed with Florinef, has Alzheimer disease, coronary artery disease that is medically managed, hyperlipidemia, has a history of transitional cell carcinoma of the bladder for which he has undergone multiple transurethral resections of the bladder tumor. Recent cystoscopy showed no visual recurrence. He has diverticular disease of the colon. He is followed by reports developer, Dr. Whiting for his diabetes. 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 PRESENT MEDICINES: 1. Acetaminophen 325 mg two every 4 hours as needed. 2. Alogliptin 25 mg daily. 3. Aspirin 81 mg daily. 4. Azelastine 0.1% spray in each nostril daily. 5. Vitamin D3 2000 units daily. 6. Clotrimazole cream b.i.d. as needed. 7. Coenzyme Q10 400 mg q.h.s. 8. Docusate sodium 100 mg b.i.d. 9. Zetia 10 mg q.h.s. 10. Ferrous sulfate 325 mg q.h.s. 11. Florinef 0.1 mg daily. 12. Tresiba 40 units daily. 13. Vascepa 2 caps b.i.d. 14. Namenda 10 mg b.i.d. 15. Tradjenta 5 mg daily. 16. Levothyroxine 100 mcg daily. 17. Omeprazole 20 mg daily. ALLERGIES: CIPRO, ADHESIVE TAPE. REVIEW OF SYSTEMS: GENERAL: The patient states he feels good today. He had no complaint. He said he is not having any headache. HEENT: He has no trouble with eyes, ears, nose or throat. PULMONARY: No shortness of breath or cough. CARDIOVASCULAR: No chest pain. GI: No nausea, vomiting. : Patient has intermittent catheterizations that are done at home, recommended every 6 hours. NEUROPSYCHIATRIC: The patient has probably short-term memory and confusion. He sleeps a lot in the daytime. DERMATOLOGIC: The patient has no rash. ADLs: Patient requires assistance with all his ADLs. He is able to walk short distances, but usually requires a little assistance. The patient is able to feed himself. The patient is incontinent of stools and requires intermittent catheterizations. The patient requires some help dressing and bathing. HABITS: Alcohol presently none, tobacco, none. SOCIAL HISTORY: Patient lives at his home and his serves as his primary caregiver. CODE STATUS: DNR. PHYSICAL EXAMINATION: GENERAL: Shows a very pleasant 80-year-old white male, who is sitting up in bed, eating his breakfast. He is smiling, recognizes me and knows that he is in the hospital. He is conversant and appears in no distress. VITAL SIGNS: Shows a temperature of 97.5, pulse 66, respirations 18, O2 saturation 96% on room air, blood pressure 184/96. His weight is 199. HEENT: Head, normocephalic. The patient has a cochlear implant on the left. Head is atraumatic. Wears a hearing aid on the right. Eyes, pupils are equal, round, reactive. Nose, normal. Mouth and throat, normal. NECK: Carotids are equal and strong. No bruits. Thyroid not enlarged. LUNGS: Clear. HEART: Regular rate, no murmurs. ABDOMEN: Soft, no organomegaly. No areas of tenderness. EXTREMITIES: No edema. NEUROLOGIC: The patient is alert, recognizes me, knows that he is in the hospital. He has generalized weakness, but is nonfocal. DERMATOLOGIC: No rash. IMPRESSION: 1. Urinary tract infection. a. Presenting with alteration in mental status. b. Improved where he is back to his mental status baseline as of 09/30/2020. 2. Acute kidney injury. a. History of chronic kidney disease. b. Complicated by acute kidney injury with elevation of BUN, creatinine and decreased GFR. c. Improved GFR up to 43 from 33 as of 09/30/2020. 3. Urinary retention. a. Status post prostatectomy and UroLift with recurrence of elevated post residual volume secondary to a myogenic bladder dysfunction. b. Requires in and out catheterizations q.i.d. at home. 4. Diabetes type 2, insulin requiring. 5. Chronic kidney disease. 6. Chronic obstructive pulmonary disease. 7. Obstructive sleep apnea, for which he is on CPAP. 8. History of orthostatic hypotension. 9. Alzheimer disease. 10. Coronary artery disease. a. Medically managed, asymptomatic. 11. Hyperlipidemia. 12. Hypothyroidism. a. TSH elevated at 7.2. 13. Code status, DNR. 14. Hearing impairment. a. Status post left cochlear implant. PLAN: In the ER, patient had a chest x-ray, which was clear, showed some cardiomegaly, which was stable. CT scan of the brain showed no acute changes. No evidence of any hemorrhage. There was scatter artifact from the left cochlear implant. Blood culture and urine cultures were obtained on admission. He has been cautiously hydrated and his renal function has improved. His mental status is back to his baseline. We will continue the IV antibiotics. We will allow up to chair as tolerated and tomorrow we will have PT and OT evaluate him. We will repeat the lab studies in the morning. Job ID: [id number] [facility]
[2020-09-30] MEDS ORDERED: cefTRIAXone\\ROCEPHIN 2 GM in Sodium Chloride 0.9% 100 ML IVPB SCH (18:00)
[2020-09-30] MEDS: Vancomycin HCl 750 MG in Sodium Chloride 0.9% 250 ML 250 ML IVPB SCH (19:53)
[2020-09-30] MEDS: Vancomycin HCl 500 MG in Sodium Chloride 0.9% 100 ML IVPB SCH (20:02)
[2020-09-30] MEDS ORDERED: Ferrous Sulfate 325 MG TAB PO SCH (21:00)
[2020-09-30] MEDS: Ubidecarenone 50 MG CAP PO SCH (21:42)
[2020-09-30] MEDS: Ezetimibe 10 MG TAB PO SCH (21:42)
[2020-10-01] MEDS: Levothyroxine Sodium 112 MCG TAB PO SCH (05:18)
[2020-10-01 05:31] LABS: #Basophils 0.1 thou/uL (0.0-0.2); #Eosinphils 0.5 thou/uL (0.0-0.7); #Lymphocytes 1.5 thou/uL (1.20-3.40); #Monocytes 0.4 thou/uL (0.11-0.59); #Neutrophils 4.3 thou/uL (1.40-6.50); %Basophils 0.9 % (0.0-1.0); %Eosinophils 7.1 % (0.0-10.0); %Lymphocytes 22.7 % (21.0-51.0); %Monocytes 6.2 % (0.0-10.0); %Neutrophils 63.1 % (42.0-75.0); Hemoglobin 12.3 g/dL (14.0-18.0); Mean Corpuscular HGB CONC 33.3 g/dL (32.0-36.0); Mean Corpuscular Hemoglobin 29.7 pg (27.0-31.0); Mean Corpuscular Volume 89.2 fL (78.0-98.0); Mean Platelet Volume 6.5 fL (7.4-10.4); Platelet Count 193 thou/uL (130-400); RBC Distribution Width 11.2 % (11.5-14.5); Red Blood Cell (RBC) Count 4.15 mill/uL (4.70-6.10); White Blood Cell (WBC) Count 6.8 thou/uL (4.8-10.8)
[2020-10-01 05:47] LABS: Anion Gap 11 mmol/L (10-20); BUN (Urea Nitrogen) 25 mg/dL (8.4-25.7); Calc. Creatinine Clearance 51 mL/min (70-130); Calcium 8.4 mg/dL (7.8-10.44); Carbon Dioxide 21 mmol/L (23-31); Chloride 107 mmol/L (98-107); Glucose 143 mg/dL (83-110); Potassium 3.7 mmol/L (3.5-5.1); Sodium 135 mmol/L (136-145)
[2020-10-01] MEDS: Lantus 1000 UNITS/10 ML VIAL SC SCH (09:03)
[2020-10-01] MEDS: Aspirin Chewable 81 MG TAB PO SCH (09:04)
[2020-10-01] MEDS: Cholecalciferol 1,000 UNITS (25 MCG) TAB PO SCH (09:04)
[2020-10-01] MEDS: Docusate 100 MG CAP PO SCH ×2 (09:04→20:16)
[2020-10-01] MEDS: Fludrocortisone Acetate 0.1 MG TAB PO SCH (09:04)
[2020-10-01] MEDS: Alogliptin 25 MG TAB PO SCH (09:04)
[2020-10-01] MEDS: AZELASTINE 0.1% NASAL SPRAY EA NARE SCH (09:05)
[2020-10-01] MEDS: VASCEPA 1 GM PO SCH (09:05)
[2020-10-01] MEDS: NATEGLINIDE 60 MG TABLET PO SCH (09:05)
--- NOTE | 2020-10-01 09:59 | PRG ---
DATE OF SERVICE: 10/01/2020 SUBJECTIVE: The patient is sleeping, but easily aroused. He seemed a little more confused, but he was smiling and recognized me. Nurses said that his confusion seems to be about like what it has been. He is usually very oriented to self and knows he is in the hospital. Otherwise, he is not oriented to time or really to much of situation. OBJECTIVE: GENERAL: The patient appears in no acute distress. He is smiling. VITAL SIGNS: Temperature is 97.7, pulse 73, respirations 16, O2 saturation 97% on room air, blood pressure 175/82, subsequent reading was 190/100 with him sitting up. LUNGS: Clear. HEART: Regular rate. EXTREMITIES: No edema. LABORATORY DATA: Hemoglobin and hematocrit of 12.3 and 37.0, white cell count 6800 with 63% segs, 23% lymphocytes. Sodium 135, potassium 3.7, BUN 25, creatinine 1.44, GFR up to 47, FBS 143. Blood cultures have no growth to date. Urine culture pending. ASSESSMENT: 1. Urinary tract infection. a. Presenting with alteration of mental status. b. Improved. Remains afebrile. Mental status is probably close to his baseline as of 10/01/2020. 2. Acute kidney injury. a. History of chronic kidney disease. b. Complicated by acute kidney injury with elevation of BUN and creatinine and decreased GFR. c. Improved GFR up to 47 from a low of 33 as of 10/01/2020. 3. Urinary retention. a. Status post prostatectomy and UroLift. b. Even with procedures left with large postresidual volumes secondary to myogenic bladder dysfunction. c. Requires in and out catheterizations q.i.d. 4. Diabetes type 2, insulin requiring. 5. Chronic kidney disease. 6. Chronic obstructive pulmonary disease. 7. Obstructive sleep apnea for which he is on CPAP. 8. History of orthostatic hypotension. 9. Alzheimer disease. 10. Coronary artery disease. a. Medically managed, asymptomatic. 11. Hyperlipidemia. 12. Hypothyroidism. a. TSH elevated to 7.2. b. Levothyroxine increased from 100 to 112 mcg daily. 13. Hearing impairment. a. Status post cochlear implant on the left. 14. Code status, DNR. PLAN: We will stop the IV fluids. Continue IV antibiotics. Culture of the urine pending. We will arrange for PT and OT evaluation. Job ID: [id number]
[2020-10-01 19:42] LABS: Vancomycin, Trough 15.1 ug/mL
[2020-10-01] MEDS: Vancomycin HCl 500 MG in Sodium Chloride 0.9% 100 ML IVPB SCH (20:15)
[2020-10-01] MEDS: Cefepime 2 GM in Sodium Chloride 0.9% 100 ML IVPB SCH (20:15)
[2020-10-01] MEDS: Vancomycin HCl 750 MG in Sodium Chloride 0.9% 250 ML 250 ML IVPB SCH (20:15)
[2020-10-01] MEDS: Ubidecarenone 50 MG CAP PO SCH (20:16)
[2020-10-01] MEDS: Ezetimibe 10 MG TAB PO SCH (20:16)
[2020-10-02 05:29] LABS: #Basophils 0.1 thou/uL (0.0-0.2); #Eosinphils 0.4 thou/uL (0.0-0.7); #Lymphocytes 1.2 thou/uL (1.20-3.40); #Monocytes 0.6 thou/uL (0.11-0.59); #Neutrophils 5.5 thou/uL (1.40-6.50); %Basophils 0.8 % (0.0-1.0); %Eosinophils 5.8 % (0.0-10.0); %Lymphocytes 15.9 % (21.0-51.0); %Monocytes 7.3 % (0.0-10.0); %Neutrophils 70.3 % (42.0-75.0); Hemoglobin 12.6 g/dL (14.0-18.0); Mean Corpuscular HGB CONC 33.8 g/dL (32.0-36.0); Mean Corpuscular Hemoglobin 30.2 pg (27.0-31.0); Mean Corpuscular Volume 89.3 fL (78.0-98.0); Mean Platelet Volume 6.2 fL (7.4-10.4); Platelet Count 196 thou/uL (130-400); RBC Distribution Width 11.3 % (11.5-14.5); Red Blood Cell (RBC) Count 4.16 mill/uL (4.70-6.10); White Blood Cell (WBC) Count 7.8 thou/uL (4.8-10.8)
[2020-10-02 05:37] LABS: Anion Gap 12 mmol/L (10-20); BUN (Urea Nitrogen) 25 mg/dL (8.4-25.7); Calc. Creatinine Clearance 53 mL/min (70-130); Calcium 8.7 mg/dL (7.8-10.44); Carbon Dioxide 21 mmol/L (23-31); Chloride 107 mmol/L (98-107); Glucose 206 mg/dL (83-110); Potassium 3.8 mmol/L (3.5-5.1); Sodium 136 mmol/L (136-145)
[2020-10-02] MEDS: Levothyroxine Sodium 112 MCG TAB PO SCH (06:21)
[2020-10-02] MEDS: Lantus 1000 UNITS/10 ML VIAL SC SCH (08:31)
[2020-10-02] MEDS: Aspirin Chewable 81 MG TAB PO SCH (08:32)
[2020-10-02] MEDS: Docusate 100 MG CAP PO SCH ×2 (08:32→20:09)
[2020-10-02] MEDS: Cholecalciferol 1,000 UNITS (25 MCG) TAB PO SCH (08:32)
[2020-10-02] MEDS: Alogliptin 25 MG TAB PO SCH (08:32)
[2020-10-02] MEDS: Fludrocortisone Acetate 0.1 MG TAB PO SCH (08:32)
[2020-10-02] MEDS: Cefepime 2 GM in Sodium Chloride 0.9% 100 ML IVPB SCH ×2 (08:32→20:07)
[2020-10-02] MEDS: Vancomycin HCl 750 MG in Sodium Chloride 0.9% 250 ML 250 ML IVPB SCH (20:07)
[2020-10-02] MEDS: Vancomycin HCl 500 MG in Sodium Chloride 0.9% 100 ML IVPB SCH (20:08)
[2020-10-02] MEDS: Ezetimibe 10 MG TAB PO SCH (20:09)
--- NOTE | 2020-10-03 05:46 | PRG ---
DATE OF SERVICE: 10/02/2020 SUBJECTIVE: The patient said he feels okay this morning, just weak. He was sitting on the side of the bed, was not able to stand up, required Physical Therapy to transfer him from bed to the chair. OBJECTIVE: VITAL SIGNS: Patient has significant drop in his blood pressures compared to lying and sitting. He was unable to stand to check his standing pressure. His supine pressure was 198/89 and sitting 155/88. LUNGS: Clear. HEART: Regular rate. NEUROLOGIC: The patient has generalized weakness that is nonfocal. He recognizes me but really not oriented to time and his situation. LABORATORY DATA: Shows H and H of 12.6 and 37.2, white blood cell count 7800 with 70% segs, 16% lymphocytes, and platelet count of 196. His sodium 136, potassium 3.8, BUN 25, creatinine 1.39, GFR 49, glucose was 206. Blood cultures, no growth x2. His urine culture is growing presumptive Pseudomonas aeruginosa with 25-50 colony-forming units in the cath specimen. ASSESSMENT: 1. Urinary tract infection. a. Presenting with altered mental status. b. Improved. c. Blood cultures, no growth. Urine culture growing Pseudomonas aeruginosa. Sensitivity pending as of 10/02/2020. 2. Acute kidney injury. a. History of chronic kidney disease. b. Complicated by acute kidney injury with elevation of BUN and creatinine and decreased GFR. c. Improved with GFR to 49, which is probably pretty close to his baseline as of 10/02. 3. Urinary retention. a. Status post prostatectomy and UroLift. b. Continues to have large post residual volumes secondary to myogenic bladder dysfunction. c. Managed with in and out catheterizations q.i.d. 4. Diabetes type 2. Hemoglobin A1c is 9. 5. Chronic kidney disease. 6. Chronic obstructive pulmonary disease. 7. Obstructive sleep apnea for which he uses CPAP. 8. Orthostatic hypotension. a. No recent syncopal episodes. 9. Alzheimer disease. 10. Coronary artery disease. a. Medically managed, asymptomatic. 11. Hyperlipidemia. 12. Hypothyroidism. a. TSH elevated at 7.2. b. Levothyroxine increased from 100 mcg to 112 mcg daily. 13. Hearing impairment. a. Status post cochlear implant on the left. 14. Generalized weakness. 15. Code status, DNR. PLAN: Last evening when the urine culture was reviewed, [facility], which will give a better coverage for the Pseudomonas. Sensitivity is pending. PT will continue to work with the patient. Anticipate the patient will need IV antibiotics for several days and we will continue PT and OT. Job ID: [id number]
[2020-10-03] MEDS: Levothyroxine Sodium 112 MCG TAB PO SCH (05:52)
[2020-10-03 07:14] VITALS: TEMP 99.6
[2020-10-03 07:58] VITALS: BP 151/82
[2020-10-03] MEDS: Fludrocortisone Acetate 0.1 MG TAB PO SCH (07:59)
[2020-10-03] MEDS: Aspirin Chewable 81 MG TAB PO SCH (07:59)
[2020-10-03] MEDS: Alogliptin 25 MG TAB PO SCH (07:59)
[2020-10-03] MEDS: Docusate 100 MG CAP PO SCH (07:59)
[2020-10-03] MEDS: Cholecalciferol 1,000 UNITS (25 MCG) TAB PO SCH (07:59)
[2020-10-03] MEDS: Cefepime 2 GM in Sodium Chloride 0.9% 100 ML IVPB SCH (08:00)
[2020-10-03] MEDS: Lantus 1000 UNITS/10 ML VIAL SC SCH (08:00)
--- NOTE | 2020-10-03 10:34 | PRG ---
DATE OF SERVICE: 10/03/2020 SUBJECTIVE: The patient has been helped up, sitting at the side of the bed, getting ready to be transferred to a bedside chair. He is awake, alert, confused, but that is his usual baseline. His is smiling and recognized me. He appears in no distress. OBJECTIVE: VITAL SIGNS: Show a temperature of 99.6, pulse 83, O2 saturation 95%. Blood pressure supine 184/97, sitting 151/82, and standing 156/89. LUNGS: Clear. HEART: Regular rate. LABORATORY DATA: His FBS this morning was 112, last night it was 322. His urine culture is growing a Pseudomonas aeruginosa and non-hemolytic Streptococcus. ASSESSMENT: 1. Urinary tract infection: a. Presented with altered mental status. b. Urine culture from cath is growing Pseudomonas aeruginosa, colony count 25,000 to 50,000, sensitivity pending; and non-hemolytic Strep, colony count greater than 100,000. c. Improved. 2. Acute kidney injury: a. History of chronic kidney disease. b. Complicated by acute kidney injury with elevation of BUN and creatinine and decreased GFR. c. Improved GFR of 49, which is pretty close to his baseline as of 10/02. 3. Urinary retention: a. Status post prostatectomy and UroLift. b. Complicated by large post residual volume secondary to a myogenic bladder dysfunction. c. Managed with in-and-out catheterizations. 4. Diabetes, type 2. a. Hemoglobin A1c 9. b. FBS this morning 112. 5. Chronic obstructive pulmonary disease. 6. Obstructive sleep apnea, for which he uses a CPAP. 7. Orthostatic hypotension: a. Presently no recent syncopal episode. 8. Alzheimer disease: a. Progressive. 9. Coronary artery disease: a. Medically managed, asymptomatic. 10. Hyperlipidemia. 11. Hypothyroidism. 12. Hearing impairment: a. Status post placement of cochlear implant on the left. 13. Generalized weakness. 14. Code status, DNR. PLAN: We will move the patient to extended care, where he can be continued on his IV cefepime and vancomycin, anticipate a total treatment of 7 days. We will also continue PT and OT. Job ID: [id number]
== END 2020-10-03 08:39 | disposition swing bed (61) | DRG 690 ==
LOC: MADERS 15:10 → MADMS 18:50
PROVIDERS: ADMIT Family Medicine; ATTEND Family Medicine
DX: N39.0 Urinary tract infection, site not specified (principal); N17.9 Acute kidney failure, unspecified; E86.0 Dehydration; E03.9 Hypothyroidism, unspecified; Z66 Do not resuscitate; K21.9 Gastro-esophageal reflux disease without esophagitis; N40.0 Benign prostatic hyperplasia without lower urinary tract symptoms; G30.9 Alzheimer's disease, unspecified; F02.80 Dementia in other diseases classified elsewhere, unspecified severity, without behavioral disturbance, psychotic disturbance, mood disturbance, and anxiety; I25.10 Atherosclerotic heart disease of native coronary artery without angina pectoris; N18.9 Chronic kidney disease, unspecified; E11.22 Type 2 diabetes mellitus with diabetic chronic kidney disease; J44.9 Chronic obstructive pulmonary disease, unspecified; R33.9 Retention of urine, unspecified; H91.90 Unspecified hearing loss, unspecified ear; B96.5 Pseudomonas (aeruginosa) (mallei) (pseudomallei) as the cause of diseases classified elsewhere; G47.33 Obstructive sleep apnea (adult) (pediatric); E78.5 Hyperlipidemia, unspecified; I12.9 Hypertensive chronic kidney disease with stage 1 through stage 4 chronic kidney disease, or unspecified chronic kidney disease; Z88.1 Allergy status to other antibiotic agents; Z98.42 Cataract extraction status, left eye; Z98.41 Cataract extraction status, right eye; Z98.890 Other specified postprocedural states; Z79.890 Hormone replacement therapy; Z79.899 Other long term (current) drug therapy; Z79.82 Long term (current) use of aspirin; Z79.4 Long term (current) use of insulin; Z79.2 Long term (current) use of antibiotics; Z90.79 Acquired absence of other genital organ(s); Z91.048 Other nonmedicinal substance allergy status; Z85.51 Personal history of malignant neoplasm of bladder; Z20.822 Contact with and (suspected) exposure to COVID-19
CPT/HCPCS: 0240U; 36416; 51701; 70450; 71045; 80048; 80053; 80202; 81003; 81015; 83036; 83605; 84443; 84484; 85025; 87040; 87077; 87086; 87186; 93005; 94760; 96365; 96367; 36415-59; J0692; J0696; J1650; J1815; J3370; J3490; J7050

== ENCOUNTER 2020-10-03 08:47 | Inpatient (IN) | payer MEDICARE ==
[2020-10-03 09:47] VITALS: BMI 27.1
[2020-10-03] MEDS ORDERED: Vancomycin HCl 1 GM in Sodium Chloride 0.9% 250 ML 250 ML IVPB SCH (11:00)
[2020-10-03] MEDS ORDERED: Clotrimazole 1% Cream 15 GM TUBE TOP PRN (11:09)
[2020-10-03] MEDS ORDERED: Acetaminophen 325 MG TAB PO PRN (11:11)
[2020-10-03] MEDS ORDERED: Cefepime 2 GM in Sodium Chloride 0.9% 100 ML IVPB SCH (12:00)
[2020-10-03 19:51] LABS: Vancomycin, Trough 14.4 ug/mL
[2020-10-03] MEDS ORDERED: Vancomycin HCl 750 MG in Sodium Chloride 0.9% 250 ML 250 ML IVPB SCH ×3 (20:00→22:00)
[2020-10-03] MEDS: Cefepime 2 GM in Sodium Chloride 0.9% 100 ML IVPB SCH (20:28)
[2020-10-03] MEDS: Finasteride 5 MG TAB PO SCH (20:29)
[2020-10-03] MEDS: Ezetimibe 10 MG TAB PO SCH (20:29)
[2020-10-03] MEDS: Docusate 100 MG CAP PO SCH (20:29)
[2020-10-03] MEDS ORDERED: Vancomycin HCl 500 MG in Sodium Chloride 0.9% 100 ML IVPB SCH (21:00)
[2020-10-04] MEDS: Levothyroxine Sodium 112 MCG TAB PO SCH (05:30)
[2020-10-04] MEDS: Cholecalciferol 1,000 UNITS (25 MCG) TAB PO SCH (08:39)
[2020-10-04] MEDS: Docusate 100 MG CAP PO SCH ×2 (08:40→20:38)
[2020-10-04] MEDS: Finasteride 5 MG TAB PO SCH ×2 (08:40→20:38)
[2020-10-04] MEDS: Fludrocortisone Acetate 0.1 MG TAB PO SCH (08:40)
[2020-10-04] MEDS: Alogliptin 25 MG TAB PO SCH (08:40)
[2020-10-04] MEDS: Aspirin Chewable 81 MG TAB PO SCH (08:40)
[2020-10-04] MEDS: Lantus 1000 UNITS/10 ML VIAL SC SCH (08:41)
[2020-10-04] MEDS: Cefepime 2 GM in Sodium Chloride 0.9% 100 ML IVPB SCH ×2 (08:41→20:40)
[2020-10-04] MEDS: Ezetimibe 10 MG TAB PO SCH (20:38)
[2020-10-04] MEDS: Vancomycin 1.5 GRAM/300 ML BAG 1.5 GM in Premix Bag 1 BAG IVPB SCH (21:44)
[2020-10-05] MEDS: Levothyroxine Sodium 112 MCG TAB PO SCH (05:07)
[2020-10-05] MEDS: Cefepime 2 GM in Sodium Chloride 0.9% 100 ML IVPB SCH ×2 (08:49→20:21)
[2020-10-05] MEDS: Aspirin Chewable 81 MG TAB PO SCH (08:50)
[2020-10-05] MEDS: Docusate 100 MG CAP PO SCH ×2 (08:50→20:32)
[2020-10-05] MEDS: Cholecalciferol 1,000 UNITS (25 MCG) TAB PO SCH (08:50)
[2020-10-05] MEDS: Alogliptin 25 MG TAB PO SCH (08:50)
[2020-10-05] MEDS: Finasteride 5 MG TAB PO SCH ×2 (08:50→20:33)
[2020-10-05] MEDS: Fludrocortisone Acetate 0.1 MG TAB PO SCH (08:50)
[2020-10-05] MEDS: Lantus 1000 UNITS/10 ML VIAL SC SCH (08:51)
[2020-10-05] MEDS: Ezetimibe 10 MG TAB PO SCH (20:33)
[2020-10-05 20:35] LABS: Vancomycin, Trough 19.6 ug/mL
[2020-10-05] MEDS: Vancomycin 1.5 GRAM/300 ML BAG 1.5 GM in Premix Bag 1 BAG IVPB SCH (21:28)
[2020-10-06] MEDS: Levothyroxine Sodium 112 MCG TAB PO SCH (05:36)
[2020-10-06] MEDS: Cefepime 2 GM in Sodium Chloride 0.9% 100 ML IVPB SCH ×2 (08:32→20:08)
[2020-10-06] MEDS: Lantus 1000 UNITS/10 ML VIAL SC SCH (08:33)
[2020-10-06] MEDS: Alogliptin 25 MG TAB PO SCH (08:33)
[2020-10-06] MEDS: Docusate 100 MG CAP PO SCH ×2 (08:34→20:04)
[2020-10-06] MEDS: Finasteride 5 MG TAB PO SCH ×2 (08:34→20:05)
[2020-10-06] MEDS: Fludrocortisone Acetate 0.1 MG TAB PO SCH (08:34)
[2020-10-06] MEDS: Aspirin Chewable 81 MG TAB PO SCH (08:34)
[2020-10-06] MEDS: Cholecalciferol 1,000 UNITS (25 MCG) TAB PO SCH (08:35)
[2020-10-06] MEDS: Ezetimibe 10 MG TAB PO SCH (20:05)
[2020-10-06] MEDS: Vancomycin 1.5 GRAM/300 ML BAG 1.5 GM in Premix Bag 1 BAG IVPB SCH (21:25)
[2020-10-07] MEDS: Levothyroxine Sodium 112 MCG TAB PO SCH (05:42)
[2020-10-07] MEDS: Finasteride 5 MG TAB PO SCH ×2 (08:52→20:21)
[2020-10-07] MEDS: Aspirin Chewable 81 MG TAB PO SCH (08:53)
[2020-10-07] MEDS: Alogliptin 25 MG TAB PO SCH (08:53)
[2020-10-07] MEDS: Cholecalciferol 1,000 UNITS (25 MCG) TAB PO SCH (08:53)
[2020-10-07] MEDS: Docusate 100 MG CAP PO SCH ×2 (08:53→20:21)
[2020-10-07] MEDS: Lantus 1000 UNITS/10 ML VIAL SC SCH (08:53)
[2020-10-07] MEDS: Fludrocortisone Acetate 0.1 MG TAB PO SCH (08:53)
[2020-10-07] MEDS: Cefepime 2 GM in Sodium Chloride 0.9% 100 ML IVPB SCH ×2 (08:54→20:22)
[2020-10-07 20:12] LABS: Vancomycin, Trough 24.8 ug/mL
[2020-10-07] MEDS: Ezetimibe 10 MG TAB PO SCH (21:57)
[2020-10-08] MEDS: Levothyroxine Sodium 112 MCG TAB PO SCH (05:36)
[2020-10-08] MEDS: Finasteride 5 MG TAB PO SCH ×2 (08:14→20:41)
[2020-10-08] MEDS: Cholecalciferol 1,000 UNITS (25 MCG) TAB PO SCH (08:14)
[2020-10-08] MEDS: Aspirin Chewable 81 MG TAB PO SCH (08:14)
[2020-10-08] MEDS: Docusate 100 MG CAP PO SCH ×2 (08:14→20:40)
[2020-10-08] MEDS: Alogliptin 25 MG TAB PO SCH (08:14)
[2020-10-08] MEDS: Fludrocortisone Acetate 0.1 MG TAB PO SCH (08:15)
[2020-10-08] MEDS: Lantus 1000 UNITS/10 ML VIAL SC SCH (08:15)
[2020-10-08 08:38] LABS: Vancomycin, Random 19.7 ug/mL (See Comment)
[2020-10-08] MEDS: Cefepime 2 GM in Sodium Chloride 0.9% 100 ML IVPB SCH ×2 (09:02→20:39)
[2020-10-08] MEDS: Vancomycin HCl 1 GM in Sodium Chloride 0.9% 250 ML 250 ML IVPB SCH (11:26)
[2020-10-08] MEDS: Ezetimibe 10 MG TAB PO SCH (20:40)
[2020-10-09] MEDS: Levothyroxine Sodium 112 MCG TAB PO SCH (05:21)
[2020-10-09] MEDS: Lantus 1000 UNITS/10 ML VIAL SC SCH (08:56)
[2020-10-09] MEDS: Alogliptin 25 MG TAB PO SCH (08:57)
[2020-10-09] MEDS: Finasteride 5 MG TAB PO SCH ×2 (08:57→22:13)
[2020-10-09] MEDS: Aspirin Chewable 81 MG TAB PO SCH (08:57)
[2020-10-09] MEDS: Docusate 100 MG CAP PO SCH ×2 (08:57→22:13)
[2020-10-09] MEDS: Cefepime 2 GM in Sodium Chloride 0.9% 100 ML IVPB SCH (08:57)
[2020-10-09] MEDS: Fludrocortisone Acetate 0.1 MG TAB PO SCH (08:57)
[2020-10-09] MEDS: Cholecalciferol 1,000 UNITS (25 MCG) TAB PO SCH (08:57)
[2020-10-09] MEDS: Vancomycin HCl 1 GM in Sodium Chloride 0.9% 250 ML 250 ML IVPB SCH (11:55)
[2020-10-09] MEDS: Ezetimibe 10 MG TAB PO SCH (22:13)
[2020-10-10] MEDS: Levothyroxine Sodium 112 MCG TAB PO SCH (05:31)
[2020-10-10] MEDS: Fludrocortisone Acetate 0.1 MG TAB PO SCH (08:04)
[2020-10-10] MEDS: Aspirin Chewable 81 MG TAB PO SCH (08:04)
[2020-10-10] MEDS: Alogliptin 25 MG TAB PO SCH (08:04)
[2020-10-10] MEDS: Cholecalciferol 1,000 UNITS (25 MCG) TAB PO SCH (08:04)
[2020-10-10] MEDS: Lantus 1000 UNITS/10 ML VIAL SC SCH (08:05)
[2020-10-10] MEDS: Docusate 100 MG CAP PO SCH ×2 (08:05→21:35)
[2020-10-10] MEDS: Finasteride 5 MG TAB PO SCH ×2 (08:05→21:35)
[2020-10-10] MEDS: Vancomycin HCl 1 GM in Sodium Chloride 0.9% 250 ML 250 ML IVPB SCH (11:30)
[2020-10-10] MEDS: Ezetimibe 10 MG TAB PO SCH (21:35)
[2020-10-11] MEDS: Levothyroxine Sodium 112 MCG TAB PO SCH (05:32)
[2020-10-11] MEDS: Alogliptin 25 MG TAB PO SCH (08:32)
[2020-10-11] MEDS: Docusate 100 MG CAP PO SCH ×2 (08:32→20:52)
[2020-10-11] MEDS: Cholecalciferol 1,000 UNITS (25 MCG) TAB PO SCH (08:33)
[2020-10-11] MEDS: Aspirin Chewable 81 MG TAB PO SCH (08:33)
[2020-10-11] MEDS: Lantus 1000 UNITS/10 ML VIAL SC SCH (08:33)
[2020-10-11] MEDS: Finasteride 5 MG TAB PO SCH ×3 (08:37→20:54)
[2020-10-11] MEDS: Ezetimibe 10 MG TAB PO SCH (20:54)
[2020-10-12] MEDS: Levothyroxine Sodium 112 MCG TAB PO SCH (05:20)
[2020-10-12] MEDS: Alogliptin 25 MG TAB PO SCH (10:08)
[2020-10-12] MEDS: Finasteride 5 MG TAB PO SCH (10:09)
[2020-10-12] MEDS: Aspirin Chewable 81 MG TAB PO SCH (10:09)
[2020-10-12] MEDS: Docusate 100 MG CAP PO SCH (10:09)
[2020-10-12] MEDS: Cholecalciferol 1,000 UNITS (25 MCG) TAB PO SCH (10:09)
[2020-10-12] MEDS: Lantus 1000 UNITS/10 ML VIAL SC SCH (10:11)
[2020-10-12 16:32] VITALS: BP 164/97; TEMP 98.1
== END 2020-10-12 14:00 | disposition home or self-care (01) | DRG 699 ==
LOC: MADMS 08:47
PROVIDERS: ADMIT Family Medicine; ATTEND Family Medicine
DX: T83.518A Infection and inflammatory reaction due to other urinary catheter, initial encounter (principal); N39.0 Urinary tract infection, site not specified; N17.9 Acute kidney failure, unspecified; Y83.9 Surgical procedure, unspecified as the cause of abnormal reaction of the patient, or of later complication, without mention of misadventure at the time of the procedure; R33.9 Retention of urine, unspecified; Z66 Do not resuscitate; J44.9 Chronic obstructive pulmonary disease, unspecified; G47.33 Obstructive sleep apnea (adult) (pediatric); I95.1 Orthostatic hypotension; G30.9 Alzheimer's disease, unspecified; F02.80 Dementia in other diseases classified elsewhere, unspecified severity, without behavioral disturbance, psychotic disturbance, mood disturbance, and anxiety; I25.10 Atherosclerotic heart disease of native coronary artery without angina pectoris; E03.9 Hypothyroidism, unspecified; N18.9 Chronic kidney disease, unspecified; E11.22 Type 2 diabetes mellitus with diabetic chronic kidney disease; H91.90 Unspecified hearing loss, unspecified ear; E78.5 Hyperlipidemia, unspecified; Z88.1 Allergy status to other antibiotic agents; Z91.09 Other allergy status, other than to drugs and biological substances
CPT/HCPCS: 36416; 80202; 36415-59; J0692; J1815; J3370; J3490; J7050

== ENCOUNTER 2021-01-16 10:11 | Outpatient (CLI) | payer MEDICARE ==
[2021-01-16 13:07] LABS: Anion Gap 15 mmol/L (10-20); BUN (Urea Nitrogen) 47 mg/dL (8.4-25.7); Calc. Creatinine Clearance 0 mL/min (70-130); Calcium 8.5 mg/dL (7.8-10.44); Carbon Dioxide 19 mmol/L (23-31); Chloride 108 mmol/L (98-107); Glucose 132 mg/dL (83-110); Potassium 4.6 mmol/L (3.5-5.1); Sodium 137 mmol/L (136-145)
== END 2021-01-16 10:12 | disposition home or self-care (01) ==
LOC: MADLAB 10:11
PROVIDERS: ATTEND Urology
DX: I12.9 Hypertensive chronic kidney disease with stage 1 through stage 4 chronic kidney disease, or unspecified chronic kidney disease (principal); N18.9 Chronic kidney disease, unspecified
CPT/HCPCS: 80048

== ENCOUNTER 2021-01-21 15:17 | Emergency (ER) | payer MEDICARE ==
[2021-01-21] MEDS ORDERED: Cefepime 2 GM VIAL ONE (16:47)
[2021-01-21] MEDS ORDERED: Sodium Chloride 0.9% 100 ML ONE (16:47)
[2021-01-21 17:18] LABS: #Basophils 0.1 thou/uL (0.0-0.2); #Eosinphils 0.3 thou/uL (0.0-0.7); #Lymphocytes 1.3 thou/uL (1.20-3.40); #Monocytes 0.4 thou/uL (0.11-0.59); #Neutrophils 8.8 thou/uL (1.40-6.50); %Basophils 0.7 % (0.0-1.0); %Lymphocytes 11.6 % (21.0-51.0); %Neutrophils 80.8 % (42.0-75.0); Hemoglobin 11.6 g/dL (14.0-18.0); Mean Corpuscular HGB CONC 33.1 g/dL (32.0-36.0); Mean Corpuscular Hemoglobin 30.6 pg (27.0-31.0); Mean Corpuscular Volume 92.5 fL (78.0-98.0); Mean Platelet Volume 8.9 fL (7.4-10.4); Platelet Count 187 thou/uL (130-400); RBC Distribution Width 12.4 % (11.5-14.5); Red Blood Cell (RBC) Count 3.79 mill/uL (4.70-6.10); White Blood Cell (WBC) Count 10.8 thou/uL (4.8-10.8)
[2021-01-21 17:47] LABS: Bilirubin Negative (Negative); Blood, Urine Small (Negative); Clarity Cloudy (Clear); Glucose, Urine (Dipstick) Negative (Negative); Ketone, Urine Negative (Negative); Leukocyte Large (Negative); Nitrite Positive (Negative); Protein, Urine (Dipstick) > or equal to 300 mg/dL (Neg-Trace); Specific Gravity, Urine 1.025 (1.005-1.030); Urobilinogen 0.2 mg/dL (Less than 2); pH, Urine 5.5 (5.0-9.0)
[2021-01-21 17:55] LABS: Bacteria/HPF 4+ HPF (None Seen); Squamous Epithelial 0-3 HPF (0-3); WBC/HPF Greater Than 50 HPF (0-3)
[2021-01-21 18:06] LABS: ALT (SGPT) 17 U/L (8-55); AST (SGOT) 17 U/L (5-34); Albumin 3.2 g/dL (3.4-4.8); Alkaline Phosphatase 88 U/L (40-110); Anion Gap 14 mmol/L (10-20); BUN (Urea Nitrogen) 31 mg/dL (8.4-25.7); Bilirubin, Total 0.2 mg/dL (0.2-1.2); Calc. Creatinine Clearance 0 mL/min (70-130); Calcium 7.9 mg/dL (7.8-10.44); Carbon Dioxide 18 mmol/L (23-31); Chloride 106 mmol/L (98-107); Globulin 3.5 g/dL (2.4-3.5); Glucose 170 mg/dL (83-110); Potassium 5.2 mmol/L (3.5-5.1); Protein, Total 6.7 g/dL (5.8-8.1); Sodium 133 mmol/L (136-145)
[2021-01-21] MEDS ORDERED: Sodium Chloride 0.9% 500 ML ONE (18:22)
[2021-01-21 19:41] LABS: SARS-CoV-2 NAA Rapid Test Not Detected (NotDetected)
[2021-01-21] MEDS ORDERED: hydrALAZINE 20 MG/ML VIAL ONE (20:14)
[2021-01-21] MEDS ORDERED: Amlodipine 5 MG TAB ONE (20:58)
[2021-01-22] MEDS ORDERED: Cefepime 2 GM VIAL ONE (04:28)
[2021-01-22 07:10] LABS: #Basophils 0.1 thou/uL (0.0-0.2); #Eosinphils 0.5 thou/uL (0.0-0.7); #Lymphocytes 0.4 thou/uL (1.20-3.40); #Monocytes 0.5 thou/uL (0.11-0.59); #Neutrophils 8.9 thou/uL (1.40-6.50); %Basophils 0.8 % (0.0-1.0); %Eosinophils 4.9 % (0.0-10.0); %Lymphocytes 3.8 % (21.0-51.0); %Monocytes 5.1 % (0.0-10.0); %Neutrophils 85.3 % (42.0-75.0); Mean Corpuscular HGB CONC 32.1 g/dL (32.0-36.0); Mean Corpuscular Volume 93.3 fL (78.0-98.0); Mean Platelet Volume 7.7 fL (7.4-10.4); Platelet Count 208 thou/uL (130-400); RBC Distribution Width 12.4 % (11.5-14.5); Red Blood Cell (RBC) Count 4.35 mill/uL (4.70-6.10); White Blood Cell (WBC) Count 10.4 thou/uL (4.8-10.8)
[2021-01-22 07:26] LABS: ALT (SGPT) 14 U/L (8-55); AST (SGOT) 13 U/L (5-34); Albumin 3.2 g/dL (3.4-4.8); Alkaline Phosphatase 92 U/L (40-110); Anion Gap 13 mmol/L (10-20); BUN (Urea Nitrogen) 32 mg/dL (8.4-25.7); Bilirubin, Total 0.3 mg/dL (0.2-1.2); Calc. Creatinine Clearance 0 mL/min (70-130); Calcium 8.4 mg/dL (7.8-10.44); Carbon Dioxide 19 mmol/L (23-31); Chloride 104 mmol/L (98-107); Globulin 3.5 g/dL (2.4-3.5); Glucose 334 mg/dL (83-110); Potassium 4.9 mmol/L (3.5-5.1); Protein, Total 6.7 g/dL (5.8-8.1); Sodium 131 mmol/L (136-145)
[2021-01-22] MEDS ORDERED: Insulin Regular 300 UNITS/3 ML VIAL ONE (07:48)
[2021-01-22] MEDS ORDERED: Ondansetron ODT 4 MG TAB SL PRN (09:47)
[2021-01-22] MEDS ORDERED: Insulin Regular 300 UNITS/3 ML VIAL SC PRN (10:00)
[2021-01-22] MEDS ORDERED: Dextrose 5% in Water 1,000 ML IV PRN (10:00)
[2021-01-22] MEDS ORDERED: Dextrose 50% Abboject 50 ML SYRINGE IVP PRN (10:00)
[2021-01-22] MEDS ORDERED: Azithromycin 500 MG in Sodium Chloride 0.9% 250 ML 250 ML IVPB SCH (10:00)
[2021-01-22] MEDS ORDERED: Enoxaparin Sodium 40 MG/0.4 ML SYRINGE SC SCH (10:00)
[2021-01-23] MEDS ORDERED: Cefepime 2 GM in Sodium Chloride 0.9% 100 ML IVPB SCH (05:00)
== END 2021-01-22 09:25 | disposition critical access hospital (66) ==
LOC: MADERS 15:17
DX: J18.9 Pneumonia, unspecified organism (principal); R55 Syncope and collapse; N39.0 Urinary tract infection, site not specified; R21 Rash and other nonspecific skin eruption; R26.9 Unspecified abnormalities of gait and mobility; R47.89 Other speech disturbances; L97.429 Non-pressure chronic ulcer of left heel and midfoot with unspecified severity; R29.703 NIHSS score 3; Z20.822 Contact with and (suspected) exposure to COVID-19; N40.0 Benign prostatic hyperplasia without lower urinary tract symptoms; G30.9 Alzheimer's disease, unspecified; E11.40 Type 2 diabetes mellitus with diabetic neuropathy, unspecified; I10 Essential (primary) hypertension; Z85.51 Personal history of malignant neoplasm of bladder; Z79.899 Other long term (current) drug therapy; Z79.82 Long term (current) use of aspirin
CPT/HCPCS: 71045; 80053; 82962; 83605; 84484; 85025; 85379; 87040; 87086; 93005; 94760; U0002; 36415; 36416; 81003; 81015; J0360; J0692; J1815; J3370; J3490; J7030

== ENCOUNTER 2021-01-22 08:28 | Inpatient (IN) | payer MEDICARE ==
[2021-01-22 10:11] VITALS: BMI 27.5
[2021-01-22] MEDS ORDERED: Ondansetron ODT 4 MG TAB PO PRN (11:38)
[2021-01-22] MEDS ORDERED: Dextrose 5% in Water 1,000 ML IV PRN (11:45)
[2021-01-22] MEDS ORDERED: Dextrose 50% Abboject 50 ML SYRINGE SLOW IVP PRN (11:45)
[2021-01-22] MEDS ORDERED: Insulin Regular 300 UNITS/3 ML VIAL SC PRN (11:45)
[2021-01-22] MEDS ORDERED: Azithromycin 500 MG in Sodium Chloride 0.9% 250 ML 250 ML IVPB SCH (12:00)
[2021-01-22] MEDS ORDERED: Enoxaparin Sodium 40 MG/0.4 ML SYRINGE SC SCH (12:00)
[2021-01-22] MEDS ORDERED: Acetaminophen 325 MG TAB PO PRN (12:48)
[2021-01-22] MEDS: Cefepime 1 GM in Sodium Chloride 0.9% 100 ML IVPB SCH (15:20)
[2021-01-22] MEDS: Vancomycin HCl 1 GM in Sodium Chloride 0.9% 250 ML 250 ML IVPB SCH (19:58)
[2021-01-22] MEDS: Ezetimibe 10 MG TAB PO SCH (19:59)
[2021-01-22] MEDS ORDERED: Vancomycin 1.5 GRAM/300 ML BAG 1.5 GM in Premix Bag 1 BAG IVPB SCH (20:00)
[2021-01-22] MEDS ORDERED: Cefepime 2 GM in Sodium Chloride 0.9% 100 ML IVPB SCH (21:00)
[2021-01-23 05:23] LABS: #Basophils 0.1 thou/uL (0.0-0.2); #Eosinphils 0.7 thou/uL (0.0-0.7); #Lymphocytes 1.3 thou/uL (1.20-3.40); #Monocytes 0.6 thou/uL (0.11-0.59); #Neutrophils 5.6 thou/uL (1.40-6.50); %Eosinophils 8.7 % (0.0-10.0); %Lymphocytes 15.7 % (21.0-51.0); %Monocytes 6.9 % (0.0-10.0); %Neutrophils 67.8 % (42.0-75.0); Hemoglobin 12.1 g/dL (14.0-18.0); Mean Corpuscular HGB CONC 32.8 g/dL (32.0-36.0); Mean Corpuscular Volume 91.5 fL (78.0-98.0); Mean Platelet Volume 7.8 fL (7.4-10.4); Platelet Count 197 thou/uL (130-400); RBC Distribution Width 12.2 % (11.5-14.5); Red Blood Cell (RBC) Count 4.03 mill/uL (4.70-6.10); White Blood Cell (WBC) Count 8.2 thou/uL (4.8-10.8)
[2021-01-23] MEDS: Levothyroxine Sodium 100 MCG TAB PO SCH (05:32)
[2021-01-23 05:36] LABS: Anion Gap 13 mmol/L (10-20); BUN (Urea Nitrogen) 29 mg/dL (8.4-25.7); Calc. Creatinine Clearance 48 mL/min (70-130); Calcium 8.8 mg/dL (7.8-10.44); Carbon Dioxide 20 mmol/L (23-31); Chloride 105 mmol/L (98-107); Glucose 146 mg/dL (83-110); Potassium 4.5 mmol/L (3.5-5.1); Sodium 133 mmol/L (136-145)
[2021-01-23] MEDS: Lantus 1000 UNITS/10 ML VIAL SC SCH (08:28)
[2021-01-23] MEDS: Aspirin Chewable 81 MG TAB PO SCH (08:28)
[2021-01-23] MEDS: Alogliptin 25 MG TAB PO SCH (08:28)
[2021-01-23] MEDS: Finasteride 5 MG TAB PO SCH (08:28)
[2021-01-23] MEDS: Cefepime 1 GM in Sodium Chloride 0.9% 100 ML IVPB SCH (15:12)
[2021-01-23] MEDS: Vancomycin HCl 1 GM in Sodium Chloride 0.9% 250 ML 250 ML IVPB SCH ×2 (19:59)
[2021-01-23] MEDS: Ezetimibe 10 MG TAB PO SCH (20:00)
[2021-01-24] MEDS: Levothyroxine Sodium 100 MCG TAB PO SCH (05:26)
[2021-01-24] MEDS: Aspirin Chewable 81 MG TAB PO SCH (08:50)
[2021-01-24] MEDS: Finasteride 5 MG TAB PO SCH (08:50)
[2021-01-24] MEDS: Alogliptin 25 MG TAB PO SCH (08:50)
[2021-01-24] MEDS: Lantus 1000 UNITS/10 ML VIAL SC SCH (08:51)
[2021-01-24] MEDS: Cefepime 1 GM in Sodium Chloride 0.9% 100 ML IVPB SCH (14:14)
[2021-01-24] MEDS ORDERED: Enoxaparin Sodium 40 MG/0.4 ML SYRINGE SC SCH (14:15)
[2021-01-24 19:15] LABS: Vancomycin, Trough 26.8 ug/mL
[2021-01-24] MEDS: Ezetimibe 10 MG TAB PO SCH (20:15)
[2021-01-25] MEDS ORDERED: Vancomycin HCl 750 MG in Sodium Chloride 0.9% 250 ML 250 ML IVPB SCH ×2 (05:00→06:00)
[2021-01-25] MEDS: Levothyroxine Sodium 100 MCG TAB PO SCH (05:05)
[2021-01-25 05:24] LABS: #Basophils 0.1 thou/uL (0.0-0.2); #Eosinphils 0.8 thou/uL (0.0-0.7); #Lymphocytes 1.5 thou/uL (1.20-3.40); #Monocytes 0.8 thou/uL (0.11-0.59); #Neutrophils 4.6 thou/uL (1.40-6.50); %Basophils 1.8 % (0.0-1.0); %Eosinophils 10.2 % (0.0-10.0); %Lymphocytes 18.5 % (21.0-51.0); %Monocytes 10.6 % (0.0-10.0); Hemoglobin 12.1 g/dL (14.0-18.0); Mean Corpuscular HGB CONC 32.9 g/dL (32.0-36.0); Mean Corpuscular Hemoglobin 30.4 pg (27.0-31.0); Mean Corpuscular Volume 92.3 fL (78.0-98.0); Mean Platelet Volume 7.7 fL (7.4-10.4); Platelet Count 208 thou/uL (130-400); Red Blood Cell (RBC) Count 3.98 mill/uL (4.70-6.10); White Blood Cell (WBC) Count 7.8 thou/uL (4.8-10.8)
[2021-01-25 05:39] LABS: Anion Gap 13 mmol/L (10-20); BUN (Urea Nitrogen) 30 mg/dL (8.4-25.7); Calc. Creatinine Clearance 48 mL/min (70-130); Carbon Dioxide 20 mmol/L (23-31); Chloride 106 mmol/L (98-107); Glucose 116 mg/dL (83-110); Potassium 4.1 mmol/L (3.5-5.1); Sodium 135 mmol/L (136-145)
[2021-01-25] MEDS ORDERED: Vancomycin HCl 500 MG in Sodium Chloride 0.9% 100 ML IVPB SCH ×2 (06:00→07:00)
[2021-01-25] MEDS: Alogliptin 25 MG TAB PO SCH (08:12)
[2021-01-25] MEDS: Aspirin Chewable 81 MG TAB PO SCH (08:12)
[2021-01-25] MEDS: Finasteride 5 MG TAB PO SCH (08:13)
[2021-01-25] MEDS: Lantus 1000 UNITS/10 ML VIAL SC SCH (08:14)
[2021-01-25 08:25] VITALS: BP 182/101; TEMP 98.6
[2021-01-25] MEDS ORDERED: Enoxaparin Sodium 40 MG/0.4 ML SYRINGE SC SCH (09:00)
[2021-01-25 11:14] LABS: Hemoglobin A1c 8.1 % (4.0-6.0)
== END 2021-01-25 11:57 | disposition swing bed (61) | DRG 698 ==
LOC: MADMS 08:28
PROVIDERS: ADMIT Family Medicine; ATTEND Family Medicine
DX: T83.518A Infection and inflammatory reaction due to other urinary catheter, initial encounter (principal); J18.9 Pneumonia, unspecified organism; J44.0 Chronic obstructive pulmonary disease with (acute) lower respiratory infection; N39.0 Urinary tract infection, site not specified; I95.1 Orthostatic hypotension; G30.9 Alzheimer's disease, unspecified; F02.80 Dementia in other diseases classified elsewhere, unspecified severity, without behavioral disturbance, psychotic disturbance, mood disturbance, and anxiety; G47.33 Obstructive sleep apnea (adult) (pediatric); I25.10 Atherosclerotic heart disease of native coronary artery without angina pectoris; E03.9 Hypothyroidism, unspecified; E78.5 Hyperlipidemia, unspecified; K21.9 Gastro-esophageal reflux disease without esophagitis; Z66 Do not resuscitate; H91.90 Unspecified hearing loss, unspecified ear; N40.1 Benign prostatic hyperplasia with lower urinary tract symptoms; R33.8 Other retention of urine; E11.22 Type 2 diabetes mellitus with diabetic chronic kidney disease; N18.9 Chronic kidney disease, unspecified; L89.622 Pressure ulcer of left heel, stage 2; Y83.8 Other surgical procedures as the cause of abnormal reaction of the patient, or of later complication, without mention of misadventure at the time of the procedure; Z90.79 Acquired absence of other genital organ(s); Z79.82 Long term (current) use of aspirin; Z79.899 Other long term (current) drug therapy; Z88.1 Allergy status to other antibiotic agents; Z91.048 Other nonmedicinal substance allergy status; Z85.51 Personal history of malignant neoplasm of bladder
CPT/HCPCS: 36415; 36416; 51701; 71045; 80048; 80053; 80202; 81003; 81015; 83036; 83605; 84484; 85025; 85379; 87040; 87077; 87086; 87186; 93005; 94760; 96365; 96366; 96367; 96375; J0360; J0456; J0692; J1650; J1815; J3370; J3490; J7030; J7050; U0002

== ENCOUNTER 2021-01-25 11:38 | Inpatient (IN) | payer MEDICARE ==
[2021-01-25 12:06] VITALS: BMI 27.5
[2021-01-25] MEDS ORDERED: Clotrimazole 1% Cream 15 GM TUBE TOP PRN (16:35)
[2021-01-25] MEDS ORDERED: Cefepime 1 GM in Sodium Chloride 0.9% 100 ML IVPB SCH (17:00)
[2021-01-25] MEDS: Ezetimibe 10 MG TAB PO SCH (21:20)
[2021-01-25] MEDS: Acetaminophen 325 MG TAB PO PRN (21:21)
[2021-01-26] MEDS: Levothyroxine Sodium 100 MCG TAB PO SCH (05:07)
[2021-01-26] MEDS: Cholecalciferol 1,000 UNITS (25 MCG) TAB PO SCH (08:27)
[2021-01-26] MEDS: Aspirin Chewable 81 MG TAB PO SCH (08:28)
[2021-01-26] MEDS: Alogliptin 25 MG TAB PO SCH (08:28)
[2021-01-26] MEDS: Finasteride 5 MG TAB PO SCH (08:28)
[2021-01-26] MEDS: Lantus 1000 UNITS/10 ML VIAL SC SCH (08:28)
[2021-01-26] MEDS ORDERED: Enoxaparin Sodium 40 MG/0.4 ML SYRINGE SC SCH (09:30)
[2021-01-26] MEDS: Meropenem 1 GM in Sodium Chloride 0.9% 100 ML IVPB SCH ×2 (11:17→21:37)
[2021-01-26] MEDS: Acetaminophen 325 MG TAB PO PRN (20:44)
[2021-01-26] MEDS: Ezetimibe 10 MG TAB PO SCH (20:44)
[2021-01-27] MEDS: Levothyroxine Sodium 100 MCG TAB PO SCH (05:29)
[2021-01-27] MEDS: Lantus 1000 UNITS/10 ML VIAL SC SCH (08:05)
[2021-01-27] MEDS: Cholecalciferol 1,000 UNITS (25 MCG) TAB PO SCH (08:05)
[2021-01-27] MEDS: Finasteride 5 MG TAB PO SCH (08:05)
[2021-01-27] MEDS: Alogliptin 25 MG TAB PO SCH (08:05)
[2021-01-27] MEDS: Aspirin Chewable 81 MG TAB PO SCH (08:05)
[2021-01-27] MEDS: Enoxaparin Sodium 40 MG/0.4 ML SYRINGE SC SCH (08:06)
[2021-01-27] MEDS: Meropenem 1 GM in Sodium Chloride 0.9% 100 ML IVPB SCH ×2 (10:42→21:33)
[2021-01-27] MEDS: Acetaminophen 325 MG TAB PO PRN ×2 (13:18→21:30)
[2021-01-27] MEDS ORDERED: Polyethylene Glycol 3350 17 GM Packet PO PRN (20:09)
[2021-01-27] MEDS: Ezetimibe 10 MG TAB PO SCH (21:30)
[2021-01-28] MEDS: Levothyroxine Sodium 100 MCG TAB PO SCH (05:51)
[2021-01-28] MEDS: Alogliptin 25 MG TAB PO SCH (08:10)
[2021-01-28] MEDS: Cholecalciferol 1,000 UNITS (25 MCG) TAB PO SCH (08:10)
[2021-01-28] MEDS: Lantus 1000 UNITS/10 ML VIAL SC SCH (08:11)
[2021-01-28] MEDS: Finasteride 5 MG TAB PO SCH (08:11)
[2021-01-28] MEDS: Enoxaparin Sodium 40 MG/0.4 ML SYRINGE SC SCH (08:11)
[2021-01-28] MEDS: Aspirin Chewable 81 MG TAB PO SCH (08:16)
[2021-01-28] MEDS: Meropenem 1 GM in Sodium Chloride 0.9% 100 ML IVPB SCH ×2 (09:31→21:03)
[2021-01-28] MEDS: Acetaminophen 325 MG TAB PO PRN ×2 (11:49→21:02)
[2021-01-28] MEDS: Ezetimibe 10 MG TAB PO SCH (21:02)
[2021-01-29] MEDS: Levothyroxine Sodium 100 MCG TAB PO SCH (05:12)
[2021-01-29 05:51] LABS: #Basophils 0.1 thou/uL (0.0-0.2); #Eosinphils 0.8 thou/uL (0.0-0.7); #Lymphocytes 2.2 thou/uL (1.20-3.40); #Monocytes 0.7 thou/uL (0.11-0.59); #Neutrophils 4.9 thou/uL (1.40-6.50); %Basophils 0.9 % (0.0-1.0); %Eosinophils 8.9 % (0.0-10.0); %Lymphocytes 25.5 % (21.0-51.0); %Monocytes 8.5 % (0.0-10.0); %Neutrophils 56.3 % (42.0-75.0); Hemoglobin 11.9 g/dL (14.0-18.0); Mean Corpuscular HGB CONC 31.7 g/dL (32.0-36.0); Mean Corpuscular Hemoglobin 29.2 pg (27.0-31.0); Mean Platelet Volume 6.7 fL (7.4-10.4); Platelet Count 257 thou/uL (130-400); RBC Distribution Width 12.2 % (11.5-14.5); Red Blood Cell (RBC) Count 4.07 mill/uL (4.70-6.10); White Blood Cell (WBC) Count 8.6 thou/uL (4.8-10.8)
[2021-01-29 06:08] LABS: ALT (SGPT) 22 U/L (8-55); AST (SGOT) 19 U/L (5-34); Albumin 3.3 g/dL (3.4-4.8); Alkaline Phosphatase 86 U/L (40-110); Anion Gap 12 mmol/L (10-20); BUN (Urea Nitrogen) 33 mg/dL (8.4-25.7); Bilirubin, Total 0.2 mg/dL (0.2-1.2); Calc. Creatinine Clearance 50 mL/min (70-130); Calcium 8.9 mg/dL (7.8-10.44); Carbon Dioxide 21 mmol/L (23-31); Chloride 104 mmol/L (98-107); Globulin 3.5 g/dL (2.4-3.5); Glucose 98 mg/dL (83-110); Potassium 4.4 mmol/L (3.5-5.1); Protein, Total 6.8 g/dL (5.8-8.1); Sodium 133 mmol/L (136-145)
[2021-01-29] MEDS: Cholecalciferol 1,000 UNITS (25 MCG) TAB PO SCH (08:37)
[2021-01-29] MEDS: Enoxaparin Sodium 40 MG/0.4 ML SYRINGE SC SCH (08:37)
[2021-01-29] MEDS: Alogliptin 25 MG TAB PO SCH (08:37)
[2021-01-29] MEDS: Aspirin Chewable 81 MG TAB PO SCH (08:37)
[2021-01-29] MEDS: Finasteride 5 MG TAB PO SCH (08:37)
[2021-01-29] MEDS: Lantus 1000 UNITS/10 ML VIAL SC SCH (08:37)
[2021-01-29] MEDS: Meropenem 1 GM in Sodium Chloride 0.9% 100 ML IVPB SCH ×2 (10:43→21:16)
[2021-01-29] MEDS: Ezetimibe 10 MG TAB PO SCH (20:18)
[2021-01-30] MEDS: Levothyroxine Sodium 100 MCG TAB PO SCH (05:08)
[2021-01-30] MEDS: Enoxaparin Sodium 40 MG/0.4 ML SYRINGE SC SCH (09:04)
[2021-01-30] MEDS: Alogliptin 25 MG TAB PO SCH (09:04)
[2021-01-30] MEDS: Finasteride 5 MG TAB PO SCH (09:04)
[2021-01-30] MEDS: Cholecalciferol 1,000 UNITS (25 MCG) TAB PO SCH (09:04)
[2021-01-30] MEDS: Aspirin Chewable 81 MG TAB PO SCH (09:04)
[2021-01-30] MEDS: Lantus 1000 UNITS/10 ML VIAL SC SCH (09:04)
[2021-01-30] MEDS: Meropenem 1 GM in Sodium Chloride 0.9% 100 ML IVPB SCH ×2 (10:21→21:31)
[2021-01-30] MEDS: Ezetimibe 10 MG TAB PO SCH (21:28)
[2021-01-30] MEDS: Acetaminophen 325 MG TAB PO PRN (21:29)
[2021-01-31] MEDS: Levothyroxine Sodium 100 MCG TAB PO SCH (05:29)
[2021-01-31] MEDS: Cholecalciferol 1,000 UNITS (25 MCG) TAB PO SCH (08:11)
[2021-01-31] MEDS: Finasteride 5 MG TAB PO SCH (08:11)
[2021-01-31] MEDS: Aspirin Chewable 81 MG TAB PO SCH (08:11)
[2021-01-31] MEDS: Alogliptin 25 MG TAB PO SCH (08:12)
[2021-01-31] MEDS: Enoxaparin Sodium 40 MG/0.4 ML SYRINGE SC SCH (08:12)
[2021-01-31] MEDS: Lantus 1000 UNITS/10 ML VIAL SC SCH (08:12)
[2021-01-31] MEDS: Ezetimibe 10 MG TAB PO SCH (21:31)
[2021-01-31] MEDS: Meropenem 1 GM in Sodium Chloride 0.9% 100 ML IVPB SCH (21:32)
[2021-02-01] MEDS: Levothyroxine Sodium 100 MCG TAB PO SCH (05:06)
[2021-02-01] MEDS: Enoxaparin Sodium 40 MG/0.4 ML SYRINGE SC SCH (08:06)
[2021-02-01] MEDS: Lantus 1000 UNITS/10 ML VIAL SC SCH (08:06)
[2021-02-01] MEDS: Cholecalciferol 1,000 UNITS (25 MCG) TAB PO SCH (08:07)
[2021-02-01] MEDS: Aspirin Chewable 81 MG TAB PO SCH (08:08)
[2021-02-01] MEDS: Alogliptin 25 MG TAB PO SCH (08:08)
[2021-02-01] MEDS: Finasteride 5 MG TAB PO SCH (08:08)
[2021-02-01] MEDS: Meropenem 1 GM in Sodium Chloride 0.9% 100 ML IVPB SCH (09:03)
[2021-02-01] MEDS: Ezetimibe 10 MG TAB PO SCH (20:18)
[2021-02-02] MEDS: Levothyroxine Sodium 100 MCG TAB PO SCH (05:27)
[2021-02-02] MEDS: Aspirin Chewable 81 MG TAB PO SCH (08:49)
[2021-02-02] MEDS: Finasteride 5 MG TAB PO SCH (08:50)
[2021-02-02] MEDS: Enoxaparin Sodium 40 MG/0.4 ML SYRINGE SC SCH (08:50)
[2021-02-02] MEDS: Cholecalciferol 1,000 UNITS (25 MCG) TAB PO SCH (08:50)
[2021-02-02] MEDS: Lantus 1000 UNITS/10 ML VIAL SC SCH (08:51)
[2021-02-02] MEDS: Alogliptin 25 MG TAB PO SCH (08:54)
[2021-02-02 10:48] VITALS: BP 185/90; TEMP 97.9
== END 2021-02-02 10:45 | disposition home or self-care (01) | DRG 698 ==
LOC: MADMS 12:00
PROVIDERS: ADMIT Family Medicine; ATTEND Family Medicine
DX: T83.511A Infection and inflammatory reaction due to indwelling urethral catheter, initial encounter (principal); J18.9 Pneumonia, unspecified organism; J98.11 Atelectasis; Z16.39 Resistance to other specified antimicrobial drug; I95.1 Orthostatic hypotension; N39.0 Urinary tract infection, site not specified; G30.9 Alzheimer's disease, unspecified; R33.9 Retention of urine, unspecified; R15.9 Full incontinence of feces; J44.9 Chronic obstructive pulmonary disease, unspecified; G47.33 Obstructive sleep apnea (adult) (pediatric); S90.822D Blister (nonthermal), left foot, subsequent encounter; I25.10 Atherosclerotic heart disease of native coronary artery without angina pectoris; E03.9 Hypothyroidism, unspecified; E78.5 Hyperlipidemia, unspecified; N31.8 Other neuromuscular dysfunction of bladder; H91.90 Unspecified hearing loss, unspecified ear; B96.89 Other specified bacterial agents as the cause of diseases classified elsewhere; R91.8 Other nonspecific abnormal finding of lung field; L89.622 Pressure ulcer of left heel, stage 2; K21.9 Gastro-esophageal reflux disease without esophagitis; N40.0 Benign prostatic hyperplasia without lower urinary tract symptoms; E11.22 Type 2 diabetes mellitus with diabetic chronic kidney disease; N18.9 Chronic kidney disease, unspecified; I12.9 Hypertensive chronic kidney disease with stage 1 through stage 4 chronic kidney disease, or unspecified chronic kidney disease; Z88.1 Allergy status to other antibiotic agents; Z91.048 Other nonmedicinal substance allergy status; Z79.82 Long term (current) use of aspirin; Z79.899 Other long term (current) drug therapy; Z87.440 Personal history of urinary (tract) infections; Z85.51 Personal history of malignant neoplasm of bladder; Z66 Do not resuscitate; Z90.79 Acquired absence of other genital organ(s); Z79.4 Long term (current) use of insulin; X58.XXXD Exposure to other specified factors, subsequent encounter; Y84.6 Urinary catheterization as the cause of abnormal reaction of the patient, or of later complication, without mention of misadventure at the time of the procedure
CPT/HCPCS: 36415; 36416; 80053; 85025; J0692; J1650; J2185; J3490

== ENCOUNTER 2021-02-18 14:31 | Outpatient (CLI) | payer MEDICARE ==
[2021-02-18 15:40] LABS: #Basophils 0.1 thou/uL (0.0-0.2); #Eosinphils 0.7 thou/uL (0.0-0.7); #Lymphocytes 2.2 thou/uL (1.20-3.40); #Monocytes 0.5 thou/uL (0.11-0.59); #Neutrophils 4.1 thou/uL (1.40-6.50); %Basophils 1.1 % (0.0-1.0); %Eosinophils 9.4 % (0.0-10.0); %Lymphocytes 29.1 % (21.0-51.0); %Monocytes 6.8 % (0.0-10.0); %Neutrophils 53.6 % (42.0-75.0); Hemoglobin 12.7 g/dL (14.0-18.0); Mean Corpuscular HGB CONC 33.5 g/dL (32.0-36.0); Mean Corpuscular Hemoglobin 30.5 pg (27.0-31.0); Mean Corpuscular Volume 90.9 fL (78.0-98.0); Mean Platelet Volume 7.4 fL (7.4-10.4); Platelet Count 228 thou/uL (130-400); RBC Distribution Width 11.8 % (11.5-14.5); Red Blood Cell (RBC) Count 4.18 mill/uL (4.70-6.10); White Blood Cell (WBC) Count 7.7 thou/uL (4.8-10.8)
[2021-02-18 17:00] LABS: ALT (SGPT) 13 U/L (8-55); AST (SGOT) 15 U/L (5-34); Albumin 3.4 g/dL (3.4-4.8); Alkaline Phosphatase 101 U/L (40-110); Anion Gap 13 mmol/L (10-20); BUN (Urea Nitrogen) 33 mg/dL (8.4-25.7); Bilirubin, Total 0.4 mg/dL (0.2-1.2); Calc. Creatinine Clearance 0 mL/min (70-130); Calcium 8.8 mg/dL (7.8-10.44); Carbon Dioxide 23 mmol/L (23-31); Cardiac Risk 3.6 (Less than 4.5); Chloride 104 mmol/L (98-107); Cholesterol 158 mg/dl (< 200 Desired); Globulin 3.2 g/dL (2.4-3.5); Glucose 99 mg/dL (83-110); HDL Cholesterol 44 mg/dL (>60 Neg Risk); LDL Cholesterol, Calculated 95 mg/dL; Potassium 4.7 mmol/L (3.5-5.1); Protein, Total 6.6 g/dL (5.8-8.1); Sodium 135 mmol/L (136-145); Triglycerides 97 mg/dL (Less than 150)
[2021-02-18 21:56] LABS: Hemoglobin A1c 7.7 % (4.0-6.0)
== END 2021-02-18 14:32 | disposition home or self-care (01) ==
LOC: MADLABSP 14:31
PROVIDERS: ATTEND Family Medicine
DX: L89.622 Pressure ulcer of left heel, stage 2 (principal); S41.112D Laceration without foreign body of left upper arm, subsequent encounter; I95.1 Orthostatic hypotension
CPT/HCPCS: 80053; 80061; 83036; 84443; 85025

== ENCOUNTER 2021-03-14 09:35 | Outpatient (CLI) | payer MEDICARE | END 2021-03-14 09:36 | disposition home or self-care (01) | LOC: MADULT 09:35 | PROVIDERS: ATTEND Urology | DX: N28.1 Cyst of kidney, acquired (principal); N40.1 Benign prostatic hyperplasia with lower urinary tract symptoms; R33.9 Retention of urine, unspecified | CPT/HCPCS: 76770 ==

== ENCOUNTER 2021-04-19 20:33 | Outpatient (CLI) | payer MEDICARE ==
[2021-04-19 21:46] LABS: ALT (SGPT) 12 U/L (8-55); AST (SGOT) 14 U/L (5-34); Albumin 3.6 g/dL (3.4-4.8); Alkaline Phosphatase 139 U/L (40-110); Anion Gap 15 mmol/L (10-20); BUN (Urea Nitrogen) 33 mg/dL (8.4-25.7); Bilirubin, Direct 0.1 mg/dL (0.1-0.3); Bilirubin, Total 0.2 mg/dL (0.2-1.2); Calc. Creatinine Clearance 0 mL/min (70-130); Calcium 9.5 mg/dL (7.8-10.44); Carbon Dioxide 23 mmol/L (23-31); Cardiac Risk 3.6 (Less than 4.5); Chloride 101 mmol/L (98-107); Cholesterol 166 mg/dl (< 200 Desired); Glucose 224 mg/dL (83-110); HDL Cholesterol 46 mg/dL (>60 Neg Risk); LDL Cholesterol, Calculated 97 mg/dL; Potassium 5.1 mmol/L (3.5-5.1); Protein, Total 7.4 g/dL (5.8-8.1); Sodium 134 mmol/L (136-145); Triglycerides 114 mg/dL (Less than 150)
== END 2021-04-19 20:34 | disposition home or self-care (01) ==
LOC: MADLAB 20:33
PROVIDERS: ATTEND Internal Medicine Cardiovascular Disease
DX: E11.22 Type 2 diabetes mellitus with diabetic chronic kidney disease (principal); I12.9 Hypertensive chronic kidney disease with stage 1 through stage 4 chronic kidney disease, or unspecified chronic kidney disease; N18.9 Chronic kidney disease, unspecified; I25.10 Atherosclerotic heart disease of native coronary artery without angina pectoris
CPT/HCPCS: 80048; 80061; 80076

== ENCOUNTER 2021-07-08 14:54 | Outpatient (CLI) | payer MEDICARE ==
[2021-07-08 15:04] LABS: Bilirubin Negative (Negative); Blood, Urine Small (Negative); Glucose, Urine (Dipstick) 500 mg/dL (Negative); Ketone, Urine Negative (Negative); Leukocyte Large (Negative); Nitrite Negative (Negative); Protein, Urine (Dipstick) 100 mg/dL (Neg-Trace); Urobilinogen 0.2 mg/dL (Less than 2); pH, Urine 5.5 (5.0-9.0)
[2021-07-08 15:17] LABS: Clarity Cloudy (Clear)
[2021-07-08 15:18] LABS: Bacteria/HPF 3+ HPF (None Seen); Other Microscopic Description C&S SET UP; Squamous Epithelial 0-3 HPF (0-3); WBC/HPF Greater Than 50 HPF (0-3)
== END 2021-07-08 14:55 | disposition home or self-care (01) ==
LOC: MADLAB 14:54
PROVIDERS: ATTEND Urology
DX: N39.0 Urinary tract infection, site not specified (principal)
CPT/HCPCS: 81001; 87077; 87086; 87186

== ENCOUNTER 2021-08-13 14:46 | Outpatient (CLI) | payer MEDICARE ==
[2021-08-13 15:11] LABS: Bilirubin Negative (Negative); Blood, Urine Moderate (Negative); Clarity Clear (Clear); Glucose, Urine (Dipstick) Negative (Negative); Ketone, Urine Negative (Negative); Leukocyte Large (Negative); Nitrite Negative (Negative); Protein, Urine (Dipstick) > or equal to 300 mg/dL (Neg-Trace); Specific Gravity, Urine 1.025 (1.005-1.030); Urobilinogen 0.2 mg/dL (Less than 2)
[2021-08-13 17:40] LABS: Bacteria/HPF Rare-Few HPF (None Seen); RBC/HPF 21-50 HPF (0-3); Squamous Epithelial 0-3 HPF (0-3); WBC/HPF Greater Than 50 HPF (0-3)
== END 2021-08-13 14:47 | disposition home or self-care (01) ==
LOC: MADLAB 14:46
PROVIDERS: ATTEND Family Medicine
DX: N39.0 Urinary tract infection, site not specified (principal)
CPT/HCPCS: 81001; 87077; 87086; 87186

== ENCOUNTER 2021-08-26 19:25 | Inpatient (IN) | payer MEDICARE ==
[2021-08-27] MEDS: Levothyroxine Sodium 100 MCG TAB PO SCH (05:06)
[2021-08-27] MEDS ORDERED: FLU VACC QS2021-22(65YR UP)/PF 240 MCG/0.7 ML SYRINGE IM ONE (09:00)
[2021-08-27] MEDS: Loratadine 10 MG TAB PO SCH (09:10)
[2021-08-27] MEDS: Cholecalciferol 1,000 UNITS (25 MCG) TAB PO SCH (09:10)
[2021-08-27] MEDS: Aspirin 81 mg Enteric Coated Tablet PO SCH (09:10)
[2021-08-27] MEDS: Floranex 1 GM Packet PO SCH (09:10)
[2021-08-27] MEDS: Famotidine 20 MG TAB PO SCH (09:10)
[2021-08-27] MEDS: Lantus 1000 UNITS/10 ML VIAL SC SCH (09:11)
[2021-08-27] MEDS: COENZYME Q10 PO SCH (10:49)
[2021-08-27] MEDS: Acetaminophen 325 MG TAB PO PRN (16:25)
[2021-08-27] MEDS: Finasteride 5 MG TAB PO SCH (21:22)
[2021-08-27] MEDS: Ezetimibe 10 MG TAB PO SCH (21:22)
[2021-08-28] MEDS: Levothyroxine Sodium 100 MCG TAB PO SCH (06:27)
[2021-08-28] MEDS: Floranex 1 GM Packet PO SCH (08:33)
[2021-08-28] MEDS: Cholecalciferol 1,000 UNITS (25 MCG) TAB PO SCH (08:34)
[2021-08-28] MEDS: Loratadine 10 MG TAB PO SCH (08:34)
[2021-08-28] MEDS: Aspirin 81 mg Enteric Coated Tablet PO SCH (08:34)
[2021-08-28] MEDS: Lantus 1000 UNITS/10 ML VIAL SC SCH (08:35)
[2021-08-28] MEDS: COENZYME Q10 PO SCH (08:35)
[2021-08-28] MEDS: Famotidine 20 MG TAB PO SCH (08:36)
[2021-08-28 16:05] LABS: SARS-CoV-2 PCR by NAA Not Detected (NotDetected)
[2021-08-28] MEDS: Finasteride 5 MG TAB PO SCH (20:40)
[2021-08-28] MEDS: Ezetimibe 10 MG TAB PO SCH (20:40)
[2021-08-29] MEDS: Levothyroxine Sodium 100 MCG TAB PO SCH (05:44)
[2021-08-29] MEDS: Famotidine 20 MG TAB PO SCH (08:28)
[2021-08-29] MEDS: Floranex 1 GM Packet PO SCH (08:28)
[2021-08-29] MEDS: Cholecalciferol 1,000 UNITS (25 MCG) TAB PO SCH (08:28)
[2021-08-29] MEDS: Loratadine 10 MG TAB PO SCH (08:28)
[2021-08-29] MEDS: Lantus 1000 UNITS/10 ML VIAL SC SCH (08:28)
[2021-08-29] MEDS: Aspirin 81 mg Enteric Coated Tablet PO SCH (08:28)
[2021-08-29] MEDS: COENZYME Q10 PO SCH (08:29)
[2021-08-29] MEDS: Fluconazole 100 MG TAB PO SCH (08:34)
[2021-08-29] MEDS: Clotrimazole 1% Cream 15 GM TUBE TOP SCH ×2 (08:36→20:43)
[2021-08-29] MEDS: Saccharomyces boulardii 250 MG CAP PO SCH (20:42)
[2021-08-29] MEDS: Finasteride 5 MG TAB PO SCH (20:42)
[2021-08-29] MEDS: Ezetimibe 10 MG TAB PO SCH (20:43)
[2021-08-29] MEDS ORDERED: hydrALAZINE 25 MG TAB PO SCH (22:15)
[2021-08-29] MEDS ORDERED: NIFEdipine XL 30 MG TAB PO SCH (22:15)
[2021-08-30] MEDS: Levothyroxine Sodium 100 MCG TAB PO SCH (05:10)
[2021-08-30] MEDS: Lantus 1000 UNITS/10 ML VIAL SC SCH (08:58)
[2021-08-30] MEDS: Aspirin 81 mg Enteric Coated Tablet PO SCH (08:59)
[2021-08-30] MEDS: Saccharomyces boulardii 250 MG CAP PO SCH ×2 (08:59→20:08)
[2021-08-30] MEDS: Cholecalciferol 1,000 UNITS (25 MCG) TAB PO SCH (08:59)
[2021-08-30] MEDS: Famotidine 20 MG TAB PO SCH (08:59)
[2021-08-30] MEDS: hydrALAZINE 25 MG TAB PO SCH ×3 (08:59→20:07)
[2021-08-30] MEDS: COENZYME Q10 PO SCH (09:00)
[2021-08-30] MEDS: Clotrimazole 1% Cream 15 GM TUBE TOP SCH ×2 (09:00→20:07)
[2021-08-30] MEDS: Fluconazole 100 MG TAB PO SCH (09:00)
[2021-08-30] MEDS: Loratadine 10 MG TAB PO SCH (09:00)
[2021-08-30] MEDS: Ezetimibe 10 MG TAB PO SCH (20:08)
[2021-08-30] MEDS: Finasteride 5 MG TAB PO SCH (20:08)
[2021-08-30] MEDS: NIFEdipine XL 30 MG TAB PO SCH (20:09)
[2021-08-31] MEDS: Levothyroxine Sodium 100 MCG TAB PO SCH (05:29)
[2021-08-31] MEDS: Saccharomyces boulardii 250 MG CAP PO SCH ×2 (09:22→20:18)
[2021-08-31] MEDS: Aspirin 81 mg Enteric Coated Tablet PO SCH (09:22)
[2021-08-31] MEDS: Fluconazole 100 MG TAB PO SCH (09:23)
[2021-08-31] MEDS: Loratadine 10 MG TAB PO SCH (09:23)
[2021-08-31] MEDS: hydrALAZINE 25 MG TAB PO SCH ×3 (09:23→20:17)
[2021-08-31] MEDS: Famotidine 20 MG TAB PO SCH (09:23)
[2021-08-31] MEDS: Cholecalciferol 1,000 UNITS (25 MCG) TAB PO SCH (09:23)
[2021-08-31] MEDS: Clotrimazole 1% Cream 15 GM TUBE TOP SCH ×2 (09:24→20:18)
[2021-08-31] MEDS: Lantus 1000 UNITS/10 ML VIAL SC SCH (09:24)
[2021-08-31] MEDS: COENZYME Q10 PO SCH (09:30)
[2021-08-31] MEDS ORDERED: Dextrose 50% Abboject 50 ML SYRINGE IVP PRN (17:30)
[2021-08-31] MEDS ORDERED: Dextrose 5% in Water 1,000 ML IV PRN (17:30)
[2021-08-31] MEDS: HumaLOG 300 UNITS/3 ML VIAL SC PRN (17:37)
[2021-08-31] MEDS: Ezetimibe 10 MG TAB PO SCH (20:17)
[2021-08-31] MEDS: NIFEdipine XL 30 MG TAB PO SCH (20:18)
[2021-08-31] MEDS: Finasteride 5 MG TAB PO SCH (20:18)
[2021-09-01] MEDS: Levothyroxine Sodium 100 MCG TAB PO SCH (05:44)
[2021-09-01] MEDS: HumaLOG 300 UNITS/3 ML VIAL SC PRN ×2 (08:05→16:45)
[2021-09-01] MEDS: Cholecalciferol 1,000 UNITS (25 MCG) TAB PO SCH (09:51)
[2021-09-01] MEDS: Aspirin 81 mg Enteric Coated Tablet PO SCH (09:51)
[2021-09-01] MEDS: Clotrimazole 1% Cream 15 GM TUBE TOP SCH ×2 (09:52→21:07)
[2021-09-01] MEDS: Fluconazole 100 MG TAB PO SCH (09:53)
[2021-09-01] MEDS: Famotidine 20 MG TAB PO SCH (09:53)
[2021-09-01] MEDS: hydrALAZINE 25 MG TAB PO SCH ×3 (09:53→21:05)
[2021-09-01] MEDS: Lantus 1000 UNITS/10 ML VIAL SC SCH (09:54)
[2021-09-01] MEDS: Loratadine 10 MG TAB PO SCH (09:54)
[2021-09-01] MEDS: Saccharomyces boulardii 250 MG CAP PO SCH ×2 (09:55→21:05)
[2021-09-01] MEDS: COENZYME Q10 PO SCH (09:56)
[2021-09-01] MEDS: Acetaminophen 325 MG TAB PO PRN (13:39)
[2021-09-01] MEDS: Finasteride 5 MG TAB PO SCH (21:05)
[2021-09-01] MEDS: Ezetimibe 10 MG TAB PO SCH (21:06)
[2021-09-01] MEDS: NIFEdipine XL 30 MG TAB PO SCH (21:09)
[2021-09-02] MEDS: Levothyroxine Sodium 100 MCG TAB PO SCH (05:01)
[2021-09-02] MEDS: Cholecalciferol 1,000 UNITS (25 MCG) TAB PO SCH (07:58)
[2021-09-02] MEDS: hydrALAZINE 25 MG TAB PO SCH ×3 (07:58→22:30)
[2021-09-02] MEDS: Saccharomyces boulardii 250 MG CAP PO SCH ×2 (07:59→22:30)
[2021-09-02] MEDS: Lantus 1000 UNITS/10 ML VIAL SC SCH (07:59)
[2021-09-02] MEDS: Loratadine 10 MG TAB PO SCH (07:59)
[2021-09-02] MEDS: Famotidine 20 MG TAB PO SCH (07:59)
[2021-09-02] MEDS: Aspirin 81 mg Enteric Coated Tablet PO SCH (07:59)
[2021-09-02] MEDS: Fluconazole 100 MG TAB PO SCH (07:59)
[2021-09-02] MEDS: COENZYME Q10 PO SCH (08:00)
[2021-09-02] MEDS: Clotrimazole 1% Cream 15 GM TUBE TOP SCH ×2 (08:06→22:31)
[2021-09-02] MEDS: HumaLOG 300 UNITS/3 ML VIAL SC PRN (16:56)
[2021-09-02] MEDS: Finasteride 5 MG TAB PO SCH (22:30)
[2021-09-02] MEDS: NIFEdipine XL 30 MG TAB PO SCH (22:30)
[2021-09-02] MEDS: Ezetimibe 10 MG TAB PO SCH (22:31)
[2021-09-03] MEDS: Levothyroxine Sodium 100 MCG TAB PO SCH (04:57)
[2021-09-03] MEDS: Fluconazole 100 MG TAB PO SCH (08:56)
[2021-09-03] MEDS: Saccharomyces boulardii 250 MG CAP PO SCH ×2 (08:56→20:29)
[2021-09-03] MEDS: Famotidine 20 MG TAB PO SCH (08:56)
[2021-09-03] MEDS: Loratadine 10 MG TAB PO SCH (08:56)
[2021-09-03] MEDS: Aspirin 81 mg Enteric Coated Tablet PO SCH (08:56)
[2021-09-03] MEDS: hydrALAZINE 25 MG TAB PO SCH ×3 (08:56→20:29)
[2021-09-03] MEDS: Cholecalciferol 1,000 UNITS (25 MCG) TAB PO SCH (08:57)
[2021-09-03] MEDS: HumaLOG 300 UNITS/3 ML VIAL SC PRN ×2 (08:57→18:55)
[2021-09-03] MEDS: Lantus 1000 UNITS/10 ML VIAL SC SCH (08:57)
[2021-09-03] MEDS: Clotrimazole 1% Cream 15 GM TUBE TOP SCH ×2 (08:58→20:33)
[2021-09-03] MEDS: Acetaminophen 325 MG TAB PO PRN (11:19)
[2021-09-03] MEDS: Finasteride 5 MG TAB PO SCH (20:28)
[2021-09-03] MEDS: NIFEdipine XL 30 MG TAB PO SCH (20:28)
[2021-09-03] MEDS: Ezetimibe 10 MG TAB PO SCH (20:30)
[2021-09-04] MEDS: Levothyroxine Sodium 100 MCG TAB PO SCH (05:24)
[2021-09-04] MEDS: Saccharomyces boulardii 250 MG CAP PO SCH ×2 (08:18→20:01)
[2021-09-04] MEDS: hydrALAZINE 25 MG TAB PO SCH ×3 (08:18→20:02)
[2021-09-04] MEDS: Fluconazole 100 MG TAB PO SCH (08:19)
[2021-09-04] MEDS: Aspirin 81 mg Enteric Coated Tablet PO SCH (08:19)
[2021-09-04] MEDS: Loratadine 10 MG TAB PO SCH (08:19)
[2021-09-04] MEDS: Famotidine 20 MG TAB PO SCH (08:19)
[2021-09-04] MEDS: Cholecalciferol 1,000 UNITS (25 MCG) TAB PO SCH (08:19)
[2021-09-04] MEDS: Clotrimazole 1% Cream 15 GM TUBE TOP SCH ×2 (08:19→20:01)
[2021-09-04] MEDS: Lantus 1000 UNITS/10 ML VIAL SC SCH (08:20)
[2021-09-04] MEDS: HumaLOG 300 UNITS/3 ML VIAL SC PRN ×2 (08:21→17:28)
[2021-09-04] MEDS: Acetaminophen 325 MG TAB PO PRN (11:31)
[2021-09-04 19:06] LABS: SARS-CoV-2 PCR by NAA Not Detected (NotDetected)
[2021-09-04] MEDS: NIFEdipine XL 30 MG TAB PO SCH (20:01)
[2021-09-04] MEDS: Ezetimibe 10 MG TAB PO SCH (20:01)
[2021-09-04] MEDS: Finasteride 5 MG TAB PO SCH (20:02)
[2021-09-05] MEDS: Levothyroxine Sodium 100 MCG TAB PO SCH (05:10)
[2021-09-05] MEDS: Acetaminophen 325 MG TAB PO PRN (05:58)
[2021-09-05] MEDS: Famotidine 20 MG TAB PO SCH (10:04)
[2021-09-05] MEDS: hydrALAZINE 25 MG TAB PO SCH ×3 (10:04→23:41)
[2021-09-05] MEDS: Cholecalciferol 1,000 UNITS (25 MCG) TAB PO SCH (10:04)
[2021-09-05] MEDS: Loratadine 10 MG TAB PO SCH (10:04)
[2021-09-05] MEDS: Aspirin 81 mg Enteric Coated Tablet PO SCH (10:04)
[2021-09-05] MEDS: Clotrimazole 1% Cream 15 GM TUBE TOP SCH ×2 (10:04→23:41)
[2021-09-05 10:13] LABS: #Basophils 0.1 thou/uL (0.0-0.2); #Eosinphils 0.6 thou/uL (0.0-0.7); #Lymphocytes 2.2 thou/uL (1.20-3.40); #Monocytes 0.9 thou/uL (0.11-0.59); #Neutrophils 5.5 thou/uL (1.40-6.50); %Basophils 1.1 % (0.0-1.0); %Eosinophils 6.3 % (0.0-10.0); %Lymphocytes 23.9 % (21.0-51.0); %Monocytes 9.4 % (0.0-10.0); %Neutrophils 59.3 % (42.0-75.0); Hemoglobin 12.1 g/dL (14.0-18.0); Mean Corpuscular HGB CONC 32.5 g/dL (32.0-36.0); Mean Corpuscular Hemoglobin 29.1 pg (27.0-31.0); Mean Corpuscular Volume 89.6 fL (78.0-98.0); Mean Platelet Volume 6.5 fL (7.4-10.4); Platelet Count 326 thou/uL (130-400); RBC Distribution Width 11.3 % (11.5-14.5); Red Blood Cell (RBC) Count 4.14 mill/uL (4.70-6.10); White Blood Cell (WBC) Count 9.2 thou/uL (4.8-10.8)
[2021-09-05] MEDS: Saccharomyces boulardii 250 MG CAP PO SCH ×2 (10:14→23:40)
[2021-09-05] MEDS: Lantus 1000 UNITS/10 ML VIAL SC SCH (10:14)
[2021-09-05 10:20] LABS: Bilirubin Negative (Negative); Blood, Urine Negative (Negative); Clarity Slightly Cloudy (Clear); Glucose, Urine (Dipstick) 100 mg/dL (Negative); Ketone, Urine Negative (Negative); Leukocyte Trace (Negative); Nitrite Negative (Negative); Protein, Urine (Dipstick) > or equal to 300 mg/dL (Neg-Trace); Specific Gravity, Urine 1.015 (1.005-1.030); Urobilinogen 0.2 mg/dL (Less than 2)
[2021-09-05 10:23] LABS: Anion Gap 16 mmol/L (10-20); BUN (Urea Nitrogen) 51 mg/dL (8.4-25.7); Calc. Creatinine Clearance 40 mL/min (70-130); Calcium 9.3 mg/dL (7.8-10.44); Carbon Dioxide 18 mmol/L (23-31); Chloride 105 mmol/L (98-107); Glucose 94 mg/dL (83-110); Potassium 5.1 mmol/L (3.5-5.1); Sodium 134 mmol/L (136-145)
[2021-09-05 10:35] LABS: RBC/HPF 0-3 HPF (0-3); Squamous Epithelial 0-3 HPF (0-3)
[2021-09-05 10:36] LABS: Bacteria/HPF 2+ HPF (None Seen)
[2021-09-05] MEDS: Sodium Chloride 0.9% 1,000 ML IV SCH ×2 (14:03→23:30)
[2021-09-05 20:32] LABS: SARS-CoV-2 PCR by NAA DETECTED (NotDetected)
[2021-09-05] MEDS: NIFEdipine XL 30 MG TAB PO SCH (23:39)
[2021-09-05] MEDS: Finasteride 5 MG TAB PO SCH (23:40)
[2021-09-05] MEDS: Ezetimibe 10 MG TAB PO SCH (23:40)
[2021-09-06] MEDS: Levothyroxine Sodium 100 MCG TAB PO SCH (05:33)
[2021-09-06 05:54] LABS: Anion Gap 15 mmol/L (10-20); BUN (Urea Nitrogen) 43 mg/dL (8.4-25.7); Calc. Creatinine Clearance 45 mL/min (70-130); Calcium 9.3 mg/dL (7.8-10.44); Carbon Dioxide 18 mmol/L (23-31); Chloride 107 mmol/L (98-107); Glucose 67 mg/dL (83-110); Potassium 4.2 mmol/L (3.5-5.1); Sodium 136 mmol/L (136-145)
[2021-09-06] MEDS: Saccharomyces boulardii 250 MG CAP PO SCH ×2 (08:14→21:53)
[2021-09-06] MEDS: Cholecalciferol 1,000 UNITS (25 MCG) TAB PO SCH (08:14)
[2021-09-06] MEDS: Famotidine 20 MG TAB PO SCH (08:14)
[2021-09-06] MEDS: Clotrimazole 1% Cream 15 GM TUBE TOP SCH ×2 (08:14→21:00)
[2021-09-06] MEDS: Loratadine 10 MG TAB PO SCH (08:14)
[2021-09-06] MEDS: Aspirin 81 mg Enteric Coated Tablet PO SCH (08:14)
[2021-09-06] MEDS: hydrALAZINE 25 MG TAB PO SCH ×3 (08:14→21:52)
[2021-09-06] MEDS: Lantus 1000 UNITS/10 ML VIAL SC SCH (08:18)
[2021-09-06] MEDS: Sodium Chloride 0.9% 1,000 ML IV SCH ×3 (10:11→21:00)
[2021-09-06] MEDS ORDERED: Cholecalciferol 1,000 UNITS (25 MCG) TAB PO SCH (11:45)
[2021-09-06] MEDS: Acetaminophen 325 MG TAB PO PRN (15:43)
[2021-09-06] MEDS: Ezetimibe 10 MG TAB PO SCH (21:52)
[2021-09-06] MEDS: Ascorbic Acid 500 mg Chewable Tablet PO SCH (21:52)
[2021-09-06] MEDS: NIFEdipine XL 30 MG TAB PO SCH (21:52)
[2021-09-06] MEDS: MOLNUPIRAVIR PO SCH (21:53)
[2021-09-06] MEDS: Finasteride 5 MG TAB PO SCH (21:53)
[2021-09-07] MEDS: Levothyroxine Sodium 100 MCG TAB PO SCH (05:07)
[2021-09-07 05:11] LABS: #Basophils 0.1 thou/uL (0.0-0.2); #Eosinphils 0.7 thou/uL (0.0-0.7); #Monocytes 0.7 thou/uL (0.11-0.59); #Neutrophils 5.9 thou/uL (1.40-6.50); %Basophils 0.7 % (0.0-1.0); %Eosinophils 7.4 % (0.0-10.0); %Lymphocytes 21.1 % (21.0-51.0); %Monocytes 7.9 % (0.0-10.0); %Neutrophils 62.9 % (42.0-75.0); Hemoglobin 11.7 g/dL (14.0-18.0); Mean Corpuscular HGB CONC 33.9 g/dL (32.0-36.0); Mean Corpuscular Hemoglobin 30.1 pg (27.0-31.0); Mean Corpuscular Volume 88.8 fL (78.0-98.0); Mean Platelet Volume 6.2 fL (7.4-10.4); Platelet Count 260 thou/uL (130-400); RBC Distribution Width 11.4 % (11.5-14.5); Red Blood Cell (RBC) Count 3.89 mill/uL (4.70-6.10); White Blood Cell (WBC) Count 9.4 thou/uL (4.8-10.8)
[2021-09-07 05:24] LABS: Anion Gap 15 mmol/L (10-20); BUN (Urea Nitrogen) 41 mg/dL (8.4-25.7); Calc. Creatinine Clearance 46 mL/min (70-130); Calcium 8.9 mg/dL (7.8-10.44); Carbon Dioxide 17 mmol/L (23-31); Chloride 109 mmol/L (98-107); Glucose 68 mg/dL (83-110); Potassium 4.7 mmol/L (3.5-5.1); Sodium 136 mmol/L (136-145)
[2021-09-07] MEDS: MOLNUPIRAVIR PO SCH ×2 (08:12→22:00)
[2021-09-07] MEDS: Lantus 1000 UNITS/10 ML VIAL SC SCH (08:13)
[2021-09-07] MEDS: Saccharomyces boulardii 250 MG CAP PO SCH ×2 (08:14→22:00)
[2021-09-07] MEDS: Ascorbic Acid 500 mg Chewable Tablet PO SCH ×2 (08:14→22:00)
[2021-09-07] MEDS: Aspirin 81 mg Enteric Coated Tablet PO SCH (08:14)
[2021-09-07] MEDS: Famotidine 20 MG TAB PO SCH (08:14)
[2021-09-07] MEDS: Loratadine 10 MG TAB PO SCH (08:14)
[2021-09-07] MEDS: Acetaminophen 325 MG TAB PO PRN (08:14)
[2021-09-07] MEDS: hydrALAZINE 25 MG TAB PO SCH ×3 (08:14→22:00)
[2021-09-07] MEDS: Zinc Sulfate 220 MG CAP PO SCH (08:15)
[2021-09-07] MEDS: Clotrimazole 1% Cream 15 GM TUBE TOP SCH ×2 (08:15→22:00)
[2021-09-07] MEDS: Cholecalciferol 1,000 UNITS (25 MCG) TAB PO SCH (08:16)
[2021-09-07] MEDS: Sodium Chloride 0.9% 1,000 ML IV SCH ×3 (11:12→18:18)
[2021-09-07] MEDS: HumaLOG 300 UNITS/3 ML VIAL SC PRN (16:52)
[2021-09-07] MEDS: NIFEdipine XL 30 MG TAB PO SCH (22:00)
[2021-09-07] MEDS: Ezetimibe 10 MG TAB PO SCH (22:00)
[2021-09-07] MEDS: Finasteride 5 MG TAB PO SCH (22:00)
[2021-09-08] MEDS: Sodium Chloride 0.9% 1,000 ML IV SCH ×3 (03:06→21:27)
[2021-09-08] MEDS: Levothyroxine Sodium 100 MCG TAB PO SCH (06:20)
[2021-09-08] MEDS: hydrALAZINE 25 MG TAB PO SCH ×3 (08:21→21:05)
[2021-09-08] MEDS: Cholecalciferol 1,000 UNITS (25 MCG) TAB PO SCH (08:21)
[2021-09-08] MEDS: Saccharomyces boulardii 250 MG CAP PO SCH ×2 (08:21→21:06)
[2021-09-08] MEDS: Acetaminophen 325 MG TAB PO PRN (08:21)
[2021-09-08] MEDS: Ascorbic Acid 500 mg Chewable Tablet PO SCH ×2 (08:22→21:06)
[2021-09-08] MEDS: Lantus 1000 UNITS/10 ML VIAL SC SCH (08:22)
[2021-09-08] MEDS: Aspirin 81 mg Enteric Coated Tablet PO SCH (08:22)
[2021-09-08] MEDS: Famotidine 20 MG TAB PO SCH (08:22)
[2021-09-08] MEDS: Loratadine 10 MG TAB PO SCH (08:22)
[2021-09-08] MEDS: Clotrimazole 1% Cream 15 GM TUBE TOP SCH ×2 (08:22→21:07)
[2021-09-08] MEDS: Zinc Sulfate 220 MG CAP PO SCH (08:22)
[2021-09-08] MEDS: MOLNUPIRAVIR PO SCH ×2 (08:23→21:08)
[2021-09-08] MEDS: HumaLOG 300 UNITS/3 ML VIAL SC PRN (17:04)
[2021-09-08] MEDS: NIFEdipine XL 30 MG TAB PO SCH (21:06)
[2021-09-08] MEDS: Ezetimibe 10 MG TAB PO SCH (21:06)
[2021-09-08] MEDS: Finasteride 5 MG TAB PO SCH (21:07)
[2021-09-09 05:36] LABS: Anion Gap 12 mmol/L (10-20); BUN (Urea Nitrogen) 34 mg/dL (8.4-25.7); Calc. Creatinine Clearance 53 mL/min (70-130); Calcium 9.2 mg/dL (7.8-10.44); Carbon Dioxide 19 mmol/L (23-31); Chloride 109 mmol/L (98-107); Glucose 65 mg/dL (83-110); Potassium 4.4 mmol/L (3.5-5.1); Sodium 136 mmol/L (136-145)
[2021-09-09] MEDS: Levothyroxine Sodium 100 MCG TAB PO SCH (05:48)
[2021-09-09] MEDS: Sodium Chloride 0.9% 1,000 ML IV SCH (08:30)
[2021-09-09] MEDS: Lantus 1000 UNITS/10 ML VIAL SC SCH (10:03)
[2021-09-09] MEDS: Saccharomyces boulardii 250 MG CAP PO SCH ×2 (10:03→21:27)
[2021-09-09] MEDS: Loratadine 10 MG TAB PO SCH (10:04)
[2021-09-09] MEDS: Famotidine 20 MG TAB PO SCH (10:04)
[2021-09-09] MEDS: Cholecalciferol 1,000 UNITS (25 MCG) TAB PO SCH (10:04)
[2021-09-09] MEDS: Aspirin 81 mg Enteric Coated Tablet PO SCH (10:04)
[2021-09-09] MEDS: hydrALAZINE 25 MG TAB PO SCH ×3 (10:04→21:29)
[2021-09-09] MEDS: Zinc Sulfate 220 MG CAP PO SCH (10:04)
[2021-09-09] MEDS: Ascorbic Acid 500 mg Chewable Tablet PO SCH ×2 (10:05→21:20)
[2021-09-09] MEDS: MOLNUPIRAVIR PO SCH ×2 (10:06→21:30)
[2021-09-09] MEDS: Clotrimazole 1% Cream 15 GM TUBE TOP SCH ×2 (10:06→21:34)
[2021-09-09 12:56] VITALS: BMI 26.6
[2021-09-09] MEDS: HumaLOG 300 UNITS/3 ML VIAL SC PRN (17:13)
[2021-09-09] MEDS: NIFEdipine XL 30 MG TAB PO SCH ×2 (21:25→21:26)
[2021-09-09] MEDS: Finasteride 5 MG TAB PO SCH (21:29)
[2021-09-09] MEDS: Ezetimibe 10 MG TAB PO SCH (21:30)
[2021-09-10] MEDS: Levothyroxine Sodium 100 MCG TAB PO SCH (06:15)
[2021-09-10] MEDS: Lantus 1000 UNITS/10 ML VIAL SC SCH (10:38)
[2021-09-10] MEDS: Loratadine 10 MG TAB PO SCH (10:39)
[2021-09-10] MEDS: Ascorbic Acid 500 mg Chewable Tablet PO SCH ×2 (10:39→20:07)
[2021-09-10] MEDS: Cholecalciferol 1,000 UNITS (25 MCG) TAB PO SCH (10:40)
[2021-09-10] MEDS: Famotidine 20 MG TAB PO SCH (10:40)
[2021-09-10] MEDS: hydrALAZINE 25 MG TAB PO SCH ×3 (10:40→20:08)
[2021-09-10] MEDS: Aspirin 81 mg Enteric Coated Tablet PO SCH (10:40)
[2021-09-10] MEDS: Zinc Sulfate 220 MG CAP PO SCH (10:40)
[2021-09-10] MEDS: MOLNUPIRAVIR PO SCH ×2 (10:41→20:27)
[2021-09-10] MEDS: Clotrimazole 1% Cream 15 GM TUBE TOP SCH ×2 (10:41→20:10)
[2021-09-10] MEDS: Saccharomyces boulardii 250 MG CAP PO SCH ×2 (10:42→20:07)
[2021-09-10] MEDS: Sodium Chloride 0.9% 1,000 ML IV SCH (19:35)
[2021-09-10] MEDS: Finasteride 5 MG TAB PO SCH (20:08)
[2021-09-10] MEDS: NIFEdipine XL 30 MG TAB PO SCH (20:08)
[2021-09-10] MEDS: Ezetimibe 10 MG TAB PO SCH (20:09)
[2021-09-11 05:33] LABS: Anion Gap 15 mmol/L (10-20); BUN (Urea Nitrogen) 36 mg/dL (8.4-25.7); Calc. Creatinine Clearance 48 mL/min (70-130); Calcium 8.4 mg/dL (7.8-10.44); Carbon Dioxide 18 mmol/L (23-31); Chloride 107 mmol/L (98-107); Glucose 104 mg/dL (83-110); Potassium 4.6 mmol/L (3.5-5.1); Sodium 135 mmol/L (136-145)
[2021-09-11] MEDS: Levothyroxine Sodium 100 MCG TAB PO SCH (05:38)
[2021-09-11] MEDS: Acetaminophen 325 MG TAB PO PRN (08:34)
[2021-09-11] MEDS: Cholecalciferol 1,000 UNITS (25 MCG) TAB PO SCH (08:35)
[2021-09-11] MEDS: hydrALAZINE 25 MG TAB PO SCH ×3 (08:35→20:28)
[2021-09-11] MEDS: Saccharomyces boulardii 250 MG CAP PO SCH ×2 (08:35→20:28)
[2021-09-11] MEDS: Loratadine 10 MG TAB PO SCH (08:35)
[2021-09-11] MEDS: Ascorbic Acid 500 mg Chewable Tablet PO SCH ×2 (08:35→20:29)
[2021-09-11] MEDS: Aspirin 81 mg Enteric Coated Tablet PO SCH (08:36)
[2021-09-11] MEDS: Clotrimazole 1% Cream 15 GM TUBE TOP SCH ×2 (08:36→20:30)
[2021-09-11] MEDS: Zinc Sulfate 220 MG CAP PO SCH (08:37)
[2021-09-11] MEDS: Famotidine 20 MG TAB PO SCH (08:37)
[2021-09-11] MEDS: Lantus 1000 UNITS/10 ML VIAL SC SCH (08:42)
[2021-09-11] MEDS: MOLNUPIRAVIR PO SCH (08:42)
[2021-09-11] MEDS: Ezetimibe 10 MG TAB PO SCH (20:28)
[2021-09-11] MEDS: Finasteride 5 MG TAB PO SCH (20:28)
[2021-09-11] MEDS: NIFEdipine XL 30 MG TAB PO SCH (20:29)
[2021-09-12] MEDS: Levothyroxine Sodium 100 MCG TAB PO SCH (05:30)
[2021-09-12] MEDS: Acetaminophen 325 MG TAB PO PRN ×3 (08:10→20:55)
[2021-09-12] MEDS: Lantus 1000 UNITS/10 ML VIAL SC SCH (08:11)
[2021-09-12] MEDS: Ascorbic Acid 500 mg Chewable Tablet PO SCH ×2 (08:11→20:55)
[2021-09-12] MEDS: Aspirin 81 mg Enteric Coated Tablet PO SCH (08:12)
[2021-09-12] MEDS: Saccharomyces boulardii 250 MG CAP PO SCH ×2 (08:12→20:54)
[2021-09-12] MEDS: Famotidine 20 MG TAB PO SCH (08:12)
[2021-09-12] MEDS: Loratadine 10 MG TAB PO SCH (08:12)
[2021-09-12] MEDS: Zinc Sulfate 220 MG CAP PO SCH (08:12)
[2021-09-12] MEDS: hydrALAZINE 25 MG TAB PO SCH ×3 (08:12→20:54)
[2021-09-12] MEDS: Cholecalciferol 1,000 UNITS (25 MCG) TAB PO SCH (08:13)
[2021-09-12] MEDS: Clotrimazole 1% Cream 15 GM TUBE TOP SCH ×2 (08:13→20:55)
[2021-09-12] MEDS: Ezetimibe 10 MG TAB PO SCH (20:54)
[2021-09-12] MEDS: NIFEdipine XL 30 MG TAB PO SCH (20:54)
[2021-09-12] MEDS: Finasteride 5 MG TAB PO SCH (20:55)
[2021-09-13] MEDS: Levothyroxine Sodium 100 MCG TAB PO SCH (05:19)
[2021-09-13] MEDS: Cholecalciferol 1,000 UNITS (25 MCG) TAB PO SCH (08:42)
[2021-09-13] MEDS: hydrALAZINE 25 MG TAB PO SCH ×3 (08:43→20:18)
[2021-09-13] MEDS: Zinc Sulfate 220 MG CAP PO SCH (08:43)
[2021-09-13] MEDS: Saccharomyces boulardii 250 MG CAP PO SCH ×2 (08:43→20:17)
[2021-09-13] MEDS: Aspirin 81 mg Enteric Coated Tablet PO SCH (08:43)
[2021-09-13] MEDS: Ascorbic Acid 500 mg Chewable Tablet PO SCH ×2 (08:43→20:19)
[2021-09-13] MEDS: Clotrimazole 1% Cream 15 GM TUBE TOP SCH ×2 (08:45→20:24)
[2021-09-13] MEDS: Famotidine 20 MG TAB PO SCH (08:48)
[2021-09-13] MEDS: Loratadine 10 MG TAB PO SCH (08:48)
[2021-09-13] MEDS: Lantus 1000 UNITS/10 ML VIAL SC SCH (08:52)
[2021-09-13] MEDS: Ezetimibe 10 MG TAB PO SCH (20:16)
[2021-09-13] MEDS: NIFEdipine XL 30 MG TAB PO SCH (20:16)
[2021-09-13] MEDS: Finasteride 5 MG TAB PO SCH (20:16)
[2021-09-13 23:53] LABS: Clarity Extra Turbid (Clear)
[2021-09-13 23:54] LABS: Specific Gravity, Urine 1.025 (1.002-1.036)
[2021-09-13 23:55] LABS: Leukocyte Large (Negative); Nitrite Positive (Negative)
[2021-09-13 23:56] LABS: Glucose, Urine (Dipstick) 100 mg/dL (Negative); Ketone, Urine 5 mg/dL (Negative); Protein, Urine (Dipstick) 100 mg/dL (Neg-Trace); Urobilinogen 0.2 mg/dL (Less than 2)
[2021-09-13 23:57] LABS: Bilirubin Negative (Negative); Blood, Urine Large (Negative)
[2021-09-13 23:59] LABS: RBC/HPF None Seen HPF (0-3)
[2021-09-14] LABS: Bacteria/HPF 2+ HPF (None Seen); Squamous Epithelial None Seen HPF (0-3); WBC/HPF Greater Than 50 HPF (0-3)
[2021-09-14] MEDS: Levothyroxine Sodium 100 MCG TAB PO SCH (05:08)
[2021-09-14] MEDS: Saccharomyces boulardii 250 MG CAP PO SCH ×2 (08:48→20:38)
[2021-09-14] MEDS: Ascorbic Acid 500 mg Chewable Tablet PO SCH ×2 (08:48→20:38)
[2021-09-14] MEDS: Loratadine 10 MG TAB PO SCH (08:48)
[2021-09-14] MEDS: Zinc Sulfate 220 MG CAP PO SCH (08:48)
[2021-09-14] MEDS: Cholecalciferol 1,000 UNITS (25 MCG) TAB PO SCH (08:48)
[2021-09-14] MEDS: Aspirin 81 mg Enteric Coated Tablet PO SCH (08:48)
[2021-09-14] MEDS: Famotidine 20 MG TAB PO SCH (08:48)
[2021-09-14] MEDS: hydrALAZINE 25 MG TAB PO SCH ×3 (08:49→20:36)
[2021-09-14] MEDS: Lantus 1000 UNITS/10 ML VIAL SC SCH (08:49)
[2021-09-14] MEDS: Clotrimazole 1% Cream 15 GM TUBE TOP SCH ×2 (08:52→20:38)
[2021-09-14] MEDS ORDERED: Cefdinir 300 MG CAP PO SCH ×2 (15:15→21:00)
[2021-09-14] MEDS: Acetaminophen 325 MG TAB PO PRN (20:35)
[2021-09-14] MEDS: Finasteride 5 MG TAB PO SCH (20:36)
[2021-09-14] MEDS: Cefdinir 300 MG CAP PO SCH (20:37)
[2021-09-14] MEDS: NIFEdipine XL 30 MG TAB PO SCH (20:37)
[2021-09-14] MEDS: Ezetimibe 10 MG TAB PO SCH (22:17)
[2021-09-15] MEDS: Levothyroxine Sodium 100 MCG TAB PO SCH (06:14)
[2021-09-15] MEDS: Cholecalciferol 1,000 UNITS (25 MCG) TAB PO SCH (09:36)
[2021-09-15] MEDS: Aspirin 81 mg Enteric Coated Tablet PO SCH (09:36)
[2021-09-15] MEDS: Ascorbic Acid 500 mg Chewable Tablet PO SCH ×2 (09:37→20:30)
[2021-09-15] MEDS: Loratadine 10 MG TAB PO SCH (09:38)
[2021-09-15] MEDS: Saccharomyces boulardii 250 MG CAP PO SCH ×2 (09:38→20:31)
[2021-09-15] MEDS: hydrALAZINE 25 MG TAB PO SCH ×3 (09:38→20:32)
[2021-09-15] MEDS: Cefdinir 300 MG CAP PO SCH ×2 (09:38→20:33)
[2021-09-15] MEDS: Famotidine 20 MG TAB PO SCH (09:38)
[2021-09-15] MEDS: Zinc Sulfate 220 MG CAP PO SCH (09:38)
[2021-09-15] MEDS: Lantus 1000 UNITS/10 ML VIAL SC SCH (09:39)
[2021-09-15] MEDS: Clotrimazole 1% Cream 15 GM TUBE TOP SCH ×2 (09:42→20:35)
[2021-09-15] MEDS: NIFEdipine XL 30 MG TAB PO SCH (20:31)
[2021-09-15] MEDS: Ezetimibe 10 MG TAB PO SCH (20:32)
[2021-09-15] MEDS: Finasteride 5 MG TAB PO SCH (20:33)
[2021-09-16] MEDS: Levothyroxine Sodium 100 MCG TAB PO SCH (05:07)
[2021-09-16] MEDS: Ascorbic Acid 500 mg Chewable Tablet PO SCH ×2 (08:42→21:30)
[2021-09-16] MEDS: Zinc Sulfate 220 MG CAP PO SCH (08:42)
[2021-09-16] MEDS: Lantus 1000 UNITS/10 ML VIAL SC SCH (08:42)
[2021-09-16] MEDS: Famotidine 20 MG TAB PO SCH (08:43)
[2021-09-16] MEDS: Saccharomyces boulardii 250 MG CAP PO SCH ×2 (08:43→21:30)
[2021-09-16] MEDS: Cefdinir 300 MG CAP PO SCH ×2 (08:43→21:30)
[2021-09-16] MEDS: Loratadine 10 MG TAB PO SCH (08:43)
[2021-09-16] MEDS: Aspirin 81 mg Enteric Coated Tablet PO SCH (08:43)
[2021-09-16] MEDS: hydrALAZINE 25 MG TAB PO SCH ×3 (08:43→21:29)
[2021-09-16] MEDS: Cholecalciferol 1,000 UNITS (25 MCG) TAB PO SCH (08:43)
[2021-09-16] MEDS: Clotrimazole 1% Cream 15 GM TUBE TOP SCH ×2 (08:44→21:30)
[2021-09-16] MEDS: Finasteride 5 MG TAB PO SCH (21:29)
[2021-09-16] MEDS: NIFEdipine XL 30 MG TAB PO SCH (21:30)
[2021-09-16] MEDS: Ezetimibe 10 MG TAB PO SCH (21:30)
[2021-09-17] MEDS: Levothyroxine Sodium 100 MCG TAB PO SCH (05:08)
[2021-09-17] MEDS: Aspirin 81 mg Enteric Coated Tablet PO SCH (08:43)
[2021-09-17] MEDS: Cefdinir 300 MG CAP PO SCH ×2 (08:43→20:34)
[2021-09-17] MEDS: Ascorbic Acid 500 mg Chewable Tablet PO SCH ×2 (08:43→20:35)
[2021-09-17] MEDS: Cholecalciferol 1,000 UNITS (25 MCG) TAB PO SCH (08:43)
[2021-09-17] MEDS: hydrALAZINE 25 MG TAB PO SCH ×3 (08:44→20:35)
[2021-09-17] MEDS: Loratadine 10 MG TAB PO SCH (08:44)
[2021-09-17] MEDS: Saccharomyces boulardii 250 MG CAP PO SCH ×2 (08:44→20:35)
[2021-09-17] MEDS: Zinc Sulfate 220 MG CAP PO SCH (08:44)
[2021-09-17] MEDS: Famotidine 20 MG TAB PO SCH (08:44)
[2021-09-17] MEDS: Lantus 1000 UNITS/10 ML VIAL SC SCH (08:48)
[2021-09-17] MEDS: Clotrimazole 1% Cream 15 GM TUBE TOP SCH ×2 (08:53→20:38)
[2021-09-17] MEDS: NIFEdipine XL 30 MG TAB PO SCH (20:35)
[2021-09-17] MEDS: Ezetimibe 10 MG TAB PO SCH (20:35)
[2021-09-17] MEDS: Finasteride 5 MG TAB PO SCH (20:35)
[2021-09-18] MEDS: Levothyroxine Sodium 100 MCG TAB PO SCH (07:21)
[2021-09-18] MEDS: Cholecalciferol 1,000 UNITS (25 MCG) TAB PO SCH (09:00)
[2021-09-18] MEDS: Loratadine 10 MG TAB PO SCH (09:00)
[2021-09-18] MEDS: hydrALAZINE 25 MG TAB PO SCH ×3 (09:00→20:47)
[2021-09-18] MEDS: Saccharomyces boulardii 250 MG CAP PO SCH ×2 (09:00→20:47)
[2021-09-18] MEDS: Cefdinir 300 MG CAP PO SCH ×2 (09:00→20:47)
[2021-09-18] MEDS: Famotidine 20 MG TAB PO SCH (09:00)
[2021-09-18] MEDS: Aspirin 81 mg Enteric Coated Tablet PO SCH (09:00)
[2021-09-18] MEDS: Ascorbic Acid 500 mg Chewable Tablet PO SCH ×2 (09:01→20:47)
[2021-09-18] MEDS: Lantus 1000 UNITS/10 ML VIAL SC SCH (09:01)
[2021-09-18] MEDS: Zinc Sulfate 220 MG CAP PO SCH (09:04)
[2021-09-18] MEDS: Clotrimazole 1% Cream 15 GM TUBE TOP SCH ×2 (09:08→20:48)
[2021-09-18] MEDS: NIFEdipine XL 30 MG TAB PO SCH (20:47)
[2021-09-18] MEDS: Finasteride 5 MG TAB PO SCH (20:47)
[2021-09-18] MEDS: Ezetimibe 10 MG TAB PO SCH (20:47)
[2021-09-19] MEDS: Levothyroxine Sodium 100 MCG TAB PO SCH (05:34)
[2021-09-19] MEDS: Cefdinir 300 MG CAP PO SCH ×2 (08:22→20:38)
[2021-09-19] MEDS: hydrALAZINE 25 MG TAB PO SCH ×3 (08:22→20:38)
[2021-09-19] MEDS: Cholecalciferol 1,000 UNITS (25 MCG) TAB PO SCH (08:22)
[2021-09-19] MEDS: Famotidine 20 MG TAB PO SCH (08:22)
[2021-09-19] MEDS: Saccharomyces boulardii 250 MG CAP PO SCH ×2 (08:23→20:38)
[2021-09-19] MEDS: Aspirin 81 mg Enteric Coated Tablet PO SCH (08:23)
[2021-09-19] MEDS: Loratadine 10 MG TAB PO SCH (08:23)
[2021-09-19] MEDS: Lantus 1000 UNITS/10 ML VIAL SC SCH (08:23)
[2021-09-19] MEDS: Zinc Sulfate 220 MG CAP PO SCH (08:23)
[2021-09-19] MEDS: Clotrimazole 1% Cream 15 GM TUBE TOP SCH ×2 (08:24→20:38)
[2021-09-19] MEDS: Ascorbic Acid 500 mg Chewable Tablet PO SCH ×2 (08:25→20:38)
[2021-09-19] MEDS: NIFEdipine XL 30 MG TAB PO SCH (20:37)
[2021-09-19] MEDS: Ezetimibe 10 MG TAB PO SCH (20:38)
[2021-09-19] MEDS: Finasteride 5 MG TAB PO SCH (20:38)
[2021-09-20] MEDS: Levothyroxine Sodium 100 MCG TAB PO SCH (05:22)
[2021-09-20] MEDS: Saccharomyces boulardii 250 MG CAP PO SCH ×2 (08:37→21:33)
[2021-09-20] MEDS: Cefdinir 300 MG CAP PO SCH ×2 (08:37→21:32)
[2021-09-20] MEDS: hydrALAZINE 25 MG TAB PO SCH ×3 (08:37→21:33)
[2021-09-20] MEDS: Famotidine 20 MG TAB PO SCH (08:37)
[2021-09-20] MEDS: Loratadine 10 MG TAB PO SCH (08:37)
[2021-09-20] MEDS: Aspirin 81 mg Enteric Coated Tablet PO SCH (08:38)
[2021-09-20] MEDS: Ascorbic Acid 500 mg Chewable Tablet PO SCH (08:38)
[2021-09-20] MEDS: Clotrimazole 1% Cream 15 GM TUBE TOP SCH ×2 (08:42→21:39)
[2021-09-20] MEDS: Zinc Sulfate 220 MG CAP PO SCH (08:46)
[2021-09-20] MEDS: Cholecalciferol 1,000 UNITS (25 MCG) TAB PO SCH (08:46)
[2021-09-20] MEDS: Lantus 1000 UNITS/10 ML VIAL SC SCH (08:47)
[2021-09-20] MEDS ORDERED: Cholecalciferol 1,000 UNITS (25 MCG) TAB PO SCH (10:15)
[2021-09-20] MEDS: NIFEdipine XL 30 MG TAB PO SCH (21:32)
[2021-09-20] MEDS: Ezetimibe 10 MG TAB PO SCH (21:32)
[2021-09-20] MEDS: Finasteride 5 MG TAB PO SCH (21:32)
[2021-09-21] MEDS: Levothyroxine Sodium 100 MCG TAB PO SCH (05:04)
[2021-09-21] MEDS: Lantus 1000 UNITS/10 ML VIAL SC SCH (08:31)
[2021-09-21] MEDS: Cholecalciferol 1,000 UNITS (25 MCG) TAB PO SCH (08:32)
[2021-09-21] MEDS: Cefdinir 300 MG CAP PO SCH ×2 (08:32→21:55)
[2021-09-21] MEDS: Famotidine 20 MG TAB PO SCH (08:32)
[2021-09-21] MEDS: Loratadine 10 MG TAB PO SCH (08:32)
[2021-09-21] MEDS: hydrALAZINE 25 MG TAB PO SCH ×3 (08:32→21:55)
[2021-09-21] MEDS: Saccharomyces boulardii 250 MG CAP PO SCH ×2 (08:32→21:55)
[2021-09-21] MEDS: Aspirin 81 mg Enteric Coated Tablet PO SCH (08:33)
[2021-09-21] MEDS: Clotrimazole 1% Cream 15 GM TUBE TOP SCH ×2 (08:33→21:57)
[2021-09-21] MEDS ORDERED: Lantiseptic Ointment 130 GM JAR TOP PRN (09:07)
[2021-09-21] MEDS: Lantiseptic Ointment 130 GM JAR TOP SCH (20:45)
[2021-09-21] MEDS: Ezetimibe 10 MG TAB PO SCH (21:55)
[2021-09-21] MEDS: NIFEdipine XL 30 MG TAB PO SCH (21:55)
[2021-09-21] MEDS: Finasteride 5 MG TAB PO SCH (21:55)
[2021-09-22] MEDS: Levothyroxine Sodium 100 MCG TAB PO SCH (05:38)
[2021-09-22] MEDS: Acetaminophen 325 MG TAB PO PRN ×4 (05:38→21:06)
[2021-09-22] MEDS: Cefdinir 300 MG CAP PO SCH ×2 (08:33→21:05)
[2021-09-22] MEDS: hydrALAZINE 25 MG TAB PO SCH ×3 (08:33→21:05)
[2021-09-22] MEDS: Saccharomyces boulardii 250 MG CAP PO SCH ×2 (08:34→21:05)
[2021-09-22] MEDS: Cholecalciferol 1,000 UNITS (25 MCG) TAB PO SCH (08:34)
[2021-09-22] MEDS: Famotidine 20 MG TAB PO SCH (08:34)
[2021-09-22] MEDS: Lantus 1000 UNITS/10 ML VIAL SC SCH (08:34)
[2021-09-22] MEDS: Lantiseptic Ointment 130 GM JAR TOP SCH ×2 (08:34→21:07)
[2021-09-22] MEDS: Loratadine 10 MG TAB PO SCH (08:34)
[2021-09-22] MEDS: Clotrimazole 1% Cream 15 GM TUBE TOP SCH ×2 (08:34→21:06)
[2021-09-22] MEDS: Aspirin 81 mg Enteric Coated Tablet PO SCH (08:34)
[2021-09-22] MEDS: hydrOXYzine 25 MG TAB PO PRN (17:05)
[2021-09-22] MEDS: NIFEdipine XL 30 MG TAB PO SCH (21:04)
[2021-09-22] MEDS: Ezetimibe 10 MG TAB PO SCH (21:05)
[2021-09-22] MEDS: Finasteride 5 MG TAB PO SCH (21:05)
[2021-09-23] MEDS: Levothyroxine Sodium 100 MCG TAB PO SCH (05:21)
[2021-09-23] MEDS: Saccharomyces boulardii 250 MG CAP PO SCH ×2 (09:39→20:40)
[2021-09-23] MEDS: Aspirin 81 mg Enteric Coated Tablet PO SCH (09:39)
[2021-09-23] MEDS: Cholecalciferol 1,000 UNITS (25 MCG) TAB PO SCH (09:39)
[2021-09-23] MEDS: Cefdinir 300 MG CAP PO SCH ×2 (09:40→20:40)
[2021-09-23] MEDS: Lantus 1000 UNITS/10 ML VIAL SC SCH (09:40)
[2021-09-23] MEDS: Loratadine 10 MG TAB PO SCH (09:40)
[2021-09-23] MEDS: Famotidine 20 MG TAB PO SCH (09:40)
[2021-09-23] MEDS: hydrALAZINE 25 MG TAB PO SCH ×3 (09:40→20:40)
[2021-09-23] MEDS: Clotrimazole 1% Cream 15 GM TUBE TOP SCH ×2 (09:41→20:41)
[2021-09-23] MEDS: Lantiseptic Ointment 130 GM JAR TOP SCH ×2 (09:44→20:41)
[2021-09-23] MEDS: Finasteride 5 MG TAB PO SCH (20:40)
[2021-09-23] MEDS: Ezetimibe 10 MG TAB PO SCH (20:40)
[2021-09-23] MEDS: NIFEdipine XL 30 MG TAB PO SCH (20:40)
[2021-09-24 05:32] LABS: #Basophils 0.1 thou/uL (0.0-0.2); #Eosinphils 1.3 thou/uL (0.0-0.7); #Lymphocytes 2.2 thou/uL (1.20-3.40); #Monocytes 0.7 thou/uL (0.11-0.59); #Neutrophils 5.3 thou/uL (1.40-6.50); %Basophils 0.9 % (0.0-1.0); %Eosinophils 13.7 % (0.0-10.0); %Lymphocytes 22.8 % (21.0-51.0); %Monocytes 7.6 % (0.0-10.0); %Neutrophils 55.1 % (42.0-75.0); Hemoglobin 12.5 g/dL (14.0-18.0); Mean Corpuscular HGB CONC 32.7 g/dL (32.0-36.0); Mean Corpuscular Hemoglobin 28.8 pg (27.0-31.0); Mean Corpuscular Volume 88.2 fL (78.0-98.0); Mean Platelet Volume 6.1 fL (7.4-10.4); Platelet Count 333 thou/uL (130-400); RBC Distribution Width 11.5 % (11.5-14.5); Red Blood Cell (RBC) Count 4.35 mill/uL (4.70-6.10); White Blood Cell (WBC) Count 9.6 thou/uL (4.8-10.8)
[2021-09-24] MEDS: Levothyroxine Sodium 100 MCG TAB PO SCH (05:34)
[2021-09-24 05:47] LABS: Anion Gap 14 mmol/L (10-20); BUN (Urea Nitrogen) 40 mg/dL (8.4-25.7); Calc. Creatinine Clearance 40 mL/min (70-130); Calcium 9.6 mg/dL (7.8-10.44); Carbon Dioxide 20 mmol/L (23-31); Chloride 105 mmol/L (98-107); Glucose 98 mg/dL (83-110); Potassium 4.2 mmol/L (3.5-5.1); Sodium 135 mmol/L (136-145)
[2021-09-24] MEDS: Famotidine 20 MG TAB PO SCH (09:11)
[2021-09-24] MEDS: Cefdinir 300 MG CAP PO SCH ×2 (09:11→21:04)
[2021-09-24] MEDS: Cholecalciferol 1,000 UNITS (25 MCG) TAB PO SCH (09:11)
[2021-09-24] MEDS: Aspirin 81 mg Enteric Coated Tablet PO SCH (09:11)
[2021-09-24] MEDS: Loratadine 10 MG TAB PO SCH (09:11)
[2021-09-24] MEDS: Saccharomyces boulardii 250 MG CAP PO SCH ×2 (09:11→21:04)
[2021-09-24] MEDS: hydrALAZINE 25 MG TAB PO SCH ×3 (09:12→21:03)
[2021-09-24] MEDS: Clotrimazole 1% Cream 15 GM TUBE TOP SCH ×2 (09:13→21:04)
[2021-09-24] MEDS: Lantiseptic Ointment 130 GM JAR TOP SCH ×2 (09:13→21:04)
[2021-09-24] MEDS: Lantus 1000 UNITS/10 ML VIAL SC SCH (09:13)
[2021-09-24] MEDS: NIFEdipine XL 30 MG TAB PO SCH (21:01)
[2021-09-24] MEDS: Finasteride 5 MG TAB PO SCH (21:03)
[2021-09-24] MEDS: Ezetimibe 10 MG TAB PO SCH (21:04)
[2021-09-25] MEDS: Levothyroxine Sodium 100 MCG TAB PO SCH (05:29)
[2021-09-25] MEDS: Famotidine 20 MG TAB PO SCH (09:04)
[2021-09-25] MEDS: hydrALAZINE 25 MG TAB PO SCH ×3 (09:04→20:24)
[2021-09-25] MEDS: Loratadine 10 MG TAB PO SCH (09:05)
[2021-09-25] MEDS: Aspirin 81 mg Enteric Coated Tablet PO SCH (09:05)
[2021-09-25] MEDS: Lantus 1000 UNITS/10 ML VIAL SC SCH (09:05)
[2021-09-25] MEDS: Saccharomyces boulardii 250 MG CAP PO SCH ×2 (09:05→20:23)
[2021-09-25] MEDS: Cholecalciferol 1,000 UNITS (25 MCG) TAB PO SCH (09:05)
[2021-09-25] MEDS: Lantiseptic Ointment 130 GM JAR TOP SCH ×2 (09:06→20:46)
[2021-09-25] MEDS: Clotrimazole 1% Cream 15 GM TUBE TOP SCH ×2 (09:06→20:46)
[2021-09-25] MEDS: Finasteride 5 MG TAB PO SCH (20:23)
[2021-09-25] MEDS: Ezetimibe 10 MG TAB PO SCH (20:23)
[2021-09-25] MEDS: NIFEdipine XL 30 MG TAB PO SCH (20:24)
[2021-09-25] MEDS: Acetaminophen 325 MG TAB PO PRN (20:24)
[2021-09-26] MEDS: Levothyroxine Sodium 100 MCG TAB PO SCH (05:37)
[2021-09-26] MEDS: Lantus 1000 UNITS/10 ML VIAL SC SCH (08:21)
[2021-09-26] MEDS: Loratadine 10 MG TAB PO SCH (08:22)
[2021-09-26] MEDS: Saccharomyces boulardii 250 MG CAP PO SCH ×2 (08:22→21:55)
[2021-09-26] MEDS: Cholecalciferol 1,000 UNITS (25 MCG) TAB PO SCH (08:22)
[2021-09-26] MEDS: hydrALAZINE 25 MG TAB PO SCH ×3 (08:22→21:53)
[2021-09-26] MEDS: Aspirin 81 mg Enteric Coated Tablet PO SCH (08:22)
[2021-09-26] MEDS: Famotidine 20 MG TAB PO SCH (08:22)
[2021-09-26] MEDS: Clotrimazole 1% Cream 15 GM TUBE TOP SCH ×2 (08:23→21:52)
[2021-09-26] MEDS: Lantiseptic Ointment 130 GM JAR TOP SCH ×2 (08:23→21:56)
[2021-09-26] MEDS: Acetaminophen 325 MG TAB PO PRN (16:26)
[2021-09-26] MEDS: Ezetimibe 10 MG TAB PO SCH (21:52)
[2021-09-26] MEDS: Finasteride 5 MG TAB PO SCH (21:53)
[2021-09-26] MEDS: NIFEdipine XL 30 MG TAB PO SCH (21:54)
[2021-09-26] MEDS: hydrOXYzine 25 MG TAB PO PRN (21:55)
[2021-09-27] MEDS: Levothyroxine Sodium 100 MCG TAB PO SCH (06:17)
[2021-09-27 08:04] VITALS: BP 157/74; TEMP 97.7
[2021-09-27] MEDS: hydrALAZINE 25 MG TAB PO SCH ×2 (08:28→15:16)
[2021-09-27] MEDS: Saccharomyces boulardii 250 MG CAP PO SCH (08:28)
[2021-09-27] MEDS: Lantus 1000 UNITS/10 ML VIAL SC SCH (08:28)
[2021-09-27] MEDS: Cholecalciferol 1,000 UNITS (25 MCG) TAB PO SCH (08:28)
[2021-09-27] MEDS: Lantiseptic Ointment 130 GM JAR TOP SCH (08:29)
[2021-09-27] MEDS: Clotrimazole 1% Cream 15 GM TUBE TOP SCH (08:29)
[2021-09-27] MEDS: Famotidine 20 MG TAB PO SCH (08:29)
[2021-09-27] MEDS: Loratadine 10 MG TAB PO SCH (08:29)
[2021-09-27] MEDS: Aspirin 81 mg Enteric Coated Tablet PO SCH (08:30)
== END 2021-09-27 15:45 | disposition home health service (06) | DRG 947 ==
LOC: MADMS 19:25
PROVIDERS: ADMIT Family Medicine; ATTEND Family Medicine
PROC: 8E0ZXY6 Isolation (ICD-10-PCS; principal; 2021-09-05)
DX: R53.81 Other malaise (principal); U07.1 COVID-19; B37.89 Other sites of candidiasis; N17.9 Acute kidney failure, unspecified; R33.9 Retention of urine, unspecified; G47.33 Obstructive sleep apnea (adult) (pediatric); G30.9 Alzheimer's disease, unspecified; F02.80 Dementia in other diseases classified elsewhere, unspecified severity, without behavioral disturbance, psychotic disturbance, mood disturbance, and anxiety; I25.10 Atherosclerotic heart disease of native coronary artery without angina pectoris; I12.9 Hypertensive chronic kidney disease with stage 1 through stage 4 chronic kidney disease, or unspecified chronic kidney disease; E03.9 Hypothyroidism, unspecified; K21.9 Gastro-esophageal reflux disease without esophagitis; N18.9 Chronic kidney disease, unspecified; E11.42 Type 2 diabetes mellitus with diabetic polyneuropathy; E78.5 Hyperlipidemia, unspecified; Z85.51 Personal history of malignant neoplasm of bladder; Z79.82 Long term (current) use of aspirin; Z79.899 Other long term (current) drug therapy; Z88.1 Allergy status to other antibiotic agents
CPT/HCPCS: 36415; 36416; 80048; 81001; 85025; 87077; 87086; 87186; J1815; J7050; U0003; U0005

== ENCOUNTER 2021-10-21 13:53 | Outpatient (CLI) | payer MEDICARE ==
[2021-10-21 14:05] LABS: Bilirubin Negative (Negative); Blood, Urine Small (Negative); Glucose, Urine (Dipstick) 100 mg/dL (Negative); Ketone, Urine Negative (Negative); Leukocyte Moderate (Negative); Nitrite Negative (Negative); Protein, Urine (Dipstick) 100 mg/dL (Neg-Trace); Urobilinogen 0.2 mg/dL (Less than 2)
[2021-10-21 14:07] LABS: Clarity Cloudy (Clear)
[2021-10-21 14:20] LABS: WBC/HPF Greater Than 50 HPF (0-3)
[2021-10-21 14:44] LABS: RBC/HPF 0-3 HPF (0-3)
[2021-10-21 14:45] LABS: Bacteria/HPF 4+ HPF (None Seen); Squamous Epithelial 0-3 HPF (0-3)
== END 2021-10-21 13:54 | disposition home or self-care (01) ==
LOC: MADLAB 13:53
PROVIDERS: ATTEND Family Medicine
DX: E11.22 Type 2 diabetes mellitus with diabetic chronic kidney disease (principal); Z87.440 Personal history of urinary (tract) infections; N18.9 Chronic kidney disease, unspecified
CPT/HCPCS: 81001; 87077; 87086; 87186

== ENCOUNTER 2021-10-24 13:21 | Emergency (ER) | payer MEDICARE ==
[2021-10-24] MEDS ORDERED: Magnesium 2 GM/50 ML BAG (IN WATER) ONE (14:12)
[2021-10-24] MEDS ORDERED: Nitrofurantoin Monohyd/M-Cryst 100 MG CAP ONE (14:12)
[2021-10-24] MEDS ORDERED: Ibuprofen 400 MG TAB ONE (14:41)
== END 2021-10-24 14:50 | disposition home or self-care (01) ==
LOC: MADERS 13:21
DX: M79.18 Myalgia, other site (principal); N39.0 Urinary tract infection, site not specified; E03.9 Hypothyroidism, unspecified; K21.9 Gastro-esophageal reflux disease without esophagitis; G30.9 Alzheimer's disease, unspecified; I10 Essential (primary) hypertension; Z85.51 Personal history of malignant neoplasm of bladder
CPT/HCPCS: 70450; J3475

== ENCOUNTER 2022-03-07 12:18 | Emergency (ER) | payer MEDICARE ==
[~2022-03-07 12:18] MED LIST changes: +Iopamidol 370 76% 100 ML VIAL ONE; -Sodium Chloride 0.9% 1,000 ML BAG ONE
[2022-03-07] MEDS ORDERED: Sodium Chloride 0.9% 500 ML ONE (13:06)
[2022-03-07] MEDS ORDERED: Ibuprofen 400 MG TAB ONE (13:06)
[2022-03-07 13:25] LABS: #Eosinphils 0.5 thou/uL (0.0-0.7); #Lymphocytes 1.2 thou/uL (1.20-3.40); #Monocytes 0.5 thou/uL (0.11-0.59); #Neutrophils 3.6 thou/uL (1.40-6.50); %Basophils 0.5 % (0.0-1.0); %Eosinophils 9.2 % (0.0-10.0); %Lymphocytes 21.2 % (21.0-51.0); %Neutrophils 61.2 % (42.0-75.0); Hemoglobin 7.1 g/dL (14.0-18.0); Mean Corpuscular HGB CONC 31.2 g/dL (32.0-36.0); Mean Corpuscular Hemoglobin 26.9 pg (27.0-31.0); Mean Corpuscular Volume 86.2 fL (78.0-98.0); Platelet Count 251 thou/uL (130-400); RBC Distribution Width 13.7 % (11.5-14.5); Red Blood Cell (RBC) Count 2.66 mill/uL (4.70-6.10); White Blood Cell (WBC) Count 5.9 thou/uL (4.8-10.8)
[2022-03-07 13:37] LABS: Anion Gap 12 mmol/L (10-20); BUN (Urea Nitrogen) 39 mg/dL (8.4-25.7); Calc. Creatinine Clearance 0 mL/min (70-130); Calcium 8.7 mg/dL (7.8-10.44); Carbon Dioxide 17 mmol/L (23-31); Chloride 109 mmol/L (98-107); Estimated GFR 37; Glucose 140 mg/dL (83-110); Potassium 5.1 mmol/L (3.5-5.1); Sodium 133 mmol/L (136-145)
[2022-03-07 15:51] LABS: Bacteria/HPF Rare-Few HPF (None Seen); Bilirubin Negative (Negative); Blood, Urine Negative (Negative); Clarity Clear (Clear); Glucose, Urine (Dipstick) Negative (Negative); Ketone, Urine Negative (Negative); Leukocyte Negative (Negative); Nitrite Negative (Negative); Protein, Urine (Dipstick) 100 mg/dL (Neg-Trace); RBC/HPF None Seen HPF (0-3); Specific Gravity, Urine 1.015 (1.005-1.030); Squamous Epithelial 0-3 HPF (0-3); Urobilinogen 0.2 mg/dL (Less than 2)
[2022-03-07 15:53] LABS: SARS-CoV-2 NAA Rapid Test Not Detected (NotDetected)
== END 2022-03-07 22:02 | disposition short-term general hospital (02) ==
LOC: MADERS 12:18
DX: R51.9 Headache, unspecified (principal); D64.9 Anemia, unspecified; I71.4 Abdominal aortic aneurysm, without rupture; N28.1 Cyst of kidney, acquired; N32.89 Other specified disorders of bladder; N39.0 Urinary tract infection, site not specified; R53.1 Weakness; J44.9 Chronic obstructive pulmonary disease, unspecified; K21.9 Gastro-esophageal reflux disease without esophagitis; E03.9 Hypothyroidism, unspecified; I10 Essential (primary) hypertension; G62.9 Polyneuropathy, unspecified; G30.9 Alzheimer's disease, unspecified; F02.80 Dementia in other diseases classified elsewhere, unspecified severity, without behavioral disturbance, psychotic disturbance, mood disturbance, and anxiety; Z20.822 Contact with and (suspected) exposure to COVID-19; Z87.891 Personal history of nicotine dependence; Z79.82 Long term (current) use of aspirin; Z79.4 Long term (current) use of insulin; Z79.899 Other long term (current) drug therapy
CPT/HCPCS: 71045; 74177; 80048; 85025; 87086; U0002; 81003; 81015; 82274; J7030; Q9967